=== PATIENT | female | born 1950 | race Caucasian/White ===

== ENCOUNTER 2016-05-07 11:45 | Inpatient (IN) ==
[2016-05-07 13:04] LABS: Basophils # 0.1 K/mcL (0.0-0.2); Basophils % 1.3 %; Eosinophils # 0.5 K/mcL (0.0-0.6); Eosinophils % 4.9 %; Immature Granulocytes % 0.3 % (0-4); Immature Platelets 1.2 % (1.1-6.1); Mean Corpuscular HGB Conc 32.5 g/dL (31.6-35.5); Mean Corpuscular Volume 89.3 fL (83.0-100.0); Mean Platelet Volume 8.2 fL (9.4-12.4); Monocytes # 0.7 K/mcL (0.0-1.3); Monocytes % 6.8 %; Neutrophils # 6.3 K/mcL (1.6-8.9); Platelet Count 225 K/mcL (140-400); Red Blood Count 4.48 M/mcL (3.82-4.97); Red Cell Distribution Width 13.3 % (11.5-14.5); Segmented Neutrophils % 65.7 %
[2016-05-07 13:16] LABS: Calcium 8.6 mg/dL (8.6-10.8); Magnesium 1.7 mg/dL (1.6-2.6); Phosphorous 4.9 mg/dL (2.3-4.7)
--- NOTE | 2016-05-07 13:18 | Emergency Department Note ---
Disposition Clinical Impression: Acute hyponatremia, Dehydration with hyponatremia, Weakness generalized, Falls frequently Disposition: Admitted As Inpatient Condition: Fair Referrals: Nataly Reyes MD [Primary Care Provider] - Forms: ED Satisfaction Letter Time of Disposition: 14:37 Weakness HPI - General Chief complaint: ED Weakness Stated complaint: fall no loc Time Seen by Provider: 05/07/16 12:00 Source: patient, family Mode of arrival: EMS Limitations: no limitations Nursing Notes Reviewed: Yes Vital Signs Reviewed: Yes - History of Present Illness HPI Narrative: Patient reports having several falls over the past couple of days. This morning she fell and struck her face on the coffee table as she was going down. She denies any loss of consciousness. When asked to describe what happens during one of these episodes she says that her knees just start to get we can give out on her and then all of a sudden she is on the floor. She is morbidly obese and her is unable to get her up by himself so he has to call the squad to get her up. She had 3 falls in the past couple days. She has had other falls within the past month. She had weakness and falling episodes frequently a few years ago but seems to have resolve that issue. Patient cannot tell me what workup was done or what diagnosis was made in the past when she had these episodes and she is unable to tell me what made them go away. Pt Subjective Complaint: generalized weakness/fatigue, other (Falls) Onset (ago): day(s) (Several days.) Duration: intermittent (Patient states that the episodes will just hit her. Her knees get weak and she goes down. She mentioned feeling dizzy but when I asked her to describe the feeling she says she cannot give a description to her because everything just hits her so fast she is on the ground.) Location: generalized Migration: none Pain Scale: 4 Improves with: none Worsens with: none Context: history of similar (She had episodes like this about 3-4 years ago but she does not recall what the diagnosis was and I could not find any indication of syncope in the most recent history and physicals done here at this facility.) Associated symptoms: Denies: chest pain, dark stools, nausea/vomiting - Related Data Home Medications Medication Instructions Recorded Confirmed Albuterol Sulfate [Albuterol 90 mcg IH Q4HR PRN 01/18/15 01/18/15 Inhaler] Budesonide/Formoterol 80/4.5 2 puff IH BID PRN 01/18/15 01/18/15 [Symbicort 80/4.5] ClonazePAM [Klonopin] 0.5 mg PO BID 01/18/15 01/18/15 Diltiazem [Cardizem] 60 mg PO BID 01/18/15 01/18/15 Duloxetine HCl [Cymbalta] 60 mg PO DAILY 01/18/15 01/18/15 Gabapentin [Neurontin] 1,200 mg PO TID 01/18/15 01/18/15 GlipiZIDE [Glucotrol] 20 mg PO BID 01/18/15 01/18/15 Hydrocodone/Acetaminophen [[place] 1 tab PO Q6H PRN 01/18/15 01/18/15 10-325 Tablet] Insulin ASPART [NovoLOG] 0 unit SQ TIDWM 01/18/15 01/18/15 Insulin DETEMIR [Levemir] 60 unit SQ QAM 01/18/15 01/18/15 Insulin Glargine [Lantus] 48 unit SQ HS 01/18/15 01/18/15 Ipratropium [Atrovent Inhaler] 1 puff IH Q6HR 01/18/15 01/18/15 Metformin [Glucophage] 1,000 mg PO BIDWM 01/18/15 01/18/15 Montelukast [Singulair] 10 mg PO HS 01/18/15 01/18/15 Simvastatin [Zocor] 40 mg PO HS 01/18/15 01/18/15 SitaGLIPtin [Januvia] 100 mg PO DAILY 01/18/15 01/18/15 Previous Rx's Medication Instructions Recorded OxyCODONE/APAP 10/325 [Percocet 1 each PO Q6HR PRN #39 tablet 01/18/15 10/325] Allergies Allergy/AdvReac Type Severity Reaction Status Date / Time polyethylene glycol AdvReac Dizziness Verified 05/07/16 14:30 [From Golytely] polyethylene glycol 3350 AdvReac Dizziness Verified 05/07/16 14:30 [From Golytely] potassium chloride AdvReac Dizziness Verified 05/07/16 14:30 [From Golytely] sodium [From Golytely] AdvReac Dizziness Verified 05/07/16 14:30 sodium bicarbonate AdvReac Dizziness Verified 05/07/16 14:30 [From Golytely] sodium chloride AdvReac Dizziness Verified 05/07/16 14:30 [From Golytely] sodium sulfate AdvReac Dizziness Verified 05/07/16 14:30 [From Golytely] Tizanidine AdvReac Dizziness Verified 05/07/16 14:30 All systems ED: reviewed and negative except as stated. Constitutional: Denies: fever, chills ENT ED: Reports: epistaxis (Patient had hit her nose and had a little bit of a nosebleed that was easily controlled.). Denies: ear pain, throat pain, congestion Cardiovascular: Denies: chest pain, palpitations Respiratory: Denies: cough, dyspnea, wheezes Gastrointestinal: Denies: abdominal pain, nausea, vomiting Musculoskeletal: Denies: back pain, neck pain Integumentary: Denies: rash Neurological: Reports: weakness (She complained of episodes of general weakness. ). Denies: headache Past Medical History - Past Medical History Attestation: Yes The following information was validated with the patient. Source: patient, old records reviewed, obtained from family, nursing notes reviewed Medical history: Reports: arthritis, diabetes, hyperlipidemia, hypertension, other Surgical history: Reports: , knee replacement, other Psychiatric history: Reports: anxiety, depression - Social History Smoking Status: Unknown if ever smoked Smokeless Tobacco Status: No Alcohol use: Reports: none Drug use: Reports: none Physical Exam - General Limitations: no limitations General appearance: alert, in no apparent distress - Head Head exam: atraumatic, normocephalic - Eye Eye exam: Present: normal appearance, PERRL, EOMI - ENT ENT exam: normal oropharynx, mucous membranes moist, normal external ear exam, other (Mild tenderness to nose and some dried blood in both nares. No deformity.) - Neck Neck exam: Present: normal inspection, full ROM. Absent: tenderness - Chest Chest inspection: Present: normal inspection, symmetric chest wall rise. Absent : tenderness - Respiratory Respiratory exam: Present: normal lung sounds bilaterally. Absent: respiratory distress, wheezes - Cardiovascular Cardiovascular exam: Present: regular rate, normal rhythm, normal heart sounds - Abdominal Exam Abdominal exam: Present: soft, Non-Tender, normal bowel sounds, other (Obese) - Extremities Exam Extremities exam: Present: normal inspection, full ROM. Absent: pedal edema - Neurological Exam Neurological exam: Present: alert, oriented X3, CN II-XII intact. Absent: motor sensory deficit - Psychiatric Psychiatric exam: Present: normal affect, normal mood - Skin Skin exam: Present: warm, dry. Absent: rash Course Course Narrative: Patient presents with episodes of falling at home due to these abrupt episodes of generalized weakness that caused her legs to get out from underneath her. She has no significant injury as result of this morning's fall. There have been more falls over the past handful of days. Patient does not describe any other illnesses. Physical examination is unremarkable. Vital signs look fine. EKG shows a right bundle branch block which is new from an EKG at the end of 2014. The significance of that is unclear at this point. Patient looks fine at this point. Labs are pending. Disposition will be based on diagnostic results and reevaluation. - Reevaluation(s) Reevaluation #1: Lab workup reveals hyponatremia. This seems to be a hypovolemic hyponatremia as the patient has an elevated BUN and creatinine from baseline and is very thirsty. We will treat her with normal saline at this point. I have spoken with the hospitalist service and they have accepted the patient for admission and treatment. Time: 14:35 - Consultations Consultation #1: Morenita Webb CNP, hospitalist-I discussed the case with the admitting hospitalist. She was accepted the patient for admission, she agrees with normal saline as initial treatment. Time: 14:35 Vital Signs Temperature 98.6 F 05/07/16 11:49 Pulse Rate 84 05/07/16 11:49 Respiratory Rate 18 05/07/16 11:49 Blood Pressure 117/74 05/07/16 11:49 O2 Sat by Pulse Oximetry 95 05/07/16 11:49 Temperature 98.6 F 05/07/16 11:49 Pulse Rate 76 05/07/16 14:03 Respiratory Rate 18 05/07/16 14:03 Blood Pressure 107/47 05/07/16 14:03 O2 Sat by Pulse Oximetry 94 L 05/07/16 14:03 Oxygen Delivery Oxygen Delivery Room Air Weakness - Medical Records Medical records reviewed: Yes I reviewed the patient's medical records. - Lab Data Lab results reviewed: Yes I reviewed the patient's lab results. Result diagrams: 05/07/16 12:58 05/07/16 12:58 Lab Results 05/07/16 05/07/16 05/07/16 Range/Units 12:58 12:58 12:58 WBC 9.6 (4.3-11.1) K/mcL RBC 4.48 (3.82-4.97) M/mcL Hgb 13.0 (11.5-15.4) g/dL Hct 40.0 (35.3-44.9) % MCV 89.3 (83.0-100.0) fL MCH 29.0 (28.0-33.3) pg MCHC 32.5 (31.6-35.5) g/dL RDW 13.3 (11.5-14.5) % Plt Count 225 (140-400) K/mcL MPV 8.2 L (9.4-12.4) fL Immature Gran % 0.3 (0-4) % Seg Neutrophils % 65.7 % Lymphocytes % 21.0 % Monocytes % 6.8 % Eosinophils % 4.9 % Basophils % 1.3 % Neutrophils # 6.3 (1.6-8.9) K/mcL Lymphocytes # 2.0 (0.6-4.6) K/mcL Monocytes # 0.7 (0.0-1.3) K/mcL Eosinophils # 0.5 (0.0-0.6) K/mcL Basophils # 0.1 (0.0-0.2) K/mcL Immature Plt Fraction 1.2 (1.1-6.1) % Sodium 123 L (136-145) mEq/L Potassium 5.0 H (3.5-4.5) mEq/L Chloride 92 L (98-109) mEq/L Carbon Dioxide 27 (19-29) mEq/L BUN 24 H (7-20) mg/dL Creatinine 1.32 H (0.57-1.11) mg/dL Est GFR ( Amer) 49 L (> 60) Est GFR (Non-Af Amer) 41 L (> 60) BUN/Creatinine Ratio 18 (6-26) Glucose 131 H (70-99) mg/dL Calculated Osmolality 262 L (280-300) Calcium 8.6 (8.6-10.8) mg/dL Ionized Calcium 1.06 L (1.15-1.35) mmol/L Phosphorus 4.9 H (2.3-4.7) mg/dL Magnesium 1.7 (1.6-2.6) mg/dL Troponin I 0.02 (0-0.03) ng/mL - Radiology Data Radiology results reviewed: Yes I reviewed the patient's radiology results. - EKG Data EKG attestation: Yes I reviewed and interpreted this EKG. EKG shows normal: sinus rhythm, ST-T waves Rate: normal [place]/QRS: right axis deviation, RBBB Interpretation: other (Patient has a right bundle-branch block, otherwise sinus rhythm with no ischemic changes. However these are new changes when compared to EKG from the end of December 2014.)
[2016-05-07 13:46] LABS: Ionized Calcium 1.06 mmol/L (1.15-1.35)
[2016-05-07] MEDS ORDERED: 0.9 % Sodium Chloride 1,000 ML IVC ONE (15:43)
[2016-05-07] MEDS ORDERED: 0.9 % Sodium Chloride 1,000 ML ONE (15:45)
--- NOTE | 2016-05-07 16:31 | Internal Med History&Physical ---
<Erika Ibarra - Last Filed: 05/07/16 17:54> Date of Encounter: 05/07/16 Time of Encounter: 15:40 Assessment and Plan (1) Hyponatremia Current visit: Yes Status: Chronic - Na on admission is 123. Hypotonic hyponatremia, either euvolemic or hypovolemic, more likely chronic given her reported vomiting and weakness for 7- 8 days. Per partner, her mental status is at baseline. - Most likely secondary to polydipsia in the setting of low solute diet (4-5 L of fruit-favored water every day, low salt diet due to htn). Other possible differentials include medications (e.g. lisinopril, trazodone, cymbalta.), renal loss, extrarenal loss, SIADH. - Will obtain urine Na, urine urea, urine osm, and serum osm for further evaluation. - The goal is to correct Na no faster than 6 over 24 hours. - Given patient had received 1L IV NS bolus in ED, will start IV NS at rate of 70 cc/hr. - Fluid restriction to 1.2 L. - Closely monitor electrolytes. (2) REX (acute kidney injury) Current visit: Yes Status: Acute - SCr 1.32 on admission compared to baseline ~0.8. - Likely related to current electrolyte disturbance. - Continue IV fluid and closely monitor. (3) Weakness generalized Current visit: Yes Status: Acute - Secondary to hyponatremia and likely contributing to her fall. (4) Falls frequently Current visit: Yes Status: Acute - Patient reports three falls in past couple of days including two this morning. - Feel most likely secondary to generalized weakness from hyponatremia. - Doubt cardiac cause given patient's presentation about those falls. - Given patient reports hitting her face & nose, will obtain head CT for further evaluation. (5) Hyperkalemia Current visit: Yes Status: Acute - K 5.0 on admission. - Likely related to electrolyte disturbance from hyponatremia. - Continue IV fluid. - Continue to monitor. (6) Schizoaffective disorder Current visit: Yes Status: Chronic - Per patient's partner at bedside, patient's tangential thought process is at her baseline. - Okay to continue amitriptyline but will discuss with pharmacy about substitute for Cymbalta given its potential contribution to hyponatremia. Qualifiers: Schizoaffective disorder type: unspecified Qualified Code(s): F25.9 - Schizoaffective disorder, unspecified (7) Hypertension Current visit: Yes Status: Chronic - Will hold her lisinopril given its potential contribution to hyponatremia. - Bp is adequate. Continue to monitor BP. Qualifiers: Hypertension type: essential hypertension Qualified Code(s): I10 - Essential (primary) hypertension (8) Diabetes mellitus type 2 in obese Current visit: Yes Status: Chronic - On insulin and PO diabetes medications at home. - Will start patient on insulin sliding scale during her hospital stay. Internal Medicine - H&P: HPI Chief complaint: Fall and weakness Admitted From: Home Plans for Post Hospital Care: Home History of present illness: Ms. Paiz is a 66 year old female with PMH of diabetic neuropathy, HTN, hyperlipidemia, psychiatric disorders and history of [place] in 2009. Patient presented after 2 falls this morning landing on her nose and face and patient got too weak to be able to get up herself. Patient is a poor historian and seems to have tangential thought process, which is her baseline per patient's partner at bedside. Patient cannot recall what happened but she denies lightheadedness, loss of balance, loss of consciousness, chest pain, dyspnea or palpation. She thinks those falls are more likely from the generalized weakness. She reports having work-up for similar problem in 1985 without significant finding. Patient denies vision change, hearing change, numbness/ tingling, focal weakness, abdominal pain, diarrhea, dysuria, difficulty urinating, hematuria. Patient reports having some vomiting for past 7-8 days. Patient has tried to reduce salt intake in her diet to control her HTN while drinking 4-5 L of fruit-favored water every day. Patient denies being diagnosed with hyponatremia in the past. Past Med Surg Social Fam HX - Past Medical History Medical history: arthritis, diabetes, hyperlipidemia, hypertension, other Psychiatric history: anxiety, depression - Past Surgical History Surgical History: , knee replacement, other - Social History Smoking Status: Unknown if ever smoked Smokeless Tobacco Status: No Alcohol use: none Drug use: none Internal Medicine - H&P: Meds Diltiazem [Cardizem] 60 mg PO BID 01/18/15 [History] Duloxetine HCl [Cymbalta] 60 mg PO DAILY 01/18/15 [History] Gabapentin [Neurontin] 1,200 mg PO TID 01/18/15 [History] Hydrocodone/Acetaminophen [[place] 10-325 Tablet] 1 tab PO Q6H PRN 01/18/15 [ History] Insulin ASPART [NovoLOG] 0 unit SQ TIDWM 01/18/15 [History] Metformin [Glucophage] 1,000 mg PO BIDWM 01/18/15 [History] Montelukast [Singulair] 10 mg PO HS 01/18/15 [History] Amitriptyline [Elavil] 25 mg PO HS 05/07/16 [History] Empagliflozin [Jardiance] 25 mg PO DAILY 05/07/16 [History] Insulin Degludec [Tresiba Flextouch U-100] 80 unit SQ DAILY 05/07/16 [History] Liraglutide [Victoza 2-Amarjit] 1.8 ml SQ DAILY 05/07/16 [History] Lisinopril [Zestril] 10 mg PO DAILY 05/07/16 [History] TraZODone 100 mg PO HS 05/07/16 [History] Allergies polyethylene glycol [From Golytely] Adverse Reaction (Verified 05/07/16 14:30) Dizziness polyethylene glycol 3350 [From Golytely] Adverse Reaction (Verified 05/07/16 14: 30) Dizziness potassium chloride [From Golytely] Adverse Reaction (Verified 05/07/16 14:30) Dizziness sodium [From Golytely] Adverse Reaction (Verified 05/07/16 14:30) Dizziness sodium bicarbonate [From Golytely] Adverse Reaction (Verified 05/07/16 14:30) Dizziness sodium chloride [From Golytely] Adverse Reaction (Verified 05/07/16 14:30) Dizziness sodium sulfate [From Golytely] Adverse Reaction (Verified 05/07/16 14:30) Dizziness Tizanidine Adverse Reaction (Verified 05/07/16 14:30) Dizziness All Systems PM: A 10-system review of systems was performed and is negative for pertinent findings except as documented above in the HPI. - Constitutional Constitutional: chills, fatigue, no fever(s), no weight gain, no weight loss - EENT Eyes: no change in vision Ears: no decreased hearing Nose, mouth and throat: nose pain (from landing on her face), no dysphagia, no odynophagia - Cardiovascular Cardiovascular ROS IM: no chest pain, no lightheadedness, no palpitations, no syncope - Respiratory Respiratory: cough, no dyspnea, no hemoptysis - Gastrointestinal Gastrointestinal: vomiting (past 7-8 days but not currently.), no abdominal pain , no diarrhea, no nausea - Genitourinary Genitourinary: no difficulty urinating, no dysuria, no hematuria - Musculoskeletal Musculoskeletal ROS IM: no arthralgias, no myalgias - Integumentary Integumentary IM: no pruritus, no rash - Neurological Neurological ROS: frequent falls, no focal weakness, no headache(s), no numbness , no tingling - Hematologic/Lymphatic Hematologic/Lymphatic: no easy bleeding, no easy bruising - Constitutional Vitals: Temp Pulse Resp BP Pulse Ox 98.6 F 76 18 103/59 94 L 05/07/16 11:49 05/07/16 14:03 05/07/16 15:47 05/07/16 15:47 05/07/16 14:03 General appearance: Present: A&O X 3 (But patient appears to be confused while asking other questions.), no acute distress, obese. Absent: answers questions appropriately - Head Head exam: Present: atraumatic, normocephalic - Eye Eye exam: Present: PERRL, conjuntiva pink, sclera anicteric - Neck Neck exam general surgery: Present: supple, trachea midline. Absent: lymphadenopathy - Respiratory Respiratory exam: Present: decreased breath sounds. Absent: accessory muscle use, rales, rhonchi, wheezes - Cardiovascular Cardiovascular exam: Present: RRR, +S1, +S2. Absent: diastolic murmur, gallop, rubs, systolic murmur - GI/Abdominal GI/Abdominal exam: Present: distended (morbidly obese), normal bowel sounds, soft, no peritoneal signs. Absent: tenderness - Extremities Exam Extremities exam: Present: pedal edema (Mild), warm, radial pulses palpable and symetrical. Absent: calf tenderness, cyanotic - Neurological Exam Neurological exam: Present: CN II-XII intact, oriented X3, no focal deficits. Absent: pronater drift, facial droop, speech deficit - Skin Skin exam: Present: dry, intact Internal Med - H&P Results - Labs CBC & Chem 7: 05/07/16 12:58 05/07/16 12:58 <YazminTemi E - Last Filed: 05/08/16 06:37> Internal Medicine - H&P: HPI History of present illness: Ms. Paiz is a 66 year old female All Systems PM: A 10-system review of systems was performed and is negative for pertinent findings except as documented above in the HPI. - Constitutional Vitals: Temp Pulse Resp BP Pulse Ox 98.6 F 87 18 153/80 93 L 05/08/16 03:56 05/08/16 03:56 05/08/16 03:56 05/08/16 03:56 05/08/16 03:56 Internal Med - H&P Results - Labs CBC & Chem 7: 05/07/16 12:58 05/08/16 04:39 Labs: BMP 05/07/16 05/08/16 17:36 04:39 Sodium 123 L 124 L Potassium 4.6 H 4.6 H Chloride 90 L 92 L Carbon Dioxide 24 25 BUN 23 H 20 Creatinine 1.10 0.88 Glucose 106 H 101 H Calcium 8.6 8.6 Urine 05/07/16 Range/Units 20:25 Urine Color Yellow (Yellow) Urine Clarity Clear (Clear) Urine pH 5.5 (5.0-8.0) pH Units Ur Specific [place] 1.016 (1.010-1.025) Urine Protein Negative (Neg-Trace) mg/dL Urine Glucose (UA) >=1000 H (Normal) mg/dL - Impressions ITS Impressions Head CT 05/07/16 17:07 IMPRESSION: Limited by motion. No acute traumatic intracranial abnormality D/ / Yoseph Wells MD / Yoseph Wells MD Interpreting Provider: Yoseph Wells MD - Attending Attestation Late entry for a patient I examined, reviewed laboratory, imaging and all diagnostic data on 05/07/16. My medical decision-making was reviewed with Evy Escobedo-[place]erick - Resident Physician. I agree with the documented findings, disposition and treatment plan as described above.
[2016-05-07] MEDS ORDERED: Naloxone 0.4 MG/ML INJ IVP PRN (17:03)
[2016-05-07] MEDS ORDERED: Acetaminophen 325 MG TABLET PO PRN (17:03)
[2016-05-07] MEDS ORDERED: *HR* HYDROcodone/Acet 5/325 mg TABLET PO PRN (17:03)
[2016-05-07] MEDS ORDERED: Ondansetron 4 MG/2 ML VIAL IVP PRN (17:03)
[2016-05-07] MEDS ORDERED: D5% in Water 1,000 ML IVC PRN (17:13)
[2016-05-07] MEDS ORDERED: *HR* Dextrose 50 % in Water (Syg) 50 ML SYRINGE IVP PRN (17:13)
[2016-05-07] MEDS ORDERED: Dextrose Gel 15 GM PO PRN ×2 (17:13)
[2016-05-07] MEDS ORDERED: 0.9 % Sodium Chloride 1,000 ML IVC SCH (17:45)
[2016-05-07 18:34] LABS: BUN/Creatinine Ratio 21 (6-26); Blood Urea Nitrogen 23 mg/dL (7-20); Calcium 8.6 mg/dL (8.6-10.8); Carbon Dioxide 24 mEq/L (19-29); Chloride 90 mEq/L (98-109); Glucose 106 mg/dL (70-99); Osmolality,Calculated 260 (280-300); Potassium 4.6 mEq/L (3.5-4.5); Sodium 123 mEq/L (136-145); eGFR For African Americans > 60 (> 60); eGFR For Non-African Americans 50 (> 60)
[2016-05-07 20:38] LABS: Bilirubin,Urine Negative (Negative); Blood,Urine Negative (Negative); Clarity,Urine Clear (Clear); Color,Urine Yellow (Yellow); Glucose,Urine (UA) >=1000 mg/dL (Normal); Ketones,Urine Negative (Negative); Leukocyte Esterase,Urine Negative (Negative); Nitrite,Urine Negative (Negative); PH,Urine 5.5 pH Units (5.0-8.0); Protein,Urine Negative (Neg-Trace); Specific Gravity,Urine 1.016 (1.010-1.025); Urobilinogen,Urine Normal (Normal)
[2016-05-07 20:49] LABS: Sodium, Urine < 20.0 mEq/L
[2016-05-07 20:51] LABS: Osmolality,Urine 269 mOsm/kg (300-1090)
[2016-05-07] MEDS: Insulin LISPRO 300 UNITS/3 ML VIAL SQ SCH (23:14)
[2016-05-07] MEDS: Gabapentin 300 MG CAPSULE PO SCH (23:14)
[2016-05-08 05:28] LABS: BUN/Creatinine Ratio 23 (6-26); Blood Urea Nitrogen 20 mg/dL (7-20); Calcium 8.6 mg/dL (8.6-10.8); Carbon Dioxide 25 mEq/L (19-29); Chloride 92 mEq/L (98-109); Glucose 101 mg/dL (70-99); Osmolality,Calculated 261 (280-300); Potassium 4.6 mEq/L (3.5-4.5); Sodium 124 mEq/L (136-145); eGFR For African Americans > 60 (> 60); eGFR For Non-African Americans > 60 (> 60)
[2016-05-08] MEDS: Insulin LISPRO 300 UNITS/3 ML VIAL SQ SCH ×4 (07:50→22:12)
[2016-05-08] MEDS: Gabapentin 300 MG CAPSULE PO SCH ×3 (09:33→22:14)
--- NOTE | 2016-05-08 09:48 | Internal Med Progress Note ---
<Erika Ibarra - Last Filed: 05/08/16 11:27> Date of Encounter: 05/08/16 Time of Encounter: 09:00 - Assessment and plan (1) Hyponatremia Status: Chronic Assessment and plan: - Na on admission is 123. Hypotonic hyponatremia, either euvolemic or hypovolemic, more likely chronic given her reported vomiting and weakness for 7- 8 days. Per partner, her mental status is at baseline. - Most likely secondary to polydipsia in the setting of low solute diet ( Reported 4-5 L of fruit-favored water intake daily with intentional low salt diet for HTN). Other possible differentials include medications (e.g. lisinopril , trazodone, cymbalta, renal loss, extrarenal loss, SIADH, hypothyroidism, glucocorticoid deficiency. - Urine Na < 20, urine osm 269 and serum osm 269. - Will check TSH and random cortisol. - The goal is to correct Na no faster than 6 over 24 hours. - Na remains low at 124 today. - Will discontinue IV NS and start NaCl 1 g PO TID. - Fluid restriction to 1.0 L. - Closely monitor electrolytes and renal function. (2) REX (acute kidney injury) Status: Acute Assessment and plan: - SCr 1.32 on admission compared to baseline ~0.8. - Likely related to electrolyte disturbance. - Improve with SCr 0.88 today. - Continue closely monitor. (3) Weakness generalized Status: Acute Assessment and plan: - Secondary to hyponatremia and likely contributing to her fall. (4) Falls frequently Status: Acute Assessment and plan: - Patient reports three falls in past couple of days including two this morning. - Feel most likely secondary to generalized weakness from hyponatremia. - Doubt cardiac cause given patient's presentation about those falls. - Patient reports hitting her face & nose. CT head found no acute traumatic intracranial abnormality. (5) Hyperkalemia Status: Acute Assessment and plan: - K 5.0 on admission. - Likely related to electrolyte disturbance from hyponatremia. - Improves with K 4.6 today. - Continue to monitor. (6) Schizoaffective disorder Status: Chronic Assessment and plan: - Per patient's partner at bedside, patient's tangential thought process is at her baseline. - Okay to continue amitriptyline. - Case was discussed with pharmacy. Cymbalta withdrawal is higher risk than hyponatremia in this case. Will resume Cymbalta. Qualifiers: Schizoaffective disorder type: unspecified Qualified Code(s): F25.9 - Schizoaffective disorder, unspecified (7) Hypertension Status: Chronic Assessment and plan: - Will hold her lisinopril given its potential contribution to hyponatremia. - Bp normal. Continue to monitor BP. Qualifiers: Hypertension type: essential hypertension Qualified Code(s): I10 - Essential (primary) hypertension (8) Diabetes mellitus type 2 in obese Status: Chronic Assessment and plan: - Continue insulin sliding scale during her hospital stay. - Subjective Interval history: No significant event overnight. Patient was seen and examined this morning. Patient reports feeling better. She denies fever, chills, nausea, vomiting, diarrhea, dysuria, difficulty urinating, hematuria, dyspnea, chest pain, abdominal pain, headache. Patient states she is able to ambulate in the room without dizziness or loss of balance. - Constitutional Vitals: Temp Pulse Resp BP Pulse Ox 97.6 F 88 16 121/69 93 L 05/08/16 06:52 05/08/16 06:52 05/08/16 06:52 05/08/16 06:52 05/08/16 06:52 General appearance: Present: A&O X 3 (Seems to less confused compared to yesterday.), no acute distress, obese - Head Head exam: Present: atraumatic, normocephalic - Eye Eye exam: Present: PERRL, conjuntiva pink, sclera anicteric Pupils: Present: PERRL - Neck Neck exam general surgery: Present: supple, trachea midline. Absent: lymphadenopathy - Respiratory Respiratory exam: Present: CTAB. Absent: accessory muscle use, rales, rhonchi, wheezes - Cardiovascular Cardiovascular exam: Present: RRR, +S1, +S2. Absent: diastolic murmur, gallop, rubs, systolic murmur - GI/Abdominal GI/Abdominal exam: Present: normal bowel sounds, soft, no peritoneal signs. Absent: distended, tenderness - Extremities Exam Extremities exam: Present: pedal edema (Mild), warm, radial pulses palpable and symetrical. Absent: calf tenderness, cyanotic - Neurological Exam Neurological exam: Present: CN II-XII intact, oriented X3, no focal deficits. Absent: pronater drift, facial droop, speech deficit - Skin Skin exam: Present: dry, intact Internal Medicine: Result - Labs CBC & Chem 7: 05/07/16 12:58 05/08/16 04:39 Labs: BMP 05/07/16 05/08/16 17:36 04:39 Sodium 123 L 124 L Potassium 4.6 H 4.6 H Chloride 90 L 92 L Carbon Dioxide 24 25 BUN 23 H 20 Creatinine 1.10 0.88 Glucose 106 H 101 H Calcium 8.6 8.6 Urine 05/07/16 Range/Units 20:25 Urine Color Yellow (Yellow) Urine Clarity Clear (Clear) Urine pH 5.5 (5.0-8.0) pH Units Ur Specific [place] 1.016 (1.010-1.025) Urine Protein Negative (Neg-Trace) mg/dL Urine Glucose (UA) >=1000 H (Normal) mg/dL - Impressions Impressions Head CT 05/07/16 17:07 IMPRESSION: Limited by motion. No acute traumatic intracranial abnormality D/ / Yoseph Wells MD / Yoseph Wells MD Interpreting Provider: Yoseph Wells MD Consult Discharge Plan - Plan Instructions: Diabetes Mellitus Type 2 in Adults (DC), Chronic Hypertension (DC ) Additional Instructions: Free water restriction at 2L/day Referrals: Sangita Squires, CHARGING OPERATOR [Advanced Practice Nurse] - 05/18/16 9:30 am <Temi Arce - Last Filed: 05/09/16 19:31> Date of Encounter: 05/09/16 - Constitutional Vitals: Temp Pulse Resp BP Pulse Ox 98.0 F 94 16 164/82 96 05/09/16 08:29 05/09/16 08:29 05/09/16 08:29 05/09/16 08:29 05/09/16 08:29 Internal Medicine: Result - Labs CBC & Chem 7: 05/09/16 04:30 05/09/16 04:30 Labs: Short CBC 05/09/16 Range/Units 04:30 WBC 5.7 (4.3-11.1) K/mcL Hgb 12.4 (11.5-15.4) g/dL Hct 36.5 (35.3-44.9) % Plt Count 163 (140-400) K/mcL Neutrophils # 2.8 (1.6-8.9) K/mcL BMP 05/09/16 04:30 Sodium 136 D Potassium 4.1 Chloride 103 Carbon Dioxide 28 BUN 14 Creatinine 0.69 Glucose 88 Calcium 8.8 - Attending Attestation Late entry for a patient I examined, reviewed laboratory, imaging and all diagnostic data on 05/08/16. My medical decision-making was reviewed with Evy EscobedoFrederick - Resident Physician. I agree with the documented findings, disposition and treatment plan as described above.
[2016-05-08 10:53] LABS: Thyroid Stimulating Hormone 0.539 mcIU/mL (0.350-4.840)
[2016-05-08 15:23] LABS: BUN/Creatinine Ratio 21 (6-26); Blood Urea Nitrogen 18 mg/dL (7-20); Calcium 8.7 mg/dL (8.6-10.8); Carbon Dioxide 26 mEq/L (19-29); Chloride 99 mEq/L (98-109); Glucose 125 mg/dL (70-99); Osmolality,Calculated 271 (280-300); Potassium 4.8 mEq/L (3.5-4.5); Sodium 129 mEq/L (136-145); eGFR For African Americans > 60 (> 60); eGFR For Non-African Americans > 60 (> 60)
[2016-05-08] MEDS: *HR* Heparin 5,000 UNIT/ML VIAL SQ SCH (17:55)
[2016-05-09 04:54] LABS: Basophils # 0.1 K/mcL (0.0-0.2); Basophils % 1.6 %; Eosinophils # 0.3 K/mcL (0.0-0.6); Eosinophils % 5.9 %; Hematocrit 36.5 % (35.3-44.9); Hemoglobin 12.4 g/dL (11.5-15.4); Immature Granulocytes % 0.2 % (0-4); Lymphocytes % 34.3 %; Mean Corpuscular Volume 88.2 fL (83.0-100.0); Mean Platelet Volume 8.6 fL (9.4-12.4); Monocytes # 0.5 K/mcL (0.0-1.3); Monocytes % 8.5 %; Neutrophils # 2.8 K/mcL (1.6-8.9); Platelet Count 163 K/mcL (140-400); Red Blood Count 4.14 M/mcL (3.82-4.97); Segmented Neutrophils % 49.5 %
[2016-05-09 05:11] LABS: BUN/Creatinine Ratio 20 (6-26); Blood Urea Nitrogen 14 mg/dL (7-20); Calcium 8.8 mg/dL (8.6-10.8); Carbon Dioxide 28 mEq/L (19-29); Chloride 103 mEq/L (98-109); Glucose 88 mg/dL (70-99); Osmolality,Calculated 282 (280-300); Potassium 4.1 mEq/L (3.5-4.5); Uric Acid 5.3 mg/dL (2.6-6.0); eGFR For African Americans > 60 (> 60); eGFR For Non-African Americans > 60 (> 60)
[2016-05-09 05:22] LABS: Sodium 136 mEq/L (136-145)
[2016-05-09] MEDS: *HR* Heparin 5,000 UNIT/ML VIAL SQ SCH (05:29)
[2016-05-09 08:35] VITALS: BP 164/82
[2016-05-09] MEDS: Insulin LISPRO 300 UNITS/3 ML VIAL SQ SCH (08:37)
[2016-05-09] MEDS: Gabapentin 300 MG CAPSULE PO SCH (08:38)
--- NOTE | 2016-05-09 09:08 | Electrocardiograph Report ---
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
--- NOTE | 2016-05-09 11:46 | Discharge Summary ---
Date of Encounter: 05/09/16 Time of Encounter: 11:43 - Discharge Diagnosis (1) Acute hyponatremia Priority: Primary Status: Acute (2) REX (acute kidney injury) Priority: Secondary Status: Acute (3) Dehydration with hyponatremia Priority: Secondary Status: Acute (4) Falls frequently Priority: Secondary Status: Acute (5) Hyponatremia Priority: Secondary Status: Chronic (6) Hyperkalemia Priority: Secondary Status: Acute (7) Diabetes mellitus type 2 in obese Priority: Secondary Status: Chronic (8) Hypertension Priority: Secondary Status: Chronic Qualifiers: Hypertension type: essential hypertension Qualified Code(s): I10 - Essential (primary) hypertension (9) Schizoaffective disorder Priority: Secondary Status: Chronic Qualifiers: Schizoaffective disorder type: unspecified Qualified Code(s): F25.9 - Schizoaffective disorder, unspecified - Discharge Medications Home Medications: Diltiazem [Cardizem] 60 mg PO BID 01/18/15 [History] Duloxetine HCl [Cymbalta] 60 mg PO DAILY 01/18/15 [History] Gabapentin [Neurontin] 1,200 mg PO TID 01/18/15 [History] Hydrocodone/Acetaminophen [[place] 10-325 Tablet] 1 tab PO Q6H PRN 01/18/15 [ History] Insulin ASPART [NovoLOG] 0 unit SQ TIDWM 01/18/15 [History] Metformin [Glucophage] 1,000 mg PO BIDWM 01/18/15 [History] Montelukast [Singulair] 10 mg PO HS 01/18/15 [History] Amitriptyline [Elavil] 25 mg PO HS 05/07/16 [History] Empagliflozin [Jardiance] 25 mg PO DAILY 05/07/16 [History] Insulin Degludec [Tresiba Flextouch U-100] 80 unit SQ DAILY 05/07/16 [History] Liraglutide [Victoza 2-Amarjit] 1.8 ml SQ DAILY 05/07/16 [History] Lisinopril [Zestril] 10 mg PO DAILY 05/07/16 [History] TraZODone 100 mg PO HS 05/07/16 [History] Allergies/Adverse Reactions: Allergies polyethylene glycol [From [employer]] Adverse Reaction (Verified 05/07/16 14:30) Dizziness polyethylene glycol 3350 [From Golytely] Adverse Reaction (Verified 05/07/16 14: 30) Dizziness potassium chloride [From [employer]] Adverse Reaction (Verified 05/07/16 14:30) Dizziness sodium [From [employer]] Adverse Reaction (Verified 05/07/16 14:30) Dizziness sodium bicarbonate [From [employer]] Adverse Reaction (Verified 05/07/16 14:30) Dizziness sodium chloride [From [employer]] Adverse Reaction (Verified 05/07/16 14:30) Dizziness sodium sulfate [From [employer]] Adverse Reaction (Verified 05/07/16 14:30) Dizziness Tizanidine Adverse Reaction (Verified 05/07/16 14:30) Dizziness Date of admission: 05/08/16 11:18 Primary care physician: Nataly Reyes, Consults: 05/09/16 08:49 Consult to Occupational Therapy [CONS] Routine Comment: Evaluate, develop and implement POC Consult to Physical Therapy [CONS] Routine Comment: Evaluate, develop and implement POC Discharging clinician: Destiny Ponce Anticipated date of discharge: 05/09/16 - Patient Status Disposition: Home, Self-Care Condition: Good Functional capacity at discharge: independent ambulation Overall status at discharge: patient is back to baseline - Discharge Instructions Instructions: Diabetes Mellitus Type 2 in Adults (DC), Chronic Hypertension (DC ) Follow Up With: Sangita Squires BUSINESS EDITOR [Advanced Practice Nurse] - 05/18/16 9:30 am Additional Instructions: Free water restriction at 2L/day - Diet and Activity Activity: increase activity as tolerated, resume usual activities as tolerated Diet: diabetic diet, low salt diet Hospital course: Ms. Paiz is a 66 year old female with a history of diabetes mellitus type 2, neuropathy, hypertension, schizoaffective disorder who was admitted here for hyponatremia, acute kidney injury, generalized weakness and frequent falls. The likely cause for her hyponatremia was believed to be multifactorial including related to her use of Cymbalta, lisinopril, trazodone and jardiance along with psychogenic polydipsia. Her symptoms improved with oral and intravenous sodium chloride replacement along with free water restriction. She is feeling much better now and is able to ambulate without any difficulty or dizziness. Clinically she is stable for discharge. Her sodium levels have normalized. She will continue with the free water restriction at home. For now , we will continue her home medications as she has been taking them for a long time. She can discuss this further with her primary care doctor and also have her sodium levels followed to better adjust her medications over long-term period. - Time Spent with Patient Total time spent providing and/or coordinating discharge services: Less than 30 minutes (28 min) - Constitutional Vitals: Temp Pulse Resp BP Pulse Ox 98.0 F 94 16 164/82 96 05/09/16 08:29 05/09/16 08:29 05/09/16 08:29 05/09/16 08:05/09/16 08:29 General appearance: Present: cooperative, A&O X 3, no acute distress, obese, answers questions appropriately - Respiratory Respiratory exam: Present: CTAB. Absent: accessory muscle use, rales, rhonchi, wheezes - Cardiovascular Cardiovascular exam: Present: RRR, +S1, +S2. Absent: diastolic murmur, gallop, rubs, systolic murmur - GI/Abdominal GI/Abdominal exam: Present: normal bowel sounds, soft, no peritoneal signs. Absent: distended, tenderness - Neurological Exam Neurological exam: Present: alert, oriented X3, no focal deficits, strengths equal and symetr throughout. Absent: facial droop, speech deficit - Attending Attestation This document has been at least partially created by [employer] recognition technology by Dr. Ponce. Errors in grammar, wording or other phrases may exist. If errors are found after the documentation is signed, they will be addressed individually in the addendum section of this document when appropriate.
== END 2016-05-09 12:13 | disposition home or self-care (01) | DRG 644 ==
LOC: EMEROO 11:45 → 3ANU 11:45 → SUATTDRO 05-08 11:18
PROVIDERS: ADMIT Nurse Practitioner Family; ATTEND Internal Medicine

== ENCOUNTER 2016-06-11 06:01 | Inpatient (IN) ==
[2016-06-11] MEDS ORDERED: Ondansetron ODT 4 MG TAB.RAPDIS SL ONE (06:16)
[2016-06-11] MEDS ORDERED: Ibuprofen 600 MG TABLET PO ONE (06:17)
--- NOTE | 2016-06-11 06:20 | Emergency Department Note ---
Disposition Clinical Impression: Fall Disposition: Still a Patient Condition: Good Referrals: Nataly Reyes MD [Primary Care Provider] - Forms: Work/School Release, ED Satisfaction Letter SOB HPI - General Chief Complaint: ED General Medical Stated Complaint: multiple complaints Time Seen by Provider: 06/11/16 06:06 Source: patient Mode of arrival: ambulatory Limitations: no limitations Nursing Notes Reviewed: Yes Vital Signs Reviewed: Yes - History of Present Illness 66-year-old female presents with chief complaint of left shoulder pain which is causing her some shortness of breath since a fall at home one day ago. She reports that she needs a knee replacement and her knee has been giving out at times and she fell backwards onto her buttocks and left shoulder. He syncope or near syncope. She denies any other chest pain. She denies any hemoptysis, productive cough, exertional symptoms. She admits to one episode of emesis tonight, but denies any abdominal pain, changes in urination or bowel movements. She denies any headache, vision problems, rashes or edema. She is not on any anticoagulants. Pt Subjective Complaint: shortness of breath - Related Data Home Medications Medication Instructions Recorded Confirmed Diltiazem [Cardizem] 60 mg PO BID 01/18/15 05/07/16 Duloxetine HCl [Cymbalta] 60 mg PO DAILY 01/18/15 05/07/16 Gabapentin [Neurontin] 1,200 mg PO TID 01/18/15 05/07/16 Hydrocodone/Acetaminophen [[place] 1 tab PO Q6H PRN 01/18/15 05/07/16 10-325 Tablet] Insulin ASPART [NovoLOG] 0 unit SQ TIDWM 01/18/15 05/07/16 Metformin [Glucophage] 1,000 mg PO BIDWM 01/18/15 05/07/16 Montelukast [Singulair] 10 mg PO HS 01/18/15 05/07/16 Amitriptyline [Elavil] 25 mg PO HS 05/07/16 05/07/16 Empagliflozin [Jardiance] 25 mg PO DAILY 05/07/16 05/07/16 Insulin Degludec [Tresiba 80 unit SQ DAILY 05/07/16 05/07/16 Flextouch U-100] Liraglutide [Victoza 2-Amarjit] 1.8 ml SQ DAILY 05/07/16 05/07/16 Lisinopril [Zestril] 10 mg PO DAILY 05/07/16 05/07/16 TraZODone 100 mg PO HS 05/07/16 05/07/16 Allergies Allergy/AdvReac Type Severity Reaction Status Date / Time polyethylene glycol AdvReac Dizziness Verified 05/07/16 14:30 [From [employer]] polyethylene glycol 3350 AdvReac Dizziness Verified 05/07/16 14:30 [From [employer]] potassium chloride AdvReac Dizziness Verified 05/07/16 14:30 [From [employer]] sodium [From [employer]] AdvReac Dizziness Verified 05/07/16 14:30 sodium bicarbonate AdvReac Dizziness Verified 05/07/16 14:30 [From [employer]] sodium chloride AdvReac Dizziness Verified 05/07/16 14:30 [From [employer]] sodium sulfate AdvReac Dizziness Verified 05/07/16 14:30 [From [employer]] Tizanidine AdvReac Dizziness Verified 05/07/16 14:30 All systems ED: reviewed and negative except as stated. Past Medical History - Past Medical History Attestation: Yes The following information was validated with the patient. Source: patient Medical history: Reports: arthritis, diabetes, hyperlipidemia, hypertension, other Surgical history: Reports: , knee replacement, other Psychiatric history: Reports: anxiety, depression - Social History Smoking Status: Never smoker Smokeless Tobacco Status: No Alcohol use: Reports: none Drug use: Reports: none Physical Exam - Head Head exam: atraumatic, normocephalic, normal inspection - Eye Eye exam: Present: normal appearance, PERRL, EOMI - ENT ENT exam: normal exam, normal oropharynx, mucous membranes moist - Neck Neck exam: Present: normal inspection, full ROM, trachea midline - Chest Chest inspection: Present: normal inspection, symmetric chest wall rise. Nontender. - Respiratory Respiratory exam: Clear to auscultation bilaterally without wheezes rales or rhonchi Cardiovascular Cardiovascular exam: Present: regular rate, normal rhythm, normal heart sounds - Abdominal Exam Abdominal exam: Present: soft, Non-Tender. Absent: tenderness, distention, guarding, rebound, rigidity - Extremities Exam Left shoulder tenderness to palpation diffusely as well as pain with range of motion of the shoulder. Normal distal pulses throughout. No pedal edema. - Back Exam Back exam: Present: normal inspection, full ROM. Absent: tenderness, CVA tenderness (R), CVA tenderness (L) - Neurological Exam Neurological exam: Present: alert, oriented X3, CN II-XII intact - Psychiatric Psychiatric exam: Present: normal affect, normal mood - Skin Skin exam: Present: warm, dry, intact, normal color - General Limitations: no limitations General appearance: alert, in no apparent distress Course - Reevaluation(s) Reevaluation #1: Review of patient's visit from May 07 shows a history that is exactly the same as today's. She was admitted to the hospital at that time with a negative workup and discharged home uneventfully. Time: 06:26 Reevaluation #2: Pt signed out to Dr. Jackson for further management. He will follow labs. Pt stable at this time. Time: 06:48 Vital Signs Temperature 98.3 F 06/11/16 06:06 Pulse Rate 89 06/11/16 06:06 Respiratory Rate 18 06/11/16 06:06 Blood Pressure 176/84 06/11/16 06:06 O2 Sat by Pulse Oximetry 96 06/11/16 06:06 Temperature 98.3 F 06/11/16 06:06 Pulse Rate 89 06/11/16 06:06 Respiratory Rate 18 06/11/16 06:06 Blood Pressure 176/84 06/11/16 06:06 O2 Sat by Pulse Oximetry 96 06/11/16 06:06 Oxygen Delivery Oxygen Delivery Room Air Shortness of Breath/Dyspnea - Lab Data Result diagrams: 06/11/16 06:32 Lab Results 06/11/16 Range/Units 06:32 WBC 8.3 (4.3-11.1) K/mcL RBC 4.00 (3.82-4.97) M/mcL Hgb 11.9 (11.5-15.4) g/dL Hct 33.9 L (35.3-44.9) % MCV 84.8 (83.0-100.0) fL MCH 29.8 (28.0-33.3) pg MCHC 35.1 (31.6-35.5) g/dL RDW 12.3 (11.5-14.5) % Plt Count 140 (140-400) K/mcL MPV 7.6 L (9.4-12.4) fL Immature Gran % 0.4 (0-4) % Seg Neutrophils % 66.8 % Lymphocytes % 20.8 % Monocytes % 7.5 % Eosinophils % 3.8 % Basophils % 0.7 % Neutrophils # 5.5 (1.6-8.9) K/mcL Lymphocytes # 1.7 (0.6-4.6) K/mcL Monocytes # 0.6 (0.0-1.3) K/mcL Eosinophils # 0.3 (0.0-0.6) K/mcL Basophils # 0.1 (0.0-0.2) K/mcL - EKG Data EKG attestation: Yes I reviewed and interpreted this EKG. EKG results narrative: EKG shows normal sinus rhythm at 85 with right bundle branch block with QRS of 162. No ST elevation or depression. Nonspecific T-wave changes associated with her bundle branch block. No change when compared with 05/07/2016. Attestation Statement - Attestation Attestation: I, Jeffrey Gonsales MD, personally evaluated this patient and discussed their management with the resident physician. I reviewed the resident's note and agree with the documented findings, medical decision making, and plan of care. 66-year-old female presents to the emergency department by EMS with a complaint of nausea and vomiting which started a few hours prior to arrival. She also complains of some pain in her left shoulder and scapular area after she fell yesterday. Patient states that she has been having frequent falls for the past several months and has been admitted here twice for falling. The dizziness or syncope or chest pain. She states that she just loses her balance goes down. She thinks that it is due to her weak right knee which she is scheduled to have replaced in 2 weeks. On examination patient is a well-developed morbidly obese female in no acute distress. She is alert and oriented 3. There is no cyanosis or diaphoresis. Some tenderness over the left scapular region no acute redness or bruising or swelling or deformity noted. There is some old bruising to the left lateral chest wall. There is also old bruising to the right chest wall and right abdominal wall. She states this bruising is from a fall last week. X-ray of the left shoulder was ordered and lab work including amylase and lipase is pending. Shift change the patient is being signed out to the oncoming dayshift team, Dr. Jackson and Dr. Henry.
[2016-06-11 06:38] LABS: Basophils # 0.1 K/mcL (0.0-0.2); Basophils % 0.7 %; Eosinophils # 0.3 K/mcL (0.0-0.6); Eosinophils % 3.8 %; Hematocrit 33.9 % (35.3-44.9); Hemoglobin 11.9 g/dL (11.5-15.4); Immature Granulocytes % 0.4 % (0-4); Lymphocytes # 1.7 K/mcL (0.6-4.6); Lymphocytes % 20.8 %; Mean Corpuscular HGB Conc 35.1 g/dL (31.6-35.5); Mean Corpuscular Hemoglobin 29.8 pg (28.0-33.3); Mean Corpuscular Volume 84.8 fL (83.0-100.0); Mean Platelet Volume 7.6 fL (9.4-12.4); Monocytes # 0.6 K/mcL (0.0-1.3); Monocytes % 7.5 %; Neutrophils # 5.5 K/mcL (1.6-8.9); Platelet Count 140 K/mcL (140-400); Red Cell Distribution Width 12.3 % (11.5-14.5); Segmented Neutrophils % 66.8 %
[2016-06-11 06:53] LABS: Alanine Aminotransferase 9 Units/L (0-55); Albumin 3.3 g/dL (3.5-5.0); Albumin/Globulin Ratio 0.9 (1.1-2.2); Alkaline Phosphatase 121 Units/L (38-126); Aspartate Amino Transferase 16 Units/L (5-34); BUN/Creatinine Ratio 16 (6-26); Bilirubin,Direct 0.5 mg/dL (0.0-0.5); Bilirubin,Indirect 0.3 mg/dL (0.0-1.2); Bilirubin,Total 0.8 mg/dL (0.2-1.2); Blood Urea Nitrogen 12 mg/dL (7-20); Carbon Dioxide 27 mEq/L (19-29); Chloride 84 mEq/L (98-109); Globulin 3.6 g/dL (2.4-3.5); Glucose 105 mg/dL (70-99); Lipase 13 Units/L (8-78); Osmolality,Calculated 248 (280-300); Potassium 4.8 mEq/L (3.5-4.5); Total Protein 6.9 g/dL (6.0-8.3); eGFR For African Americans > 60 (> 60); eGFR For Non-African Americans > 60 (> 60)
[2016-06-11 06:55] LABS: Sodium 119 mEq/L (136-145)
--- NOTE | 2016-06-11 07:16 | Emergency Department Note ---
Disposition Clinical Impression: Hyponatremia Fall Qualifiers: Encounter type: initial encounter Qualified Code(s): W19.XXXA - Unspecified fall, initial encounter Left shoulder pain Qualifiers: Chronicity: acute Qualified Code(s): M25.512 - Pain in left shoulder Disposition: Admitted As Inpatient Condition: Good Referrals: Nataly Reyes MD [Primary Care Provider] - Forms: ED Satisfaction Letter, Work/School Release General Adult HPI - General Chief complaint: ED General Medical Stated complaint: multiple complaints Time Seen by Provider: 06/11/16 06:06 Source: patient Mode of arrival: ambulatory Limitations: no limitations - History of Present Illness HPI Narrative: Please see primary provider's documentation for complete history and physical. Pain Scale: 9 - Related Data Home Medications Medication Instructions Recorded Confirmed Diltiazem [Cardizem] 60 mg PO BID 01/18/15 06/11/16 Duloxetine HCl [Cymbalta] 60 mg PO DAILY 01/18/15 06/11/16 Gabapentin [Neurontin] 1,200 mg PO TID 01/18/15 06/11/16 Hydrocodone/Acetaminophen [[place] 1 tab PO Q6H PRN 01/18/15 06/11/16 10-325 Tablet] Insulin ASPART [NovoLOG] 0 unit SQ TIDWM PRN 01/18/15 06/11/16 Metformin [Glucophage] 1,000 mg PO BIDWM 01/18/15 06/11/16 Montelukast [Singulair] 10 mg PO HS 01/18/15 06/11/16 Insulin Degludec [Tresiba 72 unit SQ DAILY 05/07/16 06/11/16 Flextouch U-100] Liraglutide [Victoza 2-Amarjit] 1.8 ml SQ DAILY 05/07/16 06/11/16 Lisinopril [Zestril] 10 mg PO DAILY 05/07/16 06/11/16 TraZODone 100 mg PO HS 05/07/16 06/11/16 Amitriptyline HCl 100 mg PO HS 06/11/16 06/11/16 Allergies Allergy/AdvReac Type Severity Reaction Status Date / Time polyethylene glycol AdvReac Dizziness Verified 05/07/16 14:30 [From Golytely] polyethylene glycol 3350 AdvReac Dizziness Verified 05/07/16 14:30 [From Golytely] potassium chloride AdvReac Dizziness Verified 05/07/16 14:30 [From Golytely] sodium [From Golytely] AdvReac Dizziness Verified 05/07/16 14:30 sodium bicarbonate AdvReac Dizziness Verified 05/07/16 14:30 [From Golytely] sodium chloride AdvReac Dizziness Verified 05/07/16 14:30 [From Golytely] sodium sulfate AdvReac Dizziness Verified 05/07/16 14:30 [From Golytely] Tizanidine AdvReac Dizziness Verified 05/07/16 14:30 Past Medical History - Past Medical History Medical history: Reports: arthritis, diabetes, hyperlipidemia, hypertension, other Surgical history: Reports: , knee replacement, other Psychiatric history: Reports: anxiety, depression - Social History Smoking Status: Never smoker Smokeless Tobacco Status: No Alcohol use: Reports: none Drug use: Reports: none Physical Exam - General Limitations: no limitations General appearance: alert, in no apparent distress Course Course Narrative: Patient seen and examined initially upon arrival. Patient no acute distress. Patient is awaiting lab work and final disposition. No needs at this time. - Reevaluation(s) Reevaluation #1: Patient seen and examined. No acute distress. Using her cell phone. Time: 09:23 Vital Signs Temperature 98.3 F 06/11/16 06:06 Pulse Rate 89 06/11/16 06:06 Respiratory Rate 18 06/11/16 06:06 Blood Pressure 176/84 06/11/16 06:06 O2 Sat by Pulse Oximetry 96 06/11/16 06:06 Temperature 98.3 F 06/11/16 06:06 Pulse Rate 91 06/11/16 07:51 Respiratory Rate 18 06/11/16 07:51 Blood Pressure 138/69 06/11/16 07:51 O2 Sat by Pulse Oximetry 96 06/11/16 07:51 Oxygen Delivery Oxygen Delivery Room Air Medical Decision Making - MDM Narrative Medical decision making narrative: 66 yo female persists for evaluation after mechanical fall. Patient has a history of recurrent falls. Patient was signed out by prior providers. Patient was pending lab work. Patient had a chest x-ray and a left shoulder x- ray. Patient is complaining of left shoulder pain. Patient's lab work revealed that she is hyponatremic which is new from prior evaluations. Patient does appear to be euvolemic. Urinary lites are pending. Given the recent history of falls as well as hyponatremia the patient will be admitted for further evaluation and management of her electrolytes. - Lab Data Lab results reviewed: Yes I reviewed the patient's lab results. Result diagrams: 06/11/16 06:32 06/11/16 06:32 Lab Results 06/11/16 06/11/16 06/11/16 Range/Units 06:32 06:32 06:32 WBC 8.3 (4.3-11.1) K/mcL RBC 4.00 (3.82-4.97) M/mcL Hgb 11.9 (11.5-15.4) g/dL Hct 33.9 L (35.3-44.9) % MCV 84.8 (83.0-100.0) fL MCH 29.8 (28.0-33.3) pg MCHC 35.1 (31.6-35.5) g/dL RDW 12.3 (11.5-14.5) % Plt Count 140 (140-400) K/mcL MPV 7.6 L (9.4-12.4) fL Immature Gran % 0.4 (0-4) % Seg Neutrophils % 66.8 % Lymphocytes % 20.8 % Monocytes % 7.5 % Eosinophils % 3.8 % Basophils % 0.7 % Neutrophils # 5.5 (1.6-8.9) K/mcL Lymphocytes # 1.7 (0.6-4.6) K/mcL Monocytes # 0.6 (0.0-1.3) K/mcL Eosinophils # 0.3 (0.0-0.6) K/mcL Basophils # 0.1 (0.0-0.2) K/mcL Sodium 119 L* (136-145) mEq/L Potassium 4.8 H (3.5-4.5) mEq/L Chloride 84 L (98-109) mEq/L Carbon Dioxide 27 (19-29) mEq/L BUN 12 (7-20) mg/dL Creatinine 0.75 (0.57-1.11) mg/dL Est GFR ( Amer) > 60 (> 60) Est GFR (Non-Af Amer) > 60 (> 60) BUN/Creatinine Ratio 16 (6-26) Glucose 105 H (70-99) mg/dL Calculated Osmolality 248 L (280-300) Calcium 9.0 (8.6-10.8) mg/dL Total Bilirubin 0.8 (0.2-1.2) mg/dL Direct Bilirubin 0.5 (0.0-0.5) mg/dL Indirect Bilirubin 0.3 (0.0-1.2) mg/dL AST 16 (5-34) Units/L ALT 9 (0-55) Units/L Alkaline Phosphatase 121 (38-126) Units/L Troponin I 0.00 (0-0.03) ng/mL Serum Total Protein 6.9 (6.0-8.3) g/dL Albumin 3.3 L (3.5-5.0) g/dL Globulin 3.6 H (2.4-3.5) g/dL Albumin/Globulin Ratio 0.9 L (1.1-2.2) Lipase 13 (8-78) Units/L Urine Color (Yellow) Urine Clarity (Clear) Urine pH (5.0-8.0) pH Units Ur Specific [place] (1.010-1.025) Urine Protein (Neg-Trace) mg/dL Urine Glucose (UA) (Normal) mg/dL Urine Ketones (Negative) mg/dL Urine Blood (Negative) Urine Nitrite (Negative) Urine Bilirubin (Negative) Urine Urobilinogen (Normal) mg/dL Ur Leukocyte Esterase (Negative) Ur Culture Indicated? (NO) 06/11/16 Range/Units 07:15 WBC (4.3-11.1) K/mcL RBC (3.82-4.97) M/mcL Hgb (11.5-15.4) g/dL Hct (35.3-44.9) % MCV (83.0-100.0) fL MCH (28.0-33.3) pg MCHC (31.6-35.5) g/dL RDW (11.5-14.5) % Plt Count (140-400) K/mcL MPV (9.4-12.4) fL Immature Gran % (0-4) % Seg Neutrophils % % Lymphocytes % % Monocytes % % Eosinophils % % Basophils % % Neutrophils # (1.6-8.9) K/mcL Lymphocytes # (0.6-4.6) K/mcL Monocytes # (0.0-1.3) K/mcL Eosinophils # (0.0-0.6) K/mcL Basophils # (0.0-0.2) K/mcL Sodium (136-145) mEq/L Potassium (3.5-4.5) mEq/L Chloride (98-109) mEq/L Carbon Dioxide (19-29) mEq/L BUN (7-20) mg/dL Creatinine (0.57-1.11) mg/dL Est GFR ( Amer) (> 60) Est GFR (Non-Af Amer) (> 60) BUN/Creatinine Ratio (6-26) Glucose (70-99) mg/dL Calculated Osmolality (280-300) Calcium (8.6-10.8) mg/dL Total Bilirubin (0.2-1.2) mg/dL Direct Bilirubin (0.0-0.5) mg/dL Indirect Bilirubin (0.0-1.2) mg/dL AST (5-34) Units/L ALT (0-55) Units/L Alkaline Phosphatase (38-126) Units/L Troponin I (0-0.03) ng/mL Serum Total Protein (6.0-8.3) g/dL Albumin (3.5-5.0) g/dL Globulin (2.4-3.5) g/dL Albumin/Globulin Ratio (1.1-2.2) Lipase (8-78) Units/L Urine Color Yellow (Yellow) Urine Clarity Clear (Clear) Urine pH 6.5 (5.0-8.0) pH Units Ur Specific [place] 1.010 (1.010-1.025) Urine Protein Negative (Neg-Trace) mg/dL Urine Glucose (UA) Normal (Normal) mg/dL Urine Ketones Negative (Negative) mg/dL Urine Blood Negative (Negative) Urine Nitrite Negative (Negative) Urine Bilirubin Negative (Negative) Urine Urobilinogen Normal (Normal) mg/dL Ur Leukocyte Esterase Negative (Negative) Ur Culture Indicated? NO (NO) - Radiology Data Radiology results reviewed: Yes I reviewed the patient's radiology results. Chest X-Ray 06/11/16 06:06 IMPRESSION: No acute disease. D/ / All James MD / All James MD Interpreting Provider: All James MD Shoulder X-Ray 06/11/16 06:06 IMPRESSION: Artifact versus nondisplaced fracture of the surgical neck. D/ / All James MD / All James MD Interpreting Provider: All James MD S.B.AStephan - S.B.A.Mary Beth Situation: Demographics, MOA Background: Presenting Complaint Assessment: Vital Signs, Patient/Family Expectation Recommendation: Barrier(s) to disposition, Recommendation based on pending studies, treatments, or consults S.B.A.RJanette Report Given to: Harsha Alejandre Time: 09:35
[2016-06-11 07:36] LABS: Bilirubin,Urine Negative (Negative); Blood,Urine Negative (Negative); Clarity,Urine Clear (Clear); Color,Urine Yellow (Yellow); Glucose,Urine (UA) Normal (Normal); Ketones,Urine Negative (Negative); Leukocyte Esterase,Urine Negative (Negative); Nitrite,Urine Negative (Negative); PH,Urine 6.5 pH Units (5.0-8.0); Protein,Urine Negative (Neg-Trace); Urobilinogen,Urine Normal (Normal)
[2016-06-11] MEDS ORDERED: 0.9 % Sodium Chloride 1,000 ML IVC ONE (08:04)
[2016-06-11] MEDS ORDERED: 0.9 % Sodium Chloride 1,000 ML ONE (08:06)
--- NOTE | 2016-06-11 08:11 | Emergency Department Note ---
START Narrative - START START: I examined this patient and my medical decision-making was reviewed with the GENERAL INTERN/PA/Advanced Practice Nurse/Resident Physician. I agree with the documented findings, disposition and treatment plan as described except to the extent set forth below. ED attending note: Patient seen with emergency medicine resident Dr. Jackson. Please see a copy of his note for details of the H&P, evaluation, management and disposition of this patient. We independently had [id number] contact with the patient Briefly: 66-year-old female signed out from the overnight ED team of Dr. Bentley. Patient came in with multiple symptomatic complaints of weakness and nausea and other signed out the case and we accepted care at 7 AM. Patient had a critical low sodium of 119. It has never been this low before. We will check urine electrolytes. Admission is anticipated. Breakfast is ordered. Patient stable
--- NOTE | 2016-06-11 10:15 | Internal Med History&Physical ---
Date of Encounter: 06/11/16 Time of Encounter: 10:13 Assessment and Plan (1) Acute hyponatremia Current visit: No Status: Acute Patient presents with recurrent falls into hyponatremia. Possibilities for this hyponatremia include SIADH basically related to her psych medications. In reviewing her prior charts urine osmolarity was 269 and a Na level checked around that time was 123 raising suspicion for SIADH. 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 She drinks at least 3 L of water a day. I will check urine sodium and urine osmolarity now. this will be able to differentiate between 2 pathologies. She had received already a liter bolus in the emergency room. I will hold off further fluid resuscitation. Check sodium every 4 hours. Plan to increase sodium no faster than .5 mEq per hour or 10 mEq per day. Fluids will be guided according to sodium level. For now I will hold her psych medications. This is her 2nd similar presentation in the past 2 months. I will ask for nephrology input. She is not on any diuretics. No diarrhea. I would also check TSH free T4 Cortisol level. (2) Diabetes mellitus type 2 in obese Current visit: No Status: Chronic Random blood sugars 105 there is some nausea with this hyponatremia. I will keep on sliding scale insulin every 4 hours for now. (3) Schizoaffective disorder Current visit: No Status: Chronic Old psychotropic medications for now especially Cymbalta which also has the possibility of causing orthostatic hypotension that can at least partly contribute to the falls in addition to the hyponatremia Qualifiers: Qualified Code(s): F25.9 - Schizoaffective disorder, unspecified Internal Medicine - H&P: HPI History of present illness: Ms. Paiz is a 66 year old female with multiple medical problems resents to the emergency room today with main complaint of recurrent falls. 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 Again over the past week she started noticing weakness unsteadiness and recurrent falls. She thinks she falls because she is clumsy. She had two falls the past week. Probable head trauma in these falls. She denies loss of consciousness. No focal upper or lower extremity weakness. No witness seizure. She was found to have a sodium level of 119. Patient denies taking any diuretics. Patient denies any diarrhea. Patient does not drink any alcohol. Workup previous hospitalization was such suggestive of possibility of SIADH related to psych medications. Patient denies any focal weakness. No recent febrile illness cough expectoration fever chills or diarrhea. Past Med Surg Social Fam HX - Past Medical History Medical history: arthritis, diabetes, hyperlipidemia, hypertension, other Psychiatric history: anxiety, depression - Past Surgical History Surgical History: , knee replacement, other - Social History Smoking Status: Never smoker Smokeless Tobacco Status: No Alcohol use: none Drug use: none Internal Medicine - H&P: Meds Diltiazem [Cardizem] 60 mg PO BID 01/18/15 [History] Duloxetine HCl [Cymbalta] 60 mg PO DAILY 01/18/15 [History] Gabapentin [Neurontin] 1,200 mg PO TID 01/18/15 [History] Hydrocodone/Acetaminophen [[place] 10-325 Tablet] 1 tab PO Q6H PRN 01/18/15 [ History] Insulin ASPART [NovoLOG] 0 unit SQ TIDWM PRN 01/18/15 [History] Metformin [Glucophage] 1,000 mg PO BIDWM 01/18/15 [History] Montelukast [Singulair] 10 mg PO HS 01/18/15 [History] Insulin Degludec [Tresiba Flextouch U-100] 72 unit SQ DAILY 05/07/16 [History] Liraglutide [Victoza 2-Amarjit] 1.8 ml SQ DAILY 05/07/16 [History] Lisinopril [Zestril] 10 mg PO DAILY 05/07/16 [History] TraZODone 100 mg PO HS 05/07/16 [History] Amitriptyline HCl 100 mg PO HS 06/11/16 [History] Allergies polyethylene glycol [From Golytely] Adverse Reaction (Verified 05/07/16 14:30) Dizziness polyethylene glycol 3350 [From Golytely] Adverse Reaction (Verified 05/07/16 14: 30) Dizziness potassium chloride [From Golytely] Adverse Reaction (Verified 05/07/16 14:30) Dizziness sodium [From Golytely] Adverse Reaction (Verified 05/07/16 14:30) Dizziness sodium bicarbonate [From Golytely] Adverse Reaction (Verified 05/07/16 14:30) Dizziness sodium chloride [From Golytely] Adverse Reaction (Verified 05/07/16 14:30) Dizziness sodium sulfate [From Golytely] Adverse Reaction (Verified 05/07/16 14:30) Dizziness Tizanidine Adverse Reaction (Verified 05/07/16 14:30) Dizziness All Systems PM: A 10-system review of systems was performed and is negative for pertinent findings except as documented above in the HPI. Review of systems: 10 point review of systems is negative except for HPI. - Constitutional Vitals: Temp Pulse Resp BP Pulse Ox 98.3 F 91 16 153/72 96 06/11/16 06:06 06/11/16 07:51 06/11/16 10:09 06/11/16 10:09 06/11/16 07:51 Exam: Gen.: patient is alert oriented times 3 not in distress. Cardiac: normal S1 S2 no additional sounds are murmurs. Chest: clear auscultation. Abdomen: soft nontender nondistended. Lower extremity no swelling mucous membranes moist Internal Med - H&P Results - Labs CBC & Chem 7: 06/11/16 06:32 06/11/16 06:32
[2016-06-11] MEDS ORDERED: Insulin LISPRO 300 UNITS/3 ML VIAL SQ SCH ×2 (11:30→21:00)
[2016-06-11] MEDS: Insulin LISPRO 300 UNITS/3 ML VIAL SQ SCH ×4 (12:38→22:08)
[2016-06-11] MEDS ORDERED: 0.9 % Sodium Chloride 1,000 ML IVC SCH ×2 (12:45→14:52)
[2016-06-11] MEDS: *HR* HYDROcodone/Acet 10/325 mg TABLET PO PRN ×2 (13:06→20:04)
[2016-06-11 14:06] LABS: Sodium, Urine < 20.0 mEq/L
[2016-06-11 14:27] LABS: Potassium 4.9 mEq/L (3.5-4.5)
[2016-06-11] MEDS ORDERED: Calcium Gluconate 1,000 MG in D5% in Water 100 ML IVPB ONE (14:58)
[2016-06-11 14:59] LABS: Osmolality,Urine 177 mOsm/kg (300-1090)
--- NOTE | 2016-06-11 14:59 | Electrocardiograph Report ---
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
[2016-06-11] MEDS ORDERED: Albuterol 2.5 MG/3 ML NEBULIZER IH ONE (15:00)
[2016-06-11] MEDS: Gabapentin 300 MG CAPSULE PO SCH ×2 (15:31→20:02)
[2016-06-11] MEDS ORDERED: Lactulose Oral Soln 20 GM/30 ML UDC PO SCH (16:11)
[2016-06-11] MEDS: Lactulose Oral Soln 20 GM/30 ML UDC PO SCH (16:43)
[2016-06-11] MEDS: Diltiazem SR (12hr) 60 MG CAPSULE PO SCH (20:02)
[2016-06-12] MEDS: Insulin LISPRO 300 UNITS/3 ML VIAL SQ SCH ×5 (02:46→22:30)
[2016-06-12] MEDS: *HR* HYDROcodone/Acet 10/325 mg TABLET PO PRN ×3 (02:49→17:59)
[2016-06-12 04:25] LABS: Basophils # 0.1 K/mcL (0.0-0.2); Basophils % 1.1 %; Eosinophils # 0.3 K/mcL (0.0-0.6); Eosinophils % 3.1 %; Hematocrit 32.9 % (35.3-44.9); Hemoglobin 11.2 g/dL (11.5-15.4); Immature Granulocytes % 0.4 % (0-4); Lymphocytes % 23.6 %; Mean Corpuscular Hemoglobin 29.4 pg (28.0-33.3); Mean Corpuscular Volume 86.4 fL (83.0-100.0); Monocytes # 0.6 K/mcL (0.0-1.3); Monocytes % 7.2 %; Neutrophils # 5.4 K/mcL (1.6-8.9); Platelet Count 142 K/mcL (140-400); Red Blood Count 3.81 M/mcL (3.82-4.97); Red Cell Distribution Width 12.4 % (11.5-14.5); Segmented Neutrophils % 64.6 %
[2016-06-12 04:48] LABS: BUN/Creatinine Ratio 13 (6-26); Blood Urea Nitrogen 9 mg/dL (7-20); Calcium 8.2 mg/dL (8.6-10.8); Carbon Dioxide 27 mEq/L (19-29); Chloride 90 mEq/L (98-109); Glucose 131 mg/dL (70-99); Magnesium 1.8 mg/dL (1.6-2.6); Osmolality,Calculated 258 (280-300); Potassium 4.5 mEq/L (3.5-4.5); Sodium 124 mEq/L (136-145); eGFR For African Americans > 60 (> 60); eGFR For Non-African Americans > 60 (> 60)
[2016-06-12 05:04] LABS: Thyroid Stimulating Hormone 1.348 mcIU/mL (0.350-4.840)
[2016-06-12] MEDS: Lactulose Oral Soln 20 GM/30 ML UDC PO SCH (09:41)
[2016-06-12] MEDS: Diltiazem SR (12hr) 60 MG CAPSULE PO SCH ×2 (09:41→22:33)
[2016-06-12] MEDS: Gabapentin 300 MG CAPSULE PO SCH ×2 (09:41→22:33)
[2016-06-12] MEDS: 0.9 % Sodium Chloride 1,000 ML IVC SCH ×2 (09:42→09:43)
[2016-06-12] MEDS ORDERED: Lactulose Oral Soln 20 GM/30 ML UDC PO SCH (15:00)
--- NOTE | 2016-06-12 15:33 | Internal Med Progress Note ---
<Norma León - Last Filed: 06/12/16 15:29> Date of Encounter: 06/12/16 Time of Encounter: 15:29 - Assessment and plan (1) Hyponatremia Current Visit: Yes Status: Acute Assessment and plan: Second hospitalization for recurrent falls with associated hyponatremia. 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 medication side effect --polydypsia most likely as patient states she still drinks >2 L of flavored water per day TSH, random cortisol within normal limits, urine osmolality low, urine sodium < 20 nephrology consulted, appreciated recommendations check Na q4h for 24h, then q6h plan to increase sodium no faster than 0.5mg per 1h or 10mg per day fluid restriction to 2L, can have salt packets with meals and salty broths serum osmolality, urine uric acid, urine protein to creatine spot ratio pending (2) Therapeutic opioid-induced constipation (OIC) Current Visit: Yes Status: Acute Assessment and plan: Patient takes vicodin for pain management without regular stool softener. After 4-5 days without a bowel movement, she considers medication for constipation. -lactulose -start colace BID (3) Diabetes mellitus type 2 in obese Current Visit: No Status: Chronic Assessment and plan: sliding scale - Subjective Interval history: Patient seen and examined. States she drinks so much water due to dry mouth from her medications. Her bowels have not moved yet, she has had very small liquid movements, but is having flatus. - Constitutional Vitals: Temp Pulse Resp BP Pulse Ox 98.0 F 83 16 148/82 96 06/12/16 06:32 06/12/16 06:32 06/12/16 06:32 06/12/16 06:32 06/12/16 06:32 General appearance: Present: A&O X 3, answers questions appropriately - Head Head exam: Present: atraumatic, normocephalic - Eye Eye exam: Present: PERRL, conjuntiva pink, sclera anicteric Pupils: Present: PERRL - ENT ENT exam: Present: mucous membranes moist - Neck Neck exam general surgery: Present: supple - Respiratory Respiratory exam: Present: CTAB - Cardiovascular Cardiovascular exam: Present: diastolic murmur, RRR, +S1, +S2 - GI/Abdominal GI/Abdominal exam: Present: normal bowel sounds, soft, tenderness (diffuse, mild ) - Extremities Exam Extremities exam: Present: warm. Absent: pedal edema, tenderness - Neurological Exam Neurological exam: Present: CN II-XII intact, oriented X3, no focal deficits. Absent: pronater drift, facial droop, speech deficit - Skin Skin exam: Present: dry, intact Internal Medicine: Result - Labs CBC & Chem 7: 06/12/16 03:03 06/12/16 13:23 Labs: Short CBC 06/12/16 Range/Units 03:03 WBC 8.3 (4.3-11.1) K/mcL Hgb 11.2 L (11.5-15.4) g/dL Hct 32.9 L (35.3-44.9) % Plt Count 142 (140-400) K/mcL Neutrophils # 5.4 (1.6-8.9) K/mcL BMP 06/11/16 06/11/16 06/11/16 17:51 17:51 22:16 Sodium 123 L 123 L Potassium 4.2 Chloride Carbon Dioxide BUN Creatinine Glucose Calcium 06/12/16 06/12/16 06/12/16 03:03 10:43 13:23 Sodium 124 L 127 L 130 L Potassium 4.5 Chloride 90 L Carbon Dioxide 27 BUN 9 Creatinine 0.69 Glucose 131 H Calcium 8.2 L Consult Discharge Plan - Plan Referrals: Sangita Squires, PRODUCTION PLANNER [Advanced Practice Nurse] - 06/21/16 1:30 pm <Moustapha Waddell P - Last Filed: 06/12/16 18:35> Date of Encounter: 06/12/16 - Constitutional Vitals: Temp Pulse Resp BP Pulse Ox 99.0 F 84 15 167/91 96 06/12/16 16:40 06/12/16 16:40 06/12/16 16:40 06/12/16 16:40 06/12/16 16:40 Internal Medicine: Result - Labs CBC & Chem 7: 06/12/16 03:03 06/12/16 16:10 Labs: Short CBC 06/12/16 Range/Units 03:03 WBC 8.3 (4.3-11.1) K/mcL Hgb 11.2 L (11.5-15.4) g/dL Hct 32.9 L (35.3-44.9) % Plt Count 142 (140-400) K/mcL Neutrophils # 5.4 (1.6-8.9) K/mcL BMP 06/11/16 06/12/16 06/12/16 22:16 03:03 10:43 Sodium 123 L 124 L 127 L Potassium 4.5 Chloride 90 L Carbon Dioxide 27 BUN 9 Creatinine 0.69 Glucose 131 H Calcium 8.2 L 06/12/16 06/12/16 13:23 16:10 Sodium 130 L 130 L Potassium Chloride Carbon Dioxide BUN Creatinine Glucose Calcium - Attending Attestation I examined this patient and my medical decision-making was reviewed with the [employer] INTERMODAL TRUCK DRIVER/PA/Advanced Practice Nurse/Resident Physician. I agree with the documented findings, disposition and treatment plan as described except to the extent set forth below. Nephrology input martha tamayo
--- NOTE | 2016-06-12 15:58 | Nephrology Consult Note ---
Date of Encounter: 06/12/16 Time of Encounter: 15:45 Assessment and Plan (1) Hyponatremia Current Visit: No Status: Chronic Patient hyponatremia likely multifactorial, though more from water intoxication. Patient describes having continued dry mouth since her last visit prompting her to drink over 3 L of fluid a day (described as water, ice tea, or flavored water). She denies excessive thirst and states she is urinating plenty given the quantity of her intake. Given that she has a low urine osmolality as well as a low amount of sodium in her urine, her kidneys appear to be functioning appropriately given her excessive free water intake. Her serum sodium was 119 at presentation to [place] yesterday morning at 630am, she then received several liters of normal saline and over the course of the last 36 hours patient's sodium has come up to 130. Probably there are be arising sodium of no more than 6 mEq per day. Currently do not mean no more than a sodium of 131-132 for the remainder of today. Will obtain serum osmolality Though the rise in her sodium has been fairly rapid in the past 36 hours, it is not overly fast. I recommend that she be allowed to continue her normal water consumption for the rest of the evening prior to tomorrow, as to prevent a potential overcorrection of her sodium will start fluid restriction tomorrow q4-6 Hr sodium check allow up to 131-132 correction until tomorrow Correct no more than 6 mEq/day Recommend mouth swabs per patient comfort if continued dry mouth Will speak with pharmacy tomorrow regarding medications that could possibly be contributing to patient dry mouth (2) Fall Current Visit: Yes Status: Acute Patient reports fall at home, describes the mechanical nor from dizziness/ lightheadedness/vertigo. This is not the first time this occurred, last time it happened was roughly 4 weeks ago when she was found to have hyponatremia. She is found to be hyponatremic at this visit as well. Plan as above Qualifiers: Encounter type: initial encounter Qualified Code(s): W19.XXXA - Unspecified fall, initial encounter (3) Schizoaffective disorder Current Visit: No Status: Chronic Patient has history of anxiety, depression, and schizoaffective disorder on 2 medications currently. These medications include amitriptyline, and Cymbalta as well as having trazodone for insomnia (presumably). These medications could possibly be implicated in her continued dry mouth leading to her consumption of water. Consider psychiatry consult if there is continued concern for patient medications in light of her psychiatric difficulties Qualifiers: Schizoaffective disorder type: unspecified Qualified Code(s): F25.9 - Schizoaffective disorder, unspecified History of Present Illness - Reason for Consult Consult date: 06/12/16 hyponatremia Requesting physician: Moustapha Waddell - Chief Complaint Falling - History of Present Illness Mrs. Paiz is a pleasant 66 year old woman with prior medical history of arthritis, diabetes, hyperlipidemia, hypertension, anxiety, depression, and schizoaffective who presents to [facility] after having recurrent falls at home. She states that the last time she had this was prior to her last hospitalization ~4 weeks ago, during which time she was found to be hyponatremic. At that time is was felt that her hyponatremia was related to her medication usage of Cymbalta, lisinopril, trazadone, and jardiance along with psychogenic polydipsia. She was discharged on 05/09/16 with instructions of water restriction and to follow up with her PCP. Yesterday, patient was having recurrent falls again and return to [facility]. She was found to have a serum sodium of 119 and was admitted for further care and workup. She was given several liters of fluid and her sodium has since returned to 130. Patient reports that prior to her presentation to [facility] she had been feeling well without any complaint of nausea, vomiting, or diarrhea. She states that she has been drinking at least 3 L of fluid a day (mostly water , ice tea, or flavored water) and that she been urinating frequently as well. He denies any urinary symptoms, dysuria, hematuria, frothy urine. When asked further about her apparent polydipsia, patient states that the reason for her fluid consumption is because of her constant dry mouth. She denies being constantly thirsty. Past Med Surg Social Fam HX - Past Medical History Medical history: arthritis, diabetes, hyperlipidemia, hypertension, other Psychiatric history: anxiety, depression - Past Surgical History Surgical History: , knee replacement, other - Social History Smoking Status: Former smoker Smokeless Tobacco Status: No Alcohol use: none Drug use: none - Family History Mother Adopted: Yes (history unknown) Medications and Allergies Diltiazem [Cardizem] 60 mg PO BID 01/18/15 [History] Duloxetine HCl [Cymbalta] 60 mg PO DAILY 01/18/15 [History] Gabapentin [Neurontin] 1,200 mg PO TID 01/18/15 [History] Hydrocodone/Acetaminophen [[place] 10-325 Tablet] 1 tab PO Q6H PRN 01/18/15 [ History] Insulin ASPART [NovoLOG] 0 unit SQ TIDWM PRN 01/18/15 [History] Metformin [Glucophage] 1,000 mg PO BIDWM 01/18/15 [History] Montelukast [Singulair] 10 mg PO HS 01/18/15 [History] Insulin Degludec [Tresiba Flextouch U-100] 72 unit SQ DAILY 05/07/16 [History] Liraglutide [Victoza 2-Amarjit] 1.8 ml SQ DAILY 05/07/16 [History] Lisinopril [Zestril] 10 mg PO DAILY 05/07/16 [History] TraZODone 100 mg PO HS 05/07/16 [History] Amitriptyline HCl 100 mg PO HS 06/11/16 [History] Allergies polyethylene glycol [From Golytely] Adverse Reaction (Verified 05/07/16 14:30) Dizziness polyethylene glycol 3350 [From Golytely] Adverse Reaction (Verified 05/07/16 14: 30) Dizziness potassium chloride [From Golytely] Adverse Reaction (Verified 05/07/16 14:30) Dizziness sodium [From Golytely] Adverse Reaction (Verified 05/07/16 14:30) Dizziness sodium bicarbonate [From Golytely] Adverse Reaction (Verified 05/07/16 14:30) Dizziness sodium chloride [From Golytely] Adverse Reaction (Verified 05/07/16 14:30) Dizziness sodium sulfate [From Golytely] Adverse Reaction (Verified 05/07/16 14:30) Dizziness Tizanidine Adverse Reaction (Verified 05/07/16 14:30) Dizziness Review of Systems Constitutional: no anorexia, no chills, no fatigue, no fever(s), no headache(s) , no weakness Nose, mouth and throat: dry mouth, no dizziness, no headache(s) Cardiovascular: edema (Mild, since receiving fluids during admission), no chest pain, no diaphoresis, no dyspnea, no lightheadedness, no orthopnea Respiratory: no cough, no dyspnea Gastrointestinal: no abdominal pain, no change in bowel habits, no constipation , no diarrhea, no nausea, no vomiting Genitourinary Female: as per HPI, no dysuria, no hematuria Musculoskeletal: no muscle weakness, no numbness, no tingling Neurological: no dizziness, no headache(s), no numbness, no vertigo, no weakness Endocrine: as per HPI, polydipsia, polyuria, no fatigue Exam - Vital Signs Vital signs: Initial Vital Signs Temp Pulse Resp BP Pulse Ox 98.3 F 89 18 176/84 96 06/11/16 06:06 06/11/16 06:06 06/11/16 06:06 06/11/16 06:06 06/11/16 06:06 Intake and Output 06/11/16 06/12/16 06/12/16 23:59 07:59 15:59 Intake Total 240 / 240 0 / 0 360 / 360 Output Total 200 / 200 3000 / 3000 500 / 500 Balance 40 / 40 -3000 / -3000 -140 / -140 Intake: Oral 240 / 240 0 / 0 360 / 360 Output: Urine 200 / 200 3000 / 3000 500 / 500 Other: Meal Lunch Percent of Meal Consumed 20% Stool Size Small Small Stool Consistency formed liquid Stool Color Brown Weight 144.2 kg Blood Glucose* 87 109 142 Patient Weight 06/12/16 23:59 Weight 144.2 kg - General Appearance General appearance: well-developed, well-nourished, appears started age, obese EENT: ATNC, mucous membranes moist Respiratory: clear Cardiology: no murmurs, no rub, no gallops, edema (Mild edema in bilateral lower extremities), regular rate, regular rhythm, normal S1, normal S2 Gastrointestinal: normoactive bowel sounds, no tenderness, no guarding, no organomegaly Integumentary: no rash, warm and dry Additional Comments: Multiple tattoos over body Neurologic: no focal deficit, no asterixis, alert and oriented x3 Musculoskeletal: no deformities, no erythema, no cyanosis, no clubbing Psychiatric: mood/affect appropriate, cooperative Results - Lab Results 06/12/16 03:03 06/12/16 13:23 Most recent lab results Calcium 8.2 mg/dL (8.6-10.8) L 06/12/16 03:03 Magnesium 1.8 mg/dL (1.6-2.6) 06/12/16 03:03 Urine Sodium < 20.0 mEq/L 06/11/16 13:45 Consult Discharge Plan - Plan Referrals: Sangita Squires CNP [Advanced Practice Nurse] - 06/21/16 1:30 pm
[2016-06-12] MEDS: *HR* Heparin 5,000 UNIT/ML VIAL SQ SCH (16:56)
[2016-06-12] MEDS: traZODone 50 MG TABLET PO SCH (22:33)
[2016-06-13 00:13] LABS: Basophils % 0.5 %; Eosinophils # 0.1 K/mcL (0.0-0.6); Eosinophils % 1.2 %; Hematocrit 34.8 % (35.3-44.9); Hemoglobin 11.9 g/dL (11.5-15.4); Immature Granulocytes % 0.5 % (0-4); Immature Platelets 0.8 % (1.1-6.1); Lymphocytes # 1.2 K/mcL (0.6-4.6); Lymphocytes % 14.3 %; Mean Corpuscular HGB Conc 34.2 g/dL (31.6-35.5); Mean Corpuscular Hemoglobin 29.5 pg (28.0-33.3); Mean Corpuscular Volume 86.4 fL (83.0-100.0); Mean Platelet Volume 7.6 fL (9.4-12.4); Monocytes # 0.6 K/mcL (0.0-1.3); Monocytes % 6.4 %; Neutrophils # 6.6 K/mcL (1.6-8.9); Platelet Count 187 K/mcL (140-400); Red Blood Count 4.03 M/mcL (3.82-4.97); Red Cell Distribution Width 12.2 % (11.5-14.5); Segmented Neutrophils % 77.1 %
[2016-06-13 00:28] LABS: BUN/Creatinine Ratio 10 (6-26); Blood Urea Nitrogen 6 mg/dL (7-20); Calcium 8.4 mg/dL (8.6-10.8); Carbon Dioxide 31 mEq/L (19-29); Chloride 94 mEq/L (98-109); Glucose 132 mg/dL (70-99); Osmolality,Calculated 269 (280-300); Sodium 130 mEq/L (136-145); eGFR For African Americans > 60 (> 60); eGFR For Non-African Americans > 60 (> 60)
[2016-06-13] MEDS: Insulin LISPRO 300 UNITS/3 ML VIAL SQ SCH ×3 (05:44→16:41)
[2016-06-13] MEDS: *HR* Heparin 5,000 UNIT/ML VIAL SQ SCH ×2 (05:46→16:44)
[2016-06-13] MEDS: *HR* HYDROcodone/Acet 10/325 mg TABLET PO PRN ×3 (05:47→19:44)
[2016-06-13] MEDS: Gabapentin 300 MG CAPSULE PO SCH ×3 (08:51→19:45)
[2016-06-13] MEDS: Diltiazem SR (12hr) 60 MG CAPSULE PO SCH ×2 (08:52→19:45)
[2016-06-13] MEDS: Lactulose Oral Soln 20 GM/30 ML UDC PO SCH (08:55)
--- NOTE | 2016-06-13 09:18 | Internal Med Progress Note ---
<Norma León - Last Filed: 06/13/16 09:28> Date of Encounter: 06/13/16 Time of Encounter: 09:13 - Assessment and plan (1) Hyponatremia Current Visit: Yes Status: Acute Assessment and plan: Second hospitalization for recurrent falls with associated hyponatremia. 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 medication side effect --polydypsia most likely as patient states she still drinks >2 L of flavored water per day TSH, random cortisol within normal limits, urine osmolality low, urine sodium < 20, serum osmolality low nephrology consulted, appreciated recommendations Na 132 this AM fluid restriction 1500 ml patient given sugar free lemon candy for dry mouth urine uric acid, urine protein to creatine spot ratio pending (2) Therapeutic opioid-induced constipation (OIC) Current Visit: Yes Status: Acute Assessment and plan: Patient takes vicodin for pain management without regular stool softener. After 4-5 days without a bowel movement, she considers medication for constipation. Still without solid bowel movement. Patient agreeable to adding miralax - states her adverse reaction to golytely was vomiting. -lactulose -colace BID -miralax (3) Diabetes mellitus type 2 in obese Current Visit: No Status: Chronic Assessment and plan: sliding scale - Subjective Interval history: Patient seen and examined. Her bowels have not moved yet, she has had very small liquid movements, but is having flatus. Feeling better today, states she is at 50%. - Constitutional Vitals: Temp Pulse Resp BP Pulse Ox 98.7 F 85 15 142/72 97 06/13/16 07:50 06/13/16 07:50 06/13/16 07:50 06/13/16 07:50 06/13/16 07:50 General appearance: Present: A&O X 3, answers questions appropriately - Head Head exam: Present: atraumatic, normocephalic - Eye Eye exam: Present: PERRL, conjuntiva pink, sclera anicteric Pupils: Present: PERRL - ENT ENT exam: Present: mucous membranes moist - Neck Neck exam general surgery: Present: supple - Respiratory Respiratory exam: Present: CTAB - Cardiovascular Cardiovascular exam: Present: diastolic murmur, RRR, +S1, +S2 - GI/Abdominal GI/Abdominal exam: Present: soft, tenderness (mild diffuse) - Extremities Exam Extremities exam: Present: warm. Absent: pedal edema, tenderness - Neurological Exam Neurological exam: Present: CN II-XII intact, oriented X3, no focal deficits. Absent: pronater drift, facial droop, speech deficit - Skin Skin exam: Present: dry, intact Internal Medicine: Result - Labs CBC & Chem 7: 06/13/16 00:03 06/13/16 04:31 Labs: Short CBC 06/13/16 Range/Units 00:03 WBC 8.5 (4.3-11.1) K/mcL Hgb 11.9 (11.5-15.4) g/dL Hct 34.8 L (35.3-44.9) % Plt Count 187 (140-400) K/mcL Neutrophils # 6.6 (1.6-8.9) K/mcL BMP 06/12/16 06/12/16 06/12/16 10:43 13:23 16:10 Sodium 127 L 130 L 130 L Potassium Chloride Carbon Dioxide BUN Creatinine Glucose Calcium 06/12/16 06/13/16 06/13/16 20:51 00:03 00:03 Sodium 129 L 130 L 130 L Potassium 4.0 Chloride 94 L Carbon Dioxide 31 H BUN 6 L Creatinine 0.61 Glucose 132 H Calcium 8.4 L 06/13/16 04:31 Sodium 132 L Potassium Chloride Carbon Dioxide BUN Creatinine Glucose Calcium Consult Discharge Plan - Plan Referrals: Sangita Squires, SUPPORT GROUP MANAGER [Advanced Practice Nurse] - 06/21/16 1:30 pm <Moustapha Waddell P - Last Filed: 06/13/16 16:53> Date of Encounter: 06/13/16 - Constitutional Vitals: Temp Pulse Resp BP Pulse Ox 99.2 F 80 16 150/77 97 06/13/16 15:57 06/13/16 15:57 06/13/16 15:57 06/13/16 15:57 06/13/16 15:57 Internal Medicine: Result - Labs CBC & Chem 7: 06/13/16 00:03 06/13/16 04:31 Labs: Short CBC 06/13/16 Range/Units 00:03 WBC 8.5 (4.3-11.1) K/mcL Hgb 11.9 (11.5-15.4) g/dL Hct 34.8 L (35.3-44.9) % Plt Count 187 (140-400) K/mcL Neutrophils # 6.6 (1.6-8.9) K/mcL BMP 06/12/16 06/13/16 06/13/16 20:51 00:03 00:03 Sodium 129 L 130 L 130 L Potassium 4.0 Chloride 94 L Carbon Dioxide 31 H BUN 6 L Creatinine 0.61 Glucose 132 H Calcium 8.4 L 06/13/16 04:31 Sodium 132 L Potassium Chloride Carbon Dioxide BUN Creatinine Glucose Calcium - Attending Attestation I examined this patient and my medical decision-making was reviewed with the SHARE HOLDER/PA/Advanced Practice Nurse/Resident Physician. I agree with the documented findings, disposition and treatment plan as described except to the extent set forth below.
--- NOTE | 2016-06-13 09:40 | Nephrology Progress Note ---
Date of Encounter: 06/13/16 Time of Encounter: 08:45 - Assessment and Plan (1) Hyponatremia Current Visit: No Status: Chronic Patient hyponatremia likely from water intoxication. Patient describes having continued dry mouth since her last visit prompting her to drink over 3 L of fluid a day (described as water, ice tea, or flavored water). She denies excessive thirst and states she is urinating plenty given the quantity of her intake. Given that she has a low urine osmolality as well as a low amount of sodium in her urine, her kidneys appear to be functioning appropriately given her excessive free water intake. Her serum sodium was 119 at presentation to [place] at 630am, she then received several liters of normal saline and over the course of her initial 36 hours patient's sodium came up to 130. Current sodium at 132. Serum osmolality was low at 273 Serum sodium is coming up well Continue fluid restriction q12 Hr sodium check - make sure sodium doesn't go down Correct no more than 6 mEq/day Recommend mouth swabs per patient comfort if continued dry mouth Patient taking several medications that could be contributing to her dry mouth and will work to find alternatives to alleviate her problem (2) Fall Current Visit: Yes Status: Acute Patient reports fall at home, describes the mechanical nor from dizziness/ lightheadedness/vertigo. This is not the first time this occurred, last time it happened was roughly 4 weeks ago when she was found to have hyponatremia. She is found to be hyponatremic at this visit as well. Plan as above Qualifiers: Encounter type: initial encounter Qualified Code(s): W19.XXXA - Unspecified fall, initial encounter (3) Depression Current Visit: Yes Status: Acute Patient has history of anxiety and depression. She is on Cybalta for her depression. Consider psychiatry consult if there is continued concern for patient medications in light of her psychiatric difficulties Qualifiers: Depression Type: unspecified Qualified Code(s): F32.9 - Major depressive disorder, single episode, unspecified (4) Insomnia Current Visit: Yes Status: Acute Patient reports taking amitripyline and trazadone to assist her sleeping at night. She states that the combination and doses that she is on now work to help her sleep. Those these medications could be contributory to her dry mouth. Management of her home insomnia medications per her primary team Qualifiers: Insomnia type: unspecified Qualified Code(s): G47.00 - Insomnia, unspecified Subjective Principal diagnosis: Hyponatremia Interval history: Patient reports feeling overall well and reports that she has been sticking to her fluid restriction. She denies any concerns/complaints today. She has no weakness, numbness/tingling, confusion, lightheadedness, or dizziness. She does state that she feels that her swelling has improved since yesterday with her fluid restriction. Objective - Vital Signs Vital signs: Vital Signs Temp Pulse Resp BP Pulse Ox 06/13/16 07:50 98.7 F 85 15 142/72 97 06/13/16 04:47 98.8 F 79 17 156/74 97 06/12/16 21:15 98.4 F 85 16 174/82 96 06/12/16 16:40 99.0 F 84 15 167/91 96 Intake and Output 06/12/16 06/13/16 06/13/16 23:59 07:59 15:59 Intake Total 120 / 120 0 / 0 240 / 240 Output Total 0 / 0 0 / 0 Balance 120 / 120 0 / 0 240 / 240 Intake: Oral 120 / 120 0 / 0 240 / 240 Output: Urine 0 / 0 0 / 0 Other: Meal Breakfast Percent of Meal Consumed 100% Blood Glucose* 153 117 - General Appearance General appearance: Present: well-developed, well-nourished, appears started age EENT: Present: ATNC, mucous membranes moist Respiratory: Present: clear. Absent: wheezing, rales, rhonchi Cardiology: Present: no murmurs, no rub, no gallops, no edema, regular rate, regular rhythm, normal S1, normal S2 Gastrointestinal: Present: normoactive bowel sounds, no tenderness Integumentary: Present: no rash, warm and dry Additional Comments: Multiple tattoos on body Neurologic: Present: no focal deficit, no asterixis, alert and oriented x3 Musculoskeletal: Present: no deformities, no erythema, no cyanosis, no clubbing Psychiatric: Present: mood/affect appropriate, cooperative - Lab 06/13/16 00:03 06/13/16 04:31 Most recent lab results Calcium 8.4 mg/dL (8.6-10.8) L 06/13/16 00:03 Magnesium 1.8 mg/dL (1.6-2.6) 06/12/16 03:03 Urine Sodium < 20.0 mEq/L 06/11/16 13:45 Consult Discharge Plan - Plan Referrals: Sangita Squires CNP [Advanced Practice Nurse] - 06/21/16 1:30 pm
[2016-06-13] MEDS ORDERED: Dextrose Gel 15 GM PO PRN ×2 (11:30)
[2016-06-13] MEDS ORDERED: D5% in Water 1,000 ML IVC PRN (11:30)
[2016-06-13] MEDS ORDERED: *HR* Dextrose 50 % in Water (Syg) 50 ML SYRINGE IVP PRN (11:30)
[2016-06-13] MEDS ORDERED: Insulin LISPRO 300 UNITS/3 ML VIAL SQ SCH ×2 (17:00→21:00)
[2016-06-13] MEDS: traZODone 50 MG TABLET PO SCH (22:07)
[2016-06-14] MEDS: *HR* Heparin 5,000 UNIT/ML VIAL SQ SCH (05:12)
[2016-06-14] MEDS: *HR* HYDROcodone/Acet 10/325 mg TABLET PO PRN (06:27)
[2016-06-14 06:36] LABS: Basophils # 0.1 K/mcL (0.0-0.2); Basophils % 1.1 %; Eosinophils # 0.2 K/mcL (0.0-0.6); Eosinophils % 3.5 %; Hematocrit 33.7 % (35.3-44.9); Hemoglobin 11.4 g/dL (11.5-15.4); Immature Granulocytes % 0.6 % (0-4); Lymphocytes # 1.8 K/mcL (0.6-4.6); Lymphocytes % 27.4 %; Mean Corpuscular HGB Conc 33.8 g/dL (31.6-35.5); Mean Corpuscular Hemoglobin 29.5 pg (28.0-33.3); Mean Corpuscular Volume 87.3 fL (83.0-100.0); Monocytes # 0.6 K/mcL (0.0-1.3); Monocytes % 8.7 %; Neutrophils # 3.9 K/mcL (1.6-8.9); Platelet Count 163 K/mcL (140-400); Red Blood Count 3.86 M/mcL (3.82-4.97); Red Cell Distribution Width 12.5 % (11.5-14.5); Segmented Neutrophils % 58.7 %
[2016-06-14 06:55] LABS: BUN/Creatinine Ratio 10 (6-26); Blood Urea Nitrogen 7 mg/dL (7-20); Calcium 8.2 mg/dL (8.6-10.8); Carbon Dioxide 29 mEq/L (19-29); Chloride 95 mEq/L (98-109); Glucose 117 mg/dL (70-99); Osmolality,Calculated 273 (280-300); Potassium 3.5 mEq/L (3.5-4.5); Sodium 132 mEq/L (136-145); eGFR For African Americans > 60 (> 60); eGFR For Non-African Americans > 60 (> 60)
[2016-06-14 07:25] VITALS: BP 154/71
[2016-06-14] MEDS: Insulin LISPRO 300 UNITS/3 ML VIAL SQ SCH (07:54)
--- NOTE | 2016-06-14 09:38 | Discharge Summary ---
<SusieharrietsantyNorma newell - Last Filed: 06/14/16 10:30> Date of Encounter: 06/14/16 Time of Encounter: 09:36 - Discharge Diagnosis (1) Hyponatremia Priority: Primary Status: Acute (2) Therapeutic opioid-induced constipation (OIC) Priority: Secondary Status: Chronic (3) Diabetes mellitus type 2 in obese Priority: Secondary Status: Chronic (4) Depression Priority: Secondary Status: Chronic Qualifiers: Depression Type: unspecified Qualified Code(s): F32.9 - Major depressive disorder, single episode, unspecified (5) Insomnia Priority: Secondary Status: Chronic Qualifiers: Insomnia type: unspecified Qualified Code(s): G47.00 - Insomnia, unspecified - Discharge Medications Prescriptions: Docusate [Colace] 100 mg PO BID #60 capsule Home Medications: Diltiazem [Cardizem] 60 mg PO BID 01/18/15 [History] Duloxetine HCl [Cymbalta] 60 mg PO DAILY 01/18/15 [History] Gabapentin [Neurontin] 1,200 mg PO TID 01/18/15 [History] Hydrocodone/Acetaminophen [[place] 10-325 Tablet] 1 tab PO Q6H PRN 01/18/15 [ History] Insulin ASPART [NovoLOG] 0 unit SQ TIDWM PRN 01/18/15 [History] Metformin [Glucophage] 1,000 mg PO BIDWM 01/18/15 [History] Montelukast [Singulair] 10 mg PO HS 01/18/15 [History] Insulin Degludec [Tresiba Flextouch U-100] 72 unit SQ DAILY 05/07/16 [History] Liraglutide [Victoza 2-Amarjit] 1.8 ml SQ DAILY 05/07/16 [History] Lisinopril [Zestril] 10 mg PO DAILY 05/07/16 [History] TraZODone 100 mg PO HS 05/07/16 [History] Amitriptyline HCl 100 mg PO HS 06/11/16 [History] Docusate [Colace] 100 mg PO BID #60 capsule 06/14/16 [Rx] Allergies/Adverse Reactions: Allergies polyethylene glycol [From Golytely] Adverse Reaction (Verified 05/07/16 14:30) Dizziness polyethylene glycol 3350 [From Golytely] Adverse Reaction (Verified 05/07/16 14: 30) Dizziness potassium chloride [From Golytely] Adverse Reaction (Verified 05/07/16 14:30) Dizziness sodium [From Golytely] Adverse Reaction (Verified 05/07/16 14:30) Dizziness sodium bicarbonate [From Golytely] Adverse Reaction (Verified 05/07/16 14:30) Dizziness sodium chloride [From Golytely] Adverse Reaction (Verified 05/07/16 14:30) Dizziness sodium sulfate [From Golytely] Adverse Reaction (Verified 05/07/16 14:30) Dizziness Tizanidine Adverse Reaction (Verified 05/07/16 14:30) Dizziness Procedures/tests Complete & Pending: Procedures Performed prior 72 hours Category Date Time Status CT head/brain wo con [CT] Routine Cat Scan 06/11/16 10:11 Completed Date of admission: 06/11/16 10:04 Primary care physician: Nataly Reyes, Consults: 06/12/16 14:07 Consult to Nephrology [CONS] Routine Consulting Provider: Kidney Jesica/MAR/BRENDAN/RAMANA Reason for Consult: Na 119 Call Completed: Yes Discharging clinician: Norma León Anticipated date of discharge: 06/14/16 - Patient Status Disposition: Home, Self-Care Condition: Good Functional capacity at discharge: independent ambulation Overall status at discharge: patient is progressing back to baseline - Discharge Instructions Instructions: Fall Prevention (DC), Fluid Restriction, Sign Fabricator (GEN) Follow Up With: Sangita Squires, MINING DETAIL DRAFTSPERSON [Advanced Practice Nurse] - 06/21/16 1:30 pm - Diet and Activity Diet: other (include salt when you increase your fluid intake) Interval History: Patient seen and examined. She states that the hard candy has helped significantly with her dry mouth. Agreeable to discharge at this time. Hospital course: Ms. Paiz is a 66 year old female with past medical history of diabetes, hypertension, anxiety, depression who presented to the emergency department with a chief complaint of recurrent falls. Her sodium was found to be 119. This is her second admission for hyponatremia. She drinks greater than 2-3 L of flavored water per day due to dry mouth, possibly caused by medication side effects. She takes Cymbalta for anxiety and depression and amitriptyline and trazodone for insomnia. Nephrology was brought on board to help with her hyponatremia. Her sodium was corrected at an appropriate rate, she was fluid restricted to 1500 mL and given hard lemon candy to help with her dry mouth. The patient states that the hard candy helped with her dry mouth and that she feels that she will be able to maintain fluid restriction on discharge. Patient was educated on the importance of fluid restriction to 2 L per day and to increase salt intake with increased fluid intake. She is being discharged with patient information handout on fluid restriction. - Time Spent with Patient Total time spent providing and/or coordinating discharge services: - Constitutional Vitals: Temp Pulse Resp BP Pulse Ox 98.4 F 83 18 154/71 95 06/14/16 07:00 06/14/16 07:00 06/14/16 07:00 06/14/16 07:00 06/14/16 07:00 General appearance: Present: A&O X 3, no acute distress, answers questions appropriately - Head Head exam: Present: atraumatic, normocephalic - Eye Eye exam: Present: PERRL, conjuntiva pink, sclera anicteric Pupils: Present: PERRL - ENT ENT exam: Present: mucous membranes moist - Neck Neck exam general surgery: Present: supple - Respiratory Respiratory exam: Present: CTAB - Cardiovascular Cardiovascular exam: Present: diastolic murmur, RRR, +S1, +S2 - GI/Abdominal GI/Abdominal exam: Present: normal bowel sounds, soft. Absent: tenderness - Extremities Exam Extremities exam: Present: warm. Absent: calf tenderness, cyanotic, pedal edema - Neurological Exam Neurological exam: Present: CN II-XII intact, oriented X3, no focal deficits. Absent: pronater drift, facial droop, speech deficit - Skin Skin exam: Present: dry, intact <Nadira,Moustapha P - Last Filed: 06/14/16 18:12> Date of Encounter: 06/14/16 Date of admission: 06/11/16 10:04 Primary care physician: Nataly Reyes, Consults: 06/12/16 14:07 Consult to Nephrology [CONS] Routine Consulting Provider: Kidney Jesica/MAR/BRENDAN/RAMANA Reason for Consult: Na 119 Call Completed: Yes Hospital course: Ms. Paiz is a 66 year old female - Time Spent with Patient Total time spent providing and/or coordinating discharge services: - Constitutional Vitals: Temp Pulse Resp BP Pulse Ox 98.4 F 83 18 154/71 95 06/14/16 07:00 06/14/16 07:00 06/14/16 07:00 06/14/16 07:00 06/14/16 10:02 - Attending Attestation I examined this patient and my medical decision-making was reviewed with the WATERPROOF BAG SEWER/PA/Advanced Practice Nurse/Resident Physician. I agree with the documented findings, disposition and treatment plan as described except to the extent set forth below.
[2016-06-14] MEDS: Diltiazem SR (12hr) 60 MG CAPSULE PO SCH (09:52)
[2016-06-14] MEDS: Gabapentin 300 MG CAPSULE PO SCH (09:52)
[2016-06-14] MEDS: Lactulose Oral Soln 20 GM/30 ML UDC PO SCH (09:53)
--- NOTE | 2016-06-14 09:53 | Nephrology Progress Note ---
Date of Encounter: 06/14/16 Time of Encounter: 08:20 - Assessment and Plan (1) Hyponatremia Current Visit: No Status: Chronic Patient hyponatremia likely from water intoxication. Patient describes having continued dry mouth since her last visit prompting her to drink over 3 L of fluid a day (described as water, ice tea, or flavored water). She denies excessive thirst and states she is urinating plenty given the quantity of her intake. Given that she has a low urine osmolality as well as a low amount of sodium in her urine, her kidneys appear to be functioning appropriately given her excessive free water intake. Her serum sodium was 119 at presentation to [facility] at 630am, she then received several liters of normal saline and over the course of her initial 36 hours patient's sodium came up to 130. Current sodium at 132. Serum osmolality was low at 273 Serum sodium is improved Continue fluid restriction of 1.5 L Recommend mouth care per patient comfort if continued dry mouth Patient taking several medications that could be contributing to her dry mouth and will work to find alternatives to alleviate her problem will defer to primary With identifiable reason for patient hyponatremia and improvement in her sodium levels, nephrology will sign off. Please reconsult if needed. (2) Fall Current Visit: Yes Status: Acute Patient reports fall at home, describes the mechanical nor from dizziness/ lightheadedness/vertigo. This is not the first time this occurred, last time it happened was roughly 4 weeks ago when she was found to have hyponatremia. She is found to be hyponatremic at this visit as well. Plan as above Qualifiers: Encounter type: initial encounter Qualified Code(s): W19.XXXA - Unspecified fall, initial encounter (3) Depression Current Visit: Yes Status: Chronic Patient has history of anxiety and depression. She is on Cybalta for her depression. Consider psychiatry consult if there is continued concern for patient medications in light of her psychiatric difficulties Qualifiers: Depression Type: unspecified Qualified Code(s): F32.9 - Major depressive disorder, single episode, unspecified (4) Insomnia Current Visit: Yes Status: Chronic Patient reports taking amitripyline and trazadone to assist her sleeping at night. She states that the combination and doses that she is on now work to help her sleep. Those these medications could be contributory to her dry mouth. Management of her home insomnia medications per her primary team Qualifiers: Insomnia type: unspecified Qualified Code(s): G47.00 - Insomnia, unspecified Subjective Principal diagnosis: Hyponatremia Interval history: Patient states that she is feeling well today, without any new concerns/ complaints. She states that she has continued to have decent urine output, though less than usual because she has been drinking less. She has no complaints of chest pain, weakness, palpitations, or lightheadness. Objective - Vital Signs Vital signs: Vital Signs Temp Pulse Resp BP Pulse Ox 06/14/16 07:00 98.4 F 83 18 154/71 95 06/14/16 03:59 98.1 F 68 19 122/64 06/13/16 19:42 98.2 F 81 18 124/106 06/13/16 15:57 99.2 F 80 16 150/77 97 Intake and Output 06/13/16 06/14/16 06/14/16 23:59 07:59 15:59 Intake Total 0 / 0 0 / 0 Output Total 0 / 0 0 / 0 Balance 0 / 0 0 / 0 Intake: Oral 0 / 0 0 / 0 Output: Urine 0 / 0 0 / 0 Other: Weight 142 kg Blood Glucose* 121 127 Patient Weight 06/14/16 23:59 Weight 142 kg - General Appearance General appearance: Present: well-developed, well-nourished, appears started age , obese EENT: Present: ATNC, mucous membranes moist Respiratory: Present: clear. Absent: wheezing, rales, rhonchi Cardiology: Present: no murmurs, no rub, no gallops, no edema, regular rate, regular rhythm, normal S1, normal S2 Gastrointestinal: Present: normoactive bowel sounds, no tenderness, no guarding , no organomegaly, no masses, obese Integumentary: Present: no rash, warm and dry Neurologic: Present: no focal deficit, no asterixis, alert and oriented x3 Musculoskeletal: Present: no deformities, no erythema, no cyanosis, no clubbing Psychiatric: Present: mood/affect appropriate, cooperative - Lab 06/14/16 05:25 06/14/16 05:25 Most recent lab results Calcium 8.2 mg/dL (8.6-10.8) L 06/14/16 05:25 Magnesium 1.8 mg/dL (1.6-2.6) 06/12/16 03:03 Urine Sodium < 20.0 mEq/L 06/11/16 13:45 Consult Discharge Plan - Plan Instructions: Fluid Restriction, Powder Core Tester (GEN) Referrals: Sangita Squires, CLINICAL APPLICATION CONSULTANT [Advanced Practice Nurse] - 06/21/16 1:30 pm Prescriptions: Docusate [Colace] 100 mg PO BID #60 capsule
== END 2016-06-14 11:47 | disposition home or self-care (01) | DRG 641 ==
LOC: 2NENU 06:01 → EMEROO 06:01 → 2NENU 10:28
PROVIDERS: ADMIT Hospitalist; ATTEND Internal Medicine

== ENCOUNTER 2016-07-11 07:12 | Inpatient (IN) ==
--- NOTE | 2016-07-10 16:17 | Discharge Summary ---
<Yuliana Ferrell Alexei - Last Filed: 07/10/16 16:14> Date of Encounter: 07/10/16 - Discharge Diagnosis (1) Arthritis of knee, right Priority: Primary Status: Acute (2) Obesity Priority: Secondary Status: Chronic Qualifiers: Obesity type: unspecified obesity type Obesity severity: unspecified obesity severity Qualified Code(s): E66.9 - Obesity, unspecified (3) Chronic pain Priority: Secondary Status: Chronic Comments: On Fernley 10-325mg q 6 hours #120, LD 06/29/16. Will Hold Chronic pain medication , take prescribed RX from [facility] x 1 week. Qualifiers: Chronic pain type: other chronic pain Qualified Code(s): G89.29 - Other chronic pain (4) Diabetes mellitus type 2 in obese Priority: Secondary Status: Chronic (5) Hypertension Priority: Secondary Status: Chronic Qualifiers: Hypertension type: essential hypertension Qualified Code(s): I10 - Essential (primary) hypertension (6) Depression Priority: Secondary Status: Chronic Qualifiers: Depression Type: unspecified - Discharge Medications Prescriptions: Sulfamethoxazole/Trimeth DS [Bactrim DS] 1 each PO BID #20 tablet Home Medications: Diltiazem [Cardizem] 60 mg PO BID 01/18/15 [History] Duloxetine HCl [Cymbalta] 60 mg PO DAILY 01/18/15 [History] Gabapentin [Neurontin] 1,200 mg PO TID 01/18/15 [History] Insulin ASPART [NovoLOG] 0 unit SQ TIDWM PRN 01/18/15 [History] Montelukast [Singulair] 10 mg PO HS 01/18/15 [History] Insulin Degludec [Tresiba Flextouch U-100] 72 unit SQ DAILY 05/07/16 [History] Liraglutide [Victoza 2-Amarjit] 1.8 ml SQ DAILY 05/07/16 [History] Lisinopril [Zestril] 10 mg PO DAILY 05/07/16 [History] traZODone [TraZODone] 100 mg PO HS 05/07/16 [History] Amitriptyline HCl 100 mg PO HS 06/11/16 [History] Docusate [Colace] 100 mg PO BID #60 capsule 06/14/16 [Rx] Aspirin Enteric Coated [Aspirin EC] 325 mg PO DAILY #21 tablet. 07/10/16 [Rx] OxyCODONE Immed Rel [Roxicodone 5 MG] 5 - 10 mg PO Q6HR PRN #40 tablet 07/10/16 [Rx] Albuterol Sulfate [Albuterol Inhaler] 2 puff IH Q4HR PRN 07/11/16 [History] Budesonide/Formoterol 80/4.5 [Symbicort 80/4.5] 2 puff IH BIDR 07/11/16 [ History] HYDROcodone/Acet 10/325 mg [Fernley 10-325 mg] 1 tab PO QID PRN 07/11/16 [History] Pantoprazole Sodium [Protonix] 40 mg PO DAILY 07/11/16 [History] Simvastatin [Zocor] 40 mg PO HS 07/11/16 [History] Sulfamethoxazole/Trimeth DS [Bactrim DS] 1 each PO BID #20 tablet 07/15/16 [Rx] Allergies/Adverse Reactions: Allergies polyethylene glycol [From Golytely] Adverse Reaction (Verified 07/11/16 08:00) Nausea polyethylene glycol 3350 [From Golytely] Adverse Reaction (Verified 07/11/16 08: 00) Nausea potassium chloride [From Golytely] Adverse Reaction (Verified 07/11/16 08:00) Nausea sodium [From Golytely] Adverse Reaction (Verified 07/11/16 08:00) Nausea sodium bicarbonate [From Golytely] Adverse Reaction (Verified 07/11/16 08:00) Nausea sodium chloride [From Golytely] Adverse Reaction (Verified 07/11/16 08:00) Nausea sodium sulfate [From Golytely] Adverse Reaction (Verified 07/11/16 08:00) Nausea Tizanidine Adverse Reaction (Verified 07/11/16 08:00) Dizziness Primary care physician: Nataly Reyes, - Patient Status Disposition: Transfer SNF - Discharge Instructions Follow Up With: Nataly Reyes MD [Primary Care Provider] - - Hospital Course Hospital course: Ms. Paiz is a 66 year old female - Time Spent with Patient Total time spent providing and/or coordinating discharge services: <Humberto Ho - Last Filed: 07/13/16 06:22> Date of Encounter: 07/13/16 - Discharge Diagnosis (1) Diabetes mellitus type 2 in obese Priority: Secondary Status: Chronic (2) Hypertension Priority: Secondary Status: Chronic Qualifiers: Hypertension type: essential hypertension Qualified Code(s): I10 - Essential (primary) hypertension (3) Schizoaffective disorder Priority: Secondary Status: Chronic Qualifiers: Schizoaffective disorder type: unspecified Qualified Code(s): F25.9 - Schizoaffective disorder, unspecified (4) Depression Priority: Secondary Status: Chronic Qualifiers: Depression Type: unspecified Qualified Code(s): F32.9 - Major depressive disorder, single episode, unspecified (5) Arthritis of knee, right Priority: Primary Status: Acute (6) Obesity Priority: Secondary Status: Chronic Qualifiers: Obesity type: unspecified obesity type Obesity severity: unspecified obesity severity Qualified Code(s): E66.9 - Obesity, unspecified (7) Chronic pain Priority: Secondary Status: Chronic Qualifiers: Chronic pain type: other chronic pain Qualified Code(s): G89.29 - Other chronic pain (8) Acute blood loss anemia Priority: Primary Status: Acute Primary care physician: Nataly Reyes, - Hospital Course Hospital course: Ms. Paiz is a 66 year old female - Time Spent with Patient Total time spent providing and/or coordinating discharge services: <Jah Bejarano - Last Filed: 07/15/16 15:25> Date of Encounter: 07/15/16 Time of Encounter: 15:25 - Discharge Diagnosis (1) Arthritis of knee, right Status: Acute Labs on day of discharge: Labs from last 24 hours 07/14/16 07/14/16 07/14/16 20:59 17:29 11:39 POC Glucose 72 75 149 H 07/14/16 07:33 POC Glucose 186 H - Impressions ITS Impressions Knee X-Ray 07/11/16 00:01 IMPRESSION: 1. Sequelae of right knee arthroplasty. 2. 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 Attention to this on future studies is suggested. The findings were sent to the Radiology Results Communication [facility] at 11:36 am on 07/11/2016to be communicated to a licensed caregiver. D/ / 07/11/2016 12:12:04 Shay Underwood MD / mikael Interpreting Provider: Shay Underwood MD Date of admission: 07/11/16 12:10 Primary care physician: Nataly Reyes, Consults: 07/11/16 11:31 Consult to Occupational Therapy [CONS] Routine Comment: Evaluate, develop and implement POC Reason for Consult: post knee surgery Consult to Orthopedic Navigator [CONS] [CONS] Routine Consult to Physical Therapy [CONS] Routine Comment: Evaluate, develop and impliment POC Reason for Consult: post knee surgery Consult to Asphalt Tile Floor Layer [CONS] Routine Reason for SW Consult: post op joint replacement RT Post Op Consult [CONS] Routine - Hospital Course Hospital course: Ms. Paiz is a 66 year old female - Time Spent with Patient Total time spent providing and/or coordinating discharge services:
[2016-07-11] MEDS ORDERED: CeFAZolin Pre 2,000 MG/100 ML 2,000 MG/100 ML BAG IVPB ONE (07:38)
[2016-07-11] MEDS ORDERED: Ringers Solution, Lactated 1,000 ML IVC SCH ×2 (07:45→11:31)
--- NOTE | 2016-07-11 07:46 | Anesthesia Evaluation PreOp ---
Date of Encounter: 07/11/16 Time of Encounter: 07:44 - Past History Planned Operation: Right knee Arthroplasty Cardiac History: [place] (2010), HTN, Hyperlipidemia Pulmonary History: Other (Pulmonary Hypertension) RESIDENT ADVISOR History: Other (Anxiety/Depression, Diabetic Neuropathy, Lumbar DDD, Schizoaffective disorder, Suicidal ideations) Other Medical History: Diabetes Type II (insulin dependent), GERD Anesthesia History: No Prior Anesthetic Complications, Past Anesthesia (GB, left TKR, D&C,Gastric staple, c/sx2) : No Alcohol Use: none Drug use: none Medications and Allergies Diltiazem [Cardizem] 60 mg PO BID 01/18/15 [History] Duloxetine HCl [Cymbalta] 60 mg PO DAILY 01/18/15 [History] Gabapentin [Neurontin] 1,200 mg PO TID 01/18/15 [History] Insulin ASPART [NovoLOG] 0 unit SQ TIDWM PRN 01/18/15 [History] Metformin [Glucophage] 1,000 mg PO BIDWM 01/18/15 [History] Montelukast [Singulair] 10 mg PO HS 01/18/15 [History] Insulin Degludec [Tresiba Flextouch U-100] 72 unit SQ DAILY 05/07/16 [History] Liraglutide [Victoza 2-Amarjit] 1.8 ml SQ DAILY 05/07/16 [History] Lisinopril [Zestril] 10 mg PO DAILY 05/07/16 [History] traZODone [TraZODone] 100 mg PO HS 05/07/16 [History] Amitriptyline HCl 100 mg PO HS 06/11/16 [History] Docusate [Colace] 100 mg PO BID #60 capsule 06/14/16 [Rx] Aspirin Enteric Coated [Aspirin EC] 325 mg PO DAILY #21 tablet. 07/10/16 [Rx] OxyCODONE Immed Rel [Roxicodone 5 MG] 5 - 10 mg PO Q6HR PRN #40 tablet 07/10/16 [Rx] Allergies polyethylene glycol [From Golytely] Adverse Reaction (Verified 05/07/16 14:30) Dizziness polyethylene glycol 3350 [From Golytely] Adverse Reaction (Verified 05/07/16 14: 30) Dizziness potassium chloride [From Golytely] Adverse Reaction (Verified 05/07/16 14:30) Dizziness sodium [From Golytely] Adverse Reaction (Verified 05/07/16 14:30) Dizziness sodium bicarbonate [From Golytely] Adverse Reaction (Verified 05/07/16 14:30) Dizziness sodium chloride [From Golytely] Adverse Reaction (Verified 05/07/16 14:30) Dizziness sodium sulfate [From Golytely] Adverse Reaction (Verified 05/07/16 14:30) Dizziness Tizanidine Adverse Reaction (Verified 05/07/16 14:30) Dizziness - Meds/Allergy Pre-op Review Medications Reviewed: Yes Allergies Reviewed: Yes Beta Blockers on Current Med List: No Anesthesia Results - Labs Laboratory Tests 06/14/16 06/22/16 06/29/16 05:25 10:59 11:30 WBC 6.6 Hgb 11.4 L Hct 33.7 L Plt Count 163 INR 1.1 Sodium 138 Potassium 3.8 Chloride 100 Carbon Dioxide 30 H BUN 11 Creatinine 0.72 Stress 11/23 EF-81% No ischemia - Imaging EKG: image reviewed (SR, RBBB, LAFB) Anesthesia Exam O2 Sat Height 1.68 m Height 1.68 m Weight 126.099 kg Weight 126.099 kg O2 Sat by Pulse Oximetry 98 Vital Signs Temp Pulse Resp BP Pulse Ox 98.9 F 96 18 142/82 98 07/11/16 08:00 07/11/16 08:00 07/11/16 08:00 07/11/16 08:00 07/11/16 08:00 Height: 5'6'' Weight: 278# NPO (# of Hours): > 8 hrs Pain Scale: 0 Pain Scale Used: Numeric (1 - 10) - HEENT Pupil (Motor): Pupils equal, EOMI Mallampati: IV (Glidescope used 2014) Teeth: Edentulous Oral Opening: Greater than 3 - RESIDENT ADVISOR LOC: Oriented RESIDENT ADVISOR Motor: Normal RUE, Normal LUE, Normal RLE, Normal LLE, Normal Face RESIDENT ADVISOR Sensory: Normal: RUE, LUE, RLE, LLE, Face - Cardiac Rhythm: Regular Murmur: None JVD: No Carotid Bruit: No - Pulmonary Breath Sounds: bilateral Clear Respiratory Effort: Symmetrical Anesthesia Assess/Plan ASA Score: 3 Modified Lorna Scale for Level of Consciousness: Cooperative, oriented, and tranquil Anesthetic Plan: General Autologous Blood: Yes Monitoring Plan: Standard Monitors Recovery Plan: PACU
[2016-07-11] MEDS ORDERED: Bupivacaine/Clonidine Syringe 1 EACH SYRINGE ONE (07:49)
[2016-07-11] MEDS ORDERED: ROPIVACAINE HCL/PF 0.5% 30 ML VIAL ONE (07:50)
--- NOTE | 2016-07-11 08:05 | History & Physical Report ---
<Yuliana Ferrell - Last Filed: 07/11/16 08:04> Date of Encounter: 07/11/16 Time of Encounter: 08:04 24 Hour HP Update - Instructions Instructions: If the History and Physical is less than 30 days old and was completed prior to A.M. admission and or procedure and has NOT been updated on calendar day of procedure please complete this update prior to performing procedure. - Update Patient reports changes in Medical Condition: No Changes in examination, assessment, or condition: No Changes in Medication: No Preop tests/diagnostics Reviewed: Yes Pre-Op MRSA Screen: Negative Surgery Remains Indicated: Yes Consent for Planned Operative Procedure(s) Verified: Yes - Pre-Operative Checklist Preoperative Checklist Indicated: Yes Prophylactic Antibiotic Ordered: Yes Home Medications Include Beta Jan: Yes Beta Jan Taken Today (Day of Surgery): No <Humberto Ho - Last Filed: 07/11/16 08:55> Date of Encounter: 07/11/16 24 Hour HP Update - Instructions Instructions: If the History and Physical is less than 30 days old and was completed prior to A.M. admission and or procedure and has NOT been updated on calendar day of procedure please complete this update prior to performing procedure. - Update Patient reports changes in Medical Condition: No Changes in examination, assessment, or condition: No Preop tests/diagnostics Reviewed: Yes Pre-Op MRSA Screen: Negative Surgery Remains Indicated: Yes Consent for Planned Operative Procedure(s) Verified: Yes - Pre-Operative Checklist Preoperative Checklist Indicated: No Prophylactic Antibiotic Ordered: Yes Beta Jan Taken Today (Day of Surgery): No Is VTE Prophylaxis Indicated?: Yes
[2016-07-11] MEDS ORDERED: *HR* Propofol 200 MG/20 ML VIAL IVP ONE (08:10)
[2016-07-11] MEDS ORDERED: *HR* FentaNYL (PF) 100 MCG/2 ML VIAL ONE ×2 (08:10→09:42)
[2016-07-11] MEDS ORDERED: *HR* Midazolam HCl 2 MG/2 ML VIAL ONE (08:10)
[2016-07-11] MEDS ORDERED: CeFAZolin Pre 3,000 MG/100 ML 3,000 MG/100 ML BAG IVPB ONE (08:18)
[2016-07-11] MEDS ORDERED: Ondansetron 4 MG/2 ML VIAL IVP ONE (08:24)
[2016-07-11] MEDS ORDERED: *HR* Labetalol 100 MG/20 ML MDV IVP PRN (08:24)
[2016-07-11] MEDS ORDERED: EPHEDrine 50 MG/ML VIAL ONE (08:25)
--- NOTE | 2016-07-11 08:44 | Anesthesia Procedures ---
Date of Encounter: 07/11/16 Time of Encounter: 08:41 Procedures: Anesthesia - Nerve Block Procedure Date: 07/11/16 Time: 08:42 Pre-op Diagnosis: arthritis rt knee Surgical Procedure: R tka Checklist: Correct Patient Identifier Correct side: Right Blood Thinner: No Monitor Applied: EKG, BP, Pulse Oximetry Supplemental Oxygen via Nasal Cannula (L/min): 3 Sedation: Versed (mg): 2 Sedation: Fentanyl (mcg): 100 Indication: Post Op Analgesia Pre-op Neuro Deficits: No Block Type: Femoral, Other (IPAK) Catheter placed: No Sterile Technique: Yes Ultrasound used: Yes Anatomy identified: Yes Visual spread of Local: Yes Neuro Stimulation: Yes Nerve Stimulator Range: 0.2 - 0.4 mA Blood on Needle Aspiration: No Smooth Injection of Local: Yes Pain with Injection of Local: No Prep: Chlorhexadine Needle: 22 x 50 mm Stimuplex, 21 x 100 mm Stimuplex Local: 0.25% Bupivicaine w/Clonidine 20 mcg/cc (IPAK 20cc), Ropivacaine (0.5% 30cc fem) Volume (cc): 30+20 Number of Attempts: 1 Complications: None/effective block Vitals: 125/76 84 16 97% Comments: aseptic, tolerated well, no anesthetic complications
--- NOTE | 2016-07-11 09:48 | Orthopedic Operative Note ---
Date of procedure: 07/11/16 Pre-op diagnosis: Right knee arthritis Post-op diagnosis: same Procedure: Procedure: Right Total knee replacement Estimated blood loss: 200 cc Hardware: Metal and polyethylene replacement. Arthrex Femur: 5 Tibia: 5 PS insert: 14 Patella: 40 Exam Under anesthesia: External rotation deformity, loss of full extension 20 degrees flexion to 90 degrees Procedural Notes: Grade 4 arthritic changes medial compartment patellofemoral joint. Operative procedure: The patient was brought to the operating room and placed on the operating room table. After general anesthesia was administered the operative knee was examined. Findings were noted in the exam under anesthesia. The operative extremity was prepped and draped in sterile surgical fashion. The patient received IV antibiotics prior to skin incision. A standard midline incision was made centered over the patella. The incision was made through the skin and subcutaneous tissue. A medial parapatellar tendon approach was performed. Care was taken to preserve tissue along the medial aspect of the patella. And to protect the patella tendon. The deep MCL was released off the medial tibia. The infra patella fat pad was excised. Knee was brought into flexion. Patient noted to have grade 4 arthritic changes medial compartment and patellofemoral joint. The entry hole was made for the intramedullary femoral guide. The guide was seated in 6 degrees of valgus. Anterior cut was made followed by the distal cut. The ACL the PCL the medial and the lateral menisci were excised. The tibia was subluxed forward. The entry hole was made for the intramedullary tibial guide. Guide was seated to resect 2 mm off the more abnormal side. The knee was brought into flexion the distal femur was sized to a 5. The femoral guide was seated, the anterior cut was made followed by the posterior condylar cut, followed by the chamfer cuts. The finishing guide was seated the box cut was made and the lug holes were drilled. The tibia was sized to a 5, the tibial tray was seated and prepared with the large drill followed by the fin cutter. Trial reduction revealed full extension no varus valgus instability with the appropriate 14 PS Arlene. The patella was everted and cut was made at the level of the insertion of the quadriceps and patella tendon. The patella was sized to a 40 the guide was seated and the lug holes are drilled. Trial reduction revealed excellent patella tracking. All trial components were removed all bony surfaces were irrigated. The tibia was cemented first followed by the femur. The 14 PS Arlene was seated and the knee was brought into full extension. The patella was cemented and held in place with the patellar holding clamp. After the cement had hardened, the knee sat for 2 minutes with a Betadine saline solution. The knee was then irrigated out with 2 L of pulse irrigation. The extensor mechanism was closed with #2 FiberWire suture and #2 PDS suture. The subcutaneous tissue was then irrigated and closed deep with #1 PDS suture superficially with 0 PDS suture and skin was closed with skin jessica. The patient was then placed in a sterile dressing and a postoperative brace extubated and transferred to recovery room in stable condition. Anesthesia: MARIE Surgeon: Humberto Ho Restorative Art Embalmer: Yuliana Ferrell Condition: stable Disposition: PACU
[2016-07-11] MEDS ORDERED: *HR* Morphine 10 MG/ML VIAL ONE ×2 (10:16→10:17)
[2016-07-11] MEDS ORDERED: *HR* HYDROmorphone (PF) 1 MG/ML SYRINGE ONE (10:21)
[2016-07-11] MEDS: *HR* HYDROmorphone (PF) 1 MG/ML SYRINGE IVP PRN ×4 (10:39→19:00)
[2016-07-11 10:44] LABS: Hematocrit 33.8 % (35.3-44.9); Hemoglobin 11.1 g/dL (11.5-15.4)
--- NOTE | 2016-07-11 11:03 | Anesthesia Evaluation Post Op ---
Date of Encounter: 07/11/16 Time of Encounter: 11:02 - Vital Signs Vital Signs: Vital Signs/O2 Sat, Most Current Temp Pulse Resp BP Pulse Ox 97.3 F L 89 18 121/67 96 07/11/16 10:48 07/11/16 10:48 07/11/16 10:48 07/11/16 10:48 07/11/16 10:48 - Lungs Lungs: Clear Ascult./Percussion - Airway Airway: Non-obstructed - Cardiovascular Regular Rate - Mental Status Mental Status: Alert & Oriented, Answers Appropriately - Pain Pain Scale: 7 (dilaudid given) Pain Scale used: Numeric (1 - 10) - Nausea Vomiting Nausea Vomiting: Not Present - Hydration Hydration: Tolerates oral liquids Notes: 07/11/16 11:02 VSS, dozing, stable - Discharge PostOp Status: Transfer Patient to floor
[2016-07-11] MEDS ORDERED: Temazepam 15 MG CAPSULE PO PRN (11:31)
[2016-07-11] MEDS ORDERED: Naloxone 0.4 MG/ML INJ IVP PRN (11:31)
[2016-07-11] MEDS ORDERED: *HR* OxyCODONE Immed Rel 5 MG TABLET PO PRN (11:31)
[2016-07-11] MEDS ORDERED: Sennosides 8.6 MG TABLET PO PRN (11:31)
[2016-07-11] MEDS ORDERED: MOM Conc 10 ML UD.LIQ PO PRN (11:31)
[2016-07-11] MEDS: (Liraglutide [Victoza 2-Pak] 1.8 ML) SQ SCH (12:14)
[2016-07-11] MEDS: INSULIN DEGLUDEC 72 UNIT SQ SCH (12:14)
[2016-07-11] MEDS: Gabapentin 400 MG CAPSULE PO SCH ×3 (12:20→21:00)
[2016-07-11] MEDS: *HR* OxyCODONE Immed Rel 5 MG TABLET PO PRN ×3 (12:21→21:01)
[2016-07-11] MEDS: Diltiazem SR (12hr) 60 MG CAPSULE PO SCH ×2 (13:53→21:14)
[2016-07-11] MEDS: Budesonide/Formoterol 80/4.5 MDI IH SCH ×2 (15:06→19:51)
[2016-07-11] MEDS: ceFAZolin 3,000 MG in D5% in Water 100 ML IVPB SCH (17:16)
[2016-07-11] MEDS: *HR* Enoxaparin 30 MG/0.3 ML SYRINGE SQ SCH (17:16)
[2016-07-11] MEDS ORDERED: D5% in Water 1,000 ML IVC PRN (17:36)
[2016-07-11] MEDS ORDERED: Dextrose Gel 15 GM PO PRN ×2 (17:36)
[2016-07-11] MEDS ORDERED: *HR* Dextrose 50 % in Water (Syg) 50 ML SYRINGE IVP PRN (17:36)
[2016-07-11] MEDS: Insulin LISPRO 300 UNITS/3 ML VIAL SQ SCH ×2 (17:45→21:02)
[2016-07-11] MEDS ORDERED: *HR* Enoxaparin 30 MG/0.3 ML SYRINGE SQ SCH (18:00)
[2016-07-11] MEDS ORDERED: Acetaminophen 325 MG TABLET PO PRN (19:30)
[2016-07-11] MEDS: traZODone 50 MG TABLET PO SCH (21:00)
[2016-07-12] MEDS: ceFAZolin 3,000 MG in D5% in Water 100 ML IVPB SCH (00:55)
[2016-07-12] MEDS: *HR* Enoxaparin 30 MG/0.3 ML SYRINGE SQ SCH ×2 (05:16→16:20)
[2016-07-12] MEDS: *HR* OxyCODONE Immed Rel 5 MG TABLET PO PRN ×4 (05:16→19:58)
[2016-07-12 05:50] LABS: Hematocrit 29.3 % (35.3-44.9); Hemoglobin 9.7 g/dL (11.5-15.4)
[2016-07-12 06:10] LABS: BUN/Creatinine Ratio 15 (6-26); Blood Urea Nitrogen 13 mg/dL (7-20); Carbon Dioxide 29 mEq/L (19-29); Chloride 94 mEq/L (98-109); Glucose 216 mg/dL (70-99); Osmolality,Calculated 275 (280-300); Potassium 4.2 mEq/L (3.5-4.5); Sodium 129 mEq/L (136-145); eGFR For African Americans > 60 (> 60); eGFR For Non-African Americans > 60 (> 60)
[2016-07-12] MEDS: *HR* HYDROmorphone (PF) 1 MG/ML SYRINGE IVP PRN (06:55)
--- NOTE | 2016-07-12 07:57 | Orthopedics Progress Note ---
Date of Encounter: 07/12/16 Time of Encounter: 07:57 - Assessment and Plan (1) Diabetes mellitus type 2 in obese Current Visit: No Status: Chronic (2) Hypertension Current Visit: No Status: Chronic Qualifiers: Hypertension type: essential hypertension Qualified Code(s): I10 - Essential (primary) hypertension (3) Schizoaffective disorder Current Visit: No Status: Chronic Qualifiers: Schizoaffective disorder type: unspecified Qualified Code(s): F25.9 - Schizoaffective disorder, unspecified (4) Depression Current Visit: No Status: Chronic Qualifiers: Depression Type: unspecified Qualified Code(s): F32.9 - Major depressive disorder, single episode, unspecified (5) Arthritis of knee, right Current Visit: Yes Status: Acute (6) Obesity Current Visit: Yes Status: Chronic Qualifiers: Obesity type: unspecified obesity type Obesity severity: unspecified obesity severity Qualified Code(s): E66.9 - Obesity, unspecified (7) Chronic pain Current Visit: Yes Status: Chronic Qualifiers: Chronic pain type: other chronic pain Qualified Code(s): G89.29 - Other chronic pain Subjective Interval history: Patient was seen this morning doing well without complaints. Afebrile vital signs stable. Operative extremity: Neurovascularly intact Dressing clean dry and intact Calves nontender Assessment and plan: Continue with postoperative care Hemoglobin 9.7 Objective Vital signs: Vital Signs Temp Pulse Resp BP Pulse Ox 07/12/16 06:35 100.0 F H 103 18 130/66 07/12/16 05:28 99.7 F H 104 18 135/74 94 07/12/16 00:11 99.3 F 99 19 114/74 92 07/11/16 19:51 18 92 07/11/16 19:00 100.3 F H 07/11/16 18:58 99.1 F 100 16 116/66 97 07/11/16 13:35 98.0 F 101 16 129/75 96 07/11/16 13:27 94 16 129/78 96 07/11/16 12:26 98.4 F 94 16 129/78 96 07/11/16 12:00 98.3 F 91 15 145/84 96 07/11/16 11:32 97.7 F 91 16 148/77 97 07/11/16 11:08 87 18 132/72 96 07/11/16 10:58 90 18 123/67 97 07/11/16 10:48 97.3 F L 89 18 121/67 96 07/11/16 10:38 90 18 120/71 97 07/11/16 10:28 85 18 131/72 94 07/11/16 10:18 97.6 F 97 18 149/92 94 07/11/16 08:45 80 18 125/76 99 07/11/16 08:28 78 18 139/84 98 07/11/16 08:00 98.9 F 96 18 142/82 98 Intake and Output 07/11/16 07/11/16 07/12/16 15:59 23:59 07:59 Intake Total 0 / 0 220 / 220 Output Total 600 / 600 Balance -600 / -600 220 / 220 Intake: IV Fluids 100 / 100 Ancef 3,000 MG In 100 / 100 Dextrose 5% 100 ML @ 200 mls/hr IVPB Q8HR VIOLETTE Rx#: [id number] Oral 0 / 0 120 / 120 Output: Estimated Blood Loss 600 / 600 Other: Meal Dinner Percent of Meal Consumed 50% Weight 126.099 kg Blood Glucose* 114 198 233 - Labs CBC & BMP: 07/12/16 04:48 07/12/16 04:48 Labs: Abnormal lab results Hgb 9.7 g/dL (11.5-15.4) L 07/12/16 04:48 Hct 29.3 % (35.3-44.9) L 07/12/16 04:48 Sodium 129 mEq/L (136-145) L 07/12/16 04:48 Chloride 94 mEq/L (98-109) L 07/12/16 04:48 Glucose 216 mg/dL (70-99) H 07/12/16 04:48 POC Glucose 233 (58-89) H 07/12/16 07:21 Calculated Osmolality 275 (280-300) L 07/12/16 04:48 Calcium 8.0 mg/dL (8.6-10.8) L 07/12/16 04:48 - VTE Documentation of Mechanical Device: Venous foot pump, device Consult Discharge Plan - Plan Referrals: Nataly Reyes MD [Primary Care Provider] -
[2016-07-12] MEDS: Budesonide/Formoterol 80/4.5 MDI IH SCH ×2 (08:09→20:28)
[2016-07-12] MEDS: Ondansetron 4 MG/2 ML VIAL IVP PRN (08:34)
[2016-07-12] MEDS: Diltiazem SR (12hr) 60 MG CAPSULE PO SCH ×2 (08:35→19:57)
[2016-07-12] MEDS: Insulin LISPRO 300 UNITS/3 ML VIAL SQ SCH ×4 (08:35→20:04)
[2016-07-12] MEDS: INSULIN DEGLUDEC 72 UNIT SQ SCH (08:35)
[2016-07-12] MEDS: (Liraglutide [Victoza 2-Pak] 1.8 ML) SQ SCH (08:36)
[2016-07-12] MEDS: Gabapentin 400 MG CAPSULE PO SCH ×3 (10:12→19:57)
[2016-07-12] MEDS: Insulin DETEMIR 100 UNIT/ML X5UNITS SQ SCH (16:20)
[2016-07-12] MEDS: traZODone 50 MG TABLET PO SCH (19:57)
[2016-07-13] MEDS: Ondansetron 4 MG/2 ML VIAL IVP PRN (01:37)
[2016-07-13 05:18] LABS: BUN/Creatinine Ratio 20 (6-26); Blood Urea Nitrogen 14 mg/dL (7-20); Calcium 8.5 mg/dL (8.6-10.8); Carbon Dioxide 29 mEq/L (19-29); Chloride 92 mEq/L (98-109); Glucose 123 mg/dL (70-99); Osmolality,Calculated 266 (280-300); Sodium 127 mEq/L (136-145); eGFR For African Americans > 60 (> 60); eGFR For Non-African Americans > 60 (> 60)
[2016-07-13 05:23] LABS: Hematocrit 27.4 % (35.3-44.9); Hemoglobin 9.5 g/dL (11.5-15.4)
--- NOTE | 2016-07-13 06:24 | Orthopedics Progress Note ---
Date of Encounter: 07/13/16 Time of Encounter: 06:24 - Assessment and Plan (1) Diabetes mellitus type 2 in obese Current Visit: No Status: Chronic (2) Hypertension Current Visit: No Status: Chronic Qualifiers: Hypertension type: essential hypertension Qualified Code(s): I10 - Essential (primary) hypertension (3) Schizoaffective disorder Current Visit: No Status: Chronic Qualifiers: Schizoaffective disorder type: unspecified Qualified Code(s): F25.9 - Schizoaffective disorder, unspecified (4) Depression Current Visit: No Status: Chronic Qualifiers: Depression Type: unspecified Qualified Code(s): F32.9 - Major depressive disorder, single episode, unspecified (5) Arthritis of knee, right Current Visit: Yes Status: Acute (6) Obesity Current Visit: Yes Status: Chronic Qualifiers: Obesity type: unspecified obesity type Obesity severity: unspecified obesity severity Qualified Code(s): E66.9 - Obesity, unspecified (7) Chronic pain Current Visit: Yes Status: Chronic Qualifiers: Chronic pain type: other chronic pain Qualified Code(s): G89.29 - Other chronic pain (8) Acute blood loss anemia Current Visit: Yes Status: Acute Subjective Interval history: Patient was seen this morning doing well without complaints. Afebrile vital signs stable. Operative extremity: Neurovascularly intact Dressing clean dry and intact Calves nontender Assessment and plan: Continue with postoperative care Hemoglobin 9.5 Objective Vital signs: Vital Signs Temp Pulse Resp BP Pulse Ox 07/13/16 04:58 99.6 F 102 17 137/70 92 07/13/16 00:42 99.1 F 100 17 143/72 96 07/12/16 20:25 16 93 07/12/16 19:00 99.9 F H 108 18 157/77 93 07/12/16 15:17 99.5 F 106 16 169/84 93 07/12/16 11:19 98.5 F 99 18 150/80 95 07/12/16 08:09 18 94 07/12/16 06:35 100.0 F H 103 18 130/66 Intake and Output 07/12/16 07/12/16 07/13/16 15:59 23:59 07:59 Intake Total 240 / 240 Output Total 925 / 925 Balance 240 / 240 -925 / -925 Intake: Oral 240 / 240 Output: Straight Cath 925 / 925 Other: Meal Lunch Percent of Meal Consumed 75% # Urine Diapers 1 Weight 128.1 kg Blood Glucose* 200 174 Patient Weight 07/13/16 23:59 Weight 128.1 kg - Labs CBC & BMP: 07/13/16 04:28 07/13/16 04:28 Labs: Abnormal lab results Hgb 9.5 g/dL (11.5-15.4) L 07/13/16 04:28 Hct 27.4 % (35.3-44.9) L 07/13/16 04:28 Sodium 127 mEq/L (136-145) L 07/13/16 04:28 Chloride 92 mEq/L (98-109) L 07/13/16 04:28 Glucose 123 mg/dL (70-99) H 07/13/16 04:28 POC Glucose 174 (58-89) H 07/12/16 19:51 Calculated Osmolality 266 (280-300) L 07/13/16 04:28 Calcium 8.5 mg/dL (8.6-10.8) L 07/13/16 04:28 - VTE Documentation of Mechanical Device: Venous foot pump, device Consult Discharge Plan - Plan Referrals: Nataly Reyes MD [Primary Care Provider] -
[2016-07-13] MEDS: *HR* Enoxaparin 30 MG/0.3 ML SYRINGE SQ SCH ×2 (06:41→16:54)
[2016-07-13] MEDS: Insulin LISPRO 300 UNITS/3 ML VIAL SQ SCH ×4 (08:11→20:43)
[2016-07-13] MEDS: Budesonide/Formoterol 80/4.5 MDI IH SCH ×2 (08:32→20:32)
[2016-07-13] MEDS: *HR* OxyCODONE Immed Rel 5 MG TABLET PO PRN ×3 (08:36→16:55)
[2016-07-13] MEDS: Gabapentin 400 MG CAPSULE PO SCH ×3 (08:37→20:47)
[2016-07-13] MEDS: Insulin DETEMIR 100 UNIT/ML X5UNITS SQ SCH (08:38)
[2016-07-13] MEDS: Diltiazem SR (12hr) 60 MG CAPSULE PO SCH ×2 (08:38→20:42)
[2016-07-13] MEDS: (Liraglutide [Victoza 2-Pak] 1.8 ML) SQ SCH (08:38)
[2016-07-13] MEDS: *HR* HYDROmorphone (PF) 1 MG/ML SYRINGE IVP PRN (15:24)
[2016-07-13] MEDS: traZODone 50 MG TABLET PO SCH (20:47)
[2016-07-14] MEDS: *HR* Enoxaparin 30 MG/0.3 ML SYRINGE SQ SCH ×2 (06:07→17:29)
[2016-07-14] MEDS: Insulin LISPRO 300 UNITS/3 ML VIAL SQ SCH ×4 (08:08→21:04)
[2016-07-14] MEDS: Diltiazem SR (12hr) 60 MG CAPSULE PO SCH ×2 (08:09→20:49)
[2016-07-14] MEDS: Insulin DETEMIR 100 UNIT/ML X5UNITS SQ SCH (08:09)
[2016-07-14] MEDS: Gabapentin 400 MG CAPSULE PO SCH ×3 (08:09→20:49)
[2016-07-14] MEDS: Budesonide/Formoterol 80/4.5 MDI IH SCH ×2 (08:17→20:10)
--- NOTE | 2016-07-14 16:14 | Orthopedics Progress Note ---
Date of Encounter: 07/14/16 Time of Encounter: 16:12 - Assessment and Plan (1) Arthritis of knee, right Current Visit: Yes Status: Acute Postoperative day #3, stable except for urinary retention Patient is scheduled for discharge to rehabilitation. We will hold discharge pending and patient able to void on her own If she is unable to void, will obtain a urology consult Subjective Principal diagnosis: Status post right total knee arthroplasty Interval history: Patient has not voided all day. She was straight cathetered and 2,650 cc was collected. Patient states she normally has problems with voiding. Right knee: Wound is clean dry and intact, minimal swelling Bilateral calves are soft and nontender, neurovascular intact distally Objective Vital signs: Vital Signs Temp Pulse Resp BP Pulse Ox 07/14/16 10:52 99.2 F 86 16 114/68 93 07/14/16 08:18 16 98 07/14/16 06:32 98.7 F 92 16 128/76 96 07/13/16 22:47 99.6 F 96 17 123/77 97 07/13/16 20:35 90 07/13/16 20:33 100.4 F H 93 20 100/64 88 07/13/16 20:32 14 92 Intake and Output 07/14/16 07/14/16 07/14/16 07:59 15:59 23:59 Intake Total 50 / 50 Output Total 2650 / 2650 Balance 50 / 50 -2650 / -2650 Intake: Oral 50 / 50 Output: Catheter 2650 / 2650 Other: Blood Glucose* 186 149 Incision: clean and dry - Labs CBC & BMP: 07/13/16 04:28 07/13/16 04:28 Labs: Abnormal lab results Hgb 9.5 g/dL (11.5-15.4) L 07/13/16 04:28 Hct 27.4 % (35.3-44.9) L 07/13/16 04:28 Sodium 127 mEq/L (136-145) L 07/13/16 04:28 Chloride 92 mEq/L (98-109) L 07/13/16 04:28 Glucose 123 mg/dL (70-99) H 07/13/16 04:28 POC Glucose 175 (58-89) H 07/13/16 20:27 Calculated Osmolality 266 (280-300) L 07/13/16 04:28 Calcium 8.5 mg/dL (8.6-10.8) L 07/13/16 04:28 - VTE Documentation of Mechanical Device: Venous foot pump, device Consult Discharge Plan - Plan Referrals: Nataly Reyes MD [Primary Care Provider] -
[2016-07-14] MEDS: *HR* OxyCODONE Immed Rel 5 MG TABLET PO PRN (18:45)
[2016-07-14] MEDS: traZODone 50 MG TABLET PO SCH (20:49)
[2016-07-15] MEDS: *HR* Enoxaparin 30 MG/0.3 ML SYRINGE SQ SCH (06:20)
[2016-07-15] MEDS: *HR* OxyCODONE Immed Rel 5 MG TABLET PO PRN ×3 (06:56→15:56)
[2016-07-15] MEDS: Budesonide/Formoterol 80/4.5 MDI IH SCH (08:14)
[2016-07-15] MEDS: Insulin LISPRO 300 UNITS/3 ML VIAL SQ SCH ×2 (08:39→13:07)
[2016-07-15] MEDS: Diltiazem SR (12hr) 60 MG CAPSULE PO SCH (09:58)
[2016-07-15] MEDS: Gabapentin 400 MG CAPSULE PO SCH ×2 (09:59→15:56)
[2016-07-15] MEDS: Insulin DETEMIR 100 UNIT/ML X5UNITS SQ SCH (09:59)
[2016-07-15 10:10] VITALS: BP 123/68
--- NOTE | 2016-07-15 16:04 | Event Note ---
Date of Encounter: 07/15/16 Time of Encounter: 16:03 The patient still has not voided on her own. I discussed with Dr. Valladares that we will place a [facility]. She will go to rehabilitation with the [facility]. She will follow-up with Dr. Valladares in 1 week. Since she has a joint arthroplasty, she was placed on by mouth prophylactic antibiotics.
== END 2016-07-15 16:58 | DRG 470 ==
LOC: SAMDAY 07:12 → 3NENU 12:10
PROVIDERS: ADMIT Orthopaedic Surgery; ATTEND Orthopaedic Surgery

== ENCOUNTER 2016-08-07 08:55 | Inpatient (IN) ==
--- NOTE | 2016-08-07 09:14 | Emergency Department Note ---
Disposition Clinical Impression: Weakness generalized, Hyponatremia Fever Qualifiers: Fever type: unspecified Qualified Code(s): R50.9 - Fever, unspecified Fall Qualifiers: Encounter type: initial encounter Qualified Code(s): W19.XXXA - Unspecified fall, initial encounter Disposition: Admitted As Inpatient Condition: Fair Time of Disposition: 09:58 General Adult HPI - General Chief complaint: ED Fall Stated complaint: fall S/P knee replacement Time Seen by Provider: 08/07/16 08:59 Source: patient, EMS Mode of arrival: EMS Limitations: no limitations Nursing Notes Reviewed: Yes Vital Signs Reviewed: Yes - History of Present Illness HPI Narrative: Patient presents from home after mechanical fall. She complains of postsurgical right knee pain. She underwent right knee replacement per Dr. Ho 07/11/16. She left from the extended care facility yesterday because she thought herself well enough to take care of herself at home. [facility]. She denies traumatic injury Pain Scale: 8 Treatments Prior to Arrival: none - Related Data Home Medications Medication Instructions Recorded Confirmed Diltiazem [Cardizem] 60 mg PO BID 01/18/15 08/07/16 Duloxetine HCl [Cymbalta] 60 mg PO BID 01/18/15 08/07/16 Gabapentin [Neurontin] 1,200 mg PO TID 01/18/15 08/07/16 Insulin ASPART [NovoLOG] 0 unit SQ TIDWM PRN 01/18/15 08/07/16 Montelukast [Singulair] 10 mg PO HS 01/18/15 08/07/16 Insulin Degludec [Tresiba 72 unit SQ DAILY 05/07/16 08/07/16 Flextouch U-100] Lisinopril [Zestril] 10 mg PO DAILY 05/07/16 08/07/16 traZODone [TraZODone] 100 mg PO HS 05/07/16 08/07/16 Amitriptyline HCl 100 mg PO HS 06/11/16 08/07/16 Albuterol Sulfate [Albuterol 2 puff IH Q4HR PRN 07/11/16 08/07/16 Inhaler] Budesonide/Formoterol 80/4.5 2 puff IH BIDR 07/11/16 08/07/16 [Symbicort 80/4.5] HYDROcodone/Acet 10/325 mg [[place] 1 tab PO QID PRN 07/11/16 08/07/16 10-325 mg] Pantoprazole Sodium [Protonix] 40 mg PO DAILY 07/11/16 08/07/16 Simvastatin [Zocor] 40 mg PO HS 07/11/16 08/07/16 Dulaglutide [Trulicity] 0.75 mg SQ QWEEK 08/07/16 08/07/16 Ipratropium [place] 1 spray NS DAILY 08/07/16 08/07/16 Previous Rx's Medication Instructions Recorded Docusate [Colace] 100 mg PO BID #60 capsule 06/14/16 Aspirin Enteric Coated [Aspirin EC] 325 mg PO DAILY #21 tablet. 07/10/16 OxyCODONE Immed Rel [Roxicodone 5 5 - 10 mg PO Q6HR PRN #40 tablet 07/10/16 MG] Allergies Allergy/AdvReac Type Severity Reaction Status Date / Time polyethylene glycol AdvReac Nausea Verified 07/11/16 08:00 [From Golytely] polyethylene glycol 3350 AdvReac Nausea Verified 07/11/16 08:00 [From Golytely] potassium chloride AdvReac Nausea Verified 07/11/16 08:00 [From Golytely] sodium [From Golytely] AdvReac Nausea Verified 07/11/16 08:00 sodium bicarbonate AdvReac Nausea Verified 07/11/16 08:00 [From Golytely] sodium chloride AdvReac Nausea Verified 07/11/16 08:00 [From Golytely] sodium sulfate AdvReac Nausea Verified 07/11/16 08:00 [From Golytely] Tizanidine AdvReac Dizziness Verified 07/11/16 08:00 All systems ED: reviewed and negative except as stated. Constitutional: Reports: as per HPI Eyes: Reports: as per HPI ENT ED: Reports: as per HPI Cardiovascular: Reports: as per HPI Respiratory: Reports: as per HPI Gastrointestinal: Reports: as per HPI Genitourinary: Reports: as per HPI Musculoskeletal: Reports: other (Right knee pain) Integumentary: Reports: as per HPI Neurological: Reports: weakness Psychiatric: Reports: as per HPI Endocrine: Reports: as per HPI Hematological/Lymphatic: Reports: as per HPI Allergic/Immunologic: Reports: as per HPI Past Medical History - Past Medical History Source: patient, old records reviewed Medical history: Reports: diabetes, hyperlipidemia, hypertension, myocardial infarction, other Surgical history: Reports: , knee replacement, other Psychiatric history: Reports: anxiety, depression - Social History Smoking Status: Former smoker Smokeless Tobacco Status: No Alcohol use: Reports: none Drug use: Reports: none Physical Exam Patient slightly disheveled and unkempt - General Limitations: no limitations General appearance: alert (Oriented to person place and time. Sometimes makes confusing statements), other - Head Head exam: atraumatic - Eye Eye exam: Present: normal appearance, PERRL - ENT ENT exam: normal exam - Neck Neck exam: Present: normal inspection, full ROM - Chest Chest inspection: Present: normal inspection, symmetric chest wall rise - Respiratory Respiratory exam: Present: normal lung sounds bilaterally - Cardiovascular Cardiovascular exam: Present: regular rate, normal rhythm, normal heart sounds - Abdominal Exam Abdominal exam: Present: soft, Non-Tender (Obese) - Rectal Exam Rectal exam: Present: deferred - Expanded Lower Extremity Exam Knee exam: Present: tenderness, swelling, other (Postsurgical incision to right knee erythematous with active serosanguinous drainage.) - Neurological Exam Neurological exam: Present: alert, oriented X3, CN II-XII intact - Psychiatric Psychiatric exam: Present: normal affect, normal mood - Skin Skin exam: Present: warm, dry Course Course Narrative: Patient presents to the emergency department complaining of weakness and mechanical fall. She underwent right knee replacement 1 month ago. She has a fever. Infectious workup initiated. Significant other at bedside states the patient is at baseline in terms of her mental status - Reevaluation(s) Reevaluation #1: Will admit for postop right knee infection. Reevaluation #2: Dr. Ruiz accepts admission. Requests right knee xray - Consultations Consultation #1: Call placed orthopedics on-call. Case d/w Dr. Ho Vital Signs Temperature 101.2 F H 08/07/16 08:57 Pulse Rate 98 08/07/16 08:57 Respiratory Rate 16 08/07/16 08:57 Blood Pressure 152/64 08/07/16 08:57 O2 Sat by Pulse Oximetry 99 08/07/16 08:57 Temperature 101.2 F H 08/07/16 08:57 Pulse Rate 96 08/07/16 11:09 Respiratory Rate 16 08/07/16 11:42 Blood Pressure 104/60 08/07/16 11:42 O2 Sat by Pulse Oximetry 93 08/07/16 11:09 Oxygen Delivery Oxygen Delivery Room Air Medical Decision Making - Medical Records Medical records reviewed: Yes I reviewed the patient's medical records. Patient is hyponatremic. She has been intermittently hyponatremic in the past per my review of medical records - Lab Data Lab results reviewed: Yes I reviewed the patient's lab results. Result diagrams: 08/07/16 09:41 08/07/16 09:41 Lab Results 08/07/16 08/07/16 08/07/16 Range/Units 09:19 09:41 09:41 WBC 12.4 H (4.3-11.1) K/mcL RBC 3.57 L (3.82-4.97) M/mcL Hgb 10.4 L (11.5-15.4) g/dL Hct 30.6 L (35.3-44.9) % MCV 85.7 (83.0-100.0) fL MCH 29.1 (28.0-33.3) pg MCHC 34.0 (31.6-35.5) g/dL RDW 13.3 (11.5-14.5) % Plt Count 269 (140-400) K/mcL MPV 7.9 L (9.4-12.4) fL Immature Gran % 0.4 (0-4) % Seg Neutrophils % 86.3 % Lymphocytes % 5.6 % Monocytes % 5.3 % Eosinophils % 1.9 % Basophils % 0.5 % Neutrophils # 10.7 H (1.6-8.9) K/mcL Lymphocytes # 0.7 (0.6-4.6) K/mcL Monocytes # 0.7 (0.0-1.3) K/mcL Eosinophils # 0.2 (0.0-0.6) K/mcL Basophils # 0.1 (0.0-0.2) K/mcL Immature Plt Fraction 0.9 L (1.1-6.1) % Sodium 121 L (136-145) mEq/L Potassium 5.0 H (3.5-4.5) mEq/L Chloride 86 L (98-109) mEq/L Carbon Dioxide 25 (19-29) mEq/L BUN 19 (7-20) mg/dL Creatinine 1.16 H (0.57-1.11) mg/dL Est GFR ( Amer) 57 L (> 60) Est GFR (Non-Af Amer) 47 L (> 60) BUN/Creatinine Ratio 16 (6-26) Glucose 169 H (70-99) mg/dL Calculated Osmolality 258 L (280-300) Lactic Acid (0.5-2.2) mmol/L Calcium 8.7 (8.6-10.8) mg/dL Total Bilirubin 0.7 (0.2-1.2) mg/dL AST 19 (5-34) Units/L ALT 7 (0-55) Units/L Alkaline Phosphatase 141 H (38-126) Units/L Serum Total Protein 6.9 (6.0-8.3) g/dL Albumin 2.9 L (3.5-5.0) g/dL Globulin 4.0 H (2.4-3.5) g/dL Albumin/Globulin Ratio 0.7 L (1.1-2.2) Urine Color Yellow (Yellow) Urine Clarity Cloudy A (Clear) Urine pH 5.0 (5.0-8.0) pH Units Ur Specific [place] 1.014 (1.010-1.025) Urine Protein Negative (Neg-Trace) mg/dL Urine Glucose (UA) Normal (Normal) mg/dL Urine Ketones Negative (Negative) mg/dL Urine Blood Negative (Negative) Urine Nitrite Negative (Negative) Urine Bilirubin Negative (Negative) Urine Urobilinogen Normal (Normal) mg/dL Ur Leukocyte Esterase Negative (Negative) Urine Microscopic RBC 0-3 (0-3) per hpf Urine Microscopic WBC 5-15 H (0-3) per hpf Ur Squamous Epith Cells Many H (None-Few) per lpf Urine Bacteria None Seen (None-Few) per hpf Hyaline Casts Few (None-Few) per lpf Urine Yeast Moderate H (None Seen) per hpf 08/07/16 Range/Units 09:41 WBC (4.3-11.1) K/mcL RBC (3.82-4.97) M/mcL Hgb (11.5-15.4) g/dL Hct (35.3-44.9) % MCV (83.0-100.0) fL MCH (28.0-33.3) pg MCHC (31.6-35.5) g/dL RDW (11.5-14.5) % Plt Count (140-400) K/mcL MPV (9.4-12.4) fL Immature Gran % (0-4) % Seg Neutrophils % % Lymphocytes % % Monocytes % % Eosinophils % % Basophils % % Neutrophils # (1.6-8.9) K/mcL Lymphocytes # (0.6-4.6) K/mcL Monocytes # (0.0-1.3) K/mcL Eosinophils # (0.0-0.6) K/mcL Basophils # (0.0-0.2) K/mcL Immature Plt Fraction (1.1-6.1) % Sodium (136-145) mEq/L Potassium (3.5-4.5) mEq/L Chloride (98-109) mEq/L Carbon Dioxide (19-29) mEq/L BUN (7-20) mg/dL Creatinine (0.57-1.11) mg/dL Est GFR ( Amer) (> 60) Est GFR (Non-Af Amer) (> 60) BUN/Creatinine Ratio (6-26) Glucose (70-99) mg/dL Calculated Osmolality (280-300) Lactic Acid 1.7 (0.5-2.2) mmol/L Calcium (8.6-10.8) mg/dL Total Bilirubin (0.2-1.2) mg/dL AST (5-34) Units/L ALT (0-55) Units/L Alkaline Phosphatase (38-126) Units/L Serum Total Protein (6.0-8.3) g/dL Albumin (3.5-5.0) g/dL Globulin (2.4-3.5) g/dL Albumin/Globulin Ratio (1.1-2.2) Urine Color (Yellow) Urine Clarity (Clear) Urine pH (5.0-8.0) pH Units Ur Specific [place] (1.010-1.025) Urine Protein (Neg-Trace) mg/dL Urine Glucose (UA) (Normal) mg/dL Urine Ketones (Negative) mg/dL Urine Blood (Negative) Urine Nitrite (Negative) Urine Bilirubin (Negative) Urine Urobilinogen (Normal) mg/dL Ur Leukocyte Esterase (Negative) Urine Microscopic RBC (0-3) per hpf Urine Microscopic WBC (0-3) per hpf Ur Squamous Epith Cells (None-Few) per lpf Urine Bacteria (None-Few) per hpf Hyaline Casts (None-Few) per lpf Urine Yeast (None Seen) per hpf
[2016-08-07 09:33] LABS: Bilirubin,Urine Negative (Negative); Blood,Urine Negative (Negative); Clarity,Urine Cloudy (Clear); Color,Urine Yellow (Yellow); Glucose,Urine (UA) Normal (Normal); Ketones,Urine Negative (Negative); Leukocyte Esterase,Urine Negative (Negative); Nitrite,Urine Negative (Negative); Protein,Urine Negative (Neg-Trace); Specific Gravity,Urine 1.014 (1.010-1.025); Urobilinogen,Urine Normal (Normal)
[2016-08-07 09:36] LABS: Bacteria,Urine None Seen per hpf (None-Few); Hyaline Casts,Urine Few per lpf (None-Few); Squamous Epithelial Cell,Urine Many per lpf (None-Few)
[2016-08-07 09:45] LABS: RBC,Urine 0-3 per hpf (0-3)
[2016-08-07 09:46] LABS: Yeast,Urine Moderate per hpf (None Seen)
[2016-08-07 09:51] LABS: Basophils # 0.1 K/mcL (0.0-0.2); Basophils % 0.5 %; Eosinophils # 0.2 K/mcL (0.0-0.6); Eosinophils % 1.9 %; Hematocrit 30.6 % (35.3-44.9); Hemoglobin 10.4 g/dL (11.5-15.4); Immature Granulocytes % 0.4 % (0-4); Immature Platelets 0.9 % (1.1-6.1); Lymphocytes # 0.7 K/mcL (0.6-4.6); Lymphocytes % 5.6 %; Mean Corpuscular Hemoglobin 29.1 pg (28.0-33.3); Mean Corpuscular Volume 85.7 fL (83.0-100.0); Mean Platelet Volume 7.9 fL (9.4-12.4); Monocytes # 0.7 K/mcL (0.0-1.3); Monocytes % 5.3 %; Neutrophils # 10.7 K/mcL (1.6-8.9); Platelet Count 269 K/mcL (140-400); Red Blood Count 3.57 M/mcL (3.82-4.97); Red Cell Distribution Width 13.3 % (11.5-14.5); Segmented Neutrophils % 86.3 %
[2016-08-07] MEDS ORDERED: Vancomycin 1,000 MG in D5% in Water 250 ML IVPB ONE ×2 (09:53→13:00)
[2016-08-07] MEDS ORDERED: Ampicillin/Sulbactam 1,500 MG in 0.9 % Sodium Chloride Mini Bag 100 ML IVPB ONE (09:53)
[2016-08-07 10:05] LABS: Albumin 2.9 g/dL (3.5-5.0); Albumin/Globulin Ratio 0.7 (1.1-2.2); Bilirubin,Total 0.7 mg/dL (0.2-1.2); Calcium 8.7 mg/dL (8.6-10.8); Total Protein 6.9 g/dL (6.0-8.3)
[2016-08-07] MEDS ORDERED: Acetaminophen 325 MG TABLET PO PRN (11:26)
[2016-08-07] MEDS ORDERED: Naloxone 0.4 MG/ML INJ IVP PRN (11:26)
[2016-08-07] MEDS ORDERED: Dextrose Gel 15 GM PO PRN ×2 (11:41)
[2016-08-07] MEDS ORDERED: D5% in Water 1,000 ML IVC PRN (11:41)
[2016-08-07] MEDS ORDERED: *HR* Dextrose 50 % in Water (Syg) 50 ML SYRINGE IVP PRN (11:41)
--- NOTE | 2016-08-07 11:46 | Internal Med History&Physical ---
<Jewels Bishop M - Last Filed: 08/07/16 11:44> Date of Encounter: 08/07/16 Time of Encounter: 11:46 Assessment and Plan (1) Sepsis Current visit: Yes Status: Acute Patient with fever of 101.2, elevated WBC of 12.4 and mild tachycardia with HR of 98. She had knee replacement 1 month ago and was just discharged from SNF yesterday. Patient denies chills, sweats, coughing, dysuria CXR does not show anything acute, UA appears dirty, but not infected. Patients RLE incision with mild surrounding erythema, scant sanguinous drainage. Suspected septic arthritis. XRay of right knee did not demonstrate effusion. Lactic acid normal at 1.7. Dr. Ho in orthopedics consulted. patient initiated on broad spectrum antibiotics with vanc and unasyn in ED, will continue with vanc and zosyn. Qualifiers: Sepsis type: sepsis due to unspecified organism Qualified Code(s): A41.9 - Sepsis, unspecified organism (2) Hyponatremia Current visit: No Status: Chronic Sodium of 121. Patient with multiple previous admissions for hyponatremia. Will restrict fluid intake to 1.2L daily. 0.9NS at 100mL/hr. Check sodium Q6hrs, we do not want to correct too quickly, and will aim for a correction of 3 per 24 hours. (3) Hyperkalemia Current visit: No Status: Acute Potassium of 5.0. Will give fluids at 0.9NS At 100mL/hr and check chemistry at 6pm this evening as well as in the morning. (4) Diabetes mellitus type 2 in obese Current visit: No Status: Chronic Diabetic diet. Check blood sugars ACHS Basal dose of insulin Levemir 30u daily (home dose is 72u of Tresiba daily) Sliding scale correction dose ACHS hypoglycemic protocol. (5) REX (acute kidney injury) Current visit: No Status: Acute Creatinine of 1.16, up from previous of 0.71. Giving IV fluids 0.9NS at 100mL/ hr. Check chemistry daily. (6) Post op infection Current visit: Yes Status: Suspected Patient is s/p right knee replacement 1 month ago. She presents with fever of 101.2, elevated WBC count of 12.4 and mild tachycardia with HR 98. CXR and UA not concerning for infection. RLE incision with mild surrounding erythema, warm to touch, with scant sanguinous drainage. XRay of knee does not reveal any effusion. Will treat with IV antibiotics. Dr. Ho of orthopedic surgery consulted. Qualifiers: Encounter type: initial encounter Qualified Code(s): T81.4XXA - Infection following a procedure, initial encounter (7) Falls frequently Current visit: No Status: Acute Patient reportedly fell off her bed at home today, which prompted her to come to ED. Will consult PT/OT. (8) DVT prophylaxis Current visit: No Status: Acute Sequential compression devices lovenox 40mg SQ daily Internal Medicine - H&P: HPI Chief complaint: fall Admitted From: Emergency Dept Plans for Post Hospital Care: Transfer [facility] Facility History of present illness: Ms. Paiz is a 66 year old female with history of hypertension, type 2 diabetes , GERD, psychogenic polydipsia recent knee surgery presented to the emergency department today after falling at home. Patient reports that she was discharged from her residential facility yesterday and fell off her bed today. She denies any fevers, chills, sweats, she denies any nausea or vomiting , diarrhea, abdominal pain. Evaluation in the emergency department revealed sepsis with fever of 101.2, blood cell count of 12.4, she was mildly tachycardic with heart rate of 98. She was also hyponatremic with sodium of 121 , this seems to be a chronic issue with her due to psychogenic polydipsia. She also was mildly hyperkalemic with potassium of 5.0, and had mild acute kidney injury with creatinine of 1.16 above her most recent baseline. Septic workup was initiated by the ER, lactic acid was normal at 1.7, blood cultures and wound cultures were sent, UA looks dirty but not infected, CXR showed no acute abnormality. She was given Unasyn and vancomycin. On exam, patient is alert and oriented with tangential conversation, her significant other reports this is her baseline mental status. Heart has regular rate and rhythm, lungs are clear bilaterally to auscultation. Right lower extremity knee incision is clean and dry, does have some serous and serosanguineous drainage and some very mild surrounding erythema. Past Med Surg Social Fam HX - Past Medical History Medical history: diabetes, hyperlipidemia, hypertension, myocardial infarction, other Psychiatric history: anxiety, depression - Past Surgical History Surgical History: , knee replacement, other, bariatric surgery - Social History Smoking Status: Former smoker Smokeless Tobacco Status: No Alcohol use: none Drug use: none - Family History Mother Adopted: Yes (history unknown) Internal Medicine - H&P: Meds Diltiazem [Cardizem] 60 mg PO BID 01/18/15 [History] Duloxetine HCl [Cymbalta] 60 mg PO BID 01/18/15 [History] Gabapentin [Neurontin] 1,200 mg PO TID 01/18/15 [History] Insulin ASPART [NovoLOG] 0 unit SQ TIDWM PRN 01/18/15 [History] Montelukast [Singulair] 10 mg PO HS 01/18/15 [History] Insulin Degludec [Tresiba Flextouch U-100] 72 unit SQ DAILY 05/07/16 [History] Lisinopril [Zestril] 10 mg PO DAILY 05/07/16 [History] traZODone [TraZODone] 100 mg PO HS 05/07/16 [History] Amitriptyline HCl 100 mg PO HS 06/11/16 [History] Docusate [Colace] 100 mg PO BID #60 capsule 06/14/16 [Rx] Aspirin Enteric Coated [Aspirin EC] 325 mg PO DAILY #21 tablet. 07/10/16 [Rx] OxyCODONE Immed Rel [Roxicodone 5 MG] 5 - 10 mg PO Q6HR PRN #40 tablet 07/10/16 [Rx] Albuterol Sulfate [Albuterol Inhaler] 2 puff IH Q4HR PRN 07/11/16 [History] Budesonide/Formoterol 80/4.5 [Symbicort 80/4.5] 2 puff IH BIDR 07/11/16 [ History] HYDROcodone/Acet 10/325 mg [[place] 10-325 mg] 1 tab PO QID PRN 07/11/16 [History] Pantoprazole Sodium [Protonix] 40 mg PO DAILY 07/11/16 [History] Simvastatin [Zocor] 40 mg PO HS 07/11/16 [History] Dulaglutide [Trulicity] 0.75 mg SQ QWEEK 08/07/16 [History] Ipratropium [place] 1 spray NS DAILY 08/07/16 [History] Allergies polyethylene glycol [From Golytely] Adverse Reaction (Verified 07/11/16 08:00) Nausea polyethylene glycol 3350 [From Golytely] Adverse Reaction (Verified 07/11/16 08: 00) Nausea potassium chloride [From Golytely] Adverse Reaction (Verified 07/11/16 08:00) Nausea sodium [From Golytely] Adverse Reaction (Verified 07/11/16 08:00) Nausea sodium bicarbonate [From Golytely] Adverse Reaction (Verified 07/11/16 08:00) Nausea sodium chloride [From Golytely] Adverse Reaction (Verified 07/11/16 08:00) Nausea sodium sulfate [From Golytely] Adverse Reaction (Verified 07/11/16 08:00) Nausea Tizanidine Adverse Reaction (Verified 07/11/16 08:00) Dizziness All Systems PM: A 10-system review of systems was performed and is negative for pertinent findings except as documented above in the HPI. - Constitutional Constitutional: falls, no chills, no fever(s), no night sweats - EENT Eyes: no change in vision, no discharge, no pain, no photophobia Ears: no ear discharge, no ear pain, no tinnitus Nose, mouth and throat: no dysphagia, no nasal discharge, no neck pain, no sore throat - Cardiovascular Cardiovascular ROS IM: no chest pain, no diaphoresis, no dyspnea, no lightheadedness, no palpitations, no syncope - Respiratory Respiratory: no cough, no dyspnea, no wheezing, no excessive phlegm production - Gastrointestinal Gastrointestinal: no abdominal pain, no diarrhea, no hematemesis, no hematochezia, no melena, no nausea, no vomiting - Genitourinary Genitourinary: no change in urinary stream, no dysuria, no flank pain, no hematuria - Musculoskeletal Musculoskeletal ROS IM: no numbness, no tingling - Integumentary Integumentary IM: no rash, no unusual bruising - Neurological Neurological ROS: no confusion, no convulsions, no focal weakness, no numbness, no tingling, no tremor(s) - Hematologic/Lymphatic Hematologic/Lymphatic: no easy bruising - Constitutional Vitals: Temp Pulse Resp BP Pulse Ox 101.2 F H 96 16 104/60 93 08/07/16 08:57 08/07/16 11:09 08/07/16 11:42 08/07/16 11:42 08/07/16 11:09 General appearance: Present: A&O X 3, pleasant, no acute distress - Head Head exam: Present: atraumatic, normocephalic - Eye Eye exam: Present: PERRL, conjuntiva pink, sclera anicteric Pupils: Present: PERRL - Neck Neck exam general surgery: Present: supple, trachea midline. Absent: lymphadenopathy - Respiratory Respiratory exam: Present: CTAB. Absent: accessory muscle use, rales, rhonchi, wheezes - Cardiovascular Cardiovascular exam: Present: RRR, +S1, +S2. Absent: diastolic murmur, gallop, rubs, systolic murmur - GI/Abdominal GI/Abdominal exam: Present: normal bowel sounds, soft, no peritoneal signs. Absent: distended, tenderness - Extremities Exam Extremities exam: Present: warm, radial pulses palpable and symetrical. Absent : calf tenderness, cyanotic, pedal edema - Neurological Exam Neurological exam: Present: CN II-XII intact, oriented X3, no focal deficits. Absent: facial droop, speech deficit - Skin Skin exam: Present: dry, intact Internal Med - H&P Results - Labs CBC & Chem 7: 08/07/16 09:41 08/07/16 09:41 Labs: All Lab Results (24 Hours) 08/07/16 08/07/16 08/07/16 Range/Units 09:19 09:41 09:41 WBC 12.4 H (4.3-11.1) K/mcL RBC 3.57 L (3.82-4.97) M/mcL Hgb 10.4 L (11.5-15.4) g/dL Hct 30.6 L (35.3-44.9) % MCV 85.7 (83.0-100.0) fL MCH 29.1 (28.0-33.3) pg MCHC 34.0 (31.6-35.5) g/dL RDW 13.3 (11.5-14.5) % Plt Count 269 (140-400) K/mcL MPV 7.9 L (9.4-12.4) fL Immature Gran % 0.4 (0-4) % Seg Neutrophils % 86.3 % Lymphocytes % 5.6 % Monocytes % 5.3 % Eosinophils % 1.9 % Basophils % 0.5 % Neutrophils # 10.7 H (1.6-8.9) K/mcL Lymphocytes # 0.7 (0.6-4.6) K/mcL Monocytes # 0.7 (0.0-1.3) K/mcL Eosinophils # 0.2 (0.0-0.6) K/mcL Basophils # 0.1 (0.0-0.2) K/mcL Immature Plt Fraction 0.9 L (1.1-6.1) % Sodium 121 L (136-145) mEq/L Potassium 5.0 H (3.5-4.5) mEq/L Chloride 86 L (98-109) mEq/L Carbon Dioxide 25 (19-29) mEq/L BUN 19 (7-20) mg/dL Creatinine 1.16 H (0.57-1.11) mg/dL Est GFR ( Amer) 57 L (> 60) Est GFR (Non-Af Amer) 47 L (> 60) BUN/Creatinine Ratio 16 (6-26) Glucose 169 H (70-99) mg/dL Calculated Osmolality 258 L (280-300) Lactic Acid (0.5-2.2) mmol/L Calcium 8.7 (8.6-10.8) mg/dL Total Bilirubin 0.7 (0.2-1.2) mg/dL AST 19 (5-34) Units/L ALT 7 (0-55) Units/L Alkaline Phosphatase 141 H (38-126) Units/L Serum Total Protein 6.9 (6.0-8.3) g/dL Albumin 2.9 L (3.5-5.0) g/dL Globulin 4.0 H (2.4-3.5) g/dL Albumin/Globulin Ratio 0.7 L (1.1-2.2) Urine Color Yellow (Yellow) Urine Clarity Cloudy A (Clear) Urine pH 5.0 (5.0-8.0) pH Units Ur Specific [place] 1.014 (1.010-1.025) Urine Protein Negative (Neg-Trace) mg/dL Urine Glucose (UA) Normal (Normal) mg/dL Urine Ketones Negative (Negative) mg/dL Urine Blood Negative (Negative) Urine Nitrite Negative (Negative) Urine Bilirubin Negative (Negative) Urine Urobilinogen Normal (Normal) mg/dL Ur Leukocyte Esterase Negative (Negative) Urine Microscopic RBC 0-3 (0-3) per hpf Urine Microscopic WBC 5-15 H (0-3) per hpf Ur Squamous Epith Cells Many H (None-Few) per lpf Urine Bacteria None Seen (None-Few) per hpf Hyaline Casts Few (None-Few) per lpf Urine Yeast Moderate H (None Seen) per hpf 08/07/16 Range/Units 09:41 WBC (4.3-11.1) K/mcL RBC (3.82-4.97) M/mcL Hgb (11.5-15.4) g/dL Hct (35.3-44.9) % MCV (83.0-100.0) fL MCH (28.0-33.3) pg MCHC (31.6-35.5) g/dL RDW (11.5-14.5) % Plt Count (140-400) K/mcL MPV (9.4-12.4) fL Immature Gran % (0-4) % Seg Neutrophils % % Lymphocytes % % Monocytes % % Eosinophils % % Basophils % % Neutrophils # (1.6-8.9) K/mcL Lymphocytes # (0.6-4.6) K/mcL Monocytes # (0.0-1.3) K/mcL Eosinophils # (0.0-0.6) K/mcL Basophils # (0.0-0.2) K/mcL Immature Plt Fraction (1.1-6.1) % Sodium (136-145) mEq/L Potassium (3.5-4.5) mEq/L Chloride (98-109) mEq/L Carbon Dioxide (19-29) mEq/L BUN (7-20) mg/dL Creatinine (0.57-1.11) mg/dL Est GFR ( Amer) (> 60) Est GFR (Non-Af Amer) (> 60) BUN/Creatinine Ratio (6-26) Glucose (70-99) mg/dL Calculated Osmolality (280-300) Lactic Acid 1.7 (0.5-2.2) mmol/L Calcium (8.6-10.8) mg/dL Total Bilirubin (0.2-1.2) mg/dL AST (5-34) Units/L ALT (0-55) Units/L Alkaline Phosphatase (38-126) Units/L Serum Total Protein (6.0-8.3) g/dL Albumin (3.5-5.0) g/dL Globulin (2.4-3.5) g/dL Albumin/Globulin Ratio (1.1-2.2) Urine Color (Yellow) Urine Clarity (Clear) Urine pH (5.0-8.0) pH Units Ur Specific [place] (1.010-1.025) Urine Protein (Neg-Trace) mg/dL Urine Glucose (UA) (Normal) mg/dL Urine Ketones (Negative) mg/dL Urine Blood (Negative) Urine Nitrite (Negative) Urine Bilirubin (Negative) Urine Urobilinogen (Normal) mg/dL Ur Leukocyte Esterase (Negative) Urine Microscopic RBC (0-3) per hpf Urine Microscopic WBC (0-3) per hpf Ur Squamous Epith Cells (None-Few) per lpf Urine Bacteria (None-Few) per hpf Hyaline Casts (None-Few) per lpf Urine Yeast (None Seen) per hpf - Diagnostic Studies Chest x-ray Additional comments: Chest X-Ray 08/07/16 09:11 IMPRESSION: 1. Low lung volumes. No acute cardiopulmonary disease. 2. There appears to be a nodule in the left hilum. This is favored to be a vessel on-end as recent chest CT failed to demonstrate any hilar mass or lymphadenopathy. Follow-up PA and lateral radiographs are suggested to see if the finding persists. D/ / Anthony Gloria MD / Anthony Gloria MD Interpreting Provider: Anthony Gloria MD Other Images Additional comments: Knee X-Ray 08/07/16 10:38 IMPRESSION: 1. Status post right total knee arthroplasty without complications. 2. Redemonstration of nondisplaced fibular head fracture, not significant changed from 07/19/2016. D/ / Srinivasan Anand MD / Srinivasan Anand MD Interpreting Provider: Srinivasan Anand MD <Jesus Ruiz T - Last Filed: 08/07/16 13:33> Date of Encounter: 08/07/16 Internal Medicine - H&P: HPI History of present illness: Ms. Paiz is a 66 year old female All Systems PM: A 10-system review of systems was performed and is negative for pertinent findings except as documented above in the HPI. - Constitutional Vitals: Temp Pulse Resp BP Pulse Ox 100.0 F H 90 16 113/64 95 08/07/16 12:16 08/07/16 12:16 08/07/16 12:16 08/07/16 12:16 08/07/16 12:37 Internal Med - H&P Results - Labs CBC & Chem 7: 08/07/16 09:41 08/07/16 12:27 Labs: BMP 08/07/16 12:27 Sodium 119 L* - Attending Attestation I have independently interviewed and examined this patient and discussed the plan of care with ANDREEA Bishop whose documentation reveals our plan of care patient seen at the bedside with staff and spouse, requesting to have a [place] catheter placed. She was discharged from SNF after a Right knee replacement surgery, she reports being in her usual state and "not feeling sick" till she fell yesterday She complains of pain, and difficulty moving the right knee. On presentation she is morbidly obese, not in respiratory distress, laying flat in bed, multiple colorful tattoos on her extremities. She is febrile and slightly tachycardic, chest is CTAB, heart sounds S1, S2 only, abdomen is obese , but not tender, no pedal edema. R knee hyperemia around incision site, differential warmth and tender to touch, ROM limited due to pain Labs and Imaging reviewed: leukocytosis with left shift, REX, hyponatremia, hyperkalemia, CXR unremarkable, UA is contaminated, knee xray with no joint effusion, hardware is intact. Assessment: Sepsis, source is likely R knee cellulitis/septic arthritis. REX Hyponatremia-chronic from psychogenic polydipsia Uncontrolled DM Morbid Obesity Plan: Agree with Zosyn and Vanco Consult ortho Follow wound swab taken by ER High risk patient Monitor Chem q6h for Na and K, BUN and Cr Gentle IVF Fluid restriction De-escalate a/b based on culture Patient is full code Resume home meds Rest of details as in ANDREEA Bishop's documentation which I have reviewed and agreed with
[2016-08-07] MEDS ORDERED: Vancomycin 1,750 MG in D5% in Water 250 ML IVPB SCH (12:00)
[2016-08-07] MEDS: 0.9 % Sodium Chloride 1,000 ML IVC SCH (13:13)
--- NOTE | 2016-08-07 14:38 | Orthopedic Consult Note ---
Date of Encounter: 08/08/16 Time of Encounter: 12:00 Assessment and Plan (1) Status post total knee replacement Current Visit: Yes Status: Acute Patient is POW#4 from a Right TKR 07/11/16, left ECF yesterday and sustained a fall at home onto her Right knee, causing minimal wound dehiscence. No prior wound complications, erythema or drainage to wound. On exam, she has minimal bloody drainage at distal wound; likely from fall with minimal superficial erythema along distal incision. She is able to flex and extend the knee with minimal pain, stiffness noted. She is able to ambulate without difficulty; however high fall risk currently due to her confusion. ED obtained a culture, but I see no obvious purulence or signs of deeper infection. No obvious effusion noted. XRAYS: 1. Status post right total knee arthroplasty without complications. 2. Redemonstration of nondisplaced fibular head fracture, not significant changed from 07/19/2016. Prior hospital complications include urinary retention, which she was discharged with a mark catheter and followed urology closely whom recommended to keep the mark in place until she was more ambulatory. At this time frame, she has a early superficial wound infection versus traumatic bleeding from fall, no evidence of intra-articular infection. Wound was cleansed thoroughly and new Opsite placed. She is febrile, with a mild elevation of WBCs and confusion. Lactic Acid normal ; Will plan to continue antibiotics with close monitoring. No surgical intervention needed at this time. She takes 3600 mg of Gabapentin a day, along with [place] 6 times a day per patient; I am concerned she has over-medicated her self at home, resulting in worsening of her confusion. Chronic hyponatremia noted, but acute on chronic on admission. Discussed in depth with . Qualifiers: Laterality: right Qualified Code(s): Z96.651 - Presence of right artificial knee joint (2) Acute hyponatremia Current Visit: No Status: Acute (3) Fall Current Visit: No Status: Acute Qualifiers: Encounter type: initial encounter Qualified Code(s): W19.XXXA - Unspecified fall, initial encounter History of Present Illness Chief complaint: Fall and Confusion HPI: Ms. Paiz is a 66 year old female, seen in the ED. She left ECF yesterday and went home. Patient reports a fall onto Right knee. Recent TKR 07/11/16, no prior complications noted. Patient states she was participating in PT, and doing well. Confusion noted on exam. Patient does exhibit bizarre behavior as her baseline; but when questioned, she frequently trails off. She is on a high dose of Gabapentin and [place]. Past Med Surg Social Fam HX - Past Medical History Medical history: diabetes, hyperlipidemia, hypertension, myocardial infarction, other Psychiatric history: anxiety, depression - Past Surgical History Surgical History: , knee replacement, other, bariatric surgery - Social History Smoking Status: Former smoker Smokeless Tobacco Status: No Alcohol use: none Drug use: none - Family History Mother Adopted: Yes (history unknown) Medications and Allergies Diltiazem [Cardizem] 60 mg PO BID 01/18/15 [History] Duloxetine HCl [Cymbalta] 60 mg PO BID 01/18/15 [History] Gabapentin [Neurontin] 1,200 mg PO TID 01/18/15 [History] Insulin ASPART [NovoLOG] 0 unit SQ TIDWM PRN 01/18/15 [History] Montelukast [Singulair] 10 mg PO HS 01/18/15 [History] Insulin Degludec [Tresiba Flextouch U-100] 72 unit SQ DAILY 05/07/16 [History] Lisinopril [Zestril] 10 mg PO DAILY 05/07/16 [History] traZODone [TraZODone] 100 mg PO HS 05/07/16 [History] Amitriptyline HCl 100 mg PO HS 06/11/16 [History] Docusate [Colace] 100 mg PO BID #60 capsule 06/14/16 [Rx] Aspirin Enteric Coated [Aspirin EC] 325 mg PO DAILY #21 tablet. 07/10/16 [Rx] OxyCODONE Immed Rel [Roxicodone 5 MG] 5 - 10 mg PO Q6HR PRN #40 tablet 07/10/16 [Rx] Albuterol Sulfate [Albuterol Inhaler] 2 puff IH Q4HR PRN 07/11/16 [History] Budesonide/Formoterol 80/4.5 [Symbicort 80/4.5] 2 puff IH BIDR 07/11/16 [ History] HYDROcodone/Acet 10/325 mg [[place] 10-325 mg] 1 tab PO QID PRN 07/11/16 [History] Pantoprazole Sodium [Protonix] 40 mg PO DAILY 07/11/16 [History] Simvastatin [Zocor] 40 mg PO HS 07/11/16 [History] Dulaglutide [Trulicity] 0.75 mg SQ QWEEK 08/07/16 [History] Ipratropium [place] 1 spray NS DAILY 08/07/16 [History] Allergies polyethylene glycol [From Golytely] Adverse Reaction (Verified 07/11/16 08:00) Nausea polyethylene glycol 3350 [From Golytely] Adverse Reaction (Verified 07/11/16 08: 00) Nausea potassium chloride [From Golytely] Adverse Reaction (Verified 07/11/16 08:00) Nausea sodium [From Golytely] Adverse Reaction (Verified 07/11/16 08:00) Nausea sodium bicarbonate [From Golytely] Adverse Reaction (Verified 07/11/16 08:00) Nausea sodium chloride [From Golytely] Adverse Reaction (Verified 07/11/16 08:00) Nausea sodium sulfate [From [place]] Adverse Reaction (Verified 07/11/16 08:00) Nausea Tizanidine Adverse Reaction (Verified 07/11/16 08:00) Dizziness All Systems Reviewed: A 10-system review of systems was performed and is negative for pertinent findings except as documented above in the HPI. Physical Exam - Constitutional Vitals: Temp Pulse Resp BP Pulse Ox 100.0 F H 90 16 113/64 95 08/07/16 12:16 08/07/16 12:16 08/07/16 12:16 08/07/16 12:16 08/07/16 12:37 Results - Labs Result Diagrams: 08/08/16 06:52 08/08/16 12:36 Labs: Abnormal lab results WBC 12.4 K/mcL (4.3-11.1) H 08/07/16 09:41 RBC 3.57 M/mcL (3.82-4.97) L 08/07/16 09:41 Hgb 10.4 g/dL (11.5-15.4) L 08/07/16 09:41 Hct 30.6 % (35.3-44.9) L 08/07/16 09:41 MPV 7.9 fL (9.4-12.4) L 08/07/16 09:41 Neutrophils # 10.7 K/mcL (1.6-8.9) H 08/07/16 09:41 Immature Plt Fraction 0.9 % (1.1-6.1) L 08/07/16 09:41 Sodium 119 mEq/L (136-145) L* 08/07/16 12:27 Potassium 5.0 mEq/L (3.5-4.5) H 08/07/16 09:41 Chloride 86 mEq/L (98-109) L 08/07/16 09:41 Creatinine 1.16 mg/dL (0.57-1.11) H 08/07/16 09:41 Est GFR ( Amer) 57 (> 60) L 08/07/16 09:41 Est GFR (Non-Af Amer) 47 (> 60) L 08/07/16 09:41 Glucose 169 mg/dL (70-99) H 08/07/16 09:41 Calculated Osmolality 258 (280-300) L 08/07/16 09:41 Alkaline Phosphatase 141 Units/L (38-126) H 08/07/16 09:41 Albumin 2.9 g/dL (3.5-5.0) L 08/07/16 09:41 Globulin 4.0 g/dL (2.4-3.5) H 08/07/16 09:41 Albumin/Globulin Ratio 0.7 (1.1-2.2) L 08/07/16 09:41 Urine Clarity Cloudy (Clear) A 08/07/16 09:19 Urine Microscopic WBC 5-15 per hpf (0-3) H 08/07/16 09:19 Ur Squamous Epith Cells Many per lpf (None-Few) H 08/07/16 09:19 Urine Yeast Moderate per hpf (None Seen) H 08/07/16 09:19 All other labs normal. Consult Discharge Plan - Plan Referrals: Nataly Reyes MD [Primary Care Provider] -
[2016-08-07] MEDS: Gabapentin 400 MG CAPSULE PO SCH ×2 (14:58→22:58)
[2016-08-07] MEDS: *HR* HYDROcodone/Acet 10/325 mg TABLET PO PRN (15:04)
[2016-08-07] MEDS: Insulin LISPRO 300 UNITS/3 ML VIAL SQ SCH ×2 (18:18→23:05)
[2016-08-07] MEDS: Piperacillin/Tazobactam 3.375 GM in D5% in Water (Mini-Bag+) 100 ML IVPB SCH (18:20)
[2016-08-07 19:21] LABS: BUN/Creatinine Ratio 20 (6-26); Blood Urea Nitrogen 17 mg/dL (7-20); Carbon Dioxide 24 mEq/L (19-29); Chloride 86 mEq/L (98-109); Glucose 178 mg/dL (70-99); Potassium 4.3 mEq/L (3.5-4.5); eGFR For African Americans > 60 (> 60); eGFR For Non-African Americans > 60 (> 60)
[2016-08-07] MEDS ORDERED: Milk and Molasses Enema 200 ML RC ONE (19:31)
[2016-08-07] MEDS ORDERED: Lactulose Oral Soln 20 GM/30 ML UDC PO ONE (19:31)
[2016-08-07] MEDS: Budesonide/Formoterol 80/4.5 MDI IH SCH (21:30)
[2016-08-07] MEDS: traZODone 50 MG TABLET PO SCH (22:58)
[2016-08-07] MEDS: Vancomycin 1,500 MG in D5% in Water 250 ML IVPB SCH (23:55)
[2016-08-08] MEDS: Piperacillin/Tazobactam 3.375 GM in D5% in Water (Mini-Bag+) 100 ML IVPB SCH ×3 (03:19→18:18)
[2016-08-08] MEDS: *HR* Enoxaparin 40 MG/0.4 ML SYRINGE SQ SCH (06:46)
[2016-08-08 07:00] LABS: Basophils % 0.3 %; Eosinophils % 0.2 %; Hematocrit 27.3 % (35.3-44.9); Hemoglobin 9.5 g/dL (11.5-15.4); Immature Granulocytes % 0.8 % (0-4); Lymphocytes # 0.9 K/mcL (0.6-4.6); Lymphocytes % 10.3 %; Mean Corpuscular HGB Conc 34.8 g/dL (31.6-35.5); Mean Corpuscular Hemoglobin 29.1 pg (28.0-33.3); Mean Corpuscular Volume 83.7 fL (83.0-100.0); Mean Platelet Volume 7.9 fL (9.4-12.4); Monocytes # 0.5 K/mcL (0.0-1.3); Monocytes % 5.2 %; Neutrophils # 7.2 K/mcL (1.6-8.9); Platelet Count 176 K/mcL (140-400); Red Blood Count 3.26 M/mcL (3.82-4.97); Red Cell Distribution Width 13.2 % (11.5-14.5); Segmented Neutrophils % 83.2 %
[2016-08-08 07:12] LABS: Alanine Aminotransferase 7 Units/L (0-55); Albumin 2.6 g/dL (3.5-5.0); Albumin/Globulin Ratio 0.7 (1.1-2.2); Alkaline Phosphatase 127 Units/L (38-126); Aspartate Amino Transferase 17 Units/L (5-34); BUN/Creatinine Ratio 17 (6-26); Bilirubin,Total 0.6 mg/dL (0.2-1.2); Blood Urea Nitrogen 12 mg/dL (7-20); Calcium 8.4 mg/dL (8.6-10.8); Carbon Dioxide 23 mEq/L (19-29); Chloride 89 mEq/L (98-109); Glucose 205 mg/dL (70-99); Osmolality,Calculated 256 (280-300); Potassium 4.5 mEq/L (3.5-4.5); Total Protein 6.6 g/dL (6.0-8.3); eGFR For African Americans > 60 (> 60); eGFR For Non-African Americans > 60 (> 60)
[2016-08-08 07:18] LABS: Sodium 120 mEq/L (136-145)
[2016-08-08] MEDS: Gabapentin 400 MG CAPSULE PO SCH ×3 (09:11→21:34)
[2016-08-08] MEDS: Aspirin Enteric Coated 325 MG Tablet PO SCH (09:11)
[2016-08-08] MEDS: IPRATROPIUM BROMIDE NS SCH (09:12)
[2016-08-08] MEDS: Insulin DETEMIR 100 UNIT/ML X5UNITS SQ SCH (09:13)
[2016-08-08] MEDS: Insulin LISPRO 300 UNITS/3 ML VIAL SQ SCH ×4 (09:16→21:35)
[2016-08-08] MEDS: *HR* HYDROcodone/Acet 10/325 mg TABLET PO PRN ×3 (09:19→21:34)
[2016-08-08] MEDS: Budesonide/Formoterol 80/4.5 MDI IH SCH ×2 (10:16→19:52)
[2016-08-08] MEDS: 0.9 % Sodium Chloride 1,000 ML IVC SCH (11:56)
[2016-08-08] MEDS: Vancomycin 1,500 MG in D5% in Water 250 ML IVPB SCH (11:59)
--- NOTE | 2016-08-08 16:03 | Internal Med Progress Note ---
Date of Encounter: 08/08/16 Time of Encounter: 16:01 - Assessment and plan (1) Hyponatremia Current Visit: No Status: Chronic Assessment and plan: seems to be acute on chronic. was seen by renal for same complaint on last admisssion when the hyponatremia was thought to be secondary to water intoxication. Sodium has improved from yesterday, currently at 122, mental status remained stable. will llimit fluid intake to 2l /day for now and monitor. tsh, cortisol and workup for hyponatremia completed on last admission adn was negative (2) Diabetes mellitus type 2 in obese Current Visit: No Status: Chronic Assessment and plan: Diabetic diet. Check blood sugars ACHS Basal dose of insulin Levemir 30u daily (home dose is 72u of Tresiba daily) Sliding scale correction dose ACHS hypoglycemic protocol. (3) Sepsis Current Visit: Yes Status: Acute Assessment and plan: Patient with fever of 101.2, elevated WBC of 12.4 and mild tachycardia with HR of 98 on presentation currently sepsis has resolved, continue IV antibiotics and f/u cx results unclear source of fever at this time, as per ortho no signs of joint infection at this time. currently afebrile, leucocytosis has improved Qualifiers: Sepsis type: sepsis due to unspecified organism Qualified Code(s): A41.9 - Sepsis, unspecified organism - Subjective Interval history: Patient seen at the bedside, complains of pain on the right knee. Denies any other complaints, no nausea vomiting or chest pain, no shortness of breath or cough. There has been no fever for today. Appreciate orthopedic recommendation. - Constitutional Vitals: Temp Pulse Resp BP Pulse Ox 98.4 F 69 18 131/73 98 08/08/16 14:57 08/08/16 14:57 08/08/16 14:57 08/08/16 14:57 08/08/16 14:57 General appearance: Present: A&O X 3, pleasant, no acute distress Exam: - Head Head exam: Present: atraumatic, normocephalic - Eye Eye exam: Present: PERRL, conjuntiva pink, sclera anicteric Pupils: Present: PERRL - Neck Neck exam general surgery: Present: supple, trachea midline. Absent: lymphadenopathy - Respiratory Respiratory exam: Present: CTAB. Absent: accessory muscle use, rales, rhonchi, wheezes - Cardiovascular Cardiovascular exam: Present: RRR, +S1, +S2. Absent: diastolic murmur, gallop, rubs, systolic murmur - GI/Abdominal GI/Abdominal exam: Present: normal bowel sounds, soft, no peritoneal signs. Absent: distended, tenderness - Extremities Exam Extremities exam: Present: warm, radial pulses palpable and symetrical. Absent : calf tenderness, cyanotic, pedal edema - Neurological Exam Neurological exam: Present: CN II-XII intact, oriented X3, no focal deficits. Absent: facial droop, speech deficit - Skin Skin exam: Present: dry, intact Internal Medicine: Result - Labs CBC & Chem 7: 08/08/16 06:52 08/08/16 12:36 Labs: Short CBC 08/08/16 Range/Units 06:52 WBC 8.7 (4.3-11.1) K/mcL Hgb 9.5 L (11.5-15.4) g/dL Hct 27.3 L (35.3-44.9) % Plt Count 176 (140-400) K/mcL Neutrophils # 7.2 (1.6-8.9) K/mcL BMP 08/07/16 08/07/16 08/08/16 18:48 18:48 00:45 Sodium TNP 119 L* 119 L* Potassium 4.3 Chloride 86 L Carbon Dioxide 24 BUN 17 Creatinine 0.84 Glucose 178 H Calcium 8.0 L 08/08/16 08/08/16 06:52 12:36 Sodium 120 L* 122 L Potassium 4.5 Chloride 89 L Carbon Dioxide 23 BUN 12 Creatinine 0.71 Glucose 205 H Calcium 8.4 L Liver Function 08/08/16 Range/Units 06:52 Total Bilirubin 0.6 (0.2-1.2) mg/dL AST 17 (5-34) Units/L ALT 7 (0-55) Units/L Alkaline Phosphatase 127 H (38-126) Units/L Albumin 2.6 L (3.5-5.0) g/dL - VTE Documentation of Mechanical Device: Intermittent pneumatic compression device Consult Discharge Plan - Plan Referrals: Nataly Reyes MD [Primary Care Provider] -
[2016-08-08] MEDS: traZODone 50 MG TABLET PO SCH (21:34)
[2016-08-09] MEDS: Vancomycin 1,500 MG in D5% in Water 250 ML IVPB SCH (00:19)
[2016-08-09] MEDS: Piperacillin/Tazobactam 3.375 GM in D5% in Water (Mini-Bag+) 100 ML IVPB SCH ×2 (02:26→09:44)
[2016-08-09] MEDS: 0.9 % Sodium Chloride 1,000 ML IVC SCH (04:49)
[2016-08-09] MEDS: *HR* HYDROcodone/Acet 10/325 mg TABLET PO PRN ×2 (04:50→09:43)
[2016-08-09] MEDS: *HR* Enoxaparin 40 MG/0.4 ML SYRINGE SQ SCH (06:26)
[2016-08-09] MEDS: Budesonide/Formoterol 80/4.5 MDI IH SCH (07:40)
--- NOTE | 2016-08-09 08:16 | Orthopedics Progress Note ---
Date of Encounter: 08/09/16 Time of Encounter: 08:16 Subjective Interval history: Patient seen this morning resting comfortably examination of right knee reveals no swelling or erythema no concern for infection. Dressing intact no drainage. Patient's white count normalizing. Patient still hyponatremic. Do not believe that the knee is the source of any infection. Objective Vital signs: Vital Signs Temp Pulse Resp BP Pulse Ox 08/09/16 06:58 98.7 F 75 16 125/78 94 08/09/16 03:29 97.8 F 66 16 109/69 96 08/09/16 00:24 98.4 F 68 18 107/67 98 08/08/16 18:55 99.1 F 73 18 118/71 98 08/08/16 14:57 98.4 F 69 18 131/73 98 08/08/16 11:10 98.9 F 73 16 122/71 93 Intake and Output 08/08/16 08/09/16 08/09/16 23:59 07:59 15:59 Intake Total 1220 / 1220 100 / 100 Output Total 1600 / 1600 1200 / 1200 Balance -380 / -380 -1100 / -1100 Intake: IV Fluids 1100 / 1100 100 / 100 0.9 % Sodium Chloride 1, 1000 / 1000 000 ML @ 100 mls/hr IVC . Q10H [facility] Rx#:[id number] Zosyn 3.375 GM In 100 / 100 100 / 100 Dextrose 5% (Minibag+) 100 ML 100 ML @ 25 mls/hr IVPB Q8H [facility]IO[facility] Rx#: [id number] Oral 120 / 120 Output: Urine 1600 / 1600 1200 / 1200 Other: Meal Dinner Percent of Meal Consumed 25% Stool Size Small Stool Consistency loose liquid Stool Color Brown Blood Glucose* 120 101 - Labs CBC & BMP: 08/08/16 06:52 08/08/16 12:36 Labs: Abnormal lab results RBC 3.26 M/mcL (3.82-4.97) L 08/08/16 06:52 Hgb 9.5 g/dL (11.5-15.4) L 08/08/16 06:52 Hct 27.3 % (35.3-44.9) L 08/08/16 06:52 MPV 7.9 fL (9.4-12.4) L 08/08/16 06:52 Immature Plt Fraction 0.9 % (1.1-6.1) L 08/07/16 09:41 Sodium 122 mEq/L (136-145) L 08/08/16 12:36 Chloride 89 mEq/L (98-109) L 08/08/16 06:52 Glucose 205 mg/dL (70-99) H 08/08/16 06:52 POC Glucose 101 (58-89) H 08/09/16 07:02 Calculated Osmolality 256 (280-300) L 08/08/16 06:52 Calcium 8.4 mg/dL (8.6-10.8) L 08/08/16 06:52 Alkaline Phosphatase 127 Units/L (38-126) H 08/08/16 06:52 Albumin 2.6 g/dL (3.5-5.0) L 08/08/16 06:52 Globulin 4.0 g/dL (2.4-3.5) H 08/08/16 06:52 Albumin/Globulin Ratio 0.7 (1.1-2.2) L 08/08/16 06:52 Urine Clarity Cloudy (Clear) A 08/07/16 09:19 Urine Microscopic WBC 5-15 per hpf (0-3) H 08/07/16 09:19 Ur Squamous Epith Cells Many per lpf (None-Few) H 08/07/16 09:19 Urine Yeast Moderate per hpf (None Seen) H 08/07/16 09:19 - VTE Documentation of Mechanical Device: Intermittent pneumatic compression device Consult Discharge Plan - Plan Referrals: Nataly Reyes MD [Primary Care Provider] -
[2016-08-09 09:04] LABS: BUN/Creatinine Ratio 9 (6-26); Blood Urea Nitrogen 6 mg/dL (7-20); Calcium 8.5 mg/dL (8.6-10.8); Carbon Dioxide 28 mEq/L (19-29); Chloride 97 mEq/L (98-109); Glucose 102 mg/dL (70-99); Osmolality,Calculated 272 (280-300); Potassium 3.7 mEq/L (3.5-4.5); eGFR For African Americans > 60 (> 60); eGFR For Non-African Americans > 60 (> 60)
[2016-08-09 09:06] LABS: Sodium 132 mEq/L (136-145)
[2016-08-09 09:24] LABS: Basophils # 0.1 K/mcL (0.0-0.2); Basophils % 1.1 %; Eosinophils # 0.3 K/mcL (0.0-0.6); Eosinophils % 5.7 %; Hematocrit 28.3 % (35.3-44.9); Hemoglobin 9.2 g/dL (11.5-15.4); Immature Granulocytes % 0.8 % (0-4); Lymphocytes # 1.3 K/mcL (0.6-4.6); Mean Corpuscular HGB Conc 32.5 g/dL (31.6-35.5); Mean Corpuscular Hemoglobin 28.7 pg (28.0-33.3); Mean Corpuscular Volume 88.2 fL (83.0-100.0); Mean Platelet Volume 8.4 fL (9.4-12.4); Monocytes # 0.6 K/mcL (0.0-1.3); Monocytes % 10.7 %; Platelet Count 205 K/mcL (140-400); Red Blood Count 3.21 M/mcL (3.82-4.97); Red Cell Distribution Width 13.5 % (11.5-14.5); Segmented Neutrophils % 56.7 %
[2016-08-09] MEDS: Gabapentin 400 MG CAPSULE PO SCH (09:44)
[2016-08-09] MEDS: Aspirin Enteric Coated 325 MG Tablet PO SCH (09:44)
[2016-08-09] MEDS: Insulin LISPRO 300 UNITS/3 ML VIAL SQ SCH ×2 (11:07→12:17)
[2016-08-09] MEDS: Insulin DETEMIR 100 UNIT/ML X5UNITS SQ SCH (11:09)
[2016-08-09 11:19] VITALS: BP 104/31
[2016-08-09] MEDS: IPRATROPIUM BROMIDE NS SCH (12:14)
--- NOTE | 2016-08-09 12:51 | Discharge Summary ---
Date of Encounter: 08/09/16 Time of Encounter: 12:47 - Discharge Diagnosis (1) Hyponatremia Priority: Primary Status: Chronic (2) Diabetes mellitus type 2 in obese Priority: Secondary Status: Chronic (3) Sepsis Priority: Primary Status: Acute Qualifiers: Sepsis type: sepsis due to unspecified organism Qualified Code(s): A41.9 - Sepsis, unspecified organism - Discharge Medications Home Medications: Diltiazem [Cardizem] 60 mg PO BID 01/18/15 [History] Duloxetine HCl [Cymbalta] 60 mg PO BID 01/18/15 [History] Gabapentin [Neurontin] 1,200 mg PO TID 01/18/15 [History] Insulin ASPART [NovoLOG] 0 unit SQ TIDWM PRN 01/18/15 [History] Montelukast [Singulair] 10 mg PO HS 01/18/15 [History] Insulin Degludec [Tresiba Flextouch U-100] 72 unit SQ DAILY 05/07/16 [History] Lisinopril [Zestril] 10 mg PO DAILY 05/07/16 [History] traZODone [TraZODone] 100 mg PO HS 05/07/16 [History] Amitriptyline HCl 100 mg PO HS 06/11/16 [History] Docusate [Colace] 100 mg PO BID #60 capsule 06/14/16 [Rx] Aspirin Enteric Coated [Aspirin EC] 325 mg PO DAILY #21 tablet. 07/10/16 [Rx] OxyCODONE Immed Rel [Roxicodone 5 MG] 5 - 10 mg PO Q6HR PRN #40 tablet 07/10/16 [Rx] Albuterol Sulfate [Albuterol Inhaler] 2 puff IH Q4HR PRN 07/11/16 [History] Budesonide/Formoterol 80/4.5 [Symbicort 80/4.5] 2 puff IH BIDR 07/11/16 [ History] HYDROcodone/Acet 10/325 mg [[place] 10-325 mg] 1 tab PO QID PRN 07/11/16 [History] Pantoprazole Sodium [Protonix] 40 mg PO DAILY 07/11/16 [History] Simvastatin [Zocor] 40 mg PO HS 07/11/16 [History] Dulaglutide [Trulicity] 0.75 mg SQ QWEEK 08/07/16 [History] Ipratropium [place] 1 spray NS DAILY 08/07/16 [History] Allergies/Adverse Reactions: Allergies polyethylene glycol [From Golytely] Adverse Reaction (Verified 07/11/16 08:00) Nausea polyethylene glycol 3350 [From Golytely] Adverse Reaction (Verified 07/11/16 08: 00) Nausea potassium chloride [From Golytely] Adverse Reaction (Verified 07/11/16 08:00) Nausea sodium [From Golytely] Adverse Reaction (Verified 07/11/16 08:00) Nausea sodium bicarbonate [From Golytely] Adverse Reaction (Verified 07/11/16 08:00) Nausea sodium chloride [From Golytely] Adverse Reaction (Verified 07/11/16 08:00) Nausea sodium sulfate [From Golytely] Adverse Reaction (Verified 07/11/16 08:00) Nausea Tizanidine Adverse Reaction (Verified 07/11/16 08:00) Dizziness Date of admission: 08/07/16 13:10 Primary care physician: Nataly Reyes, Discharging clinician: Marcos Pires Anticipated date of discharge: 08/09/16 - Patient Status Disposition: Home, Self-Care Condition: Fair Functional capacity at discharge: independent ambulation Overall status at discharge: patient is progressing back to baseline - Discharge Instructions Follow Up With: Yuliana Ferrell PAC [Physician Gymnastics Coach] - (office will call you for an appointment on saturday ) Nataly Reyes MD [Primary Care Provider] - Additional Instructions: Discharge Instructions: Total Knee Replacement Please call [facility] ([phone]), your Primary Care Physician, or report to the Emergency Room if you have any of the following symptoms: Nausea, vomiting, fever greater that 101.5, swelling, chest pain, shortness of breath, increased pain/redness/drainage/odor for your incision site, numbness/ tingling, or any other concerning symptoms. ACTIVITY:Weight-bearing as tolerated. You may progress off support (crutches or walker) as tolerated. MEDICATIONS: Upon discharge resume your home medications. Take all the medications as prescribed. Take a stool softener if taking narcotic pain medications. Stool softeners are only effective if you drink enough fluids. Drink 6-8 glass of water or fluids a day, unless this is not allowed for another health problem. Despite using stool softeners, if you haven't had a bowel movement in 3 days, please switch to a gentle laxative. Gentle laxatives are sold over the counter. You should have a bowel movement within 24 hours, if not call the office. You will be discharged from the hospital with a prescription for pain medication. You are encouraged to decrease the use of narcotic pain medication as tolerated. Should you require a refill, please call the office. [facility] prescribes narcotic pain medication for only 4-6 weeks after surgery. If you require pain medication beyond this time period, you may be referred to your Primary Care Physician or to the Pain Clinic for further evaluation. Plan ahead for refills on pain medication as many narcotics either need to be picked up at the office or mailed. It is best to call 48-72 hours in advance of needing a prescription refill so you don't run out of medication. To help control the post-operative pain, you may take NSAIDs (Aleve,Advil, Motrin, Ibuprofen, Naprosyn) or Tylenol as prescribed on the bottle in addition to the pain medication. ANTICOAGULATION (blood thinners): Continue your Aspirin, Lovenox or Coumadin as prescribed to help prevent a blood clot in the leg or in the lungs. As long as your incision remains dry and you tolerate the NSAIDs (Aleve, Advil, Motrin, ibuprofen, naprosyn), it is OK to use the NSAIDS while you are taking your anticoagulation medication. Should your incision start to drain, stop the NSAID and contact our office. Common symptoms of blood clot in the legs include: localized pain, swelling, calf tenderness, redness or discoloration of the skin. Blood clot in the lung symptoms include: shortness of breath, rapid pulse, sweating, and chest pain that worsens with deep breathing, coughing up blood, lightheadedness, feelings of anxiety. If you experience any of these symptoms notify your physician immediately, go to the emergency room, or if having trouble breathing, call 911. WOUND CARE: Leave the dressing on for 7 to 10days. You may change the dressing if it becomes saturated greater than 50%. Do not get the dressing wet at anytime. Wash your hands with antibacterial soap, rinse and dry prior to any wound care. If you have jessica the visiting nurse or rehab facility can remove the stapes 10-14 days after surgery and place steri-strips across the wound. Leave the steri-strips in place until they fall off on their won. You may let water from the shower run on top of the steri-strips. If you do not have a visiting nurse or rehab facility, you will need to return to the office at 10-14 days for the jessica to be removed. If you have itching or redness around the dressing call the office. FOLLOW-UP: Please follow up with your surgeon in the orthopedic clinic in 4 weeks from the day of surgery. If you have jessica that need to be removed, you will need to come back to the office in 10-14 days from the day of surgery. - Diet and Activity Activity: as per physical therapy Diet: advance to your usual diet, other (fluid restriction to 1.5l/day) Interval History: Ms. Paiz is a 66 year old female with history of hypertension, type 2 diabetes , GERD, psychogenic polydipsia recent knee surgery presented to the emergency department today after falling at home. Patient reports that she was discharged from her long term facility yesterday and fell off her bed today. She denies any fevers, chills, sweats, she denies any nausea or vomiting , diarrhea, abdominal pain. Evaluation in the emergency department revealed sepsis with fever of 101.2, blood cell count of 12.4, she was mildly tachycardic with heart rate of 98. She was also hyponatremic with sodium of 121 , this seems to be a chronic issue with her due to psychogenic polydipsia. Septic workup was initiated by the ER, lactic acid was normal at 1.7, blood cultures and wound cultures were sent, UA looks dirty but not infected, CXR showed no acute abnormality. She was given Unasyn and vancomycin. her right knee looks swollen and red, hence ortho was consulted, less likely septic arthritis as per ortho, may just be a superficial infection. blood cx came back negative, leucocytosis resolved and no more fever. at this time, there is no obvious source of infection and patinet is clinically better I have stopped the antibiotics, she will f.u with ortho as OP on saturday for any fever or other symptoms. HEr sodium has come back to nomral with fluid restriction and was advised to drink less fluid at home she is being dc home in stabel condition today. Hospital course: Ms. Paiz is a 66 year old female - Time Spent with Patient Total time spent providing and/or coordinating discharge services: - Constitutional Vitals: Temp Pulse Resp BP Pulse Ox 97.5 F L 77 16 104/31 98 08/09/16 11:14 08/09/16 11:14 08/09/16 11:14 08/09/16 11:14 08/09/16 11:14 General appearance: Present: A&O X 3, pleasant, no acute distress Exam: - Head Head exam: Present: atraumatic, normocephalic - Eye Eye exam: Present: PERRL, conjuntiva pink, sclera anicteric Pupils: Present: PERRL - Neck Neck exam general surgery: Present: supple, trachea midline. Absent: lymphadenopathy - Respiratory Respiratory exam: Present: CTAB. Absent: accessory muscle use, rales, rhonchi, wheezes - Cardiovascular Cardiovascular exam: Present: RRR, +S1, +S2. Absent: diastolic murmur, gallop, rubs, systolic murmur - GI/Abdominal GI/Abdominal exam: Present: normal bowel sounds, soft, no peritoneal signs. Absent: distended, tenderness - Extremities Exam Extremities exam: Present: warm, radial pulses palpable and symetrical. Absent : calf tenderness, cyanotic, pedal edema - Neurological Exam Neurological exam: Present: CN II-XII intact, oriented X3, no focal deficits. Absent: facial droop, speech deficit - Skin Skin exam: Present: dry, intact - VTE Documentation of Mechanical Device: Intermittent pneumatic compression device
[2016-08-09] MEDS ORDERED: Aminoglycoside Consult 1 EACH MC ONE (15:59)
== END 2016-08-09 16:00 | disposition home or self-care (01) | DRG 872 ==
LOC: EMEROO 08:55 → 3NENU 08:55
PROVIDERS: ADMIT Internal Medicine; ATTEND Internal Medicine

== ENCOUNTER 2018-06-27 16:09 | Inpatient (IN) ==
[2018-06-27] MEDS ORDERED: Ondansetron ODT 4 MG TAB.RAPDIS SL ONE (16:31)
[2018-06-27] MEDS ORDERED: OXYCODONE Oral CONC 10 MG/0.5 ML ORAL.SYG SL ONE ×2 (16:31→20:39)
--- NOTE | 2018-06-27 17:28 | Emergency Department Note ---
Disposition Clinical Impression: Closed fracture of distal end of femur Qualifiers: Encounter type: initial encounter Fracture morphology: unspecified fracture morphology Laterality: right Qualified Code(s): S72.401A - Unspecified fracture of lower end of right femur, initial encounter for closed fracture Disposition: Admitted As Inpatient Condition: Fair Fall HPI - General Chief Complaint: ED Fall Stated Complaint: knee pain, fall Time Seen by Provider: 06/27/18 16:28 Source: patient Mode of arrival: private vehicle Limitations: no limitations Nursing Notes Reviewed: Yes Vital Signs Reviewed: Yes - History of Present Illness HPI Narrative: Patient brought to the ER by EMS for evaluation of knee pain status post fall. She states that she was walking to the kitchen and must have slipped on some water. Her right lower leg, ankle and foot ended up under her. She denies hitting her head or injuring her neck or back. This was a mechanical fall. She denies prodrome, dizziness, chest pain, shortness of breath, or history of frequent falls. She has history of total knee replacement [address] Ho. The pain is in the anterior and lateral aspect of the right knee. It does not radiate is worse with any movement of the knee. It is better with keeping the knee slightly flexed and the hip externally rotated. She denies paresthesias in the extremity. Pt Subjective Complaint: fall Onset (ago): Just [employer] Fall From: standing Fall Witnessed: no Place Fall Occurred: home Loss of Consciousness: none Prolonged Down Time?: no Symptoms Prior to Fall: none Context: tripped/slipped ( hold) Location of injury - extremities: Right: knee Severity: severe Quality: sharp, stabbing Associated symptoms (after fall): Reports: unable to walk. Denies: headache, neck pain, numbness, weakness, chest pain, shortness of breath, abdominal pain, hematuria, lightheaded, vertigo, confusion - Related Data Home Medications Medication Instructions Recorded Confirmed Diltiazem [Cardizem] 60 mg PO BID 01/18/15 08/07/16 Duloxetine HCl [Cymbalta] 60 mg PO BID 01/18/15 08/07/16 Gabapentin [Neurontin] 1,200 mg PO TID 01/18/15 08/07/16 Insulin ASPART [NovoLOG] 0 unit SQ TIDWM PRN 01/18/15 08/07/16 Montelukast [Singulair] 10 mg PO HS 01/18/15 08/07/16 Insulin Degludec [Tresiba 72 unit SQ DAILY 05/07/16 08/07/16 Flextouch U-100] Lisinopril [Zestril] 10 mg PO DAILY 05/07/16 08/07/16 traZODone [TraZODone] 100 mg PO HS 05/07/16 08/07/16 Amitriptyline HCl 100 mg PO HS 06/11/16 08/07/16 Albuterol Sulfate [Albuterol 2 puff IH Q4HR PRN 07/11/16 08/07/16 Inhaler] Budesonide/Formoterol 80/4.5 2 puff IH BIDR 07/11/16 08/07/16 [Symbicort 80/4.5] HYDROcodone/Acet 10/325 mg [[place] 1 tab PO QID PRN 07/11/16 08/07/16 10-325 mg] Pantoprazole Sodium [Protonix] 40 mg PO DAILY 07/11/16 08/07/16 Simvastatin [Zocor] 40 mg PO HS 07/11/16 08/07/16 Dulaglutide [Trulicity] 0.75 mg SQ QWEEK 08/07/16 08/07/16 Ipratropium [place] 1 spray NS DAILY 08/07/16 08/07/16 Previous Rx's Medication Instructions Recorded Docusate [Colace] 100 mg PO BID #60 capsule 06/14/16 Aspirin Enteric Coated [Aspirin EC] 325 mg PO DAILY #21 tablet. 07/10/16 OxyCODONE Immed Rel [Roxicodone 5 5 - 10 mg PO Q6HR PRN #40 tablet 07/10/16 MG] Cyclobenzaprine [Flexeril] 10 mg PO HS #15 tablet 12/27/17 Ibuprofen [Motrin] 800 mg PO Q8HR #30 tablet 12/27/17 cephALEXin [Keflex] 500 mg PO QID #20 capsule 05/28/18 Allergies Allergy/AdvReac Type Severity Reaction Status Date / Time polyethylene glycol AdvReac Nausea Verified 07/11/16 08:00 [From Golytely] polyethylene glycol 3350 AdvReac Nausea Verified 07/11/16 08:00 [From Golytely] potassium chloride AdvReac Nausea Verified 07/11/16 08:00 [From Golytely] sodium [From Golytely] AdvReac Nausea Verified 07/11/16 08:00 sodium bicarbonate AdvReac Nausea Verified 07/11/16 08:00 [From Golytely] sodium chloride AdvReac Nausea Verified 07/11/16 08:00 [From Golytely] sodium sulfate AdvReac Nausea Verified 07/11/16 08:00 [From Golytely] Tizanidine AdvReac Dizziness Verified 07/11/16 08:00 All systems ED: reviewed and negative except as stated. Review of Systems: As Per HPI Constitutional: Denies: fever, chills, weakness Cardiovascular: Denies: chest pain, palpitations, dyspnea on exertion, orthopnea, syncope Respiratory: Denies: dyspnea Gastrointestinal: Denies: abdominal pain, nausea, vomiting, diarrhea Musculoskeletal: Reports: as per HPI, back pain (chronic - not worse today than usual), joint swelling, arthralgia. Denies: neck pain Integumentary: Denies: abrasion Neurological: Denies: weakness, numbness, paresthesias Hematological/Lymphatic: Denies: easy bleeding, easy bruising Fall PMH - Past Medical History Medical history: Reports: diabetes, hyperlipidemia, hypertension, myocardial infarction, other Surgical history: Reports: , knee replacement, other, bariatric surgery Psychiatric history: Reports: anxiety, depression - Social History Smoking Status: Former smoker Alcohol use: Reports: none Drug use: Reports: none Physical Exam - General Limitations: no limitations General appearance: alert, in no apparent distress - Head Head exam: atraumatic, normocephalic, normal inspection - Eye Eye exam: Present: normal appearance. Absent: scleral icterus, conjunctival injection, periorbital swelling - ENT ENT exam: mucous membranes moist - Neck Neck exam: Present: normal inspection, full ROM, trachea midline. Absent: tenderness - Respiratory Respiratory exam: Present: normal lung sounds bilaterally. Absent: respiratory distress - Cardiovascular Cardiovascular exam: Present: regular rate, normal rhythm - Abdominal Exam Abdominal exam: Present: soft, Non-Tender. Absent: distention, guarding, rebound, rigidity - Extremities Exam Extremities exam: Present: tenderness, normal capillary refill, pedal edema (Mild symmetric bilateral nonpitting), joint swelling. Absent: calf tenderness - Expanded Lower Extremity Exam Hip/Pelvis exam: Present: full ROM (Slightly decreased on the right second to knee pain when moving the hip), pelvis stable. Absent: tenderness, dislocation, internal rotation, shortening Upper leg exam: Present: tenderness (Distal femur). Absent: swelling, ecchymosis, deformity, crepitus, dislocation, erythema 1 - tender, mildy edematous Knee exam: Present: tenderness, swelling, knee extension intact (intact but extremely painful). Absent: full ROM, abrasion, ecchymosis, deformity, crepitus, dislocation, erythema, effusion Lower leg exam: Present: normal inspection, Achilles tendon intact. Absent: tenderness, swelling Ankle exam: Present: normal inspection, full ROM. Absent: tenderness, swelling Foot/toe exam: Present: normal inspection, full ROM. Absent: tenderness, swelling Neurovascular/Tendon exam: Present: normal capillary refill, normal fine/light touch. Absent: pulse deficit, motor deficit, sensory deficit, tendon deficit, extremity cold to touch, pallor, foot drop, significant pain with passive ROM of distal joint Gait: not tested/not observed - Back Exam Back exam: Absent: tenderness - Neurological Exam Neurological exam: Present: alert, oriented X3, CN II-XII intact. Absent: motor sensory deficit - Psychiatric Psychiatric exam: Present: normal affect, normal mood - Skin Skin exam: Present: warm, dry, intact, normal color Course Course Narrative: Patient slipped and fell and injured her right knee. She was unable to bear weight. She denies hip pain. However, when trying to move the hip it causes significant pain in the knee. Position of comfort is with the hip externally rotated and the knee slightly flexed. She is neurovascularly intact. She has 2+ DP, PT pulses. Pain meds and x-rays ordered. X-ray shows a comminuted displaced distal femur fracture - as read by the radiologist. X-rays read by me as well. Pain is improved. Dr. Yao has been paged. Case discussed with Dr. Yao. He has discussed the case with Dr. Ho. They recommend that the patient be admitted to the hospitalist. Surgery will be done on Saturday. Hospitalist was paged. Labs have been requested. These have been ordered and are pending. Labs are now resulted. CBC is normal. Basic metabolic panel is essentially normal. Sodium is at 132, which is her baseline and glucose is mildly elevated. Coags are normal. Hospitalist has been paged. Vital Signs Temperature 98 F 06/27/18 16:21 Pulse Rate 78 06/27/18 16:21 Respiratory Rate 18 06/27/18 16:21 Blood Pressure 169/88 06/27/18 16:21 O2 Sat by Pulse Oximetry 99 06/27/18 16:21 Temperature 98 F 06/27/18 16:21 Pulse Rate 78 06/27/18 17:20 Respiratory Rate 20 06/27/18 17:20 Blood Pressure 169/143 06/27/18 17:20 O2 Sat by Pulse Oximetry 95 06/27/18 17:20 Oxygen Delivery Oxygen Delivery Room Air
[2018-06-27 17:57] LABS: Basophils # 0.1 K/mcL (0.0-0.2); Basophils % 0.7 %; Eosinophils # 0.1 K/mcL (0.0-0.6); Hematocrit 41.3 % (35.3-44.9); Hemoglobin 14.1 g/dL (11.5-15.4); Immature Granulocytes % 0.8 % (0-4); Lymphocytes # 1.4 K/mcL (0.6-4.6); Lymphocytes % 19.5 %; Mean Corpuscular HGB Conc 34.1 g/dL (31.6-35.5); Mean Corpuscular Volume 87.9 fL (83.0-100.0); Mean Platelet Volume 8.6 fL (9.4-12.4); Monocytes # 0.4 K/mcL (0.0-1.3); Monocytes % 5.6 %; Neutrophils # 5.1 K/mcL (1.6-8.9); Platelet Count 158 K/mcL (140-400); Segmented Neutrophils % 71.4 %
[2018-06-27 18:04] LABS: Prothrombin Time 10.8 Seconds (9.4-12.1)
[2018-06-27 18:07] LABS: Activated Partial Thrombo Time 31.7 Seconds (26.0-36.0)
[2018-06-27 18:13] LABS: BUN/Creatinine Ratio 16 (6-26); Blood Urea Nitrogen 11 mg/dL (8-23); Calcium 9.2 mg/dL (8.6-10.3); Carbon Dioxide 33 mEq/L (23-29); Chloride 93 mEq/L (98-107); Glucose 156 mg/dL (70-105); Osmolality,Calculated 277 (280-300); Potassium 4.2 mEq/L (3.5-5.1); Sodium 132 mEq/L (136-145); eGFR For Non-African Americans > 60 (> 60)
--- NOTE | 2018-06-27 20:38 | Emergency Department Note ---
Disposition Clinical Impression: Closed fracture of distal end of femur Qualifiers: Encounter type: initial encounter Fracture morphology: unspecified fracture morphology Laterality: right Qualified Code(s): S72.401A - Unspecified fracture of lower end of right femur, initial encounter for closed fracture Disposition: Admitted As Inpatient Condition: Fair General Adult HPI - General Chief complaint: ED Fall Stated complaint: knee pain, fall Time Seen by Provider: 06/27/18 16:28 Source: patient Mode of arrival: private vehicle Limitations: no limitations - History of Present Illness Pain Scale: 8 - Related Data Home Medications Medication Instructions Recorded Confirmed Duloxetine HCl [Cymbalta] 60 mg PO BID 01/18/15 06/27/18 Gabapentin [Neurontin] 1,200 mg PO TID 01/18/15 06/27/18 Insulin Degludec [Tresiba 25 - 36 unit SQ DAILY 05/07/16 06/27/18 Flextouch U-100] Amitriptyline HCl 100 mg PO HS 06/11/16 06/27/18 Albuterol Sulfate [Albuterol 2 puff IH Q4HR PRN 07/11/16 06/27/18 Inhaler] Budesonide/Formoterol 80/4.5 1 puff IH 1-3XD 07/11/16 06/27/18 [Symbicort 80/4.5] HYDROcodone/Acet 10/325 mg [[place] 0.5 - 1 tab PO TID PRN 07/11/16 06/27/18 10-325 mg] Pantoprazole Sodium [Protonix] 40 mg PO DAILY 07/11/16 06/27/18 Simvastatin [Zocor] 40 mg PO HS 07/11/16 06/27/18 Ipratropium [place] 2 spray NS DAILY PRN 08/07/16 06/27/18 Calcium Polycarbophil [Fiber 1,250 mg PO DAILY PRN 06/27/18 06/27/18 Laxative] Diltiazem HCl [Cardizem] 60 mg PO BID 06/27/18 06/27/18 Docusate [Colace] 100 mg PO DAILY PRN 06/27/18 06/27/18 Ibuprofen [Ibu-200] 200 mg PO DAILY PRN 06/27/18 06/27/18 Insulin ASPART [Novolog Flexpen] 0 unit SQ TIDWM PRN 06/27/18 06/27/18 Liraglutide [Victoza 3-Amarjit] 1.8 mg SQ DAILY 06/27/18 06/27/18 Lisinopril [Zestril] 20 mg PO DAILY 06/27/18 06/27/18 Loratadine [Claritin] 10 mg PO DAILY 06/27/18 06/27/18 Metformin HCl [Glucophage] 1,000 mg PO BIDWM 06/27/18 06/27/18 Montelukast [Singulair] 10 mg PO HS PRN 06/27/18 06/27/18 Polyethylene Glycol 3350 17 gm PO DAILY PRN 06/27/18 06/27/18 Trazodone HCl 100 mg PO DAILY 06/27/18 06/27/18 Trazodone HCl 150 mg PO HS 06/27/18 06/27/18 Allergies Allergy/AdvReac Type Severity Reaction Status Date / Time polyethylene glycol AdvReac Nausea Verified 07/11/16 08:00 [From Golytely] polyethylene glycol 3350 AdvReac Nausea Verified 07/11/16 08:00 [From Golytely] potassium chloride AdvReac Nausea Verified 07/11/16 08:00 [From Golytely] sodium [From Golytely] AdvReac Nausea Verified 07/11/16 08:00 sodium bicarbonate AdvReac Nausea Verified 07/11/16 08:00 [From Golytely] sodium chloride AdvReac Nausea Verified 07/11/16 08:00 [From Golytely] sodium sulfate AdvReac Nausea Verified 07/11/16 08:00 [From Golytely] Tizanidine AdvReac Dizziness Verified 07/11/16 08:00 Constitutional: Denies: fever, chills, weakness Cardiovascular: Denies: chest pain, palpitations, dyspnea on exertion, orthopnea, syncope Respiratory: Denies: dyspnea Gastrointestinal: Denies: abdominal pain, nausea, vomiting, diarrhea Musculoskeletal: Reports: as per HPI, back pain (chronic - not worse today than usual), joint swelling, arthralgia. Denies: neck pain Integumentary: Denies: abrasion Neurological: Denies: weakness, numbness, paresthesias Hematological/Lymphatic: Denies: easy bleeding, easy bruising Past Medical History - Past Medical History Medical history: Reports: diabetes, hyperlipidemia, hypertension, myocardial infarction, other Surgical history: Reports: , knee replacement, other, bariatric surgery Psychiatric history: Reports: anxiety, depression - Social History Smoking Status: Former smoker Smokeless Tobacco Status: No Alcohol use: Reports: none Drug use: Reports: none Physical Exam - General Limitations: no limitations General appearance: alert, in no apparent distress Course Vital Signs Temperature 98 F 06/27/18 16:21 Pulse Rate 78 06/27/18 16:21 Respiratory Rate 18 06/27/18 16:21 Blood Pressure 169/88 06/27/18 16:21 O2 Sat by Pulse Oximetry 99 06/27/18 16:21 Temperature 98 F 06/27/18 16:21 Pulse Rate 82 06/27/18 18:42 Respiratory Rate 20 06/27/18 18:42 Blood Pressure 141/102 06/27/18 18:42 O2 Sat by Pulse Oximetry 95 06/27/18 18:42 Oxygen Delivery Oxygen Delivery Room Air Medical Decision Making - Lab Data Result diagrams: 06/27/18 17:29 06/27/18 17:29 Lab Results 06/27/18 06/27/18 06/27/18 Range/Units 17:29 17:29 17:29 WBC 7.1 (4.3-11.1) K/mcL RBC 4.70 (3.82-4.97) M/mcL Hgb 14.1 (11.5-15.4) g/dL Hct 41.3 (35.3-44.9) % MCV 87.9 (83.0-100.0) fL MCH 30.0 (28.0-33.3) pg MCHC 34.1 (31.6-35.5) g/dL RDW 12.0 (11.5-14.5) % Plt Count 158 (140-400) K/mcL MPV 8.6 L (9.4-12.4) fL Immature Gran % 0.8 (0-4) % Seg Neutrophils % 71.4 % Lymphocytes % 19.5 % Monocytes % 5.6 % Eosinophils % 2.0 % Basophils % 0.7 % Neutrophils # 5.1 (1.6-8.9) K/mcL Lymphocytes # 1.4 (0.6-4.6) K/mcL Monocytes # 0.4 (0.0-1.3) K/mcL Eosinophils # 0.1 (0.0-0.6) K/mcL Basophils # 0.1 (0.0-0.2) K/mcL PT 10.8 (9.4-12.1) Seconds INR 1.0 APTT 31.7 (26.0-36.0) Seconds Sodium 132 L (136-145) mEq/L Potassium 4.2 (3.5-5.1) mEq/L Chloride 93 L (98-107) mEq/L Carbon Dioxide 33 H (23-29) mEq/L BUN 11 (8-23) mg/dL Creatinine 0.69 (0.60-1.20) mg/dL Est GFR ( Amer) > 60 (> 60) Est GFR (Non-Af Amer) > 60 (> 60) BUN/Creatinine Ratio 16 (6-26) Glucose 156 H (70-105) mg/dL Calculated Osmolality 277 L (280-300) Calcium 9.2 (8.6-10.3) mg/dL Attestation Statement - Attestation Attestation: For this encounter, I have reviewed the FILING WRITER or PA documentation, treatment plan, and medical decision making; and I have had face to face time with this patient. [id number] time provided Patient sustained a fracture to her right distal femur proximal to the knee joint prosthesis. She is resting resting comfortably at the time of my exam.
[2018-06-27] MEDS ORDERED: Ondansetron ODT 4 MG TAB.RAPDIS SL PRN (22:23)
[2018-06-27] MEDS ORDERED: Naloxone 0.4 MG/ML INJ IVP PRN (22:23)
--- NOTE | 2018-06-27 22:32 | Internal Med History&Physical ---
Date of Encounter: 06/27/18 Time of Encounter: 22:30 Internal Medicine - H&P: HPI Chief complaint: Right distal femur fracture Admitted From: Emergency Dept Plans for Post Hospital Care: Home History of present illness: Ms. Paiz is a 68 year old female Patient presented to the emergency room after a fall. She was walking to her kitchen, slipped on water falling onto her right leg. He did not hit her head and denies other injuries. She has history of total knee replacement on the right side 2 years ago. Pain is worse with movement of the knee, and does not radiate down her leg or up her leg. She came to the emergency room for further evaluation. In the emergency room patient's vital signs were within normal limits. CBC was also within normal limits. BMP revealed a slightly low sodium of 132 and a glu cose of 156. INR was 1.0. A right knee x-ray was performed: IMPRESSION: 1. Comminuted half shaft width posterior displaced transverse fracture distal right femur just superior to right knee arthroplasty. 2. Status post right knee arthroplasty. 3. No proximal tibial/fibular fracture evident. 4. Diffuse soft tissue edema about the knee joint. Dr. Yao of orthopedic surgery was consulted, and will see the patient in the morning. Patient was admitted to the hospital floor for further management. Upon my evaluation, patient is resting comfortably in the hospital bed in no acute distress. She denies chest pain, abdominal pain, nausea, vomiting, diarrhea but has had constipation lately. She says when she slipped her right leg bent behind her and she landed on her right leg. She has had falls at home before but has had no previous injuries. She confirms that she did slip on water that was on her floor. She has past medical history of diabetes, and was adopted but knows that diabetes runs in her family. She is a full code. Past Med Surg Social Fam HX - Past Medical History Medical history: diabetes, hyperlipidemia, hypertension, myocardial infarction, other Additional medical history: schizoaffective ,anxiety,depression,hx [place] Psychiatric history: anxiety, depression - Past Surgical History Surgical History: , knee replacement, other, bariatric surgery Additional surgical history: gastric stapling, Bilateral knee replacement. - Social History Smoking Status: Former smoker Smokeless Tobacco Status: No Alcohol use: none Drug use: none - Family History Mother Adopted: Yes (history unknown) Father Adopted: Yes (history unknown) Internal Medicine - H&P: Meds Duloxetine HCl [Cymbalta] 60 mg PO BID 01/18/15 [History] Gabapentin [Neurontin] 1,200 mg PO TID 01/18/15 [History] Insulin Degludec [Tresiba Flextouch U-100] 25 - 36 unit SQ DAILY 05/07/16 [History] Amitriptyline HCl 100 mg PO HS 06/11/16 [History] Albuterol Sulfate [Albuterol Inhaler] 2 puff IH Q4HR PRN 07/11/16 [History] Budesonide/Formoterol 80/4.5 [Symbicort 80/4.5] 1 puff IH 1-3XD 07/11/16 [History] HYDROcodone/Acet 10/325 mg [[place] 10-325 mg] 0.5 - 1 tab PO TID PRN 07/11/16 [History] Pantoprazole Sodium [Protonix] 40 mg PO DAILY 07/11/16 [History] Simvastatin [Zocor] 40 mg PO HS 07/11/16 [History] Ipratropium [place] 2 spray NS DAILY PRN 08/07/16 [History] Calcium Polycarbophil [Fiber Laxative] 1,250 mg PO DAILY PRN 06/27/18 [History] Diltiazem HCl [Cardizem] 60 mg PO BID 06/27/18 [History] Docusate [Colace] 100 mg PO DAILY PRN 06/27/18 [History] Ibuprofen [Ibu-200] 200 mg PO DAILY PRN 06/27/18 [History] Insulin ASPART [Novolog Flexpen] 0 unit SQ TIDWM PRN 06/27/18 [History] Liraglutide [Victoza 3-Amarjit] 1.8 mg SQ DAILY 06/27/18 [History] Lisinopril [Zestril] 20 mg PO DAILY 06/27/18 [History] Loratadine [Claritin] 10 mg PO DAILY 06/27/18 [History] Metformin HCl [Glucophage] 1,000 mg PO BIDWM 06/27/18 [History] Montelukast [Singulair] 10 mg PO HS PRN 06/27/18 [History] Polyethylene Glycol 3350 17 gm PO DAILY PRN 06/27/18 [History] Trazodone HCl 100 mg PO DAILY 06/27/18 [History] Trazodone HCl 150 mg PO HS 06/27/18 [History] Allergy/AdvReac Type Severity Reaction Status Date / Time polyethylene glycol AdvReac Nausea Verified 07/11/16 08:00 [From Golytely] polyethylene glycol 3350 AdvReac Nausea Verified 07/11/16 08:00 [From Golytely] potassium chloride AdvReac Nausea Verified 07/11/16 08:00 [From Golytely] sodium [From Golytely] AdvReac Nausea Verified 07/11/16 08:00 sodium bicarbonate AdvReac Nausea Verified 07/11/16 08:00 [From Golytely] sodium chloride AdvReac Nausea Verified 07/11/16 08:00 [From Golytely] sodium sulfate AdvReac Nausea Verified 07/11/16 08:00 [From Golytely] Tizanidine AdvReac Dizziness Verified 07/11/16 08:00 All Systems PM: A 10-system review of systems was performed and is negative for pertinent findings except as documented above in the HPI. - Constitutional Vitals: Temp Pulse Resp BP Pulse Ox 98.5 F 101 15 142/79 94 06/27/18 21:41 06/27/18 21:41 06/27/18 21:41 06/27/18 21:41 06/27/18 21:41 General appearance: Present: cooperative, A&O X 3, pleasant, no acute distress, answers questions appropriately Exam: - - Head Head exam: Present: normal inspection - Eye Eye exam: Present: EOMI, normal appearance - Respiratory Respiratory exam: Present: CTAB. Absent: rales, respiratory distress, rhonchi, wheezes - Cardiovascular Cardiovascular exam: Present: RRR. Absent: diastolic murmur, systolic murmur - GI/Abdominal GI/Abdominal exam: Present: normal bowel sounds, soft. Absent: tenderness - Extremities Exam Extremities exam: Present: tenderness, warm, radial pulses palpable and symmetrical. Absent: calf tenderness, pedal edema Additional comments: Brace over right knee, pain with movement, and palpation - Neurological Exam Neurological exam: Present: no focal deficits, strengths equal and symetr throughout. Absent: motor sensory deficit, facial droop, speech deficit - Skin Skin exam: Present: dry, normal color, warm Internal Med - H&P Results - Labs CBC & Chem 7: 06/27/18 17:29 06/27/18 17:29 Labs: Short CBC 06/27/18 Range/Units 17:29 WBC 7.1 (4.3-11.1) K/mcL Hgb 14.1 (11.5-15.4) g/dL Hct 41.3 (35.3-44.9) % Plt Count 158 (140-400) K/mcL Neutrophils # 5.1 (1.6-8.9) K/mcL BMP 06/27/18 17:29 Sodium 132 L Potassium 4.2 Chloride 93 L Carbon Dioxide 33 H BUN 11 Creatinine 0.69 Glucose 156 H Calcium 9.2 - Impressions ITS Impressions Knee X-Ray 06/27/18 16:31 IMPRESSION: 1. Comminuted half shaft width posterior displaced transverse fracture distal right femur just superior to right knee arthroplasty. 2. Status post right knee arthroplasty. 3. No proximal tibial/fibular fracture evident. 4. Diffuse soft tissue edema about the knee joint. D/ / Manny Soriano / Manny Soriano Interpreting Provider: Manny Soriano - Assessment and Plan (1) Closed fracture of distal end of femur Current Visit: Yes Status: Acute Assessment and plan: Patient slipped on water and ended up with a right knee fracture. Dr. Yao of orthopedic surgery has been notified. Discussed with Dr. Ho as well who did the patient's prior knee replacement. From what ER documentation indicates patient's surgery will be done on Saturday. Follow-up orthopedic surgery consult Nothing by mouth prior to surgery Pain management as needed Qualifiers: Encounter type: initial encounter Fracture morphology: unspecified fracture morphology Laterality: right Qualified Code(s): S72.401A - Unspecified fracture of lower end of right femur, initial encounter for closed fracture (2) Diabetes mellitus type 2 in obese Current Visit: No Status: Chronic Assessment and plan: Patient is an insulin dependent diabetic Monitor sugars ACHS Diabetic diet Low dose insulin sliding scale as needed Hold home meds. (3) DVT prophylaxis Current Visit: No Status: Acute Assessment and plan: Subcutaneous heparin, patient surgery not for another day or 2. Consider stopping prior to surgery and switch to SCDs. (4) Fall Current Visit: No Status: Acute Assessment and plan: Patient slipped on water falling and fracturing her femur. She does state that she has had other falls at home as well but no injuries. May consider PT OT evaluation once recovered from this current fracture. Qualifiers: Encounter type: initial encounter Qualified Code(s): W19.XXXA - Unspecified fall, initial encounter - Time Spent With Patient Total time spent is greater than 50% in coordination of care (as documented) at patient's floor/unit and/or counseling patient: Greater than 35 minutes
[2018-06-27] MEDS ORDERED: D5% in Water 1,000 ML IVC PRN (22:49)
[2018-06-27] MEDS ORDERED: *HR* Dextrose 50 % in Water (Syg) 50 ML SYRINGE IVP PRN (22:49)
[2018-06-27] MEDS ORDERED: Dextrose Gel 15 GM/37.5 ML TUBE PO PRN ×2 (22:49)
[2018-06-27] MEDS: traZODone 50 MG TABLET PO SCH (23:21)
[2018-06-27] MEDS: Gabapentin 400 MG CAPSULE PO SCH (23:22)
[2018-06-27] MEDS ORDERED: Acetaminophen 325 MG TABLET PO PRN (23:23)
[2018-06-27] MEDS: *HR* HYDROcodone/Acet 5/325 mg TABLET PO PRN (23:32)
[2018-06-28 00:57] LABS: Hematocrit 36.2 % (35.3-44.9); Hemoglobin 12.6 g/dL (11.5-15.4); Mean Corpuscular HGB Conc 34.8 g/dL (31.6-35.5); Mean Corpuscular Hemoglobin 30.1 pg (28.0-33.3); Mean Corpuscular Volume 86.6 fL (83.0-100.0); Mean Platelet Volume 8.6 fL (9.4-12.4); Platelet Count 157 K/mcL (140-400); Red Blood Count 4.18 M/mcL (3.82-4.97)
[2018-06-28 01:16] LABS: BUN/Creatinine Ratio 17 (6-26); Blood Urea Nitrogen 12 mg/dL (8-23); Calcium 8.1 mg/dL (8.6-10.3); Carbon Dioxide 30 mEq/L (23-29); Chloride 98 mEq/L (98-107); Glucose 146 mg/dL (70-105); Osmolality,Calculated 278 (280-300); Potassium 4.3 mEq/L (3.5-5.1); Sodium 133 mEq/L (136-145); eGFR For Non-African Americans > 60 (> 60)
[2018-06-28] MEDS: *HR* Heparin 5,000 UNIT/ML VIAL SQ SCH ×2 (05:21→16:44)
[2018-06-28] MEDS: Insulin LISPRO 300 UNITS/3 ML VIAL SQ SCH ×4 (08:36→20:25)
[2018-06-28] MEDS: dilTIAZem HCl 60 MG TABLET PO SCH ×2 (08:37→20:24)
[2018-06-28] MEDS: Gabapentin 400 MG CAPSULE PO SCH ×3 (08:37→20:25)
[2018-06-28] MEDS: traZODone 50 MG TABLET PO SCH ×2 (08:37→20:26)
[2018-06-28] MEDS: *HR* HYDROcodone/Acet 5/325 mg TABLET PO PRN ×2 (08:37→16:43)
--- NOTE | 2018-06-28 11:03 | Orthopedic Consult Note ---
Date of Encounter: 06/28/18 Time of Encounter: 11:01 Assessment and Plan (1) Closed fracture of distal end of femur Current Visit: Yes Status: Acute The diagnosis and treatment recommendations were discussed with the patient. I did discuss this case with my partner Dr. Ho who did her previous total knee replacement. He will plan to perform a ORIF of the right periprosthetic distal femur fracture. Nothing by mouth Saturday night for surgery Saturday. Continue bedrest with knee immobilizer. Qualifiers: Encounter type: initial encounter Fracture morphology: unspecified fracture morphology Laterality: right Qualified Code(s): S72.401A - Unspecified fracture of lower end of right femur, initial encounter for closed fracture History of Present Illness HPI: Ms. Paiz is a 68 year old female admitted following a fall onto the right knee. She was walking to her kitchen, slipped on water falling onto her right leg. She did not hit her head and denies other injuries. She has history of total knee replacement on the right side 2 years ago. Pain is worse with movement of the knee, and does not radiate down her leg or up her leg. Denies LOC, CP, or SOB. Past Med Surg Social Fam HX - Past Medical History Medical history: diabetes, hyperlipidemia, hypertension, myocardial infarction, other Additional medical history: schizoaffective ,anxiety,depression,hx DC Psychiatric history: anxiety, depression - Past Surgical History Surgical History: , knee replacement, other, bariatric surgery Additional surgical history: gastric stapling, Bilateral knee replacement. - Social History Smoking Status: Former smoker Smokeless Tobacco Status: No Alcohol use: none Drug use: none - Family History Mother Adopted: Yes (history unknown) Father Adopted: Yes (history unknown) Medications and Allergies Duloxetine HCl [Cymbalta] 60 mg PO BID 01/18/15 [History] Gabapentin [Neurontin] 1,200 mg PO TID 01/18/15 [History] Insulin Degludec [Tresiba Flextouch U-100] 25 - 36 unit SQ DAILY 05/07/16 [History] Amitriptyline HCl 100 mg PO HS 06/11/16 [History] Albuterol Sulfate [Albuterol Inhaler] 2 puff IH Q4HR PRN 07/11/16 [History] Budesonide/Formoterol 80/4.5 [Symbicort 80/4.5] 1 puff IH 1-3XD 07/11/16 [History] HYDROcodone/Acet 10/325 mg [[place] 10-325 mg] 0.5 - 1 tab PO TID PRN 07/11/16 [History] Pantoprazole Sodium [Protonix] 40 mg PO DAILY 07/11/16 [History] Simvastatin [Zocor] 40 mg PO HS 07/11/16 [History] Ipratropium [place] 2 spray NS DAILY PRN 08/07/16 [History] Calcium Polycarbophil [Fiber Laxative] 1,250 mg PO DAILY PRN 06/27/18 [History] Diltiazem HCl [Cardizem] 60 mg PO BID 06/27/18 [History] Docusate [Colace] 100 mg PO DAILY PRN 06/27/18 [History] Ibuprofen [Ibu-200] 200 mg PO DAILY PRN 06/27/18 [History] Insulin ASPART [Novolog Flexpen] 0 unit SQ TIDWM PRN 06/27/18 [History] Liraglutide [Victoza 3-Amarjit] 1.8 mg SQ DAILY 06/27/18 [History] Lisinopril [Zestril] 20 mg PO DAILY 06/27/18 [History] Loratadine [Claritin] 10 mg PO DAILY 06/27/18 [History] Metformin HCl [Glucophage] 1,000 mg PO BIDWM 06/27/18 [History] Montelukast [Singulair] 10 mg PO HS PRN 06/27/18 [History] Polyethylene Glycol 3350 17 gm PO DAILY PRN 06/27/18 [History] Trazodone HCl 100 mg PO DAILY 06/27/18 [History] Trazodone HCl 150 mg PO HS 06/27/18 [History] Allergy/AdvReac Type Severity Reaction Status Date / Time polyethylene glycol AdvReac Nausea Verified 07/11/16 08:00 [From Golytely] polyethylene glycol 3350 AdvReac Nausea Verified 07/11/16 08:00 [From Golytely] potassium chloride AdvReac Nausea Verified 07/11/16 08:00 [From Golytely] sodium [From Golytely] AdvReac Nausea Verified 07/11/16 08:00 sodium bicarbonate AdvReac Nausea Verified 07/11/16 08:00 [From Golytely] sodium chloride AdvReac Nausea Verified 07/11/16 08:00 [From Golytely] sodium sulfate AdvReac Nausea Verified 07/11/16 08:00 [From Golytely] Tizanidine AdvReac Dizziness Verified 07/11/16 08:00 All Systems Reviewed: The remainder of the systems were reviewed and are negative except as noted in the HPI Physical Exam - Constitutional Vitals: Temp Pulse Resp BP Pulse Ox 98.0 F 79 16 86/55 92 06/28/18 10:27 06/28/18 10:27 06/28/18 10:27 06/28/18 10:27 06/28/18 10:27 Exam: Consult Exam: Constitutional -Vitals reviewed -The patient is well developed and well nourished. -Mood is pleasant. -The patient is well groomed. Psychiatric -The patient is fully alert and oriented x 3. Respiratory: -Respiratory effort normal Abdomen: -Soft abdomen -Non tender -Non distended: Left upper extremity: -No deformities. The overlying skin is intact. No obvious signs of acute trauma. -No tenderness to palpation throughout. -No significant pain with passive motion of the shoulder, elbow, wrist, and fingers within the limits of the bed. -Able to make an "OK" sign, cross the index and long fingers, and extend the thumb. -Sensation grossly intact to light touch throughout the median, radial, and ulnar distributions. -Radial pulse is present; Fingers have good capillary refill. Right upper extremity: -No deformities. The overlying skin is intact. No obvious signs of acute trauma. -No tenderness to palpation throughout. -No significant pain with passive motion of the shoulder, elbow, wrist, and fingers within the limits of the bed. -Able to make an "OK" sign, cross the index and long fingers, and extend the thumb. -Sensation grossly intact to light touch throughout the median, radial, and ulnar distributions. -Radial pulse is present; Fingers have good capillary refill. Left lower extremity: -No deformities. The overlying skin is intact. No obvious signs of acute trauma. -No tenderness to palpation throughout. -No pain with passive motion of the hip, knee, ankle, and toes within the limits of the bed. -No pain with axial loading of the thigh. -Able to dorsiflex and plantarflex the ankle and toes. -Sensation is grossly intact to light touch throughout the sural, saphenous, superficial peroneal, and deep peroneal distributions. -Toes have good capillary refill. Right lower extremity: -Flexion deformity of the right knee. Skin is intact. -Tenderness to palpation over the distal femur. -Able to dorsiflex and plantarflex the ankle and toes. -Sensation is grossly intact to light touch throughout the sural, saphenous, superficial peroneal, and deep peroneal distributions. -Toes have good capillary refill. Results - Labs Result Diagrams: 06/28/18 00:30 06/28/18 00:30 Labs: Abnormal lab results MPV 8.6 fL (9.4-12.4) L 06/28/18 00:30 Sodium 133 mEq/L (136-145) L 06/28/18 00:30 Chloride 93 mEq/L (98-107) L 06/27/18 17:29 Carbon Dioxide 30 mEq/L (23-29) H 06/28/18 00:30 Glucose 146 mg/dL (70-105) H 06/28/18 00:30 POC Glucose 127 mg/dL (70-99) H 06/28/18 10:35 278 (280-300) L 06/28/18 00:30 Calcium 8.1 mg/dL (8.6-10.3) L 06/28/18 00:30 H & H 06/27/18 06/28/18 Range/Units 17:29 00:30 Hgb 14.1 12.6 D (11.5-15.4) g/dL Hct 41.3 36.2 (35.3-44.9) % All other labs normal. - Diagnostic results Knee x-ray: report reviewed, image reviewed (Displaced right periprosthetic distal femur fracture.) Consult Discharge Plan - Plan Referrals: Cole Boswell MD [Partnered Physician] -
--- NOTE | 2018-06-28 13:02 | Internal Med Progress Note ---
Hospitalist Progress Note - Encounter Date of Encounter: 06/28/18 Time of Encounter: 12:52 - Subjective Interval History: Pt says pain is controlled w meds. Eating and drinking well. Agreeable to waiting until Saturday for surgery. Denies CP, SOB, N/V/D. - Exam Vitals: Temp Pulse Resp BP Pulse Ox 98.0 F 79 16 86/55 92 06/28/18 10:27 06/28/18 10:27 06/28/18 10:27 06/28/18 10:06/28/18 10:27 Exam: General: NAD, good eye contact, well appearing, obese Thoracic: Normal breath sounds b/l, no wheezing or crackles Cardio: Normal S1 and S2, regular rate and rhythm Abdomen: Soft, nontender Extremities: Warm, well perfused. Does have edema RLE Skin: Intact. No rashes, bruises, or ulcers Neuro: Awake, fully oriented. Speech fluent - Summary of Assessment and Plan Summary of Assessment and Plan: Noemi Paiz is a 68 F w hx morbid obesity, CAD s/p LA, HTN, HLD, DM2, schizoaffective, OA s/p R TKA '17, who p/w R knee pain after a fall, found on XR to have distal R femur fracture. Distal R femur periprosthetic fracture: seen on XR, RLE still neurovascularly intact - Ortho consulted, appreciate plan for OR on Saturday for ORIF - pain control w oxycodone Hyponatremia: pt appears euvolemic although some swelling in legs, continue diet and will monitor CAD s/p LA, HLD: home statin HTN: home cardizem 60 bid, lisinopril 20 DM2: w hyperglycemia, c/b CAD and neuropathy, holding home PO meds, utilize home long acting plus SSI ?COPD: on home inhalers, is former smoker, and satting low 90s on room air Pain and psych: home gabapentin, cymbalta, amitriptyline, trazodone, norco Morbid obesity: BMI 45 PPx: sqh FEN: cardiac ADA, no MIVF Lines: PIV Consults: Ortho Code: Full Dispo: patient requires inpatient eval and management at this time. Anticipate 3-4 days. Will be homegoing Internal Medicine: Result - Labs CBC & Chem 7: 06/28/18 00:30 06/28/18 00:30 Labs: Short CBC 06/27/18 06/28/18 Range/Units 17:29 00:30 WBC 7.1 9.6 (4.3-11.1) K/mcL Hgb 14.1 12.6 D (11.5-15.4) g/dL Hct 41.3 36.2 (35.3-44.9) % Plt Count 158 157 (140-400) K/mcL Neutrophils # 5.1 (1.6-8.9) K/mcL BMP 06/27/18 06/28/18 17:29 00:30 Sodium 132 L 133 L Potassium 4.2 4.3 Chloride 93 L 98 Carbon Dioxide 33 H 30 H BUN 11 12 Creatinine 0.69 0.69 Glucose 156 H 146 H Calcium 9.2 8.1 L - ABG Interpretation ABG results: PT/INR, D-dimer PT 10.8 Seconds (9.4-12.1) 06/27/18 17:29 - Impressions Impressions Knee X-Ray 06/27/18 16:31 IMPRESSION: 1. Comminuted half shaft width posterior displaced transverse fracture distal right femur just superior to right knee arthroplasty. 2. Status post right knee arthroplasty. 3. No proximal tibial/fibular fracture evident. 4. Diffuse soft tissue edema about the knee joint. D/ / Manny Soriano / Manny Soriano Interpreting Provider: Manny Soriano Consult Discharge Plan - Plan Referrals: Cole Boswell MD [Partnered Physician] -
[2018-06-28] MEDS: *HR* OxyCODONE Immed Rel 5 MG TABLET PO PRN (20:26)
[2018-06-29] MEDS: *HR* Heparin 5,000 UNIT/ML VIAL SQ SCH ×2 (05:43→16:48)
[2018-06-29] MEDS: dilTIAZem HCl 60 MG TABLET PO SCH ×2 (08:36→21:04)
[2018-06-29] MEDS: traZODone 50 MG TABLET PO SCH ×2 (08:36→21:04)
[2018-06-29] MEDS: Gabapentin 400 MG CAPSULE PO SCH ×3 (08:36→21:03)
[2018-06-29] MEDS: Insulin LISPRO 300 UNITS/3 ML VIAL SQ SCH ×4 (08:45→21:05)
--- NOTE | 2018-06-29 12:41 | Internal Med Progress Note ---
Hospitalist Progress Note - Encounter Date of Encounter: 06/29/18 Time of Encounter: 12:38 - Subjective Interval History: Pt doing well overnight, feeling occasional pain in her knee when she changes positions but mostly is comfortable at rest. No CP, SOB, N/V/D. - Exam Vitals: Temp Pulse Resp BP Pulse Ox 99.6 F 86 18 128/70 95 06/29/18 12:16 06/29/18 12:16 06/29/18 12:16 06/29/18 12:16 06/29/18 12:16 Exam: General: NAD, good eye contact, well appearing, obese, purple hair Thoracic: Normal breath sounds b/l, no wheezing or crackles Cardio: Normal S1 and S2, regular rate and rhythm Abdomen: Soft, nontender Extremities: Warm, well perfused. Mild edema RLE Skin: Intact. No rashes, bruises, or ulcers Neuro: Awake, fully oriented. Speech fluent - Summary of Assessment and Plan Summary of Assessment and Plan: Noemi Paiz is a 68 F w hx morbid obesity, CAD s/p MA, HTN, HLD, DM2, schizoaffective, OA s/p R TKA '17, who p/w R knee pain after a fall, found on XR to have distal R femur fracture. Distal R femur periprosthetic fracture: seen on XR, RLE still neurovascularly intact - Ortho consulted, appreciate plan for OR on Saturday for ORIF - pain control w oxycodone Hyponatremia: pt appears euvolemic although w some swelling in legs, continue diet and will monitor CAD s/p MA, HLD: home statin HTN: home cardizem 60 bid, lisinopril 20 DM2: w hyperglycemia, c/b CAD and neuropathy, holding home PO meds, utilize home long acting plus SSI ?COPD: on home inhalers, is former smoker, and satting low 90s on room air Pain and psych: home gabapentin, cymbalta, amitriptyline, trazodone, norco Morbid obesity: BMI 45 PPx: sqh FEN: cardiac ADA then NPO@[place], no MIVF Lines: PIV, remove mark Consults: Ortho Code: Full Dispo: patient requires inpatient eval and management at this time. Anticipate 2-3 days. Will await PT/OT after surgery to determine dispo Internal Medicine: Result - Labs CBC & Chem 7: 06/28/18 00:30 06/28/18 00:30 - ABG Interpretation ABG results: PT/INR, D-dimer PT 10.8 Seconds (9.4-12.1) 06/27/18 17:29 Consult Discharge Plan - Plan Referrals: Cole Boswell MD [Partnered Physician] -
[2018-06-29] MEDS: *HR* HYDROcodone/Acet 5/325 mg TABLET PO PRN ×2 (14:43→21:06)
[2018-06-29] MEDS: *HR* OxyCODONE Immed Rel 5 MG TABLET PO PRN (16:48)
[2018-06-29] MEDS ORDERED: OXYCODONE Oral CONC 10 MG/0.5 ML ORAL.SYG SL PRN (23:59)
[2018-06-30] MEDS: *HR* Heparin 5,000 UNIT/ML VIAL SQ SCH (01:08)
[2018-06-30 03:53] LABS: Hematocrit 35.4 % (35.3-44.9); Hemoglobin 12.3 g/dL (11.5-15.4); Mean Corpuscular HGB Conc 34.7 g/dL (31.6-35.5); Mean Corpuscular Hemoglobin 30.4 pg (28.0-33.3); Mean Corpuscular Volume 87.4 fL (83.0-100.0); Mean Platelet Volume 9.1 fL (9.4-12.4); Platelet Count 132 K/mcL (140-400); Red Blood Count 4.05 M/mcL (3.82-4.97); Red Cell Distribution Width 11.9 % (11.5-14.5)
[2018-06-30 04:06] LABS: BUN/Creatinine Ratio 24 (6-26); Blood Urea Nitrogen 17 mg/dL (8-23); Calcium 7.7 mg/dL (8.6-10.3); Carbon Dioxide 27 mEq/L (23-29); Chloride 93 mEq/L (98-107); Glucose 159 mg/dL (70-105); Magnesium 1.6 mg/dL (1.6-2.6); Osmolality,Calculated 273 (280-300); Potassium 4.3 mEq/L (3.5-5.1); Sodium 129 mEq/L (136-145); eGFR For Non-African Americans > 60 (> 60)
[2018-06-30] MEDS ORDERED: OXYCODONE Oral CONC 10 MG/0.5 ML ORAL.SYG SL PRN ×3 (04:38→20:01)
[2018-06-30] MEDS: Insulin LISPRO 300 UNITS/3 ML VIAL SQ SCH ×4 (07:54→23:55)
--- NOTE | 2018-06-30 08:19 | Event Note ---
Date of Encounter: 06/30/18 Time of Encounter: 08:19 Patient admits to fall with subsequent severe right knee pain and inability to ambulate. Brought to [facility] via EMS and admitted for right periprosthetic distal femur fracture. Patient denies numbness/tingling, increased pain, chest pain, or shortness of breath. Patient has history of right total knee replacement 06/[address] Ho Patient seen at bedside. Resting supine in bed in no acute distress. A&Ox3 Gross deformity of the right knee noted. Knee immobilizer in place. Ice packs noted to knee. No calf tenderness, erythema, or warmth. Neurovascularly intact b/l LE. Labwork and medications reviewed. Pain control: Adequate All questions and concerns addressed. Educated on use of incentive spirometer and NPO status at present. Patient educated on post-operative restrictions and care. Addressed: Informed consent reviewed and after all concerns/questions addressed, consent was obtained. PLAN: Patient to remain NWB with no knee motion to RLE Pain control per primary team Remain NPO today Surgery today 06/30 for right distal femur ORIF
[2018-06-30] MEDS: Gabapentin 400 MG CAPSULE PO SCH ×3 (09:56→23:13)
[2018-06-30] MEDS: traZODone 50 MG TABLET PO SCH ×2 (09:56→23:13)
[2018-06-30] MEDS: dilTIAZem HCl 60 MG TABLET PO SCH ×2 (09:56→23:13)
--- NOTE | 2018-06-30 10:00 | Anesthesia Evaluation PreOp ---
Date of Encounter: 06/30/18 Time of Encounter: 16:27 - Past History Planned Operation: RIGHT FEMUR ORIF OF PERIPROSTHETIC FX, TKA REVISION Cardiac History: HTN, Hyperlipidemia, Other (CAD, 2018: EF 60%, NO ISCHEMIA) Pulmonary History: Former smoker [employer] DIRECTOR History: Other (SCHIZOAFFECTIVE, ANXIETY, DEPRESSION, CHRONIC BACK PAIN, NARCOTIC TOLERANCE) Other Medical History: Diabetes Type II (INSULIN DEPENDENT), GERD, Other (MORBID OBESITY, CHRONIC HYPONATREMIA) Anesthesia History: No Prior Anesthetic Complications, Past Anesthesia Alcohol Use: none Drug use: none Medications and Allergies Duloxetine HCl [Cymbalta] 60 mg PO BID 01/18/15 [History] Gabapentin [Neurontin] 1,200 mg PO TID 01/18/15 [History] Insulin Degludec [Tresiba Flextouch U-100] 25 - 36 unit SQ DAILY 05/07/16 [Hi story] Amitriptyline HCl 100 mg PO HS 06/11/16 [History] Albuterol Sulfate [Albuterol Inhaler] 2 puff IH Q4HR PRN 07/11/16 [History] Budesonide/Formoterol 80/4.5 [Symbicort 80/4.5] 1 puff IH 1-3XD 07/11/16 [History] HYDROcodone/Acet 10/325 mg [[place] 10-325 mg] 0.5 - 1 tab PO TID PRN 07/11/16 [History] Pantoprazole Sodium [Protonix] 40 mg PO DAILY 07/11/16 [History] Simvastatin [Zocor] 40 mg PO HS 07/11/16 [History] Ipratropium [place] 2 spray NS DAILY PRN 08/07/16 [History] Calcium Polycarbophil [Fiber Laxative] 1,250 mg PO DAILY PRN 06/27/18 [History] Diltiazem HCl [Cardizem] 60 mg PO BID 06/27/18 [History] Docusate [Colace] 100 mg PO DAILY PRN 06/27/18 [History] Ibuprofen [Ibu-200] 200 mg PO DAILY PRN 06/27/18 [History] Insulin ASPART [Novolog Flexpen] 0 unit SQ TIDWM PRN 06/27/18 [History] Liraglutide [Victoza 3-Amarjit] 1.8 mg SQ DAILY 06/27/18 [History] Lisinopril [Zestril] 20 mg PO DAILY 06/27/18 [History] Loratadine [Claritin] 10 mg PO DAILY 06/27/18 [History] Metformin HCl [Glucophage] 1,000 mg PO BIDWM 06/27/18 [History] Montelukast [Singulair] 10 mg PO HS PRN 06/27/18 [History] Polyethylene Glycol 3350 17 gm PO DAILY PRN 06/27/18 [History] Trazodone HCl 100 mg PO DAILY 06/27/18 [History] Trazodone HCl 150 mg PO HS 06/27/18 [History] Allergy/AdvReac Type Severity Reaction Status Date / Time polyethylene glycol AdvReac Nausea Verified 07/11/16 08:00 [From Golytely] polyethylene glycol 3350 AdvReac Nausea Verified 07/11/16 08:00 [From Golytely] potassium chloride AdvReac Nausea Verified 07/11/16 08:00 [From Golytely] sodium [From Golytely] AdvReac Nausea Verified 07/11/16 08:00 sodium bicarbonate AdvReac Nausea Verified 07/11/16 08:00 [From Golytely] sodium chloride AdvReac Nausea Verified 07/11/16 08:00 [From Golytely] sodium sulfate AdvReac Nausea Verified 07/11/16 08:00 [From Golytely] Tizanidine AdvReac Dizziness Verified 07/11/16 08:00 - Meds/Allergy Pre-op Review Medications Reviewed: Yes Allergies Reviewed: Yes Beta Blockers on Current Med List: No Anesthesia Results - Labs 06/30/18 02:58 06/30/18 02:58 Laboratory Tests 06/30/18 02:58 Est GFR (Non-Af Amer) > 60 Calcium 7.7 L Magnesium 1.6 Anesthesia Exam Vital Signs/O2 Sat/Glucose, Most Recent Temp Pulse Resp BP Pulse Ox 98.8 F 89 16 118/74 91 06/30/18 10:49 06/30/18 10:49 06/30/18 10:49 06/30/18 10:49 06/30/18 10:49 Blood Glucose* 138 Weight: 130 KG - BMI 46 NPO (# of Hours): 8 - HEENT Mallampati: II Teeth: Edentulous - Cardiac Rhythm: Regular - Pulmonary Breath Sounds: bilateral Clear Anesthesia Assess/Plan ASA Score: 4 Anesthetic Plan: General Monitoring Plan: Standard Monitors Recovery Plan: PACU
[2018-06-30] MEDS ORDERED: Calcium Chloride 2,000 MG in 0.9 % Sodium Chloride 250 ML IVPB ONE (10:11)
[2018-06-30] MEDS ORDERED: Calcium Gluconate 3,000 MG in 0.9 % Sodium Chloride 100 ML IVPB ONE (11:02)
--- NOTE | 2018-06-30 12:31 | Internal Med Progress Note ---
Hospitalist Progress Note - Encounter Date of Encounter: 06/30/18 Time of Encounter: 12:27 - Subjective Interval History: Pt pleasantly but anxiously awaiting surgery later today. Denies much R knee pain. States she will be glad to eat again after surgery. Does have mild pedal edema which is usual for her. - Exam Vitals: Temp Pulse Resp BP Pulse Ox 98.8 F 89 16 118/74 91 06/30/18 10:49 06/30/18 10:49 06/30/18 10:49 06/30/18 10:49 06/30/18 10:49 Exam: General: NAD, good eye contact, well appearing, obese, purple hair, pleasant Thoracic: Normal breath sounds b/l, no wheezing or crackles Cardio: Normal S1 and S2, regular rate and rhythm Abdomen: Soft, nontender, obese Extremities: Warm, well perfused. Mild edema b/l LE Skin: Intact. No rashes, bruises, or ulcers. Scattered tattoos Neuro: Awake, fully oriented. Speech fluent - Summary of Assessment and Plan Summary of Assessment and Plan: Noemi Paiz is a 68 F w hx morbid obesity, CAD s/p DC, HTN, HLD, DM2, schizoaffective, OA s/p R TKA '17, who p/w R knee pain after a fall, found on XR to have distal R femur fracture. Distal R femur periprosthetic fracture: seen on XR, RLE still neurovascularly intact - Ortho consulted, appreciate plan for OR on Saturday for ORIF - pain control w oxycodone Hyponatremia: pt appears euvolemic although w some swelling in legs, review of labs shows Na 119-136 w avg ~130 for last 2 years - Uosm and [place] - monitor daily as after last ortho surg had worsening hyponatremia CAD s/p DC, HLD: home statin HTN: home cardizem 60 bid, lisinopril 20 DM2: w hyperglycemia, c/b CAD and neuropathy, holding home PO meds, utilize home long acting plus SSI ?COPD: on home inhalers, is former smoker, and satting low 90s on room air Pain and psych: home gabapentin, cymbalta, amitriptyline, trazodone, norco Morbid obesity: BMI 45 PPx: sqh FEN: NPO then cardiac ADA, no MIVF Lines: PIV, insert temporary mark for OR Consults: Ortho Code: Full Dispo: patient requires inpatient eval and management at this time. Anticipate 2 days. Will await PT/OT after surgery to determine dispo Internal Medicine: Result - Labs CBC & Chem 7: 06/30/18 02:58 06/30/18 02:58 Labs: Short CBC 06/30/18 Range/Units 02:58 WBC 9.4 (4.3-11.1) K/mcL Hgb 12.3 (11.5-15.4) g/dL Hct 35.4 (35.3-44.9) % Plt Count 132 L (140-400) K/mcL BMP 06/30/18 02:58 Sodium 129 L Potassium 4.3 Chloride 93 L Carbon Dioxide 27 BUN 17 Creatinine 0.71 Glucose 159 H Calcium 7.7 L - ABG Interpretation ABG results: PT/INR, D-dimer PT 10.8 Seconds (9.4-12.1) 06/27/18 17:29 Consult Discharge Plan - Plan Referrals: Cole Boswell MD [Primary Care Provider] -
[2018-06-30] MEDS ORDERED: CeFAZolin Syr 3,000MG/30 ML 3,000 MG/30 ML SYRINGE IVPB ONE (16:25)
[2018-06-30] MEDS ORDERED: Lidocaine -MPF 2% 2 ML VIAL ONE (16:53)
[2018-06-30] MEDS ORDERED: *HR* Propofol 200 MG/20 ML VIAL IVP ONE (16:53)
[2018-06-30] MEDS ORDERED: *HR* FentaNYL (PF) 100 MCG/2 ML VIAL ONE (16:53)
[2018-06-30] MEDS ORDERED: *HR* PHENYLEPHRINE 1,000 MCG/10 ML SYRINGE IVP ONE (16:55)
[2018-06-30] MEDS ORDERED: Lidocaine -MPF 4% 5 ML AMPUL ONE (17:18)
[2018-06-30] MEDS ORDERED: Ondansetron 4 MG/2 ML VIAL ONE (17:18)
[2018-06-30] MEDS ORDERED: Dexamethasone 4 MG/ML VIAL ONE (17:18)
[2018-06-30] MEDS ORDERED: Ethanol\\Acetic Acid\\Na Ace\\Ben 1,000 ML IRRIG.SOLN IR ONE (17:51)
--- NOTE | 2018-06-30 18:26 | Orthopedic Operative Note ---
Date of procedure: 06/30/18 Pre-op diagnosis: Displaced right comminuted distal femur fracture periprosthetic Post-op diagnosis: same Procedure: open reduction internal fixation right distal periprosthetic femur fracture Estimated blood loss: 300 cc Hardware: Right periarticular [place] 8 hole distal femoral locking Plate, 12 locking screws Procedural Notes: Displaced comminuted periprosthetic distal femur fracture Operative procedure: The patient was brought to the operating room and placed on the operating room fracture table. The well leg was placed in the well leg pollard, the fracture leg was placed in the fracture leg pollard. After general anesthesia was admini stered the operative leg was prepped and draped in the sterile surgical fashion The patient received IV antibiotics prior to skin incision. A standard lateral approach was made to the femur the incision is made to the skin and subcutaneous tissue. Hemostasis was obtained with Bovie cautery. Using careful blunt dissection the tensor fascia was identified and incised along the length of the incision. The vastus lateralis was elevated up after the fascia was split closing the lateral femur and the fracture site. The fractures reduced and held in place with bone holding forceps a [place] 10 hole right. Articular locking plate was approximated to the lateral surface was fixed initially proximally with a compression screw with a combination fixation was completed both proximally and distally with locking screws. The compression screw was placed with a locking screw. A total of 12 screws were utilized. Position of hardware as well as fracture reduction was found to be acceptable wi th fluoroscopic assistance in the AP and lateral planes.. The wound was irrigated the fascia was closed with a running #1 PDS suture tensa fascia was closed with a running #2 PDS suture subcutaneous tissues and closed deep #1 PDS suture superficially with 0 PDS suture and skin was closed with skin jessica. The patient was placed in a sterile dressing, and knee immobilizer The patient was extubated, and then transferred to the recovery room in stable condition. Anesthesia: GETA Surgeon: Humberto Ho Was there an insurance claims assistant present: No Estimated blood loss (cc): 300 Condition: stable Disposition: PACU
[2018-06-30] MEDS ORDERED: *HR* HYDROMORPHONE 2 MG/ML VIAL ONE (18:32)
[2018-06-30] MEDS ORDERED: *HR* OxyCODONE Immed Rel 5 MG TABLET PO PRN (19:06)
[2018-06-30] MEDS ORDERED: *HR* Promethazine 25 MG/ML VIAL IVP PRN (19:06)
[2018-06-30] MEDS ORDERED: *HR* HYDROmorphone (PF) 1 MG/ML SYRINGE IVP PRN (19:06)
[2018-06-30] MEDS ORDERED: *HR* Labetalol 20 MG/4 ML SYRINGE IVP PRN (19:06)
[2018-06-30] MEDS ORDERED: Albuterol 2.5 MG/3 ML NEBULIZER IH ONE (19:06)
[2018-06-30] MEDS ORDERED: Ondansetron 4 MG/2 ML VIAL IVP ONE (19:06)
--- NOTE | 2018-06-30 19:06 | Event Note ---
Date of Encounter: 06/30/18 Time of Encounter: 19:05 Right distal femur orif 06/[address] Ho NWB to RLE Bone stim x 3 hrs daily TROM locked extension at all times - remove for hygiene only No knee motion Leave BETTIE wrap in place until POD#1
--- NOTE | 2018-06-30 19:40 | Anesthesia Evaluation Post Op ---
Date of Encounter: 06/30/18 Time of Encounter: 19:39 - Vital Signs Vital Signs: Vital Signs/O2 Sat, Most Current Temp Pulse Resp BP Pulse Ox 98.5 F 89 14 136/66 94 06/30/18 19:17 06/30/18 19:37 06/30/18 19:37 06/30/18 19:37 06/30/18 19:37 - Lungs Lungs: Clear Ascult./Percussion - Airway Airway: Non-obstructed - Cardiovascular Regular Rate - Mental Status Mental Status: Alert & Oriented, Answers Appropriately - Pain Pain Scale: 0 Pain Scale used: Numeric (1 - 10) - Nausea Vomiting Nausea Vomiting: Not Present - Hydration Hydration: Ice chips, [place] catheter - Discharge PostOp Status: Transfer Patient to floor
[2018-06-30] MEDS ORDERED: Ondansetron ODT 4 MG TAB.RAPDIS SL PRN (20:01)
[2018-06-30] MEDS ORDERED: Dextrose Gel 15 GM/37.5 ML TUBE PO PRN ×2 (20:01)
[2018-06-30] MEDS ORDERED: *HR* Dextrose 50 % in Water (Syg) 50 ML SYRINGE IVP PRN (20:01)
[2018-06-30] MEDS ORDERED: Naloxone 0.4 MG/ML INJ IVP PRN (20:01)
[2018-06-30] MEDS ORDERED: Acetaminophen 325 MG TABLET PO PRN (20:01)
[2018-06-30] MEDS ORDERED: D5% in Water 1,000 ML IVC PRN (20:01)
[2018-06-30 20:08] LABS: Hematocrit 34.1 % (35.3-44.9); Hemoglobin 11.6 g/dL (11.5-15.4)
[2018-06-30] MEDS ORDERED: Budesonide/Formoterol 80/4.5 MDI IH SCH (22:00)
[2018-06-30] MEDS: OXYCODONE Oral CONC 10 MG/0.5 ML ORAL.SYG SL PRN (22:07)
[2018-06-30] MEDS: Budesonide/Formoterol 80/4.5 MDI IH SCH (22:16)
[2018-06-30] MEDS: ceFAZolin sodium 3,000 MG in 0.9 % Sodium Chloride 100 ML IVPB SCH (23:54)
[2018-07-01] MEDS: OXYCODONE Oral CONC 10 MG/0.5 ML ORAL.SYG SL PRN ×2 (04:15→16:37)
[2018-07-01] MEDS ORDERED: *HR* Heparin 5,000 UNIT/ML VIAL SQ SCH (06:00)
[2018-07-01 06:34] LABS: Hematocrit 29.3 % (35.3-44.9); Hemoglobin 10.3 g/dL (11.5-15.4)
[2018-07-01 06:45] LABS: BUN/Creatinine Ratio 28 (6-26); Blood Urea Nitrogen 27 mg/dL (8-23); Calcium 7.9 mg/dL (8.6-10.3); Carbon Dioxide 27 mEq/L (23-29); Chloride 91 mEq/L (98-107); Glucose 368 mg/dL (70-105); Osmolality,Calculated 278 (280-300); Potassium 4.5 mEq/L (3.5-5.1); Sodium 124 mEq/L (136-145); eGFR For Non-African Americans 57 (> 60)
--- NOTE | 2018-07-01 06:45 | Orthopedics Progress Note ---
Date of Encounter: 07/01/18 Time of Encounter: 06:45 Subjective Interval history: Patient was seen this morning doing well without complaints. Afebrile vital signs stable. Operative extremity: Neurovascularly intact Dressing clean dry and intact Calves nontender Assessment and plan: Continue with postoperative care Hemoglobin 10.3 nonweightbearing right lower extremity no knee motion Objective Vital signs: Vital Signs Temp Pulse Resp BP Pulse Ox 07/01/18 02:46 98.3 F 77 16 111/74 96 06/30/18 23:08 98.5 F 85 16 117/73 94 06/30/18 22:16 14 95 06/30/18 22:09 98.0 F 86 16 132/75 94 06/30/18 21:29 98.8 F 87 16 119/71 96 06/30/18 20:39 99.6 F 87 16 112/72 92 06/30/18 20:33 93 06/30/18 20:05 98.6 F 90 16 111/69 93 06/30/18 19:47 98.1 F 86 14 134/65 94 06/30/18 19:37 89 14 136/66 94 06/30/18 19:27 86 16 117/66 97 06/30/18 19:17 98.5 F 78 16 109/91 97 06/30/18 15:50 98.8 F 88 18 130/75 95 06/30/18 10:49 98.8 F 89 16 118/74 91 06/30/18 08:42 99.0 F 87 16 134/73 92 Intake and Output 06/30/18 06/30/18 07/01/18 15:59 23:59 07:59 Intake Total 0 / 0 1000 / 1000 Output Total 225 / 650 425 / 650 250 / 250 Balance -225 / -650 -425 / -650 750 / 750 Intake: IV Fluids 100 / 100 Ancef 3,000 MG In 0.9 % Sodium 100 / 100 Chloride 100 ML @ 200 mls/hr IVPB Q8HR [facility] Rx#:[id number] Oral 0 / 0 900 / 900 Output: Urine 0 / 0 Estimated Blood Loss 300 / 300 Catheter 225 / 350 125 / 350 250 / 250 Female External Catheter 0 / 0 Urethral ([place]) 125 / 125 Other: Meal NPO NPO Percent of Meal Consumed 0% # Bowel Movements 0 Blood Glucose* 138 275 - Labs CBC & BMP: 07/01/18 06:08 06/30/18 02:58 Labs: Abnormal lab results Hgb 10.3 g/dL (11.5-15.4) L 07/01/18 06:08 Hct 29.3 % (35.3-44.9) L 07/01/18 06:08 Plt Count 132 K/mcL (140-400) L 06/30/18 02:58 MPV 9.1 fL (9.4-12.4) L 06/30/18 02:58 Sodium 129 mEq/L (136-145) L 06/30/18 02:58 Chloride 93 mEq/L (98-107) L 06/30/18 02:58 Carbon Dioxide 30 mEq/L (23-29) H 06/28/18 00:30 Glucose 159 mg/dL (70-105) H 06/30/18 02:58 POC Glucose 275 mg/dL (70-99) H 06/30/18 23:22 273 (280-300) L 06/30/18 02:58 Calcium 7.7 mg/dL (8.6-10.3) L 06/30/18 02:58 292 mOsm/kg (300-1090) L 06/30/18 12:10 Consult Discharge Plan - Plan Referrals: Cole Boswell MD [Primary Care Provider] -
[2018-07-01] MEDS: Budesonide/Formoterol 80/4.5 MDI IH SCH ×2 (07:34→20:34)
[2018-07-01] MEDS: ceFAZolin sodium 3,000 MG in 0.9 % Sodium Chloride 100 ML IVPB SCH (08:16)
[2018-07-01] MEDS: Gabapentin 400 MG CAPSULE PO SCH ×3 (08:17→19:58)
[2018-07-01] MEDS: Insulin LISPRO 300 UNITS/3 ML VIAL SQ SCH ×4 (08:17→22:26)
[2018-07-01] MEDS: traZODone 50 MG TABLET PO SCH ×2 (08:18→19:58)
[2018-07-01] MEDS: dilTIAZem HCl 60 MG TABLET PO SCH ×2 (08:18→22:16)
[2018-07-01] MEDS: Lisinopril 20 MG TABLET PO SCH (08:19)
--- NOTE | 2018-07-01 08:51 | Event Note ---
Date of Encounter: 07/01/18 Time of Encounter: 13:40 Date of procedure: 06/30/18 Pre-op diagnosis: Displaced right comminuted distal femur fracture periprosthetic Post-op diagnosis: same Procedure: open reduction internal fixation right distal periprosthetic femur fracture POD#1 Patient seen at bedside. A&Ox3 Dressings c/d/i No calf tenderness, erythema, or warmth. Neurovascularly intact b/l LE. Labwork, vitals, and medications reviewed. Pain control: Adequate Participating in PT. All questions and concerns addressed. Educated on use of incentive spirometer, ambulation, and hydration. Patient educated on post-operative restrictions and care. Addressed: NONWEIGHTBEARING TO RIGHT LOWER EXTREMITY TROM BRACE IN LOCKED EXTENSION AT ALL TIMES WITH WHEELS TO EITHER SIDE OF KNEE MAY REMOVE BETTIE BANDAGES PRN; LEAVE HONEYCOMB OPSITE DRESSING INTACT NO KNEE MOTION D/C plan: awaiting ECF authorization Vital Signs Temp Pulse Resp BP Pulse Ox 07/01/18 10:32 98.5 F 68 16 99/64 93 07/01/18 07:36 17 90 07/01/18 07:04 97.7 F 66 16 102/63 92 07/01/18 02:46 98.3 F 77 16 111/74 96 06/30/18 23:08 98.5 F 85 16 117/73 94 06/30/18 22:16 14 95 06/30/18 22:09 98.0 F 86 16 132/75 94 06/30/18 21:29 98.8 F 87 16 119/71 96 06/30/18 20:39 99.6 F 87 16 112/72 92 06/30/18 20:33 93 06/30/18 20:05 98.6 F 90 16 111/69 93 06/30/18 19:47 98.1 F 86 14 134/65 94 06/30/18 19:37 89 14 136/66 94 06/30/18 19:27 86 16 117/66 97 06/30/18 19:17 98.5 F 78 16 109/91 97 06/30/18 15:50 98.8 F 88 18 130/75 95 Intake and Output 06/30/18 07/01/18 07/01/18 23:59 07:59 15:59 Intake Total 0 / 0 1000 / 1240 240 / 1240 Output Total 425 / 650 500 / 850 350 / 850 Balance -425 / -650 500 / 390 -110 / 390 Intake: IV Fluids 100 / 100 Ancef 3,000 MG In 0.9 % Sodium 100 / 100 Chloride 100 ML @ 200 mls/hr IVPB Q8HR [facility] Rx#:[id number] Oral 0 / 0 900 / 1140 240 / 1140 Output: Estimated Blood Loss 300 / 300 Catheter 125 / 350 500 / 850 350 / 850 Other: Meal NPO Breakfast Percent of Meal Consumed 0% 100% Blood Glucose* 275 347 337 Short CBC 07/01/18 06/30/18 Range/Units 06:08 19:36 Hgb 10.3 L 11.6 (11.5-15.4) g/dL Hct 29.3 L 34.1 L (35.3-44.9) % BMP 07/01/18 Range/Units 06:08 Sodium 124 L (136-145) mEq/L Potassium 4.5 (3.5-5.1) mEq/L Chloride 91 L (98-107) mEq/L Carbon Dioxide 27 (23-29) mEq/L BUN 27 H (8-23) mg/dL Creatinine 0.97 (0.60-1.20) mg/dL Glucose 368 H (70-105) mg/dL Calcium 7.9 L (8.6-10.3) mg/dL
[2018-07-01] MEDS ORDERED: Lisinopril 20 MG TABLET PO SCH (09:00)
--- NOTE | 2018-07-01 11:59 | Nephrology Consult Note ---
Date of Encounter: 07/02/18 Time of Encounter: 11:45 Assessment and Plan (1) Acute hyponatremia Status: Acute Hyponatremia, with her obese body habitus, it makes for volume assessment more challenging. The urine osmolality was hypotonic, so in the face of hyponatremia a low urine osmolality does not support SIADH. She affirmed feeling very thirsty and often consumes several liters of fluid a day. She reported drinking about 3 of the Jesica 1 L jugs in the last 24 hours. She was also found to be hyper glycemic this morning, so in part there was a partial pseudohyponatremia on top of existing hyponatremia. She does take an SSRI, which can also contribute to hyponatremia. I did not see any thiazide-type diuretics on her home medicine list, which is reassuring. I recommend initiation of a tight fluid restriction, and because of the hypotonic nature of the urine osmolality, I will add sodium chloride tablets as well. She was somewhat disoriented on exam, but I suspect this is pre-existing, and she is postop. The patient's personal home health aide was present, and she attributed it to some the pain medication the postop setting. I recommend following plasma sodium approximately every 4 hours for the first 24 hours; and I recommend a slow and steady correction of 6-8 mEq in the first 24 hours. Thank you for consulting the [facility] on this very complex patient who required a high degree of medical decision-making and evaluation and management. We will follow with you. (2) Hyperglycemia Status: Acute (3) Polydipsia Status: Chronic (4) Closed fracture of distal end of femur Status: Acute Status post surgery Qualifiers: Encounter type: subsequent encounter Fracture morphology: other fracture Laterality: right Fracture healing: with routine healing Qualified Code(s): S72.491D - Other fracture of lower end of right femur, subsequent encounter for closed fracture with routine healing (5) Hypertension Status: Chronic Qualifiers: Hypertension type: essential hypertension Qualified Code(s): I10 - Essential (primary) hypertension History of Present Illness - Reason for Consult Consult date: 07/01/18 hyponatremia Requesting physician: Sourav Portillo - Chief Complaint Hyponatremia - History of Present Illness The patient is a pleasant 68-year-old female with a past medical history of hypertension, obesity, previous orthopedic surgery and mental health disorder who presented status post fall. Nephrology was consulted for hyponatremia. She had mild confusion and disorientation, which greatly limited the history of present illness. When I would ask her questions about if she has previously seen a vault cashier, she could not directly answer. I also asked if she was taking NSAIDs, but she voiced that she does occasionally. Again, a detailed history of present illness is unobtainable due to her mental status. Past Med Surg Social Fam HX - Past Medical History Medical history: diabetes, hyperlipidemia, hypertension, myocardial infarction, other Additional medical history: schizoaffective ,anxiety,depression,hx [place] Psychiatric history: anxiety, depression - Past Surgical History Surgical History: , knee replacement, other, bariatric surgery Additional surgical history: gastric stapling, Bilateral knee replacement. - Social History Smoking Status: Former smoker Smokeless Tobacco Status: No Alcohol use: none Drug use: none - Family History Mother Adopted: Yes (history unknown) Father Adopted: Yes (history unknown) Medications and Allergies Duloxetine HCl [Cymbalta] 60 mg PO BID 01/18/15 [History] Amitriptyline HCl 100 mg PO HS 06/11/16 [History] Albuterol Sulfate [Albuterol Inhaler] 2 puff IH Q4HR PRN 07/11/16 [History] Budesonide/Formoterol 80/4.5 [Symbicort 80/4.5] 1 puff IH 1-3XD 07/11/16 [History] Pantoprazole Sodium [Protonix] 40 mg PO DAILY 07/11/16 [History] Simvastatin [Zocor] 40 mg PO HS 07/11/16 [History] Ipratropium [place] 2 spray NS DAILY PRN 08/07/16 [History] Calcium Polycarbophil [Fiber Laxative] 1,250 mg PO DAILY PRN 06/27/18 [History] Diltiazem HCl [Cardizem] 60 mg PO BID 06/27/18 [History] Docusate [Colace] 100 mg PO DAILY PRN 06/27/18 [History] Insulin ASPART [Novolog Flexpen] 0 unit SQ TIDWM PRN 06/27/18 [History] Liraglutide [Victoza 3-Amarjit] 1.8 mg SQ DAILY 06/27/18 [History] Lisinopril [Zestril] 20 mg PO DAILY 06/27/18 [History] Loratadine [Claritin] 10 mg PO DAILY 06/27/18 [History] Montelukast [Singulair] 10 mg PO HS PRN 06/27/18 [History] Polyethylene Glycol 3350 17 gm PO DAILY PRN 06/27/18 [History] Trazodone HCl 100 mg PO DAILY 06/27/18 [History] Trazodone HCl 150 mg PO HS 06/27/18 [History] Insulin DETEMIR [Levemir] 15 unit SQ BID [id number] 07/05/18 [Rx] Insulin LISPRO [HumaLOG] 6 units SQ TIDWM vial 07/05/18 [Rx] Sodium Chloride [Sodium Chloride Tab] 1 gm PO TID tablet 07/05/18 [Rx] metroNIDAZOLE [Flagyl] 500 mg PO BID tablet 07/05/18 [Rx] Allergy/AdvReac Type Severity Reaction Status Date / Time polyethylene glycol AdvReac Nausea Verified 07/11/16 08:00 [From Golytely] polyethylene glycol 3350 AdvReac Nausea Verified 07/11/16 08:00 [From Golytely] potassium chloride AdvReac Nausea Verified 07/11/16 08:00 [From Golytely] sodium [From Golytely] AdvReac Nausea Verified 07/11/16 08:00 sodium bicarbonate AdvReac Nausea Verified 07/11/16 08:00 [From Golytely] sodium chloride AdvReac Nausea Verified 07/11/16 08:00 [From Golytely] sodium sulfate AdvReac Nausea Verified 07/11/16 08:00 [From Golytely] Tizanidine AdvReac Dizziness Verified 07/11/16 08:00 Review of Systems ROS unobtainable: due to mental status Exam - Vital Signs Vital signs: Initial Vital Signs Temp Pulse Resp BP Pulse Ox 98 F 78 18 169/88 99 06/27/18 16:21 06/27/18 16:21 06/27/18 16:21 06/27/18 16:21 06/27/18 16:21 Vital Signs - Last 8 Hours Temp Pulse Resp BP Pulse Ox 07/01/18 10:32 98.5 F 68 16 99/64 93 07/01/18 07:36 17 90 07/01/18 07:04 97.7 F 66 16 102/63 92 Intake and Output 06/30/18 07/01/18 07/01/18 23:59 07:59 15:59 Intake Total 0 / 0 1000 / 1240 240 / 1240 Output Total 425 / 650 500 / 850 350 / 850 Balance -425 / -650 500 / 390 -110 / 390 Intake: IV Fluids 100 / 100 Ancef 3,000 MG In 0.9 % Sodium 100 / 100 Chloride 100 ML @ 200 mls/hr IVPB Q8HR [facility] Rx#:[id number] Oral 0 / 0 900 / 1140 240 / 1140 Output: Estimated Blood Loss 300 / 300 Catheter 125 / 350 500 / 850 350 / 850 Other: Meal NPO Breakfast Percent of Meal Consumed 0% 100% Blood Glucose* 275 347 337 - General Appearance General appearance: well-developed, well-nourished, appears started age, obese EENT: ATNC, PERRL, mucous membranes moist Neck: supple Respiratory: clear (but diminished in the bases likely d/t her obese body brown bitus) Cardiology: no murmurs, no edema, regular rate, regular rhythm, normal S1, normal S2 Gastrointestinal: normoactive bowel sounds, no tenderness, no guarding, obese Integumentary: no rash, warm and dry Additional Comments: She has numerous tattoos all over her integument Neurologic: no focal deficit, no asterixis, disoriented Musculoskeletal: no erythema, no cyanosis Psychiatric: mood/affect appropriate, cooperative Results - Lab Results 07/05/18 03:01 07/05/18 03:01 Most recent lab results 07/01/18 06:08 Calcium 7.9 L Consult Discharge Plan - Plan Additional Instructions: Discharge Instructions: Total Knee Replacement Please call [facility] ([phone]), your Primary Care Physician, or report to the Emergency Room if you have any of the following symptoms: Nausea, vomiting, fever greater that 101.5, swelling, chest pain, shortness of breath, increased pain/redness/drainage/odor for your incision site, numbness/tingling, or any other concerning symptoms. ACTIVITY: Non-weight bearing. No knee motion. You may progress off support (crutches or walker) as tolerated. Incentive Spirometer 10 times an hour. MEDICATIONS: Upon discharge resume your home medications. Take all the medicat ions as prescribed. Take a stool softener if taking narcotic pain medications. Stool softeners are only effective if you drink enough fluids. Drink 6-8 glass of water or fluids a day, unless this is not allowed for another health problem. Despite using stool softeners, if you haven't had a bowel movement in 3 days, please switch to a gentle laxative. Gentle laxatives are sold over the counter. You should have a bowel movement within 24 hours, if not call the office. You will be discharged from the hospital with a prescription for pain medication. You are encouraged to decrease the use of narcotic pain medication as tolerated. Should you require a refill, please call the office. [facility] prescribes narcotic pain medication for only 4-6 weeks after surgery. If you require pain medication beyond this time period, you may be referred to your Primary Care Physician or to the Pain Clinic for further evaluation. Plan ahead for refills on pain medication as many narcotics either need to be picked up at the office or mailed. It is best to call 48-72 hours in advance of needing a prescription refill so you don't run out of medication. To help control the post-operative pain, you may take NSAIDs (Aleve,Advil, Motrin, Ibuprofen, Naprosyn) or Tylenol as prescribed on the bottle in addition to the pain medication. ANTICOAGULATION (blood thinners): Continue your Aspirin, Lovenox or Coumadin as prescribed to help prevent a blood clot in the leg or in the lungs. As long as your incision remains dry and you tolerate the NSAIDs (Aleve, Advil, Motrin, ibuprofen, naprosyn), it is OK to use the NSAIDS while you are taking your anticoagulation medication. Should your incision start to drain, stop the NSAID and contact our office. Common symptoms of blood clot in the legs include: localized pain, swelling, calf tenderness, redness or discoloration of the skin. Blood clot in the lung symptoms include: shortness of breath, rapid pulse, sweating, and chest pain that worsens with deep breathing, coughing up blood, lightheadedness, feelings of anxiety. If you experience any of these symptoms notify your physician immediately, go to the emergency room, or if having trouble breathing, call 911. WOUND CARE: Leave the dressing on for 7 to 10days. You may change the dressing if it becomes saturated greater than 50%. Do not get the dressing wet at anytime. Wash your hands with antibacterial soap, rinse and dry prior to any wound care. If you have jessica the visiting nurse or rehab facility can remove the stapes 10-14 days after surgery and place steri-strips across the wound. Leave the steri-strips in place until they fall off on their won. You may let water from the shower run on top of the steri-strips. If you do not have a visit ing nurse or rehab facility, you will need to return to the office at 10-14 days for the jessica to be removed. If you have itching or redness around the dressing call the office. FOLLOW-UP: Please follow up with your surgeon in the orthopedic clinic in 4 weeks from the day of surgery. If you have jessica that need to be removed, you will need to come back to the office in 10-14 days from the day of surgery. Referrals: Cole Boswell MD [Primary Care Provider] -
--- NOTE | 2018-07-01 15:20 | Internal Med Progress Note ---
Hospitalist Progress Note - Encounter Date of Encounter: 07/01/18 Time of Encounter: 10:30 - Subjective Interval History: Pt states her surgery went well to her knowledge and that she is not having much pain at the moment. Says PT/OT saw her earlier and that she got to bedside but did not stand up. Does state that she is drinking lots of fluids. Not having CP, SOB, abd pain, N/V/D. - Exam Vitals: Temp Pulse Resp BP Pulse Ox 98.1 F 62 16 92/55 94 07/01/18 14:47 07/01/18 14:47 07/01/18 14:47 07/01/18 14:47 07/01/18 14:47 Exam: General: NAD, good eye contact, well appearing, obese, purple hair, pleasant Thoracic: Normal breath sounds b/l, no wheezing or crackles Cardio: Normal S1 and S2, regular rate and rhythm Abdomen: Soft, nontender, obese Extremities: Warm, well perfused. Mild edema b/l LE Skin: Intact. No rashes, bruises, or ulcers. Scattered tattoos Neuro: Awake, fully oriented. Speech fluent - Summary of Assessment and Plan Summary of Assessment and Plan: Noemi Paiz is a 68 F w hx morbid obesity, CAD s/p ID, HTN, HLD, DM2, schizoaffective, OA s/p R TKA '17, who p/w R knee pain after a fall, found on XR to have distal R femur fracture. Distal R femur periprosthetic fracture: taken for ORIF on 06/[address] Ho - Ortho following - pain control w oxycodone - xarelto 10 for ppx Hyponatremia: longstanding issue, worse this AM artificially due to hyperglycemia, suspect polydipsia and will initiate fluid restriction. However, Uosm and Arturo are lower than anticipated - repeat Uosm and Ulytes - consult Neph - repeat Na this afternoon after better glycemic control CAD s/p ID, HLD: home statin HTN: home cardizem 60 bid, lisinopril 20 DM2: w hyperglycemia, c/b CAD and neuropathy, holding home PO meds, resume home long acting plus SSI ?COPD: on home inhalers, is former smoker, and satting low 90s on room air Pain and psych: home gabapentin, cymbalta, amitriptyline, trazodone, holding home norco for oxy as above Morbid obesity: BMI 45 PPx: xarelto 10 FEN: cardiac ADA 1.5L, no MIVF Lines: PIV, remove mark Consults: Ortho, Neph Code: Full Dispo: patient requires inpatient eval and management at this time. Anticipate 2 days. PT/OT rec SNF and SW notified Internal Medicine: Result - Labs CBC & Chem 7: 07/01/18 06:08 07/01/18 06:08 Labs: Short CBC 06/30/18 07/01/18 Range/Units 19:36 06:08 Hgb 11.6 10.3 L (11.5-15.4) g/dL Hct 34.1 L 29.3 L (35.3-44.9) % BMP 07/01/18 06:08 Sodium 124 L Potassium 4.5 Chloride 91 L Carbon Dioxide 27 BUN 27 H Creatinine 0.97 Glucose 368 H Calcium 7.9 L - ABG Interpretation ABG results: PT/INR, D-dimer PT 10.8 Seconds (9.4-12.1) 06/27/18 17:29 - Impressions Impressions Femur X-Ray 06/30/18 00:00 IMPRESSION: Intraprocedural fluoroscopic spot images as above. See separate procedure report for more information. D/ / 06/30/2018 20:39:59 Toy Ventura MD / sagar Interpreting Provider: Toy Ventura MD Fluoroscopy 06/30/18 00:00 IMPRESSION: Intraprocedural fluoroscopic spot images as above. See separate procedure report for more information. D/ / 06/30/2018 20:39:59 Toy Ventura MD / sagar Interpreting Provider: Toy Ventura MD Femur X-Ray 06/30/18 18:00 IMPRESSION: Expected postoperative changes from ORIF distal right femur. Fracture fragments demonstrate gross anatomic alignment with mild persistent displacement. D/ / 06/30/2018 20:43:58 Toy Ventura MD / sagar Interpreting Provider: Toy Ventura MD Consult Discharge Plan - Plan Referrals: Cole Boswell MD [Primary Care Provider] -
[2018-07-01] MEDS: Insulin DETEMIR 100 UNIT/ML X5UNITS SQ SCH ×2 (16:37→22:16)
[2018-07-01] MEDS: *HR* Rivaroxaban 10 MG TABLET PO SCH (16:38)
--- NOTE | 2018-07-02 06:43 | Orthopedics Progress Note ---
Date of Encounter: 07/02/18 Time of Encounter: 06:43 Subjective Interval history: Patient was seen this morning doing well without complaints. Afebrile vital signs stable. Operative extremity: Neurovascularly intact Dressing clean dry and intact Calves nontender Assessment and plan: Continue with postoperative care Discharge when. Placement approved Objective Vital signs: Vital Signs Temp Pulse Resp BP Pulse Ox 07/02/18 04:20 97.9 F 76 16 105/53 95 07/01/18 22:48 98.2 F 74 15 101/63 91 07/01/18 20:34 14 95 07/01/18 18:42 97.6 F 77 15 105/64 92 07/01/18 14:47 98.1 F 62 16 92/55 94 07/01/18 10:32 98.5 F 68 16 99/64 93 07/01/18 07:36 17 90 07/01/18 07:04 97.7 F 66 16 102/63 92 Intake and Output 07/01/18 07/01/18 07/02/18 15:59 23:59 07:59 Intake Total 480 / 1480 Output Total 450 / 950 Balance 30 / 530 Intake: Oral 480 / 1380 Output: Catheter 450 / 950 Other: Meal Lunch Percent of Meal Consumed 75% Weight 130 kg Blood Glucose* 268 349 Patient Weight 07/02/18 23:59 Weight 130 kg - Labs CBC & BMP: 07/01/18 06:08 07/01/18 15:29 Labs: Abnormal lab results Hgb 10.3 g/dL (11.5-15.4) L 07/01/18 06:08 Hct 29.3 % (35.3-44.9) L 07/01/18 06:08 Plt Count 132 K/mcL (140-400) L 06/30/18 02:58 MPV 9.1 fL (9.4-12.4) L 06/30/18 02:58 Sodium 124 mEq/L (136-145) L 07/01/18 15:29 Chloride 91 mEq/L (98-107) L 07/01/18 06:08 Carbon Dioxide 30 mEq/L (23-29) H 06/28/18 00:30 BUN 27 mg/dL (8-23) H 07/01/18 06:08 Est GFR (Non-Af Amer) 57 (> 60) L 07/01/18 06:08 28 (6-26) H 07/01/18 06:08 Glucose 368 mg/dL (70-105) H 07/01/18 06:08 POC Glucose 275 mg/dL (70-99) H 06/30/18 23:22 278 (280-300) L 07/01/18 06:08 Calcium 7.9 mg/dL (8.6-10.3) L 07/01/18 06:08 292 mOsm/kg (300-1090) L 06/30/18 12:10 Consult Discharge Plan - Plan Referrals: Cole Boswell MD [Primary Care Provider] -
[2018-07-02 06:49] LABS: Hematocrit 27.3 % (35.3-44.9); Hemoglobin 9.4 g/dL (11.5-15.4)
[2018-07-02 07:09] LABS: Potassium 4.3 mEq/L (3.5-5.1)
[2018-07-02] MEDS: Budesonide/Formoterol 80/4.5 MDI IH SCH ×2 (07:42→20:46)
[2018-07-02] MEDS: Insulin LISPRO 300 UNITS/3 ML VIAL SQ SCH ×5 (08:41→20:40)
[2018-07-02] MEDS: Lisinopril 20 MG TABLET PO SCH (08:43)
[2018-07-02] MEDS: Gabapentin 400 MG CAPSULE PO SCH (08:43)
[2018-07-02] MEDS: traZODone 50 MG TABLET PO SCH ×2 (08:43→20:39)
[2018-07-02] MEDS: dilTIAZem HCl 60 MG TABLET PO SCH ×2 (08:44→20:38)
[2018-07-02] MEDS: Insulin DETEMIR 100 UNIT/ML X5UNITS SQ SCH ×2 (08:56→20:39)
[2018-07-02] MEDS: OXYCODONE Oral CONC 10 MG/0.5 ML ORAL.SYG SL PRN ×3 (11:23→23:25)
[2018-07-02] MEDS ORDERED: 0.9 % Sodium Chloride 1,000 ML IVC SCH (11:45)
--- NOTE | 2018-07-02 12:33 | Nephrology Progress Note ---
Date of Encounter: 07/02/18 Time of Encounter: 10:49 - Assessment and Plan (1) Acute hyponatremia Status: Acute The plasma sodium declined to 120, and has not been holding steady. I recommend continued closely assessing the plasma sodium, and to help improve this slowly, I recommend starting gentle IVF of 0.9% saline. Meanwhile, continue to avoid medications that could potentiate hyponatremia such as hydrochlorothiazide, SSRIs, and etc. Discussed with the primary team. I recommend a slow/ steady correction of 6-8 mEq / 24 hours. Discussed with the primary team in detail. We will follow with you. (2) Hyperglycemia Status: Acute As per primary (3) Polydipsia Status: Chronic On a prior admission, I read in Dr. Rivera's note about her excessive fluid intake. She also had affirmed at one point to me, that she consumed about "three" of the Jesica one liter jugs at bedside per day. (4) Closed fracture of distal end of femur Status: Acute Status post surgery Qualifiers: Encounter type: subsequent encounter Fracture morphology: other fracture Laterality: right Fracture healing: with routine healing Qualified Code(s): S72.491D - Other fracture of lower end of right femur, subsequent encounter for closed fracture with routine healing (5) Hypertension Status: Chronic Avoid thiazide type diuretics, which could exacerbate hyponatrema. Qualifiers: Hypertension type: essential hypertension Qualified Code(s): I10 - Essential (primary) hypertension Subjective Principal diagnosis: Hyponatremia Interval history: The patient was seen and examined earlier in the day. She did not affirm having diarrhea, but she did report feeling mild nausea, though she affirmed that she was eating well. She did not affirm having active chest pain. Objective - Vital Signs Vital signs: Vital Signs Temp Pulse Resp BP Pulse Ox 07/02/18 10:42 98.0 F 76 17 128/70 96 07/02/18 07:43 16 97 07/02/18 06:58 97.8 F 70 16 110/64 95 07/02/18 04:20 97.9 F 76 16 105/53 95 07/01/18 22:48 98.2 F 74 15 101/63 91 07/01/18 20:34 14 95 07/01/18 18:42 97.6 F 77 15 105/64 92 07/01/18 14:47 98.1 F 62 16 92/55 94 Intake and Output 07/01/18 07/02/18 07/02/18 23:59 07:59 15:59 Intake Total 460 / 460 Output Total 500 / 1350 850 / 1350 Balance -500 / -890 -390 / -890 Intake: IV Fluids 100 / 100 Ancef 3,000 MG In 0.9 % Sodium 100 / 100 Chloride 100 ML @ 200 mls/hr IVPB Q8HR [facility] Rx#:[id number] Oral 360 / 360 Output: Catheter 500 / 1350 850 / 1350 Other: Meal Breakfast Percent of Meal Consumed 100% Weight 130 kg Blood Glucose* 349 274 336 Patient Weight 07/02/18 23:59 Weight 130 kg - General Appearance General appearance: Present: well-developed, well-nourished, obese EENT: Present: ATNC, PERRL, mucous membranes dry Neck: Present: supple Respiratory: Present: clear Cardiology: Present: regular rate, regular rhythm, normal S1, normal S2 Gastrointestinal: Present: normoactive bowel sounds, no tenderness, obese Integumentary: Present: warm and dry Additional Comments: many skin tattoos Neurologic: Present: no focal deficit, no asterixis Musculoskeletal: Present: no deformities, no erythema, no cyanosis Psychiatric: Present: mood/affect appropriate, cooperative - Lab 07/05/18 03:01 07/05/18 03:01 Most recent lab results 07/02/18 05:56 Calcium 8.0 L Consult Discharge Plan - Plan Additional Instructions: Discharge Instructions: Total Knee Replacement Please call [facility] ([phone]), your Primary Care Physician, or report to the Emergency Room if you have any of the following symptoms: Nausea, vomiting, fever greater that 101.5, swelling, chest pain, shortness of breath, increased pain/redness/drainage/odor for your incision site, numbness/tingling, or any other concerning symptoms. ACTIVITY: Non-weight bearing. No knee motion. You may progress off support (crutches or walker) as tolerated. Incentive Spirometer 10 times an hour. MEDICATIONS: Upon discharge resume your home medications. Take all the medications as prescribed. Take a stool softener if taking narcotic pain medications. Stool softeners are only effective if you drink enough fluids. Drink 6-8 glass of water or fluids a day, unless this is not allowed for another health problem. Despite using stool softeners, if you haven't had a bowel movement in 3 days, please switch to a gentle laxative. Gentle laxatives are sold over the counter. You should have a bowel movement within 24 hours, if not call the office. You will be discharged from the hospital with a prescription for pain medication. You are encouraged to decrease the use of narcotic pain medication as tolerated. Should you require a refill, please call the office. [facility] prescribes narcotic pain medication for only 4-6 weeks after surgery. If you require pain medication beyond this time period, you may be referred to your Primary Care Physician or to the Pain Clinic for further evaluation. Plan ahead for refills on pain medication as many narcotics either need to be picked up at the office or mailed. It is best to call 48-72 hours in advance of needing a prescription refill so you don't run out of medication. To help control the post-operative pain, you may take NSAIDs (Aleve,Advil, Motrin, Ibuprofen, Naprosyn) or Tylenol as prescribed on the bottle in addition to the pain medication. ANTICOAGULATION (blood thinners): Continue your Aspirin, Lovenox or Coumadin as prescribed to help prevent a blood clot in the leg or in the lungs. As long as your incision remains dry and you tolerate the NSAIDs (Aleve, Advil, Motrin, ibuprofen, naprosyn), it is OK to use the NSAIDS while you are taking your anticoagulation medication. Should your incision start to drain, stop the NSAID and contact our office. Common symptoms of blood clot in the legs include: localized pain, swelling, calf tenderness, redness or discoloration of the skin. Blood clot in the lung symptoms include: shortness of breath, rapid pulse, sweating, and chest pain that worsens with deep breathing, coughing up blood, lightheadedness, feelings of anxiety. If you experience any of these symptoms notify your physician immediately, go to the emergency room, or if having trouble breathing, call 911. WOUND CARE: Leave the dressing on for 7 to 10days. You may change the dressing if it becomes saturated greater than 50%. Do not get the dressing wet at anytime. Wash your hands with antibacterial soap, rinse and dry prior to any wound care. If you have jessica the visiting nurse or rehab facility can remove the stapes 10-14 days after surgery and place steri-strips across the wound. Leave the steri-strips in place until they fall off on their won. You may let water from the shower run on top of the steri-strips. If you do not have a visiting nurse or rehab facility, you will need to return to the office at 10-14 days for the jessica to be removed. If you have itching or redness around the dressing call the office. FOLLOW-UP: Please follow up with your surgeon in the orthopedic clinic in 4 weeks from the day of surgery. If you have jessica that need to be removed, you will need to come back to the office in 10-14 days from the day of surgery. Referrals: Cole Boswell MD [Primary Care Provider] -
[2018-07-02] MEDS: Gabapentin 300 MG CAPSULE PO SCH ×2 (15:05→20:38)
[2018-07-02] MEDS: *HR* Rivaroxaban 10 MG TABLET PO SCH (16:52)
--- NOTE | 2018-07-02 18:24 | Internal Med Progress Note ---
<Champ Garcia - Last Filed: 07/02/18 18:15> Hospitalist Progress Note - Encounter Date of Encounter: 07/02/18 Time of Encounter: 09:50 - Subjective Interval History: The patient is resting in bed at time of examination. She remains highly somnolent, and somewhat altered on examination. She does wake up and arouses to voice, and she is able to answer all my questions appropriately upon being aroused however she goes back to sleep very easily and does not stay arouses very easily. She has no acute complaints this morning. - Exam Vitals: Temp Pulse Resp BP Pulse Ox 98.1 F 73 17 105/57 94 07/02/18 17:54 07/02/18 17:54 07/02/18 17:54 07/02/18 17:54 07/02/18 17:54 Exam: General: NAD, good eye contact, well appearing, obese, purple hair, pleasant Thoracic: Normal breath sounds b/l, no wheezing or crackles Cardio: Normal S1 and S2, regular rate and rhythm Abdomen: Soft, nontender, obese Extremities: Warm, well perfused. Mild edema b/l LE Skin: Intact. No rashes, bruises, or ulcers. Scattered tattoos Neuro: Awakens easily however otherwise asleep, fully oriented. Speech fluent - Summary of Assessment and Plan Summary of Assessment and Plan: Noemi Paiz is a 68 F w hx morbid obesity, CAD s/p OR, HTN, HLD, DM2, schizoaffective, OA s/p R TKA '17, who p/w R knee pain after a fall, found on XR to have distal R femur fracture. Hyponatremia: Acutely worsening, etiology is unclear. Likely mixed polydipsia and dehydration - Nephrology is consulted, started salt tabs 3 times a day. Recommended saline which we started at 75 mL an hour. - q4 sodium checks - repeat Uosm and Ulytes in a.m. for monitoring Distal R femur periprosthetic fracture: taken for ORIF on 06/[address] Ho - Ortho following - pain control w oxycodone - xarelto 10 for ppx CAD s/p OR, HLD: home statin HTN: home cardizem 60 bid, lisinopril 20 DM2: w hyperglycemia, c/b CAD and neuropathy, holding home PO meds, resume home long acting plus SSI ?COPD: on home inhalers, is former smoker, and satting low 90s on room air Pain and psych: home gabapentin, cymbalta, amitriptyline, trazodone, holding home norco for oxy as above Morbid obesity: BMI 45 PPx: xarelto 10 FEN: cardiac ADA 1.5L, no MIVF Lines: PIV, remove mark Consults: Ortho, Neph Code: Full Dispo: patient requires inpatient eval and management at this time. Anticipate 2 days. PT/OT rec SNF and SW notified - Time Spent with Patient Total time spent is greater than 50% in coordination of care (as documented) at patient's floor/unit and/or counseling patient: Internal Medicine: Result - Labs CBC & Chem 7: 07/02/18 05:56 07/02/18 17:18 Labs: Short CBC 07/02/18 Range/Units 05:56 Hgb 9.4 L (11.5-15.4) g/dL Hct 27.3 L (35.3-44.9) % BMP 07/02/18 07/02/18 07/02/18 05:56 10:50 13:28 Sodium 120 L* 120 L* 121 L Potassium 4.3 Chloride 87 L Carbon Dioxide 28 BUN 41 H Creatinine 1.27 H Glucose 262 H Calcium 8.0 L 07/02/18 17:18 Sodium 120 L* Potassium Chloride Carbon Dioxide BUN Creatinine Glucose Calcium - ABG Interpretation ABG results: PT/INR, D-dimer PT 10.8 Seconds (9.4-12.1) 06/27/18 17:29 Consult Discharge Plan - Plan Referrals: Cole Boswell MD [Primary Care Provider] - <Zane Garcia - Last Filed: 07/02/18 18:43> Hospitalist Progress Note - Encounter Date of Encounter: 07/02/18 - Exam Vitals: Temp Pulse Resp BP Pulse Ox 98.1 F 73 17 105/57 94 07/02/18 17:54 07/02/18 17:54 07/02/18 17:54 07/02/18 17:54 07/02/18 17:54 - Assessment and Plan (1) Acute hyponatremia Current Visit: No Status: Acute (2) Closed fracture of distal end of femur Current Visit: Yes Status: Acute (3) Acute blood loss anemia Current Visit: No Status: Acute (4) Diabetes mellitus Current Visit: Yes Status: Chronic - Time Spent with Patient Total time spent is greater than 50% in coordination of care (as documented) at patient's floor/unit and/or counseling patient: Internal Medicine: Result - Labs CBC & Chem 7: 07/02/18 05:56 07/02/18 17:18 Labs: Short CBC 07/02/18 Range/Units 05:56 Hgb 9.4 L (11.5-15.4) g/dL Hct 27.3 L (35.3-44.9) % BMP 07/02/18 07/02/18 07/02/18 05:56 10:50 13:28 Sodium 120 L* 120 L* 121 L Potassium 4.3 Chloride 87 L Carbon Dioxide 28 BUN 41 H Creatinine 1.27 H Glucose 262 H Calcium 8.0 L 07/02/18 17:18 Sodium 120 L* Potassium Chloride Carbon Dioxide BUN Creatinine Glucose Calcium - ABG Interpretation ABG results: PT/INR, D-dimer PT 10.8 Seconds (9.4-12.1) 06/27/18 17:29 - Attending Attestation I examined this patient and my medical decision-making was reviewed with the Resident Physician on 07/02/18. I agree with the documented findings, disposition and treatment plan as described except to the extent set forth below. Ms Paiz is currently admitted for femur fracture s/p ORIF and hyponatremia. She remains moderate to high risk due to potential for worsening clinical status. Ms Paiz is resting. She seems somnolent at this time. No fever or chills. Denies CP and SOB. Exam Alert. Somnolent but arouses Mucus membranes dry Heart not tachy No wheeze abd soft No edema I/P 1. Hyponatremia - appreciate renal assistance. Adjustments to fluids made and monitoring labs 2. R femur fracture s/p ORIF 3. CAD FUrther diagnoses and plan as above. <Zane Garcia - Last Filed: 07/02/18 18:43> (2) Closed fracture of distal end of femur Qualifiers: Encounter type: subsequent encounter Fracture morphology: other fracture Laterality: right Fracture healing: with routine healing Qualified Code(s): S72.491D - Other fracture of lower end of right femur, subsequent encounter for closed fracture with routine healing (4) Diabetes mellitus Qualifiers: Diabetes mellitus type: type 2 Diabetes mellitus intermediate insulin use: with intermediate use Diabetes mellitus complication status: with hyperglycemia Qualified Code(s): E11.65 - Type 2 diabetes mellitus with hyperglycemia; Z79.4 - snf (current) use of insulin
[2018-07-03] MEDS: 0.9 % Sodium Chloride 1,000 ML IVC SCH ×3 (00:46→20:19)
[2018-07-03 02:58] LABS: Basophils % 0.3 %; Eosinophils # 0.1 K/mcL (0.0-0.6); Eosinophils % 1.3 %; Hematocrit 26.4 % (35.3-44.9); Hemoglobin 9.3 g/dL (11.5-15.4); Immature Granulocytes % 0.7 % (0-4); Lymphocytes # 2.1 K/mcL (0.6-4.6); Mean Corpuscular HGB Conc 35.2 g/dL (31.6-35.5); Mean Corpuscular Hemoglobin 30.4 pg (28.0-33.3); Mean Corpuscular Volume 86.3 fL (83.0-100.0); Mean Platelet Volume 9.1 fL (9.4-12.4); Monocytes # 0.7 K/mcL (0.0-1.3); Monocytes % 8.1 %; Platelet Count 172 K/mcL (140-400); Red Blood Count 3.06 M/mcL (3.82-4.97); Red Cell Distribution Width 12.1 % (11.5-14.5); Segmented Neutrophils % 66.6 %
[2018-07-03 03:20] LABS: BUN/Creatinine Ratio 41 (6-26); Blood Urea Nitrogen 42 mg/dL (8-23); Calcium 7.6 mg/dL (8.6-10.3); Carbon Dioxide 26 mEq/L (23-29); Chloride 89 mEq/L (98-107); Glucose 206 mg/dL (70-105); Osmolality,Calculated 270 (280-300); Potassium 4.3 mEq/L (3.5-5.1); Sodium 122 mEq/L (136-145); eGFR For Non-African Americans 54 (> 60)
--- NOTE | 2018-07-03 06:47 | Orthopedics Progress Note ---
Date of Encounter: 07/03/18 Time of Encounter: 06:47 - Assessment and Plan (1) Acute blood loss anemia Current Visit: Yes Status: Acute Subjective Interval history: Patient was seen this morning doing well without complaints. Afebrile vital signs stable. Operative extremity: Neurovascularly intact Dressing clean dry and intact Calves nontender Assessment and plan: Continue with postoperative care Discharge when. Placement approved Objective Vital signs: Vital Signs Temp Pulse Resp BP Pulse Ox 07/03/18 03:27 98.2 F 74 15 107/65 93 07/02/18 23:18 98.1 F 77 15 117/73 91 07/02/18 20:49 16 96 07/02/18 18:33 98.6 F 73 15 101/59 93 07/02/18 17:54 98.1 F 73 17 105/57 94 07/02/18 10:42 98.0 F 76 17 128/70 96 07/02/18 07:43 16 97 07/02/18 06:58 97.8 F 70 16 110/64 95 Intake and Output 07/02/18 07/02/18 07/03/18 15:59 23:59 07:59 Intake Total 1180 / 1180 Output Total 850 / 1750 400 / 1750 350 / 350 Balance 330 / -570 -400 / -570 -350 / -350 Intake: IV Fluids 100 / 100 Ancef 3,000 MG In 0.9 % Sodium 100 / 100 Chloride 100 ML @ 200 mls/hr IVPB Q8HR [facility] Rx#:[id number] Oral 1080 / 1080 Output: Catheter 850 / 1750 400 / 1750 350 / 350 Other: Meal Breakfast Dinner Percent of Meal Consumed 100% 100% Weight 130.2 kg Blood Glucose* 336 232 Patient Weight 07/03/18 23:59 Weight 130.2 kg - Labs CBC & BMP: 07/03/18 01:29 07/03/18 06:08 Labs: Abnormal lab results RBC 3.06 M/mcL (3.82-4.97) L 07/03/18 01:29 Hgb 9.3 g/dL (11.5-15.4) L 07/03/18 01:29 Hct 26.4 % (35.3-44.9) L 07/03/18 01:29 Plt Count 132 K/mcL (140-400) L 06/30/18 02:58 MPV 9.1 fL (9.4-12.4) L 07/03/18 01:29 Sodium 118 mEq/L (136-145) L* 07/03/18 06:08 Chloride 89 mEq/L (98-107) L 07/03/18 01:29 Carbon Dioxide 30 mEq/L (23-29) H 06/28/18 00:30 BUN 42 mg/dL (8-23) H 07/03/18 01:29 1.27 mg/dL (0.60-1.20) H 07/02/18 05:56 Est GFR ( Amer) 51 (> 60) L 07/02/18 05:56 Est GFR (Non-Af Amer) 54 (> 60) L 07/03/18 01:29 41 (6-26) H 07/03/18 01:29 Glucose 206 mg/dL (70-105) H 07/03/18 01:29 POC Glucose 232 mg/dL (70-99) H 07/02/18 19:47 270 (280-300) L 07/03/18 01:29 Calcium 7.6 mg/dL (8.6-10.3) L 07/03/18 01:29 292 mOsm/kg (300-1090) L 06/30/18 12:10 Consult Discharge Plan - Plan Referrals: Cole Boswell MD [Primary Care Provider] -
[2018-07-03] MEDS: Budesonide/Formoterol 80/4.5 MDI IH SCH ×2 (07:40→22:36)
[2018-07-03] MEDS: Insulin LISPRO 300 UNITS/3 ML VIAL SQ SCH ×6 (08:05→23:33)
[2018-07-03] MEDS: dilTIAZem HCl 60 MG TABLET PO SCH ×2 (08:06→23:31)
[2018-07-03] MEDS: traZODone 50 MG TABLET PO SCH ×2 (08:06→23:32)
[2018-07-03] MEDS: Gabapentin 300 MG CAPSULE PO SCH ×3 (08:06→23:32)
[2018-07-03] MEDS: Insulin DETEMIR 100 UNIT/ML X5UNITS SQ SCH ×2 (08:06→23:32)
[2018-07-03] MEDS: OXYCODONE Oral CONC 10 MG/0.5 ML ORAL.SYG SL PRN ×2 (08:13→17:08)
--- NOTE | 2018-07-03 08:21 | Internal Med Progress Note ---
<aZne Garcia - Last Filed: 07/03/18 15:51> Hospitalist Progress Note - Encounter Date of Encounter: 07/03/18 - Exam Vitals: Temp Pulse Resp BP Pulse Ox 98.1 F 80 14 98/58 93 07/03/18 15:30 07/03/18 15:30 07/03/18 15:30 07/03/18 15:30 07/03/18 15:30 - Assessment and Plan (1) Acute hyponatremia Current Visit: No Status: Acute (2) Closed fracture of distal end of femur Current Visit: Yes Status: Acute (3) Acute blood loss anemia Current Visit: No Status: Acute (4) Diabetes mellitus Current Visit: Yes Status: Chronic - Time Spent with Patient Total time spent is greater than 50% in coordination of care (as documented) at patient's floor/unit and/or counseling patient: Internal Medicine: Result - Labs CBC & Chem 7: 07/03/18 01:29 07/03/18 13:19 Labs: Short CBC 07/03/18 Range/Units 01:29 WBC 9.0 (4.3-11.1) K/mcL Hgb 9.3 L (11.5-15.4) g/dL Hct 26.4 L (35.3-44.9) % Plt Count 172 (140-400) K/mcL Neutrophils # 6.0 (1.6-8.9) K/mcL BMP 07/02/18 07/02/18 07/03/18 17:18 21:52 01:29 Sodium 120 L* 120 L* 122 L Potassium Chloride Carbon Dioxide BUN Creatinine Glucose Calcium 07/03/18 07/03/18 07/03/18 01:29 06:08 10:15 Sodium 122 L 118 L* 123 L Potassium 4.3 Chloride 89 L Carbon Dioxide 26 BUN 42 H Creatinine 1.02 Glucose 206 H Calcium 7.6 L 07/03/18 13:19 Sodium 118 L* Potassium Chloride Carbon Dioxide BUN Creatinine Glucose Calcium - ABG Interpretation ABG results: PT/INR, D-dimer PT 10.8 Seconds (9.4-12.1) 06/27/18 17:29 Consult Discharge Plan - Plan Referrals: Cole Boswell MD [Primary Care Provider] - - Attending Attestation I examined this patient and my medical decision-making was reviewed with the Resident Physician on 07/03/18. I agree with the documented findings, disposition and treatment plan as described except to the extent set forth below. Ms Paiz is currently admitted for hyponatremia and joint replacement. She remains moderate to high risk due to potential for worsening clinical status. Ms Paiz is feeling OK. Her sodium has been fluctuating a lot. She feels thirsty and has been exceeding fluid restriction. No fever or chills. No CP or SOB. Exam alert Comfortable Mucus membranes dry Heart reg and not tachy No wheeze at this time Abd soft and nontender Dressing intact I/P 1. Hyponatremia - appreciate nephrology input. On IV normal saline and fluid restriction 2. Morbid obesity Further diagnoses and plan as above. <Yuval Coelho - Last Filed: 07/03/18 19:30> Hospitalist Progress Note - Encounter Date of Encounter: 07/03/18 Time of Encounter: 08:40 - Subjective Interval History: Patient seen and examined. She is resting comfortably in bed at the time of examination. She is no longer somnolent today. She is alert and oriented to person, place, and situation. She denies any acute complaints today. Her sodium was initially improving, however there was reports that she was drinking extra fluid overnight. - Exam Vitals: Temp Pulse Resp BP Pulse Ox 97.9 F 75 16 103/65 96 07/03/18 07:01 07/03/18 07:01 07/03/18 07:40 07/03/18 07:01 07/03/18 07:40 Exam: General: NAD, good eye contact, well appearing, obese Thoracic: Normal breath sounds b/l, no wheezing or crackles Cardio: Normal S1 and S2, regular rate and rhythm Abdomen: Soft, nontender, obese Extremities: Warm, well perfused. Mild edema b/l LE Skin: Intact. No rashes, bruises, or ulcers. Scattered tattoos Neuro: No focal deficits, alert and oriented - Assessment and Plan (1) Acute hyponatremia Current Visit: Yes Status: Acute Assessment and Plan: Acutely worsening, etiology is unclear. Likely mixed polydipsia and dehydration Had been improving with lfuid restrictions, but then decreased again after drinking extra fluids She is also on SNRI and TCA which may be contributing, if not able to improve, may consider decreasing these meds if able Nephrology is consulted, started salt tabs 3 times a day. Continue IV fluids at this time - considering tolvaptan if not continuing to improve - checking renal ultrasound and light chains - q4 sodium checks (2) Closed fracture of distal end of femur Current Visit: Yes Status: Acute Assessment and Plan: ORIF on 06/[address] Ho - Ortho following - pain control w oxycodone (3) Diabetes mellitus Current Visit: Yes Status: Chronic Assessment and Plan: Uncontrolled. Just added basal and prandial + SSI (increased to medium-dose SSI) Continue to monitor today and increase tomorrow if needed (4) Acute blood loss anemia Current Visit: Yes Status: Acute Assessment and Plan: 03/15 ORIF, Hemoglobin stable at 9.3, continue to monitor (5) Hypertension Current Visit: No Status: Chronic Assessment and Plan: Controlled DVT Prophylaxis: On xarelto - Time Spent with Patient Total time spent is greater than 50% in coordination of care (as documented) at patient's floor/unit and/or counseling patient: Internal Medicine: Result - Labs CBC & Chem 7: 07/03/18 01:29 07/03/18 17:05 Labs: Short CBC 07/03/18 Range/Units 01:29 WBC 9.0 (4.3-11.1) K/mcL Hgb 9.3 L (11.5-15.4) g/dL Hct 26.4 L (35.3-44.9) % Plt Count 172 (140-400) K/mcL Neutrophils # 6.0 (1.6-8.9) K/mcL BMP 07/02/18 07/02/18 07/02/18 10:50 13:28 17:18 Sodium 120 L* 121 L 120 L* Potassium Chloride Carbon Dioxide BUN Creatinine Glucose Calcium 07/02/18 07/03/18 07/03/18 21:52 01:29 01:29 Sodium 120 L* 122 L 122 L Potassium 4.3 Chloride 89 L Carbon Dioxide 26 BUN 42 H Creatinine 1.02 Glucose 206 H Calcium 7.6 L 07/03/18 06:08 Sodium 118 L* Potassium Chloride Carbon Dioxide BUN Creatinine Glucose Calcium - ABG Interpretation ABG results: PT/INR, D-dimer PT 10.8 Seconds (9.4-12.1) 06/27/18 17:29 <Zane Garcia - Last Filed: 07/03/18 15:51> (2) Closed fracture of distal end of femur Qualifiers: Encounter type: subsequent encounter Fracture morphology: other fracture Laterality: right Fracture healing: with routine healing Qualified Code(s): S72.491D - Other fracture of lower end of right femur, subsequent encounter for closed fracture with routine healing (4) Diabetes mellitus Qualifiers: Diabetes mellitus type: type 2 Diabetes mellitus halfway insulin use: with halfway use Diabetes mellitus complication status: with hyperglycemia Qualified Code(s): E11.65 - Type 2 diabetes mellitus with hyperglycemia; 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 <Yuval Coelho R - Last Filed: 07/03/18 19:30> (2) Closed fracture of distal end of femur Qualifiers: Encounter type: subsequent encounter Fracture morphology: other fracture Laterality: right Fracture healing: with routine healing Qualified Code(s): S72.491D - Other fracture of lower end of right femur, subsequent encounter for closed fracture with routine healing (3) Diabetes mellitus Qualifiers: Diabetes mellitus type: type 2 Diabetes mellitus halfway insulin use: with termite treater use Diabetes mellitus complication status: with hyperglycemia Qualif ied Code(s): E11.65 - Type 2 diabetes mellitus with hyperglycemia; Z79.4 - [facility] (current) use of insulin (5) Hypertension Qualifiers: Hypertension type: essential hypertension Qualified Code(s): I10 - Essential (primary) hypertension
--- NOTE | 2018-07-03 08:35 | Event Note ---
Date of Encounter: 07/03/18 Time of Encounter: 12:30 Date of procedure: 06/30/18 Pre-op diagnosis: Displaced right comminuted distal femur fracture periprosthetic Post-op diagnosis: same Procedure: open reduction internal fixation right distal periprosthetic femur fracture POD#3 Patient seen at bedside. A&Ox3 Dressings c/d/i No calf tenderness, erythema, or warmth. Neurovascularly intact b/l LE. Labwork, vitals, and medications reviewed. Pain control: Adequate Participating in PT. All questions and concerns addressed. Educated on use of incentive spirometer, ambulation, and hydration. Patient educated on post-operative restrictions and care. Addressed: NONWEIGHTBEARING TO RIGHT LOWER EXTREMITY TROM BRACE IN LOCKED EXTENSION AT ALL TIMES WITH WHEELS TO EITHER SIDE OF KNEE MAY REMOVE BETTIE BANDAGES PRN; LEAVE HONEYCOMB OPSITE DRESSING INTACT NO KNEE MOTION D/C plan: on medical hold secondary to hyponatremia
--- NOTE | 2018-07-03 13:12 | Nephrology Progress Note ---
Date of Encounter: 07/03/18 Time of Encounter: 11:00 - Assessment and Plan (1) Acute hyponatremia Status: Acute PNa fluctuating and not fitting typical etiologies, so I recommend expanding the differential diagnoses: check retroperitoneal U/S, check SPEP/[place] lambda Free light chains. She is now responding to NS with the last PNa improved to 123. Rec a safe/slow correction of 6-8 mEq / 24hr. If she had not improved since this AM, then I would have given her Tolvaptan. Discussed with Dr. Garcia. She remains a challenge to correct and she represents a complex patient who required a high degree of medical decision-making and complex evaluation and management. My colleague Dr. Negron will be on-call/on-service starting tomorrow. (2) Hyperglycemia Status: Acute (3) Polydipsia Status: Chronic On a prior admission, I read in Dr. Rivera's note about her excessive fluid intake. She also had affirmed at one point to me, that she consumed about "three" of the [place] one liter jugs at bedside per day. (4) Closed fracture of distal end of femur Status: Acute Qualifiers: Encounter type: subsequent encounter Fracture morphology: other fracture Laterality: right Fracture healing: with routine healing Qualified Code(s): S72.491D - Other fracture of lower end of right femur, subsequent encounter for closed fracture with routine healing (5) Hypertension Status: Chronic Avoid thiazide type diuretics, which could exacerbate hyponatrema. Qualifiers: Hypertension type: essential hypertension Qualified Code(s): I10 - Essential (primary) hypertension Subjective Principal diagnosis: Hyponatremia Interval history: The patient was seen and examined earlier in the day. She did not affirm active nausea, confusion, diarrhea, or seizures. Objective - Vital Signs Vital signs: Vital Signs Temp Pulse Resp BP Pulse Ox 07/03/18 11:19 98.0 F 77 16 102/62 93 07/03/18 07:40 16 96 07/03/18 07:01 97.9 F 75 18 103/65 95 07/03/18 03:27 98.2 F 74 15 107/65 93 07/02/18 23:18 98.1 F 77 15 117/73 91 07/02/18 20:49 16 96 07/02/18 18:33 98.6 F 73 15 101/59 93 07/02/18 17:54 98.1 F 73 17 105/57 94 Intake and Output 07/02/18 07/03/18 07/03/18 23:59 07:59 15:59 Intake Total 1600 / 1600 Output Total 400 / 1750 350 / 350 Balance -400 / -570 -350 / 1250 1600 / 1250 Intake: IV Fluids 1000 / 1000 0.9 % Sodium Chloride 1,000 ML 1000 / 1000 @ 100 mls/hr IVC .Q10H [facility] Rx#: [id number] Oral 600 / 600 Output: Catheter 400 / 1750 350 / 350 Other: Meal Dinner Breakfast Percent of Meal Consumed 100% 50% Weight 130.2 kg Blood Glucose* 232 193 274 Patient Weight 07/03/18 23:59 Weight 130.2 kg - General Appearance Exam: General appearance: well-developed, well-nourished, appears started age, obese EENT: ATNC, PERRL, mucous membranes moist Neck: supple Respiratory: clear (but diminished in the bases likely d/t her obese body habitus) Cardiology: no murmurs, no edema, regular rate, regular rhythm, normal S1, normal S2 Gastrointestinal: normoactive bowel sounds, no tenderness, no guarding, obese with pannus Integumentary: no rash, warm and dry Additional Comments: She has numerous tattoos all over her integument Neurologic: no focal deficit, no asterixis, disoriented Musculoskeletal: no erythema, no cyanosis Psychiatric: mood/affect appropriate, cooperative - Lab 07/05/18 03:01 07/05/18 03:01 Most recent lab results 07/03/18 01:29 Calcium 7.6 L Consult Discharge Plan - Plan Additional Instructions: Discharge Instructions: Total Knee Replacement Please call [facility] ([phone]), your Primary Care Physician, or report to the Emergency Room if you have any of the following symptoms: Nausea, vomiting, fever greater that 101.5, swelling, chest pain, shortness of breath, increased pain/redness/drainage/odor for your incision site, numbness/tingling, or any other concerning symptoms. ACTIVITY: Non-weight bearing. No knee motion. You may progress off support (crutches or walker) as tolerated. Incentive Spirometer 10 times an hour. MEDICATIONS: Upon discharge resume your home medications. Take all the medications as prescribed. Take a stool softener if taking narcotic pain medications. Stool softeners are only effective if you drink enough fluids. Drink 6-8 glass of water or fluids a day, unless this is not allowed for another health problem. Despite using stool softeners, if you haven't had a bowel movement in 3 days, please switch to a gentle laxative. Gentle laxatives are so ld over the counter. You should have a bowel movement within 24 hours, if not call the office. You will be discharged from the hospital with a prescription for pain medication. You are encouraged to decrease the use of narcotic pain medication as tolerated. Should you require a refill, please call the office. [facility] prescribes narcotic pain medication for only 4-6 weeks after surgery. If you require pain medication beyond this time period, you may be referred to your Primary Care Physician or to the Pain Clinic for further evaluation. Plan ahead for refills on pain medication as many narcotics either need to be picked up at the office or mailed. It is best to call 48-72 hours in advance of needing a prescription refill so you don't run out of medication. To help control the post-operative pain, you may take NSAIDs (Aleve,Advil, Motrin, Ibuprofen, Naprosyn) or Tylenol as prescribed on the bottle in addition to the pain medication. ANTICOAGULATION (blood thinners): Continue your Aspirin, Lovenox or Coumadin as prescribed to help prevent a blood clot in the leg or in the lungs. As long as your incision remains dry and you tolerate the NSAIDs (Aleve, Advil, Motrin, ibuprofen, naprosyn), it is OK to use the NSAIDS while you are taking your anticoagulation medication. Should your incision start to drain, stop the NSAID and contact our office. Common symptoms of blood clot in the legs include: localized pain, swelling, calf tenderness, redness or discoloration of the skin. Blood clot in the lung symptoms include: shortness of breath, rapid pulse, sweating, and chest pain that worsens with deep breathing, coughing up blood, lightheadedness, feelings of anxiety. If you experience any of these symptoms notify your physician immediately, go to the emergency room, or if having trouble breathing, call 911. WOUND CARE: Leave the dressing on for 7 to 10days. You may change the dressing if it becomes saturated greater than 50%. Do not get the dressing wet at anytime. Wash your hands with antibacterial soap, rinse and dry prior to any wound care. If you have jessica the visiting nurse or rehab facility can remove the stapes 10-14 days after surgery and place steri-strips across the wound. Leave the steri-strips in place until they fall off on their won. You may let water from the shower run on top of the steri-strips. If you do not have a visiting nurse or rehab facility, you will need to return to the office at 10-14 days for the jessica to be removed. If you have itching or redness around the dressing call the office. FOLLOW-UP: Please follow up with your surgeon in the orthopedic clinic in 4 weeks from the day of surgery. If you have jessica that need to be removed, you will need to come back to the office in 10-14 days from the day of surgery. Referrals: Cole Boswell MD [Primary Care Provider] -
[2018-07-03] MEDS ORDERED: Tolvaptan 15 MG TABLET PO ONE (16:00)
[2018-07-03] MEDS: *HR* Rivaroxaban 10 MG TABLET PO SCH (17:07)
[2018-07-04 02:38] LABS: Basophils # 0.1 K/mcL (0.0-0.2); Basophils % 0.8 %; Eosinophils # 0.2 K/mcL (0.0-0.6); Hematocrit 28.5 % (35.3-44.9); Hemoglobin 9.7 g/dL (11.5-15.4); Immature Granulocytes % 1.1 % (0-4); Lymphocytes # 2.2 K/mcL (0.6-4.6); Lymphocytes % 22.8 %; Mean Corpuscular Hemoglobin 29.8 pg (28.0-33.3); Mean Corpuscular Volume 87.7 fL (83.0-100.0); Mean Platelet Volume 8.5 fL (9.4-12.4); Monocytes # 0.8 K/mcL (0.0-1.3); Monocytes % 8.2 %; Neutrophils # 6.2 K/mcL (1.6-8.9); Platelet Count 208 K/mcL (140-400); Red Blood Count 3.25 M/mcL (3.82-4.97); Red Cell Distribution Width 12.4 % (11.5-14.5); Segmented Neutrophils % 65.1 %
[2018-07-04 02:42] LABS: Potassium 4.2 mEq/L (3.5-5.1)
[2018-07-04] MEDS: 0.9 % Sodium Chloride 1,000 ML IVC SCH ×2 (06:04→16:03)
[2018-07-04] MEDS: Budesonide/Formoterol 80/4.5 MDI IH SCH ×2 (08:01→20:23)
[2018-07-04] MEDS: traZODone 50 MG TABLET PO SCH ×2 (08:14→21:09)
[2018-07-04] MEDS: Insulin DETEMIR 100 UNIT/ML X5UNITS SQ SCH ×2 (08:15→21:12)
[2018-07-04] MEDS: Insulin LISPRO 300 UNITS/3 ML VIAL SQ SCH ×7 (08:15→21:05)
[2018-07-04] MEDS: dilTIAZem HCl 60 MG TABLET PO SCH ×2 (08:15→21:09)
[2018-07-04] MEDS: Gabapentin 300 MG CAPSULE PO SCH ×3 (08:15→21:09)
--- NOTE | 2018-07-04 09:13 | Orthopedics Progress Note ---
Date of Encounter: 07/04/18 Time of Encounter: 09:11 - Assessment and Plan (1) Acute blood loss anemia Current Visit: Yes Status: Acute Subjective Interval history: Patient was seen this morning doing well without complaints. Afebrile vital signs stable. Operative extremity: Neurovascularly intact Dressing clean dry and intact Calves nontender Assessment and plan: Continue with postoperative care Discharge when. Placement approved, patient is dealing with hyponatremia Objective Vital signs: Vital Signs Temp Pulse Resp BP Pulse Ox 07/04/18 08:04 18 96 07/04/18 07:17 98.7 F 90 18 129/69 96 07/04/18 03:46 98.4 F 86 15 116/68 91 07/03/18 23:27 98.7 F 88 15 117/69 91 07/03/18 22:38 14 95 07/03/18 18:40 98.4 F 82 15 104/64 90 07/03/18 15:30 98.1 F 80 14 98/58 93 07/03/18 11:19 98.0 F 77 16 102/62 93 Intake and Output 07/03/18 07/04/18 07/04/18 23:59 07:59 15:59 Intake Total 1300 / 3380 1000 / 1000 Output Total 750 / 1100 150 / 150 Balance 550 / 2280 850 / 850 Intake: IV Fluids 1000 / 2000 1000 / 1000 0.9 % Sodium Chloride 1,000 ML 1000 / 2000 1000 / 1000 @ 100 mls/hr IVC .Q10H [facility]IO[facility] Rx#: [id number] Oral 300 / 1380 Output: Catheter 750 / 1100 150 / 150 Other: Weight 130.4 kg Blood Glucose* 150 202 Patient Weight 07/04/18 23:59 Weight 130.4 kg - Labs CBC & BMP: 07/04/18 01:20 07/04/18 05:25 Labs: Abnormal lab results RBC 3.25 M/mcL (3.82-4.97) L 07/04/18 01:20 Hgb 9.7 g/dL (11.5-15.4) L 07/04/18 01:20 Hct 28.5 % (35.3-44.9) L 07/04/18 01:20 Plt Count 132 K/mcL (140-400) L 06/30/18 02:58 MPV 8.5 fL (9.4-12.4) L 07/04/18 01:20 Sodium 116 mEq/L (136-145) L* 07/04/18 05:25 Chloride 90 mEq/L (98-107) L 07/04/18 01:20 Carbon Dioxide 30 mEq/L (23-29) H 06/28/18 00:30 BUN 47 mg/dL (8-23) H 07/04/18 01:20 1.27 mg/dL (0.60-1.20) H 07/02/18 05:56 Est GFR ( Amer) 54 (> 60) L 07/04/18 01:20 Est GFR (Non-Af Amer) 45 (> 60) L 07/04/18 01:20 39 (6-26) H 07/04/18 01:20 Glucose 156 mg/dL (70-105) H 07/04/18 01:20 POC Glucose 232 mg/dL (70-99) H 07/02/18 19:47 267 (280-300) L 07/04/18 01:20 Calcium 8.0 mg/dL (8.6-10.3) L 07/04/18 01:20 292 mOsm/kg (300-1090) L 06/30/18 12:10 Consult Discharge Plan - Plan Referrals: Cole Boswell MD [Primary Care Provider] -
[2018-07-04] MEDS ORDERED: Sennosides/Docusate Sodium TABLET PO PRN (10:26)
[2018-07-04] MEDS ORDERED: Sennosides/Docusate Sodium TABLET PO ONE (10:26)
[2018-07-04] MEDS ORDERED: Simethicone 80 MG TAB.CHEW PO PRN (11:24)
[2018-07-04] MEDS: OXYCODONE Oral CONC 10 MG/0.5 ML ORAL.SYG SL PRN (13:11)
[2018-07-04] MEDS: metroNIDAZOLE 500 MG TABLET PO SCH ×2 (16:03→21:09)
--- NOTE | 2018-07-04 16:18 | Event Note ---
Date of Encounter: 07/04/18 Time of Encounter: 16:10 Date of procedure: 06/30/18 Pre-op diagnosis: Displaced right comminuted distal femur fracture periprosthetic Post-op diagnosis: same Procedure: open reduction internal fixation right distal periprosthetic femur fracture POD#3 Patient seen at bedside. A&Ox3 Dressings c/d/i No calf tenderness, erythema, or warmth. Neurovascularly intact b/l LE. Labwork, vitals, and medications reviewed. Pain control: Adequate Participating in PT. All questions and concerns addressed. Educated on use of incentive spirometer, ambulation, and hydration. Patient educated on post-operative restrictions and care. Addressed: NONWEIGHTBEARING TO RIGHT LOWER EXTREMITY TROM BRACE IN LOCKED EXTENSION AT ALL TIMES WITH WHEELS TO EITHER SIDE OF KNEE MAY REMOVE BETTIE BANDAGES PRN; LEAVE HONEYCOMB OPSITE DRESSING INTACT NO KNEE MOTION D/C plan: on medical hold secondary to hyponatremia - accepted and approved when medically cleared
--- NOTE | 2018-07-04 16:46 | Internal Med Progress Note ---
<Yuval Coelho R - Last Filed: 07/04/18 16:44> Hospitalist Progress Note - Encounter Date of Encounter: 07/04/18 Time of Encounter: 10:05 - Subjective Interval History: Patient seen and examined at bedside. She reports she is very tired. Denies other complaints at this time. She has not been getting out of bed or bathing. She is unsure of her last BM. - Exam Vitals: Temp Pulse Resp BP Pulse Ox 98.3 F 83 16 125/70 94 07/04/18 15:26 07/04/18 15:26 07/04/18 15:26 07/04/18 15:26 07/04/18 15:26 Exam: General: NAD, good eye contact, well appearing, obese Thoracic: Normal breath sounds b/l, no wheezing or crackles Cardio: Normal S1 and S2, regular rate and rhythm Abdomen: Soft, nontender, obese, mild distention Extremities: Warm, well perfused. Mild edema b/l LE Skin: Intact. No rashes, bruises, or ulcers. Scattered tattoos Neuro: No focal deficits, alert and oriented - Assessment and Plan (1) Acute hyponatremia Current Visit: Yes Status: Acute Assessment and Plan: Etiology unclear, likely mixed polydipsia and dehydration Improving today, initially 116 this morning, now up to 127 She is also on SNRI and TCA which may be contributing, if not able to improve, may consider decreasing these meds if able Nephrology is consulted, started salt tabs 3 times a day, given tolvaptan yesterday. Continue IV fluids at this time Renal US with no hydropnephrosis of right kidney, left not visualized d/t bowel gas Continue q4 sodium checks (2) Closed fracture of distal end of femur Current Visit: Yes Status: Acute Assessment and Plan: ORIF on 06/[address] Ho - Ortho following - pain control w oxycodone (3) Diabetes mellitus Current Visit: Yes Status: Chronic Assessment and Plan: Uncontrolled, but improving Increase basal to 15 U BID Continue prandial + medium SSI Continue to monitor today and increase tomorrow if needed (4) Acute blood loss anemia Current Visit: Yes Status: Acute Assessment and Plan: 2/2 ORIF, Hemoglobin stable, continue to monitor (5) Hypertension Current Visit: No Status: Chronic Assessment and Plan: Controlled (6) Vaginal discharge Current Visit: Yes Status: Acute Assessment and Plan: Started flagyl DVT Prophylaxis: On xarelto - Time Spent with Patient Total time spent is greater than 50% in coordination of care (as documented) at patient's floor/unit and/or counseling patient: Internal Medicine: Result - Labs CBC & Chem 7: 07/04/18 01:20 07/04/18 13:21 Labs: Short CBC 07/04/18 Range/Units 01:20 WBC 9.4 (4.3-11.1) K/mcL Hgb 9.7 L (11.5-15.4) g/dL Hct 28.5 L (35.3-44.9) % Plt Count 208 (140-400) K/mcL Neutrophils # 6.2 (1.6-8.9) K/mcL BMP 07/03/18 07/03/18 07/04/18 17:05 21:47 01:20 Sodium 121 L 122 L 121 L Potassium 4.2 Chloride 90 L Carbon Dioxide 23 BUN 47 H Creatinine 1.20 Glucose 156 H Calcium 8.0 L 07/04/18 07/04/18 07/04/18 05:25 09:14 13:21 Sodium 116 L* 123 L 127 L Potassium Chloride Carbon Dioxide BUN Creatinine Glucose Calcium - ABG Interpretation ABG results: PT/INR, D-dimer PT 10.8 Seconds (9.4-12.1) 06/27/18 17:29 - Impressions Impressions Retroperitoneum Ultrasound 07/03/18 20:30 IMPRESSION: Right kidney is unremarkable in appearance. Left kidney is not visualized secondary to bowel gas. D/ / Hari Rose MD / Hari Rose MD Interpreting Provider: Hari Rose MD Consult Discharge Plan - Plan Referrals: Cole Boswell MD [Primary Care Provider] - <Zane Garcia - Last Filed: 07/04/18 18:05> Hospitalist Progress Note - Encounter Date of Encounter: 07/04/18 - Exam Vitals: Temp Pulse Resp BP Pulse Ox 98.3 F 83 16 125/70 94 07/04/18 15:26 07/04/18 15:26 07/04/18 15:26 07/04/18 15:26 07/04/18 15:26 - Assessment and Plan (1) Acute hyponatremia Current Visit: Yes Status: Acute (2) Closed fracture of distal end of femur Current Visit: Yes Status: Acute (3) Acute blood loss anemia Current Visit: No Status: Acute (4) Diabetes mellitus Current Visit: Yes Status: Chronic - Time Spent with Patient Total time spent is greater than 50% in coordination of care (as documented) at patient's floor/unit and/or counseling patient: Internal Medicine: Result - Labs CBC & Chem 7: 07/04/18 01:20 07/04/18 13:21 Labs: Short CBC 07/04/18 Range/Units 01:20 WBC 9.4 (4.3-11.1) K/mcL Hgb 9.7 L (11.5-15.4) g/dL Hct 28.5 L (35.3-44.9) % Plt Count 208 (140-400) K/mcL Neutrophils # 6.2 (1.6-8.9) K/mcL BMP 07/03/18 07/04/18 07/04/18 21:47 01:20 05:25 Sodium 122 L 121 L 116 L* Potassium 4.2 Chloride 90 L Carbon Dioxide 23 BUN 47 H Creatinine 1.20 Glucose 156 H Calcium 8.0 L 07/04/18 07/04/18 09:14 13:21 Sodium 123 L 127 L Potassium Chloride Carbon Dioxide BUN Creatinine Glucose Calcium - ABG Interpretation ABG results: PT/INR, D-dimer PT 10.8 Seconds (9.4-12.1) 06/27/18 17:29 - Impressions Impressions Retroperitoneum Ultrasound 07/03/18 20:30 IMPRESSION: Right kidney is unremarkable in appearance. Left kidney is not visualized secondary to bowel gas. D/ / Hari Rose MD / Hari Rose MD Interpreting Provider: Hari Rose MD - Attending Attestation I examined this patient and my medical decision-making was reviewed with the Resident Physician on 07/04/18. I agree with the documented findings, disposition and treatment plan as described except to the extent set forth below. Ms Paiz is currently admitted for acute hyponatremia s/p joint replacement. She remains moderate to high risk due to potential for worsening clinical status. Ms Paiz is resting in bed. She refuses to get cleaned up. No fever or chills. No CP or SOB. Exam alert Comfortable Mucus membranes dry Heart not tachy No wheeze abd soft I/P 1. Hyponatremia - slowly improving Further diagnoses and plan as above. If sodium stable possible d/c Saturday. <Yuval Coelho - Last Filed: 07/04/18 16:44> (2) Closed fracture of distal end of femur Qualifiers: Encounter type: subsequent encounter Fracture morphology: other fracture Laterality: right Fracture healing: with routine healing Qualified Code(s): S72.491D - Other fracture of lower end of right femur, subsequent encounter for closed fracture with routine healing (3) Diabetes mellitus Qualifiers: Diabetes mellitus type: type 2 Diabetes mellitus jail insulin use: with jail use Diabetes mellitus complication status: with hyperglycemia Qualified Code(s): E11.65 - Type 2 diabetes mellitus with hyperglycemia; Z79.4 - senior living (current) use of insulin (5) Hypertension Qualifiers: Hypertension type: essential hypertension Qualified Code(s): I10 - Essential (primary) hypertension <Zane Garcia - Last Filed: 07/04/18 18:05> (2) Closed fracture of distal end of femur Qualifiers: Encounter type: subsequent encounter Fracture morphology: other fracture [place] terality: right Fracture healing: with routine healing Qualified Code(s): S72.491D - Other fracture of lower end of right femur, subsequent encounter for closed fracture with routine healing (4) Diabetes mellitus Qualifiers: 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
[2018-07-04] MEDS: *HR* Rivaroxaban 10 MG TABLET PO SCH (17:53)
--- NOTE | 2018-07-04 23:19 | Nephrology Progress Note ---
Date of Encounter: 07/04/18 Time of Encounter: 12:00 - Assessment and Plan (1) Acute hyponatremia Current Visit: Yes Status: Acute Sodium now up to 127 this pm Continue NS and salt tabs Continue serial sodium checks Can discharge by am if sodium up to 130 with salt tabs Can followup within 2 weeks with sodium checks the first week at [facility] (2) Hypertension Current Visit: No Status: Chronic Qualifiers: Hypertension type: essential hypertension Qualified Code(s): I10 - Essential (primary) hypertension (3) Closed fracture of distal end of femur Current Visit: Yes Status: Acute Qualifiers: Encounter type: subsequent encounter Fracture morphology: other fracture Laterality: right Fracture healing: with routine healing Qualified Code(s): S72.491D - Other fracture of lower end of right femur, subsequent encounter for closed fracture with routine healing (4) Polydipsia Current Visit: Yes Status: Chronic (5) Hyperglycemia Current Visit: Yes Status: Acute Subjective Interval history: Interim events noted, pt seen and examined with postoperative hyponatremia currently responding to NS and salt tabs. Objective - Vital Signs Vital signs: Vital Signs Temp Pulse Resp BP Pulse Ox 07/04/18 21:08 98.3 F 76 18 128/66 89 07/04/18 20:24 18 98 07/04/18 15:26 98.3 F 83 16 125/70 94 07/04/18 11:27 98.0 F 84 15 132/74 94 07/04/18 08:04 18 96 07/04/18 07:17 98.7 F 90 18 129/69 96 07/04/18 03:46 98.4 F 86 15 116/68 91 07/03/18 23:27 98.7 F 88 15 117/69 91 Intake and Output 07/04/18 07/04/18 07/04/18 07:59 15:59 23:59 Intake Total 1000 / 2780 200 / 2780 1580 / 2780 Output Total 150 / 2750 1550 / 2750 1050 / 2750 Balance 850 / 30 -1350 / 30 530 / 30 Intake: IV Fluids 1000 / 2000 1000 / 2000 0.9 % Sodium Chloride 1,000 ML 1000 / 2000 1000 / 2000 @ 100 mls/hr IVC .Q10H [facility] Rx#: [id number] Oral 200 / 780 580 / 780 Output: Catheter 150 / 2750 1550 / 2750 1050 / 2750 Other: Meal Breakfast Percent of Meal Consumed 30% Weight 130.4 kg Blood Glucose* 149 164 Patient Weight 07/04/18 23:59 Weight 130.4 kg - Lab 07/04/18 01:20 07/04/18 21:22 Consult Discharge Plan - Plan Referrals: Cole Boswell MD [Primary Care Provider] -
[2018-07-05] MEDS: 0.9 % Sodium Chloride 1,000 ML IVC SCH (02:10)
[2018-07-05 03:17] LABS: Hemoglobin 9.6 g/dL (11.5-15.4); Mean Corpuscular HGB Conc 34.3 g/dL (31.6-35.5); Mean Corpuscular Hemoglobin 30.3 pg (28.0-33.3); Mean Corpuscular Volume 88.3 fL (83.0-100.0); Mean Platelet Volume 8.3 fL (9.4-12.4); Platelet Count 186 K/mcL (140-400); Red Blood Count 3.17 M/mcL (3.82-4.97); Red Cell Distribution Width 12.8 % (11.5-14.5)
[2018-07-05 03:35] LABS: BUN/Creatinine Ratio 41 (6-26); Blood Urea Nitrogen 34 mg/dL (8-23); Calcium 8.2 mg/dL (8.6-10.3); Carbon Dioxide 24 mEq/L (23-29); Chloride 98 mEq/L (98-107); Glucose 178 mg/dL (70-105); Osmolality,Calculated 280 (280-300); Potassium 4.5 mEq/L (3.5-5.1); Sodium 129 mEq/L (136-145); eGFR For Non-African Americans > 60 (> 60)
[2018-07-05] MEDS: Budesonide/Formoterol 80/4.5 MDI IH SCH ×2 (07:19→20:16)
[2018-07-05] MEDS: metroNIDAZOLE 500 MG TABLET PO SCH ×2 (08:52→21:12)
[2018-07-05] MEDS: dilTIAZem HCl 60 MG TABLET PO SCH ×2 (08:53→21:11)
[2018-07-05] MEDS: Gabapentin 300 MG CAPSULE PO SCH ×4 (08:53→21:11)
[2018-07-05] MEDS: traZODone 50 MG TABLET PO SCH ×2 (08:53→21:12)
[2018-07-05] MEDS: Insulin LISPRO 300 UNITS/3 ML VIAL SQ SCH ×6 (08:53→18:09)
--- NOTE | 2018-07-05 08:56 | Orthopedics Progress Note ---
Date of Encounter: 07/05/18 Time of Encounter: 08:55 Subjective Interval history: S: Patient is seen today and has no complaints. O: Afebrile and vital signs are stable Operative extremity dressing is clean, dry, and intact. Neurovascularly intact distally A: Internal fixation of the right distal femur P: Resume postoperative care Objective Vital signs: Vital Signs Temp Pulse Resp BP Pulse Ox 07/05/18 08:41 98.9 F 82 17 144/75 92 07/05/18 07:19 18 94 07/05/18 03:42 98.7 F 82 16 131/74 95 07/04/18 23:34 98.1 F 84 14 136/70 90 07/04/18 21:08 98.3 F 76 18 128/66 89 07/04/18 20:24 18 98 07/04/18 15:26 98.3 F 83 16 125/70 94 07/04/18 11:27 98.0 F 84 15 132/74 94 Intake and Output 07/04/18 07/05/18 07/05/18 23:59 07:59 15:59 Intake Total 1580 / 2780 1000 / 1000 Output Total 1500 / 3200 900 / 900 Balance 80 / -420 100 / 100 Intake: IV Fluids 1000 / 2000 1000 / 1000 0.9 % Sodium Chloride 1,000 ML 1000 / 2000 1000 / 1000 @ 100 mls/hr IVC .Q10H [facility] Rx#: [id number] Oral 580 / 780 Output: Catheter 1500 / 3200 900 / 900 Other: Weight 145.8 kg Blood Glucose* 164 187 Patient Weight 07/05/18 23:59 Weight 145.8 kg - Labs CBC & BMP: 07/05/18 03:01 07/05/18 03:01 Labs: Abnormal lab results RBC 3.17 M/mcL (3.82-4.97) L 07/05/18 03:01 Hgb 9.6 g/dL (11.5-15.4) L 07/05/18 03:01 Hct 28.0 % (35.3-44.9) L 07/05/18 03:01 Plt Count 132 K/mcL (140-400) L 06/30/18 02:58 MPV 8.3 fL (9.4-12.4) L 07/05/18 03:01 Sodium 129 mEq/L (136-145) L 07/05/18 03:01 Chloride 90 mEq/L (98-107) L 07/04/18 01:20 Carbon Dioxide 30 mEq/L (23-29) H 06/28/18 00:30 BUN 34 mg/dL (8-23) H 07/05/18 03:01 1.27 mg/dL (0.60-1.20) H 07/02/18 05:56 Est GFR ( Amer) 54 (> 60) L 07/04/18 01:20 Est GFR (Non-Af Amer) 45 (> 60) L 07/04/18 01:20 41 (6-26) H 07/05/18 03:01 Glucose 178 mg/dL (70-105) H 07/05/18 03:01 POC Glucose 232 mg/dL (70-99) H 07/02/18 19:47 267 (280-300) L 07/04/18 01:20 Calcium 8.2 mg/dL (8.6-10.3) L 07/05/18 03:01 292 mOsm/kg (300-1090) L 06/30/18 12:10 Consult Discharge Plan - Plan Referrals: Cole Boswell MD [Primary Care Provider] -
[2018-07-05] MEDS: OXYCODONE Oral CONC 10 MG/0.5 ML ORAL.SYG SL PRN ×2 (08:59→21:20)
[2018-07-05] MEDS: Insulin DETEMIR 100 UNIT/ML X5UNITS SQ SCH ×2 (08:59→21:12)
--- NOTE | 2018-07-05 11:27 | Physician Discharge Referral ---
ExtendedCare Referral Info Provider in Charge after Transfer: PCP Institutional Level of Care: Skilled - Diagnosis (1) Acute hyponatremia Priority: Secondary Status: Acute (2) Closed fracture of distal end of femur Priority: Primary Status: Acute (3) Acute blood loss anemia Priority: Secondary Status: Acute (4) Diabetes mellitus Priority: Secondary Status: Chronic Expected Duration of Placement: Less than 30 days Prognosis: Fair Aware of Diagnosis: Patient Aware of Prognosis: Patient - Transfer Medications Prescriptions: Oxycodone HCl/Acetaminophen [Percocet 5-325 mg Tablet] 1 each PO Q6H PRN 1 Days #5 tablet PRN Reason: Severe Pain Home Medications: Duloxetine HCl [Cymbalta] 60 mg PO BID 01/18/15 [History] Amitriptyline HCl 100 mg PO HS 06/11/16 [History] Albuterol Sulfate [Albuterol Inhaler] 2 puff IH Q4HR PRN 07/11/16 [History] Budesonide/Formoterol 80/4.5 [Symbicort 80/4.5] 1 puff IH 1-3XD 07/11/16 [History] Pantoprazole Sodium [Protonix] 40 mg PO DAILY 07/11/16 [History] Simvastatin [Zocor] 40 mg PO HS 07/11/16 [History] Ipratropium [place] 2 spray NS DAILY PRN 08/07/16 [History] Calcium Polycarbophil [Fiber Laxative] 1,250 mg PO DAILY PRN 06/27/18 [History] Diltiazem HCl [Cardizem] 60 mg PO BID 06/27/18 [History] Docusate [Colace] 100 mg PO DAILY PRN 06/27/18 [History] Insulin ASPART [Novolog Flexpen] 0 unit SQ TIDWM PRN 06/27/18 [History] Liraglutide [Victoza 3-Amarjit] 1.8 mg SQ DAILY 06/27/18 [History] Lisinopril [Zestril] 20 mg PO DAILY 06/27/18 [History] Loratadine [Claritin] 10 mg PO DAILY 06/27/18 [History] Montelukast [Singulair] 10 mg PO HS PRN 06/27/18 [History] Polyethylene Glycol 3350 17 gm PO DAILY PRN 06/27/18 [History] Trazodone HCl 100 mg PO DAILY 06/27/18 [History] Trazodone HCl 150 mg PO HS 06/27/18 [History] Gabapentin [Neurontin] 600 mg PO TID capsule 07/05/18 [Rx] Insulin DETEMIR [Levemir] 15 unit SQ BID [id number] 07/05/18 [Rx] Insulin LISPRO [HumaLOG] 6 units SQ TIDWM vial 07/05/18 [Rx] Oxycodone HCl/Acetaminophen [Percocet 5-325 mg Tablet] 1 each PO Q6H PRN 1 Days #5 tablet 07/05/18 [Rx] Sodium Chloride [Sodium Chloride Tab] 1 gm PO TID tablet 07/05/18 [Rx] metroNIDAZOLE [Flagyl] 500 mg PO BID tablet 07/05/18 [Rx] Allergies/Adverse Reactions: Allergy/AdvReac Type Severity Reaction Status Date / Time polyethylene glycol AdvReac Nausea Verified 07/11/16 08:00 [From Golytely] polyethylene glycol 3350 AdvReac Nausea Verified 07/11/16 08:00 [From Golytely] potassium chloride AdvReac Nausea Verified 07/11/16 08:00 [From Golytely] sodium [From Golytely] AdvReac Nausea Verified 07/11/16 08:00 sodium bicarbonate AdvReac Nausea Verified 07/11/16 08:00 [From Golytely] sodium chloride AdvReac Nausea Verified 07/11/16 08:00 [From Golytely] sodium sulfate AdvReac Nausea Verified 07/11/16 08:00 [From Golytely] Tizanidine AdvReac Dizziness Verified 07/11/16 08:00 - Respiratory Orders Oxygen / L per min (Maintain saturation greater than 90%) Smoking Cessation: Smoking cessation has been advised. For more information, call the [place] Tobacco Quit Line at 8-527-OAPY-NOW. - Ancillary Orders May use pressure relief devices daily prn, May consult with Dentist, Appliquer, Administration Physician PRN - Advance Directives Code Status: Full Code - Mobility Orders Ambulate - Rehabiliation Orders Rehab Potential: Fair Rehab Orders: Evaluation for Physical Therapy, Evaluation for Occupational Therapy - Treatments Skin tear care topically daily PRN per policy, May check for fecal impaction rectally daily PRN, Fleet enema rectally every other day PRN cleansing purposes - Diet Orders No Concentrated Sweets, Cardiac CERTIFICATION: I certify that the transfer of the above named patient to an Extended Care Facility is necessary for the continuing treatment of the diagnosis listed. The above information is true and accurate reflection of patient's current condition. Confidential - Redisclosure prohibited without a patient's written consent.
--- NOTE | 2018-07-05 11:29 | Discharge Summary ---
- NOTES TO OUTPATIENT PROVIDER Notes to Outpatient Provider: Presented with R distal femur fracture. Had ORIF. Post op had significant hyponatremia. Has improved to baseline. Orders not resulted at time of discharge: Pending orders 07/03/18 21:47 [place] Lambda Qnt FLC w Ratio Routine 07/06/18 04:00 BMP [Basic Metabolic Panel] AM 0400 Complete Blood Count w/o Diff [HEME] AM 0400 07/07/18 04:00 BMP [Basic Metabolic Panel] AM 0400 Complete Blood Count w/o Diff [HEME] AM 0400 Date of Encounter: 07/05/18 Time of Encounter: 11:15 - Discharge Diagnosis (1) Acute hyponatremia Priority: Secondary Status: Acute (2) Closed fracture of distal end of femur Priority: Primary Status: Acute Qualifiers: Encounter type: subsequent encounter Fracture morphology: other fracture Laterality: right Fracture healing: with routine healing Qualified Code(s): S72.491D - Other fracture of lower end of right femur, subsequent encounter for closed fracture with routine healing (3) Acute blood loss anemia Priority: Secondary Status: Acute (4) Diabetes mellitus Priority: Secondary Status: Chronic Qualifiers: Diabetes mellitus type: type 2 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 use: with half-way use Diabetes mellitus complication status: with hyperglycemia Qualified Code(s): E11.65 - Type 2 diabetes mellitus with hyperglycemia; Z79.4 - care home (current) use of insulin (5) Vaginal discharge Priority: Secondary Status: Acute (6) Fall Priority: Secondary Status: Acute Qualifiers: Encounter type: subsequent encounter Qualified Code(s): W19.XXXD - Unspecified fall, subsequent encounter (7) Hypertension Priority: Secondary Status: Chronic Qualifiers: Hypertension type: essential hypertension Qualified Code(s): I10 - Essential (primary) hypertension (8) Morbid obesity with BMI of 50.0-59.9, adult Priority: Secondary Status: Chronic Hospital course: Ms. Paiz is a 68 year old female with hx HTN and DM presented to ED after a fall. She was found to have distal R femur fracture and admitted. Ms Paiz was admitted to med surg. She was evaluated by orthopedics and underwent ORIF on 06/28. Postoperative she had management of her chronic conditions of DM and HTN. Her H/H decreased thought due to acute blood loss. She developed hyponatremia and was placed on fluid restriction. She continued to have issues and was seen by renal service and started on PO salt tabs as well. She was given IV Normal saline and continued to have issues with her sodium. Ultimately she received dose of Tolvaptan and had slow steady improvement. Today her sodium is not at the same as when she was admitted. She had issues with refusing to get out of bed or have a bath. She was noted to have some vaginal discharge and a week course of Flagyl was begun. Today she is afebrile and ready for discharge to SNF. Discharge discussed with: patient, nurse - Time Spent with Patient Total time spent providing and/or coordinating discharge services: 42min - Discharge Medications Prescriptions: New metroNIDAZOLE [Flagyl] 500 mg PO BID tablet Insulin LISPRO [HumaLOG] 6 units SQ TIDWM vial Insulin DETEMIR [Levemir] 15 unit SQ BID [id number] Gabapentin [Neurontin] 600 mg PO TID capsule Oxycodone HCl/Acetaminophen [Percocet 5-325 mg Tablet] 1 each PO Q6H PRN 1 Days #5 tablet PRN Reason: Severe Pain Sodium Chloride [Sodium Chloride Tab] 1 gm PO TID tablet Continued Duloxetine HCl [Cymbalta] 60 mg PO BID Amitriptyline HCl 100 mg PO HS Simvastatin [Zocor] 40 mg PO HS Budesonide/Formoterol 80/4.5 [Symbicort 80/4.5] 1 puff IH 1-3XD Albuterol Sulfate [Albuterol Inhaler] 2 puff IH Q4HR PRN PRN Reason: Shortness Of Breath Pantoprazole Sodium [Protonix] 40 mg PO DAILY Ipratropium [place] 2 spray NS DAILY PRN PRN Reason: Shortness Of Breath Diltiazem HCl [Cardizem] 60 mg PO BID Docusate [Colace] 100 mg PO DAILY PRN PRN Reason: Constipation Insulin ASPART [Novolog Flexpen] 0 unit SQ TIDWM PRN PRN Reason: PER SLIDING SCALE Liraglutide [Victoza 3-Amarjit] 1.8 mg SQ DAILY Lisinopril [Zestril] 20 mg PO DAILY Loratadine [Claritin] 10 mg PO DAILY Montelukast [Singulair] 10 mg PO HS PRN PRN Reason: Allergy Symptoms Polyethylene Glycol 3350 17 gm PO DAILY PRN PRN Reason: Constipation Trazodone HCl 100 mg PO DAILY Trazodone HCl 150 mg PO HS Calcium Polycarbophil [Fiber Laxative] 1,250 mg PO DAILY PRN PRN Reason: Constipation Discontinued Gabapentin [Neurontin] 1,200 mg PO TID Insulin Degludec [Tresiba Flextouch U-100] 25 - 36 unit SQ DAILY HYDROcodone/Acet 10/325 mg [[place] 10-325 mg] 0.5 - 1 tab PO TID PRN PRN Reason: Pain Ibuprofen [Ibu-200] 200 mg PO DAILY PRN PRN Reason: Pain Metformin HCl [Glucophage] 1,000 mg PO BIDWM Home Medications: Duloxetine HCl [Cymbalta] 60 mg PO BID 01/18/15 [History] Amitriptyline HCl 100 mg PO HS 06/11/16 [History] Albuterol Sulfate [Albuterol Inhaler] 2 puff IH Q4HR PRN 07/11/16 [History] Budesonide/Formoterol 80/4.5 [Symbicort 80/4.5] 1 puff IH 1-3XD 07/11/16 [History] Pantoprazole Sodium [Protonix] 40 mg PO DAILY 07/11/16 [History] Simvastatin [Zocor] 40 mg PO HS 07/11/16 [History] Ipratropium [place] 2 spray NS DAILY PRN 08/07/16 [History] Calcium Polycarbophil [Fiber Laxative] 1,250 mg PO DAILY PRN 06/27/18 [History] Diltiazem HCl [Cardizem] 60 mg PO BID 06/27/18 [History] Docusate [Colace] 100 mg PO DAILY PRN 06/27/18 [History] Insulin ASPART [Novolog Flexpen] 0 unit SQ TIDWM PRN 06/27/18 [History] Liraglutide [Victoza 3-Amarjit] 1.8 mg SQ DAILY 06/27/18 [History] Lisinopril [Zestril] 20 mg PO DAILY 06/27/18 [History] Loratadine [Claritin] 10 mg PO DAILY 06/27/18 [History] Montelukast [Singulair] 10 mg PO HS PRN 06/27/18 [History] Polyethylene Glycol 3350 17 gm PO DAILY PRN 06/27/18 [History] Trazodone HCl 100 mg PO DAILY 06/27/18 [History] Trazodone HCl 150 mg PO HS 06/27/18 [History] Gabapentin [Neurontin] 600 mg PO TID capsule 07/05/18 [Rx] Insulin DETEMIR [Levemir] 15 unit SQ BID [id number] 07/05/18 [Rx] Insulin LISPRO [HumaLOG] 6 units SQ TIDWM vial 07/05/18 [Rx] Oxycodone HCl/Acetaminophen [Percocet 5-325 mg Tablet] 1 each PO Q6H PRN 1 Days #5 tablet 07/05/18 [Rx] Sodium Chloride [Sodium Chloride Tab] 1 gm PO TID tablet 07/05/18 [Rx] metroNIDAZOLE [Flagyl] 500 mg PO BID tablet 07/05/18 [Rx] Allergies/Adverse Reactions: Allergy/AdvReac Type Severity Reaction Status Date / Time polyethylene glycol AdvReac Nausea Verified 07/11/16 08:00 [From Golytely] polyethylene glycol 3350 AdvReac Nausea Verified 07/11/16 08:00 [From Golytely] potassium chloride AdvReac Nausea Verified 07/11/16 08:00 [From Golytely] sodium [From Golytely] AdvReac Nausea Verified 07/11/16 08:00 sodium bicarbonate AdvReac Nausea Verified 07/11/16 08:00 [From Golytely] sodium chloride AdvReac Nausea Verified 07/11/16 08:00 [From Golytely] sodium sulfate AdvReac Nausea Verified 07/11/16 08:00 [From Golytely] Tizanidine AdvReac Dizziness Verified 07/11/16 08:00 Date of admission: 06/28/18 13:03 Primary care physician: Cole Boswell MD Consults: 06/27/18 22:30 Consult to Orthopedic Surgery [CONS] Routine Consulting Provider: Humberto Ho Reason for Consult: Right distal femur fracture. History of total knee replacement [address] Ho Call Completed: Yes 06/30/18 20:01 Consult to Occupational Therapy [CONS] Routine Comment: Evaluate, develop and implement POC Reason for Consult: postop Does patient have active BEDREST order?: No Is patient medically & hemodynamically stable?: Yes Patient assessed for mobility or mobilized this visit?: Yes Consult to Orthopedic Navigator [CONS] [CONS] Routine Consult to Physical Therapy [CONS] Routine Comment: Evaluate, develop and implement POC Reason for Consult: postop Does patient have active BEDREST order?: No Is patient medically & hemodynamically stable?: Yes Patient assessed for mobility or mobilized this visit?: Yes Consult to Costing Analyst [CONS] Routine Reason for SW Consult: placement RT Post Op Consult [CONS] Routine 07/01/18 07:46 Consult to Nephrology [CONS] Routine Consulting Provider: [facility]/MAR/BRENDAN/RAMANA Reason for Consult: hyponatremia Call Completed: No Discharging clinician: Zane Garcia Anticipated date of discharge: 07/05/18 - Constitutional Vitals: Temp Pulse Resp BP Pulse Ox 98.9 F 82 17 144/75 92 07/05/18 08:41 07/05/18 08:41 07/05/18 08:41 07/05/18 08:41 07/05/18 08:41 General appearance: Present: cooperative, A&O X 3, answers questions appropriately Exam: see below - Head Head exam: Present: atraumatic, normocephalic - Eye Eye exam: Present: EOMI, conjuntiva pink - ENT ENT exam: Present: mucous membranes dry - Neck Neck exam general surgery: Present: normal inspection - Respiratory Respiratory exam: Present: decreased breath sounds, CTAB - Cardiovascular Cardiovascular exam: Present: RRR. Absent: tachycardia - GI/Abdominal GI/Abdominal exam: Present: soft. Absent: tenderness - Extremities Exam Extremities exam: Present: warm - Neurological Exam Neurological exam: Present: alert, oriented X3 - Skin Skin exam: Present: dry, warm - Patient Status Disposition: Transfer SNF Condition: Fair Functional capacity at discharge: uses cane/walker Overall status at discharge: patient is progressing back to baseline - Discharge Instructions Follow Up With: Cole Boswell MD [Primary Care Provider] - Additional Instructions: Discharge Instructions: Total Knee Replacement Please call [facility] ([phone]), your Primary Care Physician, or report to the Emergency Room if you have any of the following symptoms: Nausea, vomiting, fever greater that 101.5, swelling, chest pain, shortness of breath, increased pain/redness/drainage/odor for your incision site, numbness/tingling, or any other concerning symptoms. ACTIVITY: Non-weight bearing. No knee motion. You may progress off support (crutches or walker) as tolerated. Incentive Spirometer 10 times an hour. MEDICATIONS: Upon discharge resume your home medications. Take all the medications as prescribed. Take a stool softener if taking narcotic pain medications. Stool softeners are only effective if you drink enough fluids. Drink 6-8 glass of water or fluids a day, unless this is not allowed for another health problem. Despite using stool softeners, if you haven't had a bowel movem ent in 3 days, please switch to a gentle laxative. Gentle laxatives are sold over the counter. You should have a bowel movement within 24 hours, if not call the office. You will be discharged from the hospital with a prescription for pain medication. You are encouraged to decrease the use of narcotic pain medication as tolerated. Should you require a refill, please call the office. [facility] prescribes narcotic pain medication for only 4-6 weeks after surgery. If you require pain medication beyond this time period, you may be referred to your Primary Care Physician or to the Pain Clinic for further evaluation. Plan ahead for refills on pain medication as many narcotics either need to be picked up at the office or mailed. It is best to call 48-72 hours in advance of needing a prescription refill so you don't run out of medication. To help control the post-operative pain, you may take NSAIDs (Aleve,Advil, Motrin, Ibuprofen, Naprosyn) or Tylenol as prescribed on the bottle in addition to the pain medication. ANTICOAGULATION (blood thinners): Continue your Aspirin, Lovenox or Coumadin as prescribed to help prevent a blood clot in the leg or in the lungs. As long as your incision remains dry and you tolerate the NSAIDs (Aleve, Advil, Motrin, ibuprofen, naprosyn), it is OK to use the NSAIDS while you are taking your anticoagulation medication. Should your incision start to drain, stop the NSAID and contact our office. Common symptoms of blood clot in the legs include: localized pain, swelling, calf tenderness, redness or discoloration of the skin. Blood clot in the lung symptoms include: shortness of breath, rapid pulse, sweating, and chest pain that worsens with deep breathing, coughing up blood, lightheadedness, feelings of anxiety. If you experience any of these symptoms notify your physician immediately, go to the emergency room, or if having trouble breathing, call 911. WOUND CARE: Leave the dressing on for 7 to 10days. You may change the dressing if it becomes saturated greater than 50%. Do not get the dressing wet at anytime. Wash your hands with antibacterial soap, rinse and dry prior to any wound care. If you have jessica the visiting nurse or rehab facility can remove the stapes 10-14 days after surgery and place steri-strips across the wound. Leave the steri-strips in place until they fall off on their won. You may let water from the shower run on top of the steri-strips. If you do not have a visiting nurse or rehab facility, you will need to return to the office at 10-14 days for the jessica to be removed. If you have itching or redness around the dressing call the office. FOLLOW-UP: Please follow up with your surgeon in the orthopedic clinic in 4 weeks from the day of surgery. If you have jessica that need to be removed, you will need to come back to the office in 10-14 days from the day of surgery. - Diet and Activity Activity: as per physical therapy Diet: diabetic diet, low fat, low cholesterol, low salt diet (1500ml fluid restriction/24 hours)
[2018-07-05 16:02] VITALS: BP 143/62
[2018-07-05] MEDS: *HR* Rivaroxaban 10 MG TABLET PO SCH (18:09)
[2018-07-06 02:44] LABS: Kappa Qnt Free Light Chains 3.83 mg/dL (0.33-1.94); Lambda Qnt Free Light Chains 2.47 mg/dL (0.57-2.63)
== END 2018-07-05 21:57 | DRG 481 ==
LOC: EMEROOARM 16:09 → 3ANU 16:09 → SUATTDRO 18:54 → 3ANU 21:30 → SUATTDRO 06-28 13:03 → 3NENU 07-01 17:53
PROVIDERS: ADMIT Internal Medicine Nephrology; ATTEND Internal Medicine

== ENCOUNTER 2018-09-06 17:18 | Inpatient (IN) ==
[2018-09-06] MEDS ORDERED: Isovue-370 500 ML BOTTLE IVP ONE (17:32)
[2018-09-06 17:37] LABS: Basophils # 0.1 K/mcL (0.0-0.2); Basophils % 1.1 %; Eosinophils # 0.2 K/mcL (0.0-0.6); Eosinophils % 1.9 %; Hematocrit 37.8 % (35.3-44.9); Hemoglobin 12.8 g/dL (11.5-15.4); Lymphocytes # 3.1 K/mcL (0.6-4.6); Lymphocytes % 33.6 %; Mean Corpuscular HGB Conc 33.9 g/dL (31.6-35.5); Mean Corpuscular Hemoglobin 29.7 pg (28.0-33.3); Mean Corpuscular Volume 87.7 fL (83.0-100.0); Mean Platelet Volume 8.6 fL (9.4-12.4); Monocytes # 0.6 K/mcL (0.0-1.3); Monocytes % 6.7 %; Neutrophils # 5.1 K/mcL (1.6-8.9); Platelet Count 254 K/mcL (140-400); Red Blood Count 4.31 M/mcL (3.82-4.97); Red Cell Distribution Width 13.6 % (11.5-14.5); Segmented Neutrophils % 55.7 %; White Blood Count 9.1 K/mcL (4.3-11.1)
[2018-09-06 18:03] LABS: Alanine Aminotransferase 9 Units/L (7-52); Albumin 3.5 g/dL (3.5-5.7); Albumin/Globulin Ratio 1.1 (1.1-2.2); Alkaline Phosphatase 97 Units/L (34-104); Aspartate Amino Transferase 14 Units/L (13-39); BUN/Creatinine Ratio 20 (6-26); Bilirubin,Direct 0.2 mg/dL (0.0-0.2); Bilirubin,Indirect 0.2 mg/dL (0.0-1.2); Bilirubin,Total 0.4 mg/dL (0.3-1.0); Blood Urea Nitrogen 18 mg/dL (8-23); Calcium 8.8 mg/dL (8.6-10.3); Carbon Dioxide 26 mEq/L (23-29); Chloride 87 mEq/L (98-107); Globulin 3.1 g/dL (2.4-3.5); Glucose 69 mg/dL (70-105); Lipase 16 Units/L (11-82); Osmolality,Calculated 242 (280-300); Potassium 6.2 mEq/L (3.5-5.1); Sodium 116 mEq/L (136-145); Total Protein 6.6 g/dL (6.4-8.9); eGFR For African Americans > 60 (> 60); eGFR For Non-African Americans > 60 (> 60)
[2018-09-06] MEDS ORDERED: *HR* Dextrose 50 % in Water (Syg) 50 ML SYRINGE IVP ONE (18:05)
[2018-09-06] MEDS ORDERED: Insulin Human Regular 10 UNIT in 0.9 % Sodium Chloride 10 ML IV ONE (18:05)
[2018-09-06] MEDS ORDERED: Albuterol 2.5 MG/3 ML NEBULIZER IH ONE (18:06)
[2018-09-06] MEDS ORDERED: 0.9 % Sodium Chloride 1,000 ML IVC ONE ×4 (18:09→22:39)
[2018-09-06] MEDS ORDERED: Calcium Gluconate 1gm/50mL 1 GM/50 ML BAG IVPB ONE (18:32)
[2018-09-06 19:06] LABS: Prothrombin Time 11.4 Seconds (9.4-12.1)
[2018-09-06 20:04] LABS: Sodium, Urine 12.7 mEq/L
[2018-09-06] MEDS ORDERED: Naloxone 0.4 MG/ML INJ IVP PRN (20:04)
[2018-09-06] MEDS ORDERED: Ondansetron 4 MG/2 ML VIAL IVP PRN (20:04)
[2018-09-06] MEDS ORDERED: Albuterol 2.5 MG/3 ML NEBULIZER IH PRN (20:04)
[2018-09-06] MEDS ORDERED: *HR* Propofol 200 MG/20 ML VIAL IVP ONE (20:07)
[2018-09-06 20:13] LABS: Potassium 4.6 mEq/L (3.5-5.1)
[2018-09-06 20:25] LABS: Bilirubin,Urine Negative (Negative); Blood,Urine Negative (Negative); Clarity,Urine Cloudy (Clear); Color,Urine Yellow (Yellow); Glucose,Urine (UA) Normal (Normal); Ketones,Urine Negative (Negative); Leukocyte Esterase,Urine Large (Negative); Nitrite,Urine Negative (Negative); PH,Urine 6.5 pH Units (5.0-8.0); Protein,Urine Trace mg/dL (Neg-Trace); Specific Gravity,Urine 1.023 (1.010-1.025); Urobilinogen,Urine Normal (Normal)
[2018-09-06] MEDS ORDERED: *HR* LORazepam 2 MG/ML VIAL IVP PRN (20:26)
[2018-09-06 20:27] LABS: Bacteria,Urine Many per hpf (None-Few); Hyaline Casts,Urine Few per lpf (None-Few); RBC,Urine 0-3 per hpf (0-3); Squamous Epithelial Cell,Urine Many per lpf (None-Few); WBC,Urine 50-100 per hpf (0-3)
[2018-09-06 20:29] LABS: Magnesium 1.5 mg/dL (1.6-2.6)
[2018-09-06] MEDS ORDERED: Dexamethasone 4 MG/ML VIAL ONE (21:11)
[2018-09-06] MEDS ORDERED: Ondansetron 4 MG/2 ML VIAL ONE (21:11)
[2018-09-06] MEDS ORDERED: Dextrose Gel 15 GM/37.5 ML TUBE PO PRN ×2 (21:35)
[2018-09-06] MEDS ORDERED: *HR* Dextrose 50 % in Water (Syg) 50 ML SYRINGE IVP PRN (21:35)
[2018-09-06] MEDS ORDERED: D5% in Water 1,000 ML IVC PRN (21:35)
[2018-09-06] MEDS: Budesonide/Formoterol 80/4.5 1 PUFF INH IH SCH (21:46)
[2018-09-06] MEDS: *HR* Heparin 5,000 UNIT/ML VIAL SQ SCH (21:48)
[2018-09-06 23:26] LABS: BUN/Creatinine Ratio 21 (6-26); Blood Urea Nitrogen 17 mg/dL (8-23); Carbon Dioxide 25 mEq/L (23-29); Chloride 92 mEq/L (98-107); Glucose 88 mg/dL (70-105); Magnesium 1.8 mg/dL (1.6-2.6); Osmolality,Calculated 257 (280-300); Potassium 4.5 mEq/L (3.5-5.1); Sodium 123 mEq/L (136-145); eGFR For African Americans > 60 (> 60); eGFR For Non-African Americans > 60 (> 60)
[2018-09-06] MEDS: MetroNIDAZOLE 500 MG/100 ML 500 MG/100 ML BAG IVPB SCH (23:49)
[2018-09-07 05:08] LABS: Basophils % 0.4 %; Eosinophils % 0.1 %; Hematocrit 34.4 % (35.3-44.9); Hemoglobin 11.6 g/dL (11.5-15.4); Lymphocytes # 0.5 K/mcL (0.6-4.6); Lymphocytes % 6.6 %; Mean Corpuscular HGB Conc 33.7 g/dL (31.6-35.5); Mean Corpuscular Hemoglobin 30.4 pg (28.0-33.3); Mean Corpuscular Volume 90.1 fL (83.0-100.0); Mean Platelet Volume 8.5 fL (9.4-12.4); Monocytes # 0.1 K/mcL (0.0-1.3); Monocytes % 1.7 %; Neutrophils # 6.3 K/mcL (1.6-8.9); Platelet Count 195 K/mcL (140-400); Red Blood Count 3.82 M/mcL (3.82-4.97); Red Cell Distribution Width 13.3 % (11.5-14.5); Segmented Neutrophils % 90.2 %
[2018-09-07] MEDS: *HR* Heparin 5,000 UNIT/ML VIAL SQ SCH ×3 (05:09→22:01)
[2018-09-07] MEDS: Pantoprazole 40 MG VIAL IVP SCH ×2 (05:09→18:48)
[2018-09-07 05:16] LABS: Prothrombin Time 11.8 Seconds (9.4-12.1)
[2018-09-07 05:32] LABS: Alanine Aminotransferase 7 Units/L (7-52); Albumin/Globulin Ratio 1.1 (1.1-2.2); Alkaline Phosphatase 81 Units/L (34-104); Aspartate Amino Transferase 10 Units/L (13-39); BUN/Creatinine Ratio 18 (6-26); Bilirubin,Total 0.4 mg/dL (0.3-1.0); Blood Urea Nitrogen 14 mg/dL (8-23); Calcium 8.4 mg/dL (8.6-10.3); Carbon Dioxide 26 mEq/L (23-29); Chloride 92 mEq/L (98-107); Globulin 2.7 g/dL (2.4-3.5); Glucose 145 mg/dL (70-105); Osmolality,Calculated 265 (280-300); Phosphorous 4.1 mg/dL (2.7-4.5); Potassium 5.5 mEq/L (3.5-5.1); Sodium 126 mEq/L (136-145); Total Protein 5.7 g/dL (6.4-8.9); eGFR For African Americans > 60 (> 60); eGFR For Non-African Americans > 60 (> 60)
[2018-09-07 05:33] LABS: BUN/Creatinine Ratio 18 (6-26); Blood Urea Nitrogen 14 mg/dL (8-23); Calcium 8.4 mg/dL (8.6-10.3); Carbon Dioxide 27 mEq/L (23-29); Chloride 92 mEq/L (98-107); Glucose 146 mg/dL (70-105); Magnesium 1.9 mg/dL (1.6-2.6); Osmolality,Calculated 265 (280-300); Potassium 5.5 mEq/L (3.5-5.1); Sodium 126 mEq/L (136-145); eGFR For African Americans > 60 (> 60); eGFR For Non-African Americans > 60 (> 60)
[2018-09-07] MEDS: MetroNIDAZOLE 500 MG/100 ML 500 MG/100 ML BAG IVPB SCH ×2 (07:29→15:30)
[2018-09-07] MEDS ORDERED: Albuterol 2.5 MG/3 ML NEBULIZER IH ONE (07:55)
[2018-09-07] MEDS: Budesonide/Formoterol 80/4.5 1 PUFF INH IH SCH ×2 (08:17→20:14)
[2018-09-07] MEDS: Insulin LISPRO 300 UNITS/3 ML VIAL SQ SCH ×4 (09:17→21:56)
[2018-09-07 10:11] LABS: BUN/Creatinine Ratio 17 (6-26); Blood Urea Nitrogen 12 mg/dL (8-23); Calcium 8.5 mg/dL (8.6-10.3); Carbon Dioxide 28 mEq/L (23-29); Chloride 94 mEq/L (98-107); Glucose 156 mg/dL (70-105); Osmolality,Calculated 269 (280-300); Potassium 4.7 mEq/L (3.5-5.1); Sodium 128 mEq/L (136-145); eGFR For African Americans > 60 (> 60); eGFR For Non-African Americans > 60 (> 60)
[2018-09-07] MEDS ORDERED: D5% in Water 1,000 ML IVC SCH (12:15)
[2018-09-07 12:32] LABS: BUN/Creatinine Ratio 19 (6-26); Blood Urea Nitrogen 11 mg/dL (8-23); Carbon Dioxide 24 mEq/L (23-29); Chloride 94 mEq/L (98-107); Potassium 4.7 mEq/L (3.5-5.1); Sodium 125 mEq/L (136-145); eGFR For African Americans > 60 (> 60)
[2018-09-07 12:33] LABS: Calcium 7.9 mg/dL (8.6-10.3); Glucose 168 mg/dL (70-105); Osmolality,Calculated 263 (280-300); eGFR For Non-African Americans > 60 (> 60)
[2018-09-07 16:08] LABS: BUN/Creatinine Ratio 20 (6-26); Blood Urea Nitrogen 10 mg/dL (8-23); Calcium 8.1 mg/dL (8.6-10.3); Carbon Dioxide 26 mEq/L (23-29); Chloride 91 mEq/L (98-107); Glucose 92 mg/dL (70-105); Osmolality,Calculated 257 (280-300); Potassium 4.5 mEq/L (3.5-5.1); Sodium 124 mEq/L (136-145); eGFR For African Americans > 60 (> 60); eGFR For Non-African Americans > 60 (> 60)
[2018-09-07 20:12] LABS: BUN/Creatinine Ratio 14 (6-26); Blood Urea Nitrogen 9 mg/dL (8-23); Carbon Dioxide 26 mEq/L (23-29); Chloride 90 mEq/L (98-107); Glucose 158 mg/dL (70-105); Osmolality,Calculated 258 (280-300); Potassium 4.2 mEq/L (3.5-5.1); Sodium 123 mEq/L (136-145); eGFR For African Americans > 60 (> 60); eGFR For Non-African Americans > 60 (> 60)
[2018-09-07] MEDS: Thiamine (B-1) 100 MG, Folic Acid 1 MG, MVI, adult with vitamin K 10 ML in 0.9 % Sodi... IVPB SCH (22:01)
[2018-09-07] MEDS: traZODone 50 MG TABLET PO SCH (22:02)
[2018-09-08] MEDS: MetroNIDAZOLE 500 MG/100 ML 500 MG/100 ML BAG IVPB SCH (01:05)
[2018-09-08 03:53] LABS: BUN/Creatinine Ratio 11 (6-26); Blood Urea Nitrogen 7 mg/dL (8-23); Calcium 8.5 mg/dL (8.6-10.3); Carbon Dioxide 30 mEq/L (23-29); Chloride 92 mEq/L (98-107); Glucose 94 mg/dL (70-105); Osmolality,Calculated 264 (280-300); Potassium 3.8 mEq/L (3.5-5.1); Sodium 128 mEq/L (136-145); eGFR For African Americans > 60 (> 60); eGFR For Non-African Americans > 60 (> 60)
[2018-09-08] MEDS: *HR* Heparin 5,000 UNIT/ML VIAL SQ SCH ×3 (05:49→21:51)
[2018-09-08] MEDS: Pantoprazole 40 MG VIAL IVP SCH (05:49)
[2018-09-08] MEDS: Budesonide/Formoterol 80/4.5 1 PUFF INH IH SCH ×2 (07:32→19:49)
[2018-09-08] MEDS: Insulin LISPRO 300 UNITS/3 ML VIAL SQ SCH ×4 (10:11→21:35)
[2018-09-08] MEDS ORDERED: MOM Conc 10 ML UD.LIQ PO ONE (10:58)
[2018-09-08] MEDS ORDERED: Bisacodyl 10 MG RECTAL SUPPOSITORY RC ONE (10:58)
[2018-09-08] MEDS: metroNIDAZOLE 500 MG TABLET PO SCH ×2 (14:32→21:47)
[2018-09-08] MEDS: Thiamine (B-1) 100 MG, Folic Acid 1 MG, MVI, adult with vitamin K 10 ML in 0.9 % Sodi... IVPB SCH (19:20)
[2018-09-08] MEDS: traZODone 50 MG TABLET PO SCH (21:48)
[2018-09-09 02:54] LABS: Hematocrit 33.4 % (35.3-44.9); Hemoglobin 11.2 g/dL (11.5-15.4); Mean Corpuscular HGB Conc 33.5 g/dL (31.6-35.5); Mean Corpuscular Hemoglobin 29.6 pg (28.0-33.3); Mean Corpuscular Volume 88.1 fL (83.0-100.0); Mean Platelet Volume 8.5 fL (9.4-12.4); Platelet Count 209 K/mcL (140-400); Red Blood Count 3.79 M/mcL (3.82-4.97); Red Cell Distribution Width 13.5 % (11.5-14.5); White Blood Count 6.1 K/mcL (4.3-11.1)
[2018-09-09 03:16] LABS: BUN/Creatinine Ratio 16 (6-26); Blood Urea Nitrogen 7 mg/dL (8-23); Calcium 8.1 mg/dL (8.6-10.3); Carbon Dioxide 27 mEq/L (23-29); Chloride 99 mEq/L (98-107); Glucose 113 mg/dL (70-105); Osmolality,Calculated 277 (280-300); Potassium 3.1 mEq/L (3.5-5.1); Sodium 134 mEq/L (136-145); eGFR For African Americans > 60 (> 60); eGFR For Non-African Americans > 60 (> 60)
[2018-09-09] MEDS: *HR* Heparin 5,000 UNIT/ML VIAL SQ SCH ×3 (05:14→20:39)
[2018-09-09 05:27] LABS: Bilirubin,Urine Negative (Negative); Blood,Urine Negative (Negative); Clarity,Urine Cloudy (Clear); Color,Urine Yellow (Yellow); Glucose,Urine (UA) Normal (Normal); Ketones,Urine Negative (Negative); Leukocyte Esterase,Urine Negative (Negative); Nitrite,Urine Negative (Negative); Protein,Urine Negative (Neg-Trace); Specific Gravity,Urine 1.007 (1.010-1.025); Urobilinogen,Urine Normal (Normal)
[2018-09-09 05:29] LABS: Bacteria,Urine None Seen per hpf (None-Few); Hyaline Casts,Urine None Seen per lpf (None-Few); Squamous Epithelial Cell,Urine Many per lpf (None-Few); WBC,Urine 0-3 per hpf (0-3)
[2018-09-09] MEDS: MetroNIDAZOLE 500 MG/100 ML 500 MG/100 ML BAG IVPB SCH (07:55)
[2018-09-09] MEDS: Insulin LISPRO 300 UNITS/3 ML VIAL SQ SCH ×4 (07:59→20:45)
[2018-09-09] MEDS: metroNIDAZOLE 500 MG TABLET PO SCH ×3 (08:11→20:44)
[2018-09-09] MEDS: Budesonide/Formoterol 80/4.5 1 PUFF INH IH SCH ×2 (10:39→20:22)
[2018-09-09] MEDS ORDERED: Bisacodyl 10 MG RECTAL SUPPOSITORY RC ONE (11:15)
[2018-09-09] MEDS: Thiamine (B-1) 100 MG, Folic Acid 1 MG, MVI, adult with vitamin K 10 ML in 0.9 % Sodi... IVPB SCH (17:22)
[2018-09-09] MEDS: traZODone 50 MG TABLET PO SCH (20:44)
[2018-09-10 04:55] LABS: Hematocrit 34.3 % (35.3-44.9); Hemoglobin 11.6 g/dL (11.5-15.4); Mean Corpuscular HGB Conc 33.8 g/dL (31.6-35.5); Mean Corpuscular Hemoglobin 30.1 pg (28.0-33.3); Mean Corpuscular Volume 89.1 fL (83.0-100.0); Mean Platelet Volume 8.1 fL (9.4-12.4); Platelet Count 215 K/mcL (140-400); Red Blood Count 3.85 M/mcL (3.82-4.97); Red Cell Distribution Width 13.4 % (11.5-14.5); White Blood Count 6.7 K/mcL (4.3-11.1)
[2018-09-10 05:13] LABS: BUN/Creatinine Ratio 15 (6-26); Blood Urea Nitrogen 6 mg/dL (8-23); Calcium 8.2 mg/dL (8.6-10.3); Carbon Dioxide 26 mEq/L (23-29); Chloride 100 mEq/L (98-107); Glucose 115 mg/dL (70-105); Osmolality,Calculated 275 (280-300); Potassium 3.4 mEq/L (3.5-5.1); Sodium 133 mEq/L (136-145); eGFR For African Americans > 60 (> 60); eGFR For Non-African Americans > 60 (> 60)
[2018-09-10] MEDS: *HR* Heparin 5,000 UNIT/ML VIAL SQ SCH ×3 (06:21→22:33)
[2018-09-10] MEDS: Budesonide/Formoterol 80/4.5 1 PUFF INH IH SCH ×2 (07:31→19:58)
[2018-09-10] MEDS: metroNIDAZOLE 500 MG TABLET PO SCH ×3 (09:12→22:32)
[2018-09-10] MEDS: Insulin LISPRO 300 UNITS/3 ML VIAL SQ SCH ×4 (09:12→22:33)
[2018-09-10] MEDS: Potassium Chloride Elixir 20 MEQ/15 ML UDC PO SCH ×2 (11:09→17:07)
[2018-09-10] MEDS: Simethicone 80 MG TAB.CHEW PO SCH ×2 (16:48→22:33)
[2018-09-10] MEDS: traZODone 50 MG TABLET PO SCH (22:33)
[2018-09-11 05:10] LABS: Hematocrit 34.4 % (35.3-44.9); Hemoglobin 11.6 g/dL (11.5-15.4); Mean Corpuscular HGB Conc 33.7 g/dL (31.6-35.5); Mean Corpuscular Hemoglobin 30.1 pg (28.0-33.3); Mean Corpuscular Volume 89.4 fL (83.0-100.0); Mean Platelet Volume 7.9 fL (9.4-12.4); Platelet Count 197 K/mcL (140-400); Red Blood Count 3.85 M/mcL (3.82-4.97); Red Cell Distribution Width 13.5 % (11.5-14.5)
[2018-09-11 05:27] LABS: BUN/Creatinine Ratio 9 (6-26); Blood Urea Nitrogen 5 mg/dL (8-23); Calcium 8.4 mg/dL (8.6-10.3); Carbon Dioxide 28 mEq/L (23-29); Chloride 104 mEq/L (98-107); Glucose 104 mg/dL (70-105); Osmolality,Calculated 282 (280-300); Potassium 3.4 mEq/L (3.5-5.1); Sodium 137 mEq/L (136-145); eGFR For African Americans > 60 (> 60); eGFR For Non-African Americans > 60 (> 60)
[2018-09-11] MEDS: *HR* Heparin 5,000 UNIT/ML VIAL SQ SCH (06:13)
[2018-09-11] MEDS: Budesonide/Formoterol 80/4.5 1 PUFF INH IH SCH (07:19)
[2018-09-11 07:36] VITALS: BP 165/85
[2018-09-11] MEDS ORDERED: Docusate Oral Soln 100 MG/10 ML UDC PO SCH (09:00)
[2018-09-11] MEDS: Potassium Chloride Elixir 20 MEQ/15 ML UDC PO SCH ×2 (09:05→12:08)
[2018-09-11] MEDS: metroNIDAZOLE 500 MG TABLET PO SCH (09:06)
[2018-09-11] MEDS: Insulin LISPRO 300 UNITS/3 ML VIAL SQ SCH ×2 (09:06→12:08)
[2018-09-11] MEDS: Simethicone 80 MG TAB.CHEW PO SCH ×2 (09:06→12:08)
== END 2018-09-11 13:06 | DRG 389 ==
LOC: EMEROOARM 17:18 → ICNU 20:20 → SUATTDRO 20:21 → 3ANU 09-07 15:03
PROVIDERS: ADMIT Family Medicine; ATTEND Internal Medicine

== ENCOUNTER 2018-09-16 04:06 | Observation (INO) ==
[2018-09-16 05:25] LABS: Alanine Aminotransferase 7 Units/L (7-52); Albumin 3.5 g/dL (3.5-5.7); Albumin/Globulin Ratio 1.3 (1.1-2.2); Alkaline Phosphatase 66 Units/L (34-104); Aspartate Amino Transferase 12 Units/L (13-39); BUN/Creatinine Ratio 11 (6-26); Bilirubin,Total 0.5 mg/dL (0.3-1.0); Blood Urea Nitrogen 6 mg/dL (8-23); Calcium 8.5 mg/dL (8.6-10.3); Carbon Dioxide 28 mEq/L (23-29); Chloride 99 mEq/L (98-107); Globulin 2.7 g/dL (2.4-3.5); Glucose 51 mg/dL (70-105); Osmolality,Calculated 279 (280-300); Potassium 2.6 mEq/L (3.5-5.1); Sodium 137 mEq/L (136-145); Total Protein 6.2 g/dL (6.4-8.9); Troponin I < 0.03 ng/mL (< 0.04); eGFR For African Americans > 60 (> 60); eGFR For Non-African Americans > 60 (> 60)
[2018-09-16] MEDS ORDERED: Potassium Chloride Elixir 20 MEQ/15 ML UDC PO ONE (05:31)
[2018-09-16 05:33] LABS: Basophils # 0.1 K/mcL (0.0-0.2); Basophils % 0.5 %; Eosinophils # 0.1 K/mcL (0.0-0.6); Eosinophils % 1.1 %; Hematocrit 37.1 % (35.3-44.9); Hemoglobin 12.3 g/dL (11.5-15.4); Immature Granulocytes % 0.7 % (0-4); Lymphocytes # 1.9 K/mcL (0.6-4.6); Lymphocytes % 19.8 %; Mean Corpuscular HGB Conc 33.2 g/dL (31.6-35.5); Mean Corpuscular Hemoglobin 29.9 pg (28.0-33.3); Mean Corpuscular Volume 90.3 fL (83.0-100.0); Mean Platelet Volume 8.3 fL (9.4-12.4); Monocytes # 0.6 K/mcL (0.0-1.3); Monocytes % 6.4 %; Neutrophils # 6.8 K/mcL (1.6-8.9); Platelet Count 200 K/mcL (140-400); Red Blood Count 4.11 M/mcL (3.82-4.97); Red Cell Distribution Width 13.6 % (11.5-14.5); Segmented Neutrophils % 71.5 %; White Blood Count 9.5 K/mcL (4.3-11.1)
[2018-09-16 06:02] LABS: Magnesium 1.6 mg/dL (1.6-2.6)
[2018-09-16] MEDS ORDERED: Potassium Chloride 20 MEQ, Lidocaine 1% 2 ML in D5% in Water 250 ML IVPB ONE (06:12)
[2018-09-16] MEDS ORDERED: Naloxone 0.4 MG/ML INJ IVP PRN (07:50)
[2018-09-16] MEDS ORDERED: *HR* HYDROcodone/Acet 10/325 mg TABLET PO PRN (07:51)
[2018-09-16 08:43] LABS: Phosphorous 3.9 mg/dL (2.7-4.5)
[2018-09-16] MEDS ORDERED: D5% in Water 1,000 ML IVC PRN (08:48)
[2018-09-16] MEDS ORDERED: *HR* Dextrose 50 % in Water (Syg) 50 ML SYRINGE IVP PRN (08:48)
[2018-09-16] MEDS ORDERED: Dextrose Gel 15 GM/37.5 ML TUBE PO PRN ×2 (08:48)
[2018-09-16] MEDS ORDERED: INSULIN DEGLUDEC 25 UNIT SQ SCH (09:00)
[2018-09-16] MEDS: Docusate Oral Soln 100 MG/10 ML UDC PO SCH ×2 (09:41→19:46)
[2018-09-16] MEDS: Potassium Chloride Elixir 20 MEQ/15 ML UDC PO SCH ×2 (09:42→13:20)
[2018-09-16] MEDS: Lisinopril 20 MG TABLET PO SCH (09:43)
[2018-09-16] MEDS: Insulin DETEMIR 100 UNIT/ML X5UNITS SQ SCH (09:44)
[2018-09-16] MEDS: Insulin LISPRO 300 UNITS/3 ML VIAL SQ SCH ×2 (10:59→16:46)
[2018-09-16] MEDS: Budesonide/Formoterol 80/4.5 1 PUFF INH IH SCH ×2 (11:17→21:29)
[2018-09-16] MEDS ORDERED: Potassium Phosphate 44 MEQ in 0.9 % Sodium Chloride 250 ML IVPB ONE (14:29)
[2018-09-16] MEDS: *HR* Heparin 5,000 UNIT/ML VIAL SQ SCH (17:42)
[2018-09-16] MEDS: traZODone 50 MG TABLET PO SCH (19:46)
[2018-09-17 03:36] LABS: Basophils # 0.1 K/mcL (0.0-0.2); Basophils % 0.9 %; Eosinophils # 0.2 K/mcL (0.0-0.6); Hematocrit 34.6 % (35.3-44.9); Hemoglobin 11.4 g/dL (11.5-15.4); Immature Granulocytes % 0.5 % (0-4); Lymphocytes % 36.3 %; Mean Corpuscular HGB Conc 32.9 g/dL (31.6-35.5); Mean Corpuscular Hemoglobin 29.6 pg (28.0-33.3); Mean Corpuscular Volume 89.9 fL (83.0-100.0); Mean Platelet Volume 8.2 fL (9.4-12.4); Monocytes # 0.6 K/mcL (0.0-1.3); Monocytes % 6.9 %; Neutrophils # 4.3 K/mcL (1.6-8.9); Platelet Count 187 K/mcL (140-400); Red Blood Count 3.85 M/mcL (3.82-4.97); Red Cell Distribution Width 13.8 % (11.5-14.5); Segmented Neutrophils % 53.4 %; White Blood Count 8.1 K/mcL (4.3-11.1)
[2018-09-17 03:43] LABS: BUN/Creatinine Ratio 11 (6-26); Blood Urea Nitrogen 5 mg/dL (8-23); Calcium 8.1 mg/dL (8.6-10.3); Carbon Dioxide 26 mEq/L (23-29); Chloride 105 mEq/L (98-107); Glucose 81 mg/dL (70-105); Magnesium 1.5 mg/dL (1.6-2.6); Osmolality,Calculated 282 (280-300); Phosphorous 3.8 mg/dL (2.7-4.5); Potassium 2.8 mEq/L (3.5-5.1); Sodium 138 mEq/L (136-145); eGFR For African Americans > 60 (> 60); eGFR For Non-African Americans > 60 (> 60)
[2018-09-17] MEDS: *HR* Heparin 5,000 UNIT/ML VIAL SQ SCH ×2 (05:28→17:49)
[2018-09-17] MEDS ORDERED: Potassium Phosphate 44 MEQ in 0.9 % Sodium Chloride 250 ML IVPB ONE (06:39)
[2018-09-17] MEDS: Budesonide/Formoterol 80/4.5 1 PUFF INH IH SCH ×2 (07:41→20:28)
[2018-09-17] MEDS: Insulin LISPRO 300 UNITS/3 ML VIAL SQ SCH ×3 (08:13→17:48)
[2018-09-17] MEDS: Docusate Oral Soln 100 MG/10 ML UDC PO SCH ×2 (08:13→20:13)
[2018-09-17] MEDS: Lisinopril 20 MG TABLET PO SCH (08:13)
[2018-09-17] MEDS: Insulin DETEMIR 100 UNIT/ML X5UNITS SQ SCH ×2 (08:14→11:44)
[2018-09-17 14:28] LABS: BUN/Creatinine Ratio 10 (6-26); Blood Urea Nitrogen 5 mg/dL (8-23); Calcium 7.5 mg/dL (8.6-10.3); Carbon Dioxide 27 mEq/L (23-29); Chloride 103 mEq/L (98-107); Glucose 133 mg/dL (70-105); Magnesium 1.6 mg/dL (1.6-2.6); Osmolality,Calculated 277 (280-300); Potassium 3.6 mEq/L (3.5-5.1); Sodium 134 mEq/L (136-145); eGFR For African Americans > 60 (> 60); eGFR For Non-African Americans > 60 (> 60)
[2018-09-17] MEDS: traZODone 50 MG TABLET PO SCH (20:12)
[2018-09-18] MEDS: *HR* Heparin 5,000 UNIT/ML VIAL SQ SCH ×2 (05:29→17:14)
[2018-09-18] MEDS: Budesonide/Formoterol 80/4.5 1 PUFF INH IH SCH ×2 (07:50→20:02)
[2018-09-18] MEDS: Lisinopril 20 MG TABLET PO SCH (08:04)
[2018-09-18] MEDS: Docusate Oral Soln 100 MG/10 ML UDC PO SCH ×2 (08:04→21:16)
[2018-09-18] MEDS: Insulin LISPRO 300 UNITS/3 ML VIAL SQ SCH ×3 (08:14→17:14)
[2018-09-18] MEDS: Insulin DETEMIR 100 UNIT/ML X5UNITS SQ SCH ×2 (08:14→11:51)
[2018-09-18 09:36] LABS: BUN/Creatinine Ratio 11 (6-26); Blood Urea Nitrogen 5 mg/dL (8-23); Carbon Dioxide 29 mEq/L (23-29); Chloride 100 mEq/L (98-107); Glucose 117 mg/dL (70-105); Magnesium 1.4 mg/dL (1.6-2.6); Osmolality,Calculated 280 (280-300); Potassium 3.2 mEq/L (3.5-5.1); Sodium 136 mEq/L (136-145); eGFR For African Americans > 60 (> 60); eGFR For Non-African Americans > 60 (> 60)
[2018-09-18] MEDS ORDERED: Potassium Chloride Elixir 20 MEQ/15 ML UDC PO ONE ×2 (10:39→16:18)
[2018-09-18] MEDS ORDERED: Potassium Chloride Elixir 20 MEQ/15 ML UDC PO SCH (10:45)
[2018-09-18 15:12] LABS: BUN/Creatinine Ratio 15 (6-26); Blood Urea Nitrogen 6 mg/dL (8-23); Calcium 8.3 mg/dL (8.6-10.3); Carbon Dioxide 33 mEq/L (23-29); Chloride 99 mEq/L (98-107); Glucose 121 mg/dL (70-105); Magnesium 1.8 mg/dL (1.6-2.6); Osmolality,Calculated 281 (280-300); Potassium 3.1 mEq/L (3.5-5.1); Sodium 136 mEq/L (136-145); eGFR For African Americans > 60 (> 60); eGFR For Non-African Americans > 60 (> 60)
[2018-09-18] MEDS ORDERED: Potassium Chloride 40 MEQ, Lidocaine 1% 2 ML in D5% in Water 500 ML IVPB ONE (16:21)
[2018-09-18] MEDS: Magnesium Oxide 400 MG TABLET PO SCH (21:14)
[2018-09-18] MEDS: traZODone 50 MG TABLET PO SCH (21:14)
[2018-09-19] MEDS: *HR* Heparin 5,000 UNIT/ML VIAL SQ SCH (05:33)
[2018-09-19 06:25] LABS: BUN/Creatinine Ratio 11 (6-26); Blood Urea Nitrogen 5 mg/dL (8-23); Calcium 8.6 mg/dL (8.6-10.3); Carbon Dioxide 28 mEq/L (23-29); Chloride 103 mEq/L (98-107); Glucose 73 mg/dL (70-105); Magnesium 1.8 mg/dL (1.6-2.6); Osmolality,Calculated 284 (280-300); Potassium 3.1 mEq/L (3.5-5.1); Sodium 139 mEq/L (136-145); eGFR For African Americans > 60 (> 60); eGFR For Non-African Americans > 60 (> 60)
[2018-09-19 07:46] VITALS: BP 129/72
[2018-09-19] MEDS ORDERED: Potassium Chloride Elixir 20 MEQ/15 ML UDC PO ONE (07:54)
[2018-09-19] MEDS ORDERED: Potassium Chloride 40 MEQ, Lidocaine 1% 2 ML in D5% in Water 500 ML IVPB ONE (07:55)
[2018-09-19] MEDS: Budesonide/Formoterol 80/4.5 1 PUFF INH IH SCH (08:00)
[2018-09-19] MEDS: Insulin LISPRO 300 UNITS/3 ML VIAL SQ SCH ×2 (08:27→11:44)
[2018-09-19] MEDS: Magnesium Oxide 400 MG TABLET PO SCH (09:17)
[2018-09-19] MEDS: Insulin DETEMIR 100 UNIT/ML X5UNITS SQ SCH ×2 (09:17→11:21)
[2018-09-19] MEDS: Lisinopril 20 MG TABLET PO SCH (09:17)
[2018-09-19] MEDS: Docusate Oral Soln 100 MG/10 ML UDC PO SCH (09:17)
[2018-09-19 14:36] LABS: BUN/Creatinine Ratio 14 (6-26); Blood Urea Nitrogen 7 mg/dL (8-23); Carbon Dioxide 27 mEq/L (23-29); Chloride 102 mEq/L (98-107); Glucose 153 mg/dL (70-105); Osmolality,Calculated 279 (280-300); Potassium 4.3 mEq/L (3.5-5.1); Sodium 134 mEq/L (136-145); eGFR For African Americans > 60 (> 60); eGFR For Non-African Americans > 60 (> 60)
== END 2018-09-19 15:46 ==
LOC: EMEROOARM 04:06 → 3BNU 04:06
PROVIDERS: ADMIT Internal Medicine; ATTEND Internal Medicine

== ENCOUNTER 2019-03-24 08:14 | Inpatient (IN) ==
[2019-03-24 09:03] LABS: Basophils # 0.1 K/mcL (0.0-0.2); Basophils % 0.4 %; Eosinophils % 0.3 %; Hematocrit 40.2 % (35.3-44.9); Lymphocytes # 0.7 K/mcL (0.6-4.6); Lymphocytes % 5.9 %; Mean Corpuscular HGB Conc 34.8 g/dL (31.6-35.5); Mean Corpuscular Hemoglobin 30.1 pg (28.0-33.3); Mean Corpuscular Volume 86.5 fL (83.0-100.0); Monocytes # 0.5 K/mcL (0.0-1.3); Monocytes % 4.6 %; Platelet Count 175 K/mcL (140-400); Red Blood Count 4.65 M/mcL (3.82-4.97); Red Cell Distribution Width 11.9 % (11.5-14.5); Segmented Neutrophils % 87.8 %; White Blood Count 11.4 K/mcL (4.3-11.1)
[2019-03-24 09:23] LABS: BUN/Creatinine Ratio 25 (6-26); Blood Urea Nitrogen 18 mg/dL (8-23); Calcium 9.1 mg/dL (8.6-10.3); Carbon Dioxide 28 mEq/L (23-29); Chloride 92 mEq/L (98-107); Glucose 223 mg/dL (70-105); Osmolality,Calculated 279 (280-300); Sodium 130 mEq/L (136-145); eGFR For African Americans > 60 (> 60); eGFR For Non-African Americans > 60 (> 60)
[2019-03-24 09:27] LABS: Prothrombin Time 11.5 Seconds (9.4-12.1)
[2019-03-24 09:30] LABS: Activated Partial Thrombo Time 31.5 Seconds (26.0-36.0)
[2019-03-24 09:58] LABS: Alanine Aminotransferase 10 Units/L (7-52); Albumin 4.2 g/dL (3.5-5.7); Albumin/Globulin Ratio 1.2 (1.1-2.2); Alkaline Phosphatase 127 Units/L (34-104); Aspartate Amino Transferase 14 Units/L (13-39); Bilirubin,Direct 0.2 mg/dL (0.0-0.2); Bilirubin,Indirect 0.3 mg/dL (0.0-1.0); Bilirubin,Total 0.5 mg/dL (0.3-1.0); Ethanol < 10 mg/dL (Less than 10); Globulin 3.4 g/dL (2.4-3.5); Lipase 18 Units/L (11-82); Total Protein 7.6 g/dL (6.4-8.9)
[2019-03-24 09:59] LABS: Troponin I < 0.03 ng/mL (< 0.04)
[2019-03-24] MEDS ORDERED: 0.9 % Sodium Chloride 500 ML IV ONE (10:05)
[2019-03-24 11:27] LABS: Bilirubin,Urine Negative (Negative); Blood,Urine Moderate (Negative); Clarity,Urine Turbid (Clear); Color,Urine Yellow (Yellow); Glucose,Urine (UA) Normal (Normal); Ketones,Urine Negative (Negative); Leukocyte Esterase,Urine Large (Negative); Nitrite,Urine Negative (Negative); Protein,Urine 30 mg/dL (Neg-Trace); Urobilinogen,Urine Normal (Normal)
[2019-03-24 11:28] LABS: Bacteria,Urine Many per hpf (None-Few); RBC,Urine 15-30 per hpf (0-3); Squamous Epithelial Cell,Urine Many per lpf (None-Few); WBC,Urine TNTC per hpf (0-3)
[2019-03-24] MEDS ORDERED: Naloxone 0.4 MG/ML INJ IVP PRN (11:29)
[2019-03-24] MEDS ORDERED: Ondansetron 4 MG/2 ML VIAL IVP PRN (11:29)
[2019-03-24] MEDS ORDERED: *HR* Dextrose 50 % in Water (Syg) 50 ML SYRINGE IVP PRN (11:33)
[2019-03-24] MEDS ORDERED: Dextrose Gel 15 GM/37.5 ML TUBE PO PRN ×2 (11:33)
[2019-03-24] MEDS ORDERED: D5% in Water 1,000 ML IVC PRN (11:33)
[2019-03-24 11:46] LABS: Amphetamine Screen,Urine Negative ng/mL (Cutoff=1000); Barbiturate Screen,Urine Negative ng/mL (Cutoff=200); Benzodiazepines Screen,Urine Negative ng/mL (Cutoff=200); Cannabinoid Screen,Urine Negative ng/mL (Cutoff = 50); Cocaine Screen,Urine Negative ng/mL (Cutoff= 300); Opiate Screen,Urine Negative ng/mL (Cutoff=300); Phencyclidine Screen,Urine Negative ng/mL (Cutoff=25)
[2019-03-24 12:05] LABS: Renal Epithelial Cells,Urine Few per hpf (None-Few); Transitional Epi Cells,Urine Few per hpf (None-Few)
[2019-03-24] MEDS: *HR* HYDROcodone/Acet 5/325 mg TABLET PO PRN ×2 (13:12→21:28)
[2019-03-24] MEDS: Insulin LISPRO 300 UNITS/3 ML VIAL SQ SCH ×2 (16:34→17:03)
[2019-03-24] MEDS: 0.9 % Sodium Chloride 1,000 ML IVC SCH (16:55)
[2019-03-24] MEDS: *HR* Heparin 5,000 UNIT/ML VIAL SQ SCH (17:00)
[2019-03-24] MEDS: *HR* OxyCODONE Immed Rel 5 MG TABLET PO PRN (17:05)
[2019-03-24] MEDS ORDERED: Insulin LISPRO 300 UNITS/3 ML VIAL SQ SCH (21:00)
[2019-03-25] MEDS ORDERED: levoFLOXacin 750 MG/150 ML 750 MG/150 ML BAG IVPB SCH (01:00)
[2019-03-25] MEDS ORDERED: *HR* Promethazine 25 MG/ML VIAL IVP PRN ×2 (01:00→17:06)
[2019-03-25] MEDS: *HR* Heparin 5,000 UNIT/ML VIAL SQ SCH ×2 (01:11→18:33)
[2019-03-25] MEDS ORDERED: Acetaminophen 325 MG TABLET PO ONE (01:19)
[2019-03-25] MEDS: *HR* OxyCODONE Immed Rel 5 MG TABLET PO PRN (03:35)
[2019-03-25] MEDS: Menthol 9.1 MG LOZENGE PO PRN ×2 (03:43→05:33)
[2019-03-25 06:05] LABS: Basophils # 0.1 K/mcL (0.0-0.2); Basophils % 0.7 %; Eosinophils # 0.1 K/mcL (0.0-0.6); Eosinophils % 1.4 %; Hematocrit 35.1 % (35.3-44.9); Immature Granulocytes % 0.4 % (0-4); Lymphocytes # 1.4 K/mcL (0.6-4.6); Lymphocytes % 20.4 %; Mean Corpuscular HGB Conc 34.5 g/dL (31.6-35.5); Mean Corpuscular Hemoglobin 30.7 pg (28.0-33.3); Mean Corpuscular Volume 89.1 fL (83.0-100.0); Mean Platelet Volume 7.9 fL (9.4-12.4); Monocytes # 0.5 K/mcL (0.0-1.3); Monocytes % 7.4 %; Neutrophils # 4.8 K/mcL (1.6-8.9); Platelet Count 161 K/mcL (140-400); Red Blood Count 3.94 M/mcL (3.82-4.97); Red Cell Distribution Width 11.9 % (11.5-14.5); Segmented Neutrophils % 69.7 %; White Blood Count 6.9 K/mcL (4.3-11.1)
[2019-03-25 06:06] LABS: Hemoglobin 12.1 g/dL (11.5-15.4)
[2019-03-25 06:26] LABS: BUN/Creatinine Ratio 19 (6-26); Blood Urea Nitrogen 10 mg/dL (8-23); Calcium 8.4 mg/dL (8.6-10.3); Carbon Dioxide 28 mEq/L (23-29); Chloride 98 mEq/L (98-107); Glucose 149 mg/dL (70-105); Magnesium 1.5 mg/dL (1.6-2.6); Osmolality,Calculated 282 (280-300); Phosphorous 3.4 mg/dL (2.7-4.5); Potassium 4.3 mEq/L (3.5-5.1); Sodium 135 mEq/L (136-145); eGFR For African Americans > 60 (> 60); eGFR For Non-African Americans > 60 (> 60)
[2019-03-25] MEDS: Insulin LISPRO 300 UNITS/3 ML VIAL SQ SCH ×3 (08:20→20:21)
[2019-03-25] MEDS: 0.9 % Sodium Chloride 1,000 ML IVC SCH (08:26)
[2019-03-25] MEDS ORDERED: Lisinopril 20 MG TABLET PO SCH (09:00)
[2019-03-25] MEDS ORDERED: *HR* Propofol 200 MG/20 ML VIAL IVP ONE (14:02)
[2019-03-25] MEDS ORDERED: *HR* FentaNYL (PF) 100 MCG/2 ML VIAL ONE (14:02)
[2019-03-25] MEDS ORDERED: Lidocaine -MPF 2% 2 ML VIAL ONE (14:02)
[2019-03-25] MEDS ORDERED: Dexamethasone 4 MG/ML VIAL ONE (14:03)
[2019-03-25] MEDS ORDERED: Ondansetron 4 MG/2 ML VIAL ONE (14:03)
[2019-03-25] MEDS ORDERED: Vancomycin (wt based) 1,000 MG VIAL IVPB ONE (14:30)
[2019-03-25] MEDS ORDERED: Ethanol\\Acetic Acid\\Na Ace\\Ben 1,000 ML IRRIG.SOLN IR ONE (14:33)
[2019-03-25] MEDS ORDERED: *HR* HYDROMORPHONE 2 MG/ML VIAL ONE (15:30)
[2019-03-25] MEDS ORDERED: Acetaminophen IV 1,000 MG/100 ML INFUS..BTL ONE (15:39)
[2019-03-25] MEDS ORDERED: Menthol 9.1 MG LOZENGE PO PRN (17:06)
[2019-03-25] MEDS ORDERED: D5% in Water 1,000 ML IVC PRN (17:06)
[2019-03-25] MEDS ORDERED: Naloxone 0.4 MG/ML INJ IVP PRN (17:06)
[2019-03-25] MEDS ORDERED: *HR* Dextrose 50 % in Water (Syg) 50 ML SYRINGE IVP PRN (17:06)
[2019-03-25] MEDS ORDERED: Dextrose Gel 15 GM/37.5 ML TUBE PO PRN ×2 (17:06)
[2019-03-25] MEDS: *HR* HYDROcodone/Acet 5/325 mg TABLET PO PRN (19:57)
[2019-03-25] MEDS ORDERED: Insulin DETEMIR 100 UNIT/ML X5UNITS SQ ONE (20:21)
[2019-03-25] MEDS ORDERED: traZODone 50 MG TABLET PO SCH (21:00)
[2019-03-25] MEDS: Nystatin POWDER 30 GM BOTTLE TP SCH (21:39)
[2019-03-26] MEDS: *HR* OxyCODONE Immed Rel 5 MG TABLET PO PRN ×4 (02:13→22:36)
[2019-03-26] MEDS ORDERED: Vancomycin 1,000 MG VIAL IVPB SCH (03:00)
[2019-03-26] MEDS: *HR* HYDROcodone/Acet 5/325 mg TABLET PO PRN ×2 (03:19→12:49)
[2019-03-26 04:59] LABS: Basophils # 0.1 K/mcL (0.0-0.2); Basophils % 0.6 %; Eosinophils % 0.4 %; Hematocrit 30.5 % (35.3-44.9); Hemoglobin 10.6 g/dL (11.5-15.4); Immature Granulocytes % 0.9 % (0-4); Lymphocytes # 1.3 K/mcL (0.6-4.6); Lymphocytes % 14.3 %; Mean Corpuscular HGB Conc 34.8 g/dL (31.6-35.5); Mean Corpuscular Hemoglobin 30.2 pg (28.0-33.3); Mean Corpuscular Volume 86.9 fL (83.0-100.0); Mean Platelet Volume 8.2 fL (9.4-12.4); Monocytes # 0.8 K/mcL (0.0-1.3); Monocytes % 8.6 %; Neutrophils # 6.8 K/mcL (1.6-8.9); Platelet Count 148 K/mcL (140-400); Red Blood Count 3.51 M/mcL (3.82-4.97); Red Cell Distribution Width 12.1 % (11.5-14.5); Segmented Neutrophils % 75.2 %
[2019-03-26] MEDS: *HR* Heparin 5,000 UNIT/ML VIAL SQ SCH ×2 (05:01→17:36)
[2019-03-26 05:29] LABS: BUN/Creatinine Ratio 20 (6-26); Blood Urea Nitrogen 16 mg/dL (8-23); Calcium 7.5 mg/dL (8.6-10.3); Carbon Dioxide 24 mEq/L (23-29); Chloride 94 mEq/L (98-107); Glucose 200 mg/dL (70-105); Osmolality,Calculated 265 (280-300); Potassium 4.1 mEq/L (3.5-5.1); Sodium 124 mEq/L (136-145); eGFR For African Americans > 60 (> 60); eGFR For Non-African Americans > 60 (> 60)
[2019-03-26] MEDS: Insulin LISPRO 300 UNITS/3 ML VIAL SQ SCH ×4 (08:42→20:49)
[2019-03-26] MEDS: Nystatin POWDER 30 GM BOTTLE TP SCH ×3 (08:42→22:41)
[2019-03-26] MEDS: Lisinopril 20 MG TABLET PO SCH (08:42)
[2019-03-26] MEDS ORDERED: levoFLOXacin 750 MG/150 ML 750 MG/150 ML BAG IVPB SCH (09:00)
[2019-03-26 11:29] LABS: BUN/Creatinine Ratio 19 (6-26); Blood Urea Nitrogen 14 mg/dL (8-23); Calcium 7.6 mg/dL (8.6-10.3); Carbon Dioxide 27 mEq/L (23-29); Chloride 90 mEq/L (98-107); Glucose 142 mg/dL (70-105); Osmolality,Calculated 261 (280-300); Potassium 3.7 mEq/L (3.5-5.1); Sodium 124 mEq/L (136-145); eGFR For African Americans > 60 (> 60); eGFR For Non-African Americans > 60 (> 60)
[2019-03-26 11:49] LABS: Chloride,Urine < 15 mEq/L; Potassium,Urine 10.8 mEq/L; Sodium, Urine 16.2 mEq/L
[2019-03-26] MEDS ORDERED: 0.9 % Sodium Chloride 1,000 ML IVC ONE (13:57)
[2019-03-26] MEDS: Morphine Sulfate Oral CONC 10 MG/0.5 ML ORAL.SYG SL PRN (19:59)
[2019-03-26] MEDS: Pantoprazole 40 MG VIAL IVP SCH (22:39)
[2019-03-27] MEDS: *HR* HYDROcodone/Acet 5/325 mg TABLET PO PRN ×3 (02:12→20:31)
[2019-03-27 02:58] LABS: Basophils # 0.1 K/mcL (0.0-0.2); Basophils % 0.7 %; Eosinophils # 0.2 K/mcL (0.0-0.6); Eosinophils % 1.6 %; Hemoglobin 11.8 g/dL (11.5-15.4); Immature Granulocytes % 0.6 % (0-4); Lymphocytes # 2.2 K/mcL (0.6-4.6); Lymphocytes % 20.3 %; Mean Corpuscular HGB Conc 33.7 g/dL (31.6-35.5); Mean Corpuscular Hemoglobin 30.6 pg (28.0-33.3); Mean Corpuscular Volume 90.7 fL (83.0-100.0); Mean Platelet Volume 8.5 fL (9.4-12.4); Monocytes % 9.4 %; Neutrophils # 7.4 K/mcL (1.6-8.9); Platelet Count 181 K/mcL (140-400); Red Blood Count 3.86 M/mcL (3.82-4.97); Segmented Neutrophils % 67.4 %
[2019-03-27 03:04] LABS: BUN/Creatinine Ratio 16 (6-26); Blood Urea Nitrogen 13 mg/dL (8-23); Calcium 7.9 mg/dL (8.6-10.3); Carbon Dioxide 22 mEq/L (23-29); Chloride 94 mEq/L (98-107); Glucose 184 mg/dL (70-105); Osmolality,Calculated 265 (280-300); Potassium 4.4 mEq/L (3.5-5.1); Sodium 125 mEq/L (136-145); eGFR For African Americans > 60 (> 60); eGFR For Non-African Americans > 60 (> 60)
[2019-03-27] MEDS: *HR* OxyCODONE Immed Rel 5 MG TABLET PO PRN ×3 (05:28→23:02)
[2019-03-27] MEDS: *HR* Heparin 5,000 UNIT/ML VIAL SQ SCH ×2 (05:29→17:27)
[2019-03-27] MEDS: Morphine Sulfate Oral CONC 10 MG/0.5 ML ORAL.SYG SL PRN (08:41)
[2019-03-27] MEDS: cefTRIAXone 1,000 MG in Water for inj. (sterile) 10 ML IVP SCH (08:42)
[2019-03-27] MEDS: Insulin LISPRO 300 UNITS/3 ML VIAL SQ SCH ×4 (08:43→20:35)
[2019-03-27] MEDS: Pantoprazole 40 MG VIAL IVP SCH (08:43)
[2019-03-27] MEDS: Nystatin POWDER 30 GM BOTTLE TP SCH ×3 (08:44→20:33)
[2019-03-27] MEDS: Lisinopril 20 MG TABLET PO SCH (08:45)
[2019-03-27] MEDS ORDERED: Aminoglycoside Consult 1 EACH MC ONE (08:48)
[2019-03-27] MEDS ORDERED: 0.9 % Sodium Chloride 1,000 ML IVC SCH (12:15)
[2019-03-27] MEDS ORDERED: 0.9 % Sodium Chloride 1,000 ML IVC ONE (12:31)
[2019-03-27] MEDS ORDERED: Lisinopril 20 MG TABLET PO SCH (15:10)
[2019-03-28] MEDS: *HR* HYDROcodone/Acet 5/325 mg TABLET PO PRN (02:24)
[2019-03-28] MEDS: *HR* Heparin 5,000 UNIT/ML VIAL SQ SCH ×2 (05:30→18:17)
[2019-03-28] MEDS: *HR* OxyCODONE Immed Rel 5 MG TABLET PO PRN ×2 (06:18→18:52)
[2019-03-28] MEDS: Nystatin POWDER 30 GM BOTTLE TP SCH ×3 (08:35→19:55)
[2019-03-28] MEDS: Pantoprazole 40 MG VIAL IVP SCH (08:39)
[2019-03-28] MEDS: cefTRIAXone 1,000 MG in Water for inj. (sterile) 10 ML IVP SCH (08:39)
[2019-03-28] MEDS: Insulin LISPRO 300 UNITS/3 ML VIAL SQ SCH ×4 (08:45→19:56)
[2019-03-28] MEDS: 0.9 % Sodium Chloride 1,000 ML IVC SCH ×2 (16:06→19:54)
[2019-03-28 18:51] LABS: Calcium 7.7 mg/dL (8.6-10.3); Potassium 3.7 mEq/L (3.5-5.1)
[2019-03-28] MEDS ORDERED: Hydrocortisone Sodium Succ 100 MG/2 ML VIAL IVP ONE (19:07)
[2019-03-29] MEDS: *HR* HYDROcodone/Acet 5/325 mg TABLET PO PRN (00:09)
[2019-03-29 02:30] LABS: Basophils % 0.5 %; Eosinophils % 0.4 %; Hematocrit 26.5 % (35.3-44.9); Immature Granulocytes % 1.9 % (0-4); Lymphocytes # 0.7 K/mcL (0.6-4.6); Lymphocytes % 8.6 %; Mean Corpuscular Hemoglobin 30.9 pg (28.0-33.3); Mean Platelet Volume 8.2 fL (9.4-12.4); Monocytes # 0.3 K/mcL (0.0-1.3); Monocytes % 3.7 %; Neutrophils # 6.6 K/mcL (1.6-8.9); Platelet Count 190 K/mcL (140-400); Red Blood Count 3.17 M/mcL (3.82-4.97); Red Cell Distribution Width 12.3 % (11.5-14.5); Segmented Neutrophils % 84.9 %; White Blood Count 7.8 K/mcL (4.3-11.1)
[2019-03-29 02:33] LABS: Hemoglobin 9.8 g/dL (11.5-15.4); Mean Corpuscular Volume 83.6 fL (83.0-100.0)
[2019-03-29 02:46] LABS: BUN/Creatinine Ratio 29 (6-26); Blood Urea Nitrogen 32 mg/dL (8-23); Calcium 7.6 mg/dL (8.6-10.3); Carbon Dioxide 18 mEq/L (23-29); Chloride 89 mEq/L (98-107); Glucose 247 mg/dL (70-105); Osmolality,Calculated 257 (280-300); Potassium 3.8 mEq/L (3.5-5.1); Sodium 116 mEq/L (136-145); eGFR For African Americans > 60 (> 60); eGFR For Non-African Americans 50 (> 60)
[2019-03-29] MEDS: *HR* OxyCODONE Immed Rel 5 MG TABLET PO PRN ×2 (03:25→20:48)
[2019-03-29] MEDS: 0.9 % Sodium Chloride 1,000 ML IVC SCH ×3 (05:36→20:43)
[2019-03-29] MEDS: *HR* Heparin 5,000 UNIT/ML VIAL SQ SCH ×2 (06:04→17:42)
[2019-03-29 06:30] LABS: BUN/Creatinine Ratio 30 (6-26); Blood Urea Nitrogen 31 mg/dL (8-23); Calcium 7.4 mg/dL (8.6-10.3); Carbon Dioxide 19 mEq/L (23-29); Chloride 91 mEq/L (98-107); Glucose 239 mg/dL (70-105); Osmolality,Calculated 262 (280-300); Potassium 4.3 mEq/L (3.5-5.1); Sodium 119 mEq/L (136-145); eGFR For African Americans > 60 (> 60); eGFR For Non-African Americans 54 (> 60)
[2019-03-29] MEDS: Pantoprazole 40 MG VIAL IVP SCH (07:47)
[2019-03-29] MEDS: cefTRIAXone 1,000 MG in Water for inj. (sterile) 10 ML IVP SCH (07:48)
[2019-03-29] MEDS: Insulin LISPRO 300 UNITS/3 ML VIAL SQ SCH ×4 (07:57→20:38)
[2019-03-29 18:17] LABS: BUN/Creatinine Ratio 33 (6-26); Blood Urea Nitrogen 28 mg/dL (8-23); Calcium 7.7 mg/dL (8.6-10.3); Carbon Dioxide 22 mEq/L (23-29); Chloride 90 mEq/L (98-107); Glucose 196 mg/dL (70-105); Osmolality,Calculated 263 (280-300); Sodium 121 mEq/L (136-145); eGFR For African Americans > 60 (> 60); eGFR For Non-African Americans > 60 (> 60)
[2019-03-29] MEDS: Nystatin POWDER 30 GM BOTTLE TP SCH (20:44)
[2019-03-29 22:28] LABS: BUN/Creatinine Ratio 32 (6-26); Blood Urea Nitrogen 24 mg/dL (8-23); Calcium 8.1 mg/dL (8.6-10.3); Carbon Dioxide 22 mEq/L (23-29); Chloride 92 mEq/L (98-107); Glucose 153 mg/dL (70-105); Osmolality,Calculated 261 (280-300); Potassium 3.1 mEq/L (3.5-5.1); Sodium 122 mEq/L (136-145); eGFR For African Americans > 60 (> 60); eGFR For Non-African Americans > 60 (> 60)
[2019-03-30] MEDS: 0.9 % Sodium Chloride 1,000 ML IVC SCH (02:50)
[2019-03-30] MEDS: *HR* OxyCODONE Immed Rel 5 MG TABLET PO PRN ×4 (02:50→22:15)
[2019-03-30] MEDS: *HR* Heparin 5,000 UNIT/ML VIAL SQ SCH ×2 (04:57→18:29)
[2019-03-30 05:17] LABS: Basophils # 0.1 K/mcL (0.0-0.2); Basophils % 1.1 %; Eosinophils # 0.2 K/mcL (0.0-0.6); Eosinophils % 3.2 %; Hematocrit 30.2 % (35.3-44.9); Hemoglobin 10.3 g/dL (11.5-15.4); Immature Granulocytes % 2.1 % (0-4); Lymphocytes # 1.7 K/mcL (0.6-4.6); Lymphocytes % 27.1 %; Mean Corpuscular HGB Conc 34.1 g/dL (31.6-35.5); Mean Corpuscular Hemoglobin 29.9 pg (28.0-33.3); Mean Corpuscular Volume 87.8 fL (83.0-100.0); Mean Platelet Volume 8.3 fL (9.4-12.4); Monocytes # 0.6 K/mcL (0.0-1.3); Monocytes % 9.8 %; Neutrophils # 3.5 K/mcL (1.6-8.9); Platelet Count 205 K/mcL (140-400); Red Blood Count 3.44 M/mcL (3.82-4.97); Red Cell Distribution Width 12.5 % (11.5-14.5); Segmented Neutrophils % 56.7 %; White Blood Count 6.2 K/mcL (4.3-11.1)
[2019-03-30 05:39] LABS: BUN/Creatinine Ratio 30 (6-26); Blood Urea Nitrogen 23 mg/dL (8-23); Carbon Dioxide 22 mEq/L (23-29); Chloride 93 mEq/L (98-107); Glucose 167 mg/dL (70-105); Osmolality,Calculated 267 (280-300); Potassium 3.2 mEq/L (3.5-5.1); Sodium 125 mEq/L (136-145); eGFR For African Americans > 60 (> 60); eGFR For Non-African Americans > 60 (> 60)
[2019-03-30 05:42] LABS: Albumin 3.2 g/dL (3.5-5.7); Albumin/Globulin Ratio 1.1 (1.1-2.2); Bilirubin,Direct 0.2 mg/dL (0.0-0.2); Bilirubin,Indirect 0.3 mg/dL (0.0-1.0); Bilirubin,Total 0.5 mg/dL (0.3-1.0); Total Protein 6.2 g/dL (6.4-8.9)
[2019-03-30 05:53] LABS: Thyroid Stimulating Hormone 0.848 mcIU/mL (0.340-5.600)
[2019-03-30] MEDS: Nystatin POWDER 30 GM BOTTLE TP SCH ×5 (06:37→22:16)
[2019-03-30 06:46] LABS: Hepatitis B Surface Antigen Nonreactive (Nonreactive)
[2019-03-30 07:15] LABS: Hepatitis C Virus Antibody Nonreactive (Nonreactive)
[2019-03-30] MEDS: cefTRIAXone 1,000 MG in Water for inj. (sterile) 10 ML IVP SCH (08:18)
[2019-03-30] MEDS: Pantoprazole 40 MG VIAL IVP SCH (08:19)
[2019-03-30] MEDS: Insulin LISPRO 300 UNITS/3 ML VIAL SQ SCH ×4 (08:31→22:17)
[2019-03-30 10:30] LABS: Magnesium 1.5 mg/dL (1.6-2.6)
[2019-03-30 11:51] LABS: BUN/Creatinine Ratio 26 (6-26); Blood Urea Nitrogen 18 mg/dL (8-23); Calcium 7.8 mg/dL (8.6-10.3); Carbon Dioxide 21 mEq/L (23-29); Chloride 97 mEq/L (98-107); Glucose 172 mg/dL (70-105); Osmolality,Calculated 270 (280-300); Potassium 3.2 mEq/L (3.5-5.1); Sodium 127 mEq/L (136-145); eGFR For African Americans > 60 (> 60); eGFR For Non-African Americans > 60 (> 60)
[2019-03-30] MEDS: Magnesium Oxide 400 MG TABLET PO SCH (22:15)
[2019-03-31] MEDS: *HR* OxyCODONE Immed Rel 5 MG TABLET PO PRN ×2 (04:04→13:08)
[2019-03-31] MEDS: *HR* Heparin 5,000 UNIT/ML VIAL SQ SCH (05:21)
[2019-03-31 07:10] LABS: BUN/Creatinine Ratio 20 (6-26); Blood Urea Nitrogen 12 mg/dL (8-23); Calcium 8.1 mg/dL (8.6-10.3); Carbon Dioxide 24 mEq/L (23-29); Chloride 99 mEq/L (98-107); Glucose 161 mg/dL (70-105); Magnesium 1.6 mg/dL (1.6-2.6); Osmolality,Calculated 285 (280-300); Potassium 3.5 mEq/L (3.5-5.1); Sodium 136 mEq/L (136-145); eGFR For African Americans > 60 (> 60); eGFR For Non-African Americans > 60 (> 60)
[2019-03-31] MEDS: Insulin LISPRO 300 UNITS/3 ML VIAL SQ SCH ×2 (08:43→13:48)
[2019-03-31 09:22] LABS: Basophils # 0.1 K/mcL (0.0-0.2); Basophils % 0.9 %; Eosinophils # 0.2 K/mcL (0.0-0.6); Eosinophils % 2.4 %; Hematocrit 26.4 % (35.3-44.9); Hemoglobin 9.5 g/dL (11.5-15.4); Immature Granulocytes % 1.8 % (0-4); Lymphocytes # 2.2 K/mcL (0.6-4.6); Lymphocytes % 31.9 %; Mean Corpuscular Hemoglobin 30.7 pg (28.0-33.3); Mean Corpuscular Volume 85.4 fL (83.0-100.0); Mean Platelet Volume 8.8 fL (9.4-12.4); Monocytes # 0.9 K/mcL (0.0-1.3); Monocytes % 13.1 %; Neutrophils # 3.4 K/mcL (1.6-8.9); Platelet Count 209 K/mcL (140-400); Red Blood Count 3.09 M/mcL (3.82-4.97); Red Cell Distribution Width 12.8 % (11.5-14.5); Segmented Neutrophils % 49.9 %; White Blood Count 6.8 K/mcL (4.3-11.1)
[2019-03-31 12:21] VITALS: BP 102/63
[2019-03-31] MEDS: cefTRIAXone 1,000 MG in Water for inj. (sterile) 10 ML IVP SCH (13:03)
[2019-03-31] MEDS: Pantoprazole 40 MG VIAL IVP SCH (13:03)
[2019-03-31] MEDS: Magnesium Oxide 400 MG TABLET PO SCH (13:07)
== END 2019-03-31 15:52 | DRG 481 ==
LOC: 3NENU 08:14 → EMEROOARM 08:14 → SUATTDRO 13:08 → 3NENU 14:29
PROVIDERS: ADMIT Internal Medicine; ATTEND Student in an Organized Health Care Education/Training Program

== ENCOUNTER 2019-04-09 15:58 | Inpatient (IN) ==
[2019-04-09] MEDS ORDERED: Milk and Molasses Enema 200 ML RC ONE (17:17)
[2019-04-09 17:39] LABS: BUN/Creatinine Ratio 18 (6-26); Blood Urea Nitrogen 12 mg/dL (8-23); Calcium 8.5 mg/dL (8.6-10.3); Carbon Dioxide 25 mEq/L (23-29); Chloride 98 mEq/L (98-107); Glucose 147 mg/dL (70-105); Magnesium 2.4 mg/dL (1.6-2.6); Osmolality,Calculated 274 (280-300); Potassium 3.2 mEq/L (3.5-5.1); Sodium 131 mEq/L (136-145); eGFR For African Americans > 60 (> 60); eGFR For Non-African Americans > 60 (> 60)
[2019-04-09 17:44] LABS: Thyroid Stimulating Hormone 0.633 mcIU/mL (0.340-5.600)
[2019-04-09] MEDS ORDERED: MetroNIDAZOLE 500 MG/100 ML 500 MG/100 ML BAG IVPB ONE (18:49)
[2019-04-09] MEDS ORDERED: Potassium Chloride 40 MEQ, Lidocaine 1% 2 ML in 0.9 % Sodium Chloride 500 ML IVPB ONE (18:51)
[2019-04-09] MEDS ORDERED: 0.9 % Sodium Chloride 1,000 ML IVC ONE (18:55)
[2019-04-09 19:17] LABS: INR 1.1; Prothrombin Time 12.1 Seconds (9.4-12.1)
[2019-04-09] MEDS ORDERED: Lidocaine -MPF 2% 2 ML VIAL ONE ×2 (20:04→21:00)
[2019-04-09] MEDS ORDERED: *HR* Labetalol 20 MG/4 ML SYRINGE IVP PRN (20:07)
[2019-04-09] MEDS ORDERED: *HR* HYDROmorphone (PF) 1 MG/ML SYRINGE IVP PRN (20:07)
[2019-04-09] MEDS ORDERED: *HR* Promethazine 25 MG/ML VIAL IVP PRN (20:07)
[2019-04-09] MEDS ORDERED: Ondansetron 4 MG/2 ML VIAL IVP PRN (20:07)
[2019-04-09 20:41] LABS: Basophils # 0.1 K/mcL (0.0-0.2); Basophils % 0.8 %; Eosinophils % 0.4 %; Immature Granulocytes % 0.6 % (0-4); Lymphocytes % 7.8 %; Mean Platelet Volume 7.8 fL (9.4-12.4); Monocytes # 0.6 K/mcL (0.0-1.3); Monocytes % 5.6 %; Red Cell Distribution Width 13.5 % (11.5-14.5); Segmented Neutrophils % 84.8 %
[2019-04-09 20:45] LABS: Hematocrit 34.6 % (35.3-44.9); Hemoglobin 11.4 g/dL (11.5-15.4); Lymphocytes # 0.8 K/mcL (0.6-4.6); Mean Corpuscular HGB Conc 32.9 g/dL (31.6-35.5); Mean Corpuscular Hemoglobin 29.6 pg (28.0-33.3); Mean Corpuscular Volume 89.9 fL (83.0-100.0); Neutrophils # 8.9 K/mcL (1.6-8.9); Platelet Count 252 K/mcL (140-400); Red Blood Count 3.85 M/mcL (3.82-4.97); White Blood Count 10.5 K/mcL (4.3-11.1)
[2019-04-09] MEDS ORDERED: *HR* Rocuronium Bromide 50 MG/5 ML VIAL ONE (21:00)
[2019-04-09] MEDS ORDERED: *HR* FentaNYL (PF) 100 MCG/2 ML VIAL ONE (21:00)
[2019-04-09] MEDS ORDERED: *HR* Propofol 200 MG/20 ML VIAL IVP ONE (21:00)
[2019-04-09] MEDS ORDERED: *HR* Succinylcholine 200 MG/10 ML VIAL IVP ONE (21:00)
[2019-04-09] MEDS ORDERED: Naloxone 0.4 MG/ML INJ IVP PRN (21:07)
[2019-04-09] MEDS ORDERED: Ringers Solution, Lactated 1,000 ML IVC SCH (21:15)
[2019-04-09] MEDS ORDERED: *HR* PHENYLEPHRINE 1,000 MCG/10 ML SYRINGE IVP ONE ×2 (21:35→22:14)
[2019-04-09] MEDS ORDERED: Albumin Human 5% 25.0 GM/500 ML IV.SOLN ONE (21:48)
[2019-04-09] MEDS ORDERED: EPHEDrine 50 MG/ML VIAL ONE (21:48)
[2019-04-09] MEDS ORDERED: Dexamethasone 4 MG/ML VIAL ONE ×2 (22:14)
[2019-04-09] MEDS ORDERED: Ondansetron 4 MG/2 ML VIAL ONE (22:14)
[2019-04-09] MEDS ORDERED: *HR* HYDROMORPHONE 2 MG/ML VIAL ONE (22:57)
[2019-04-10] MEDS ORDERED: Ringers Solution, Lactated 1,000 ML IVC SCH (00:51)
[2019-04-10] MEDS ORDERED: Dextrose Gel 15 GM/37.5 ML TUBE PO PRN ×2 (00:51)
[2019-04-10] MEDS ORDERED: Naloxone 0.4 MG/ML INJ IVP PRN (00:51)
[2019-04-10] MEDS ORDERED: *HR* Dextrose 50 % in Water (Syg) 50 ML SYRINGE IVP PRN (00:51)
[2019-04-10] MEDS ORDERED: Morphine PCA 30 MG/ 30 ML 30 ML PCA.VIAL IVC PRN ×2 (00:51→11:38)
[2019-04-10] MEDS ORDERED: D5% in Water 1,000 ML IVC PRN (00:51)
[2019-04-10] MEDS ORDERED: Ipratropium/Albuterol Neb 3 ML IH PRN (02:14)
[2019-04-10 05:44] LABS: Basophils % 0.2 %; Hematocrit 31.6 % (35.3-44.9); Hemoglobin 10.3 g/dL (11.5-15.4); Immature Granulocytes % 0.2 % (0-4); Lymphocytes # 0.6 K/mcL (0.6-4.6); Lymphocytes % 4.1 %; Mean Corpuscular HGB Conc 32.6 g/dL (31.6-35.5); Mean Corpuscular Volume 92.1 fL (83.0-100.0); Mean Platelet Volume 8.2 fL (9.4-12.4); Monocytes # 0.8 K/mcL (0.0-1.3); Monocytes % 5.8 %; Neutrophils # 11.9 K/mcL (1.6-8.9); Platelet Count 214 K/mcL (140-400); Red Blood Count 3.43 M/mcL (3.82-4.97); Red Cell Distribution Width 13.6 % (11.5-14.5); Segmented Neutrophils % 89.7 %; White Blood Count 13.3 K/mcL (4.3-11.1)
[2019-04-10] MEDS ORDERED: Piperacillin/Tazobactam 3.375 GM in 0.9 % Sodium Chloride Mini Bag 100 ML IVPB SCH (06:00)
[2019-04-10] MEDS ORDERED: *HR* Heparin 5,000 UNIT/ML VIAL SQ SCH (06:00)
[2019-04-10 06:06] LABS: Alanine Aminotransferase 5 Units/L (7-52); Albumin 2.9 g/dL (3.5-5.7); Albumin/Globulin Ratio 1.3 (1.1-2.2); Alkaline Phosphatase 96 Units/L (34-104); Aspartate Amino Transferase 10 Units/L (13-39); BUN/Creatinine Ratio 21 (6-26); Bilirubin,Total 0.5 mg/dL (0.3-1.0); Blood Urea Nitrogen 13 mg/dL (8-23); Calcium 8.1 mg/dL (8.6-10.3); Carbon Dioxide 27 mEq/L (23-29); Chloride 101 mEq/L (98-107); Globulin 2.2 g/dL (2.4-3.5); Glucose 204 mg/dL (70-105); Osmolality,Calculated 284 (280-300); Potassium 3.9 mEq/L (3.5-5.1); Sodium 134 mEq/L (136-145); Total Protein 5.1 g/dL (6.4-8.9); eGFR For African Americans > 60 (> 60); eGFR For Non-African Americans > 60 (> 60)
[2019-04-10] MEDS: Insulin LISPRO 300 UNITS/3 ML VIAL SQ SCH ×3 (07:53→17:22)
[2019-04-10] MEDS: *HR* Heparin 5,000 UNIT/ML VIAL SQ SCH ×3 (07:53→20:22)
[2019-04-10] MEDS: Acetaminophen IV 1,000 MG/100 ML INFUS..BTL IVPB SCH ×3 (07:53→17:35)
[2019-04-10] MEDS: Pantoprazole 40 MG VIAL IVP SCH ×2 (07:54→17:35)
[2019-04-10] MEDS: Ringers Solution, Lactated 1,000 ML IVC SCH ×2 (12:35→23:35)
[2019-04-10] MEDS: Piperacillin/Tazobactam 3.375 GM in 0.9 % Sodium Chloride Mini Bag 100 ML IVPB SCH (15:54)
[2019-04-11] MEDS ORDERED: *HR* LORazepam 2 MG/ML VIAL IVP ONE (00:23)
[2019-04-11] MEDS: Acetaminophen IV 1,000 MG/100 ML INFUS..BTL IVPB SCH ×5 (00:36→23:04)
[2019-04-11] MEDS: Piperacillin/Tazobactam 3.375 GM in 0.9 % Sodium Chloride Mini Bag 100 ML IVPB SCH ×3 (00:37→16:40)
[2019-04-11] MEDS: Insulin LISPRO 300 UNITS/3 ML VIAL SQ SCH ×4 (00:55→18:16)
[2019-04-11] MEDS: Pantoprazole 40 MG VIAL IVP SCH ×2 (05:59→18:39)
[2019-04-11] MEDS: *HR* Heparin 5,000 UNIT/ML VIAL SQ SCH ×3 (05:59→21:44)
[2019-04-11] MEDS: Ringers Solution, Lactated 1,000 ML IVC SCH (09:04)
[2019-04-11 09:05] LABS: Basophils # 0.1 K/mcL (0.0-0.2); Basophils % 0.8 %; Eosinophils # 0.2 K/mcL (0.0-0.6); Eosinophils % 2.4 %; Hematocrit 32.6 % (35.3-44.9); Hemoglobin 10.2 g/dL (11.5-15.4); Immature Granulocytes % 0.3 % (0-4); Lymphocytes # 1.4 K/mcL (0.6-4.6); Lymphocytes % 15.1 %; Mean Corpuscular HGB Conc 31.3 g/dL (31.6-35.5); Mean Corpuscular Hemoglobin 29.7 pg (28.0-33.3); Mean Corpuscular Volume 94.8 fL (83.0-100.0); Mean Platelet Volume 8.2 fL (9.4-12.4); Monocytes # 0.6 K/mcL (0.0-1.3); Monocytes % 6.4 %; Neutrophils # 6.9 K/mcL (1.6-8.9); Platelet Count 197 K/mcL (140-400); Red Blood Count 3.44 M/mcL (3.82-4.97); White Blood Count 9.2 K/mcL (4.3-11.1)
[2019-04-11 09:26] LABS: BUN/Creatinine Ratio 23 (6-26); Blood Urea Nitrogen 14 mg/dL (8-23); Calcium 7.9 mg/dL (8.6-10.3); Carbon Dioxide 28 mEq/L (23-29); Chloride 100 mEq/L (98-107); Glucose 124 mg/dL (70-105); Osmolality,Calculated 280 (280-300); Potassium 3.6 mEq/L (3.5-5.1); Sodium 134 mEq/L (136-145); eGFR For African Americans > 60 (> 60); eGFR For Non-African Americans > 60 (> 60)
[2019-04-11] MEDS: D5% in 0.45% NACL w KCl 20 MEQ/1,000 ML MLS IVC SCH (16:39)
[2019-04-11] MEDS: *HR* OxyCODONE Immed Rel 5 MG TABLET PO PRN (16:39)
[2019-04-12] MEDS: Insulin LISPRO 300 UNITS/3 ML VIAL SQ SCH ×4 (00:33→17:11)
[2019-04-12] MEDS ORDERED: Melatonin 3 MG TABLET PO STA (01:20)
[2019-04-12 02:47] LABS: Basophils # 0.1 K/mcL (0.0-0.2); Basophils % 0.5 %; Eosinophils # 0.3 K/mcL (0.0-0.6); Eosinophils % 3.4 %; Hematocrit 30.4 % (35.3-44.9); Hemoglobin 9.9 g/dL (11.5-15.4); Immature Granulocytes % 0.4 % (0-4); Lymphocytes # 1.8 K/mcL (0.6-4.6); Lymphocytes % 18.1 %; Mean Corpuscular HGB Conc 32.6 g/dL (31.6-35.5); Mean Corpuscular Hemoglobin 29.7 pg (28.0-33.3); Mean Corpuscular Volume 91.3 fL (83.0-100.0); Mean Platelet Volume 8.2 fL (9.4-12.4); Monocytes # 0.7 K/mcL (0.0-1.3); Monocytes % 6.5 %; Neutrophils # 7.1 K/mcL (1.6-8.9); Platelet Count 199 K/mcL (140-400); Red Blood Count 3.33 M/mcL (3.82-4.97); Red Cell Distribution Width 13.6 % (11.5-14.5); Segmented Neutrophils % 71.1 %
[2019-04-12] MEDS: Piperacillin/Tazobactam 3.375 GM in 0.9 % Sodium Chloride Mini Bag 100 ML IVPB SCH ×3 (02:49→17:35)
[2019-04-12 03:06] LABS: BUN/Creatinine Ratio 16 (6-26); Blood Urea Nitrogen 8 mg/dL (8-23); Calcium 7.9 mg/dL (8.6-10.3); Carbon Dioxide 31 mEq/L (23-29); Chloride 97 mEq/L (98-107); Glucose 116 mg/dL (70-105); Osmolality,Calculated 271 (280-300); Potassium 3.5 mEq/L (3.5-5.1); Sodium 131 mEq/L (136-145); eGFR For African Americans > 60 (> 60); eGFR For Non-African Americans > 60 (> 60)
[2019-04-12] MEDS: Pantoprazole 40 MG VIAL IVP SCH ×2 (06:36→17:36)
[2019-04-12] MEDS: *HR* Heparin 5,000 UNIT/ML VIAL SQ SCH ×3 (06:36→22:14)
[2019-04-12] MEDS: Acetaminophen IV 1,000 MG/100 ML INFUS..BTL IVPB SCH ×3 (07:57→17:36)
[2019-04-12] MEDS: lisinopriL 20 MG TABLET PO SCH (08:31)
[2019-04-12] MEDS: *HR* OxyCODONE Immed Rel 5 MG TABLET PO PRN ×2 (08:31→23:06)
[2019-04-12] MEDS: D5% in 0.45% NACL w KCl 20 MEQ/1,000 ML MLS IVC SCH ×3 (09:54→23:24)
[2019-04-12] MEDS ORDERED: *HR* Labetalol 20 MG/4 ML SYRINGE IVP ONE (22:40)
[2019-04-13] MEDS: Piperacillin/Tazobactam 3.375 GM in 0.9 % Sodium Chloride Mini Bag 100 ML IVPB SCH ×3 (00:04→16:13)
[2019-04-13] MEDS: Insulin LISPRO 300 UNITS/3 ML VIAL SQ SCH ×5 (00:11→20:24)
[2019-04-13] MEDS: Acetaminophen IV 1,000 MG/100 ML INFUS..BTL IVPB SCH ×3 (00:11→12:39)
[2019-04-13] MEDS ORDERED: *HR* Labetalol 20 MG/4 ML SYRINGE IVP ONE ×2 (02:56→19:51)
[2019-04-13 04:51] LABS: Basophils # 0.1 K/mcL (0.0-0.2); Basophils % 0.6 %; Eosinophils # 0.3 K/mcL (0.0-0.6); Eosinophils % 3.3 %; Hematocrit 33.2 % (35.3-44.9); Immature Granulocytes % 0.4 % (0-4); Lymphocytes # 1.7 K/mcL (0.6-4.6); Lymphocytes % 18.3 %; Mean Corpuscular HGB Conc 33.1 g/dL (31.6-35.5); Mean Corpuscular Hemoglobin 30.1 pg (28.0-33.3); Mean Platelet Volume 8.4 fL (9.4-12.4); Monocytes # 0.6 K/mcL (0.0-1.3); Monocytes % 6.4 %; Neutrophils # 6.4 K/mcL (1.6-8.9); Platelet Count 200 K/mcL (140-400); Red Blood Count 3.65 M/mcL (3.82-4.97); Red Cell Distribution Width 13.5 % (11.5-14.5)
[2019-04-13 05:08] LABS: BUN/Creatinine Ratio 13 (6-26); Blood Urea Nitrogen 5 mg/dL (8-23); Carbon Dioxide 28 mEq/L (23-29); Chloride 100 mEq/L (98-107); Glucose 134 mg/dL (70-105); Osmolality,Calculated 279 (280-300); Potassium 3.7 mEq/L (3.5-5.1); Sodium 135 mEq/L (136-145); eGFR For African Americans > 60 (> 60); eGFR For Non-African Americans > 60 (> 60)
[2019-04-13] MEDS: Ondansetron 4 MG/2 ML VIAL IVP PRN ×4 (05:24→22:37)
[2019-04-13] MEDS: *HR* Heparin 5,000 UNIT/ML VIAL SQ SCH ×3 (06:04→22:36)
[2019-04-13] MEDS: Pantoprazole 40 MG VIAL IVP SCH ×2 (06:05→17:08)
[2019-04-13] MEDS: lisinopriL 20 MG TABLET PO SCH (06:20)
[2019-04-13] MEDS: *HR* OxyCODONE Immed Rel 5 MG TABLET PO PRN ×2 (09:19→18:49)
[2019-04-13] MEDS ORDERED: Pantoprazole 40 MG VIAL IVP STA (13:00)
[2019-04-13] MEDS ORDERED: Acetaminophen 325 MG TABLET PO PRN (13:26)
[2019-04-13] MEDS: D5% in 0.45% NACL w KCl 20 MEQ/1,000 ML MLS IVC SCH (16:14)
[2019-04-13] MEDS: traZODone 50 MG TABLET PO SCH ×2 (20:07→23:14)
[2019-04-13] MEDS ORDERED: NIFEdipine 10 MG CAPSULE PO ONE (22:00)
[2019-04-14] MEDS: Piperacillin/Tazobactam 3.375 GM in 0.9 % Sodium Chloride Mini Bag 100 ML IVPB SCH ×3 (00:08→16:11)
[2019-04-14] MEDS ORDERED: *HR* HYDROmorphone (PF) 1 MG/ML SYRINGE IVP ONE (01:34)
[2019-04-14] MEDS: 0.9 % Sodium Chloride 1,000 ML IVC SCH ×2 (02:09→16:00)
[2019-04-14 04:12] LABS: Basophils # 0.1 K/mcL (0.0-0.2); Basophils % 0.7 %; Eosinophils # 0.1 K/mcL (0.0-0.6); Eosinophils % 0.7 %; Hematocrit 33.4 % (35.3-44.9); Hemoglobin 11.2 g/dL (11.5-15.4); Immature Granulocytes % 0.4 % (0-4); Lymphocytes % 12.2 %; Mean Corpuscular HGB Conc 33.5 g/dL (31.6-35.5); Mean Corpuscular Hemoglobin 30.7 pg (28.0-33.3); Mean Corpuscular Volume 91.5 fL (83.0-100.0); Monocytes # 0.4 K/mcL (0.0-1.3); Neutrophils # 6.9 K/mcL (1.6-8.9); Platelet Count 193 K/mcL (140-400); Red Blood Count 3.65 M/mcL (3.82-4.97); Red Cell Distribution Width 13.4 % (11.5-14.5); White Blood Count 8.5 K/mcL (4.3-11.1)
[2019-04-14 04:30] LABS: BUN/Creatinine Ratio 10 (6-26); Blood Urea Nitrogen 4 mg/dL (8-23); Calcium 7.9 mg/dL (8.6-10.3); Carbon Dioxide 26 mEq/L (23-29); Chloride 99 mEq/L (98-107); Glucose 180 mg/dL (70-105); Osmolality,Calculated 277 (280-300); Potassium 3.6 mEq/L (3.5-5.1); Sodium 133 mEq/L (136-145); eGFR For African Americans > 60 (> 60); eGFR For Non-African Americans > 60 (> 60)
[2019-04-14] MEDS: *HR* Heparin 5,000 UNIT/ML VIAL SQ SCH ×3 (05:30→21:50)
[2019-04-14] MEDS: Pantoprazole 40 MG VIAL IVP SCH ×2 (05:30→18:02)
[2019-04-14] MEDS: Insulin LISPRO 300 UNITS/3 ML VIAL SQ SCH ×3 (07:50→18:01)
[2019-04-14] MEDS: Ondansetron 4 MG/2 ML VIAL IVP PRN (08:35)
[2019-04-14] MEDS ORDERED: *HR* Metoprolol 5 MG/5 ML VIAL IVP PRN (08:45)
[2019-04-14] MEDS: lisinopriL 20 MG TABLET PO SCH (08:48)
[2019-04-14] MEDS: *HR* HYDROmorphone 2 MG/ML SYRINGE IVP PRN ×2 (08:55→16:02)
[2019-04-14] MEDS ORDERED: *HR* LORazepam 2 MG/ML VIAL IVP ONE (10:07)
[2019-04-14] MEDS: traZODone 50 MG TABLET PO SCH (21:49)
[2019-04-15] MEDS: Insulin LISPRO 300 UNITS/3 ML VIAL SQ SCH ×5 (01:14→21:31)
[2019-04-15] MEDS: Piperacillin/Tazobactam 3.375 GM in 0.9 % Sodium Chloride Mini Bag 100 ML IVPB SCH ×4 (01:29→23:43)
[2019-04-15] MEDS: 0.9 % Sodium Chloride 1,000 ML IVC SCH (01:30)
[2019-04-15 05:37] LABS: Basophils # 0.1 K/mcL (0.0-0.2); Basophils % 1.2 %; Eosinophils # 0.3 K/mcL (0.0-0.6); Eosinophils % 4.2 %; Hematocrit 32.5 % (35.3-44.9); Hemoglobin 10.5 g/dL (11.5-15.4); Immature Granulocytes % 0.6 % (0-4); Lymphocytes # 1.6 K/mcL (0.6-4.6); Lymphocytes % 24.5 %; Mean Corpuscular HGB Conc 32.3 g/dL (31.6-35.5); Mean Corpuscular Volume 92.9 fL (83.0-100.0); Mean Platelet Volume 8.2 fL (9.4-12.4); Monocytes # 0.7 K/mcL (0.0-1.3); Monocytes % 10.6 %; Neutrophils # 3.8 K/mcL (1.6-8.9); Platelet Count 185 K/mcL (140-400); Red Cell Distribution Width 13.9 % (11.5-14.5); Segmented Neutrophils % 58.9 %; White Blood Count 6.5 K/mcL (4.3-11.1)
[2019-04-15] MEDS: Pantoprazole 40 MG VIAL IVP SCH (06:00)
[2019-04-15] MEDS: *HR* Heparin 5,000 UNIT/ML VIAL SQ SCH ×3 (06:00→21:34)
[2019-04-15 06:04] LABS: BUN/Creatinine Ratio 11 (6-26); Blood Urea Nitrogen 5 mg/dL (8-23); Calcium 7.8 mg/dL (8.6-10.3); Carbon Dioxide 27 mEq/L (23-29); Chloride 102 mEq/L (98-107); Glucose 162 mg/dL (70-105); Osmolality,Calculated 285 (280-300); Potassium 3.1 mEq/L (3.5-5.1); Sodium 137 mEq/L (136-145); eGFR For African Americans > 60 (> 60); eGFR For Non-African Americans > 60 (> 60)
[2019-04-15] MEDS: *HR* OxyCODONE Immed Rel 5 MG TABLET PO PRN ×3 (06:05→21:33)
[2019-04-15] MEDS ORDERED: Potassium Chloride Elixir 20 MEQ/15 ML UDC PO ONE (08:00)
[2019-04-15] MEDS: lisinopriL 20 MG TABLET PO SCH (08:31)
[2019-04-15] MEDS: traZODone 50 MG TABLET PO SCH (21:32)
[2019-04-16] MEDS: *HR* OxyCODONE Immed Rel 5 MG TABLET PO PRN ×2 (04:20→12:09)
[2019-04-16] MEDS: *HR* Heparin 5,000 UNIT/ML VIAL SQ SCH (05:38)
[2019-04-16 06:43] LABS: BUN/Creatinine Ratio 12 (6-26); Blood Urea Nitrogen 5 mg/dL (8-23); Calcium 7.7 mg/dL (8.6-10.3); Carbon Dioxide 24 mEq/L (23-29); Chloride 101 mEq/L (98-107); Glucose 145 mg/dL (70-105); Osmolality,Calculated 278 (280-300); Potassium 3.5 mEq/L (3.5-5.1); Sodium 134 mEq/L (136-145); eGFR For African Americans > 60 (> 60); eGFR For Non-African Americans > 60 (> 60)
[2019-04-16] MEDS: Insulin LISPRO 300 UNITS/3 ML VIAL SQ SCH ×2 (08:57→12:09)
[2019-04-16] MEDS: lisinopriL 20 MG TABLET PO SCH (09:33)
[2019-04-16 11:21] VITALS: BP 179/89
== END 2019-04-16 14:40 ==
LOC: 3ANU 15:58 → EMEROOARM 15:58 → 3ANU 20:10 → SUATTDRO 21:07
PROVIDERS: ADMIT Internal Medicine; ATTEND Internal Medicine

== ENCOUNTER 2019-04-19 23:10 | Observation (INO) ==
[2019-04-19] MEDS ORDERED: 0.9 % Sodium Chloride 1,000 ML IVC ONE (23:18)
[2019-04-19] MEDS ORDERED: Ondansetron 4 MG/2 ML VIAL IVP ONE (23:18)
[2019-04-20 01:01] LABS: Bilirubin,Urine Small (Negative); Blood,Urine Negative (Negative); Clarity,Urine Clear (Clear); Color,Urine Yellow (Yellow); Glucose,Urine (UA) Normal (Normal); Ketones,Urine 40 mg/dL (Negative); Leukocyte Esterase,Urine Negative (Negative); Nitrite,Urine Negative (Negative); PH,Urine 6.5 pH Units (5.0-8.0); Protein,Urine 30 mg/dL (Neg-Trace); Specific Gravity,Urine 1.021 (1.010-1.025); Urobilinogen,Urine Normal (Normal)
[2019-04-20 01:03] LABS: Bacteria,Urine None Seen per hpf (None-Few); Hyaline Casts,Urine None Seen per lpf (None-Few); Squamous Epithelial Cell,Urine Many per lpf (None-Few); WBC,Urine 0-3 per hpf (0-3)
[2019-04-20 01:09] LABS: Basophils # 0.1 K/mcL (0.0-0.2); Basophils % 0.9 %; Eosinophils # 0.3 K/mcL (0.0-0.6); Eosinophils % 3.3 %; Hematocrit 32.5 % (35.3-44.9); Hemoglobin 10.8 g/dL (11.5-15.4); Immature Granulocytes % 1.6 % (0-4); Lymphocytes # 1.8 K/mcL (0.6-4.6); Lymphocytes % 19.7 %; Mean Corpuscular HGB Conc 33.2 g/dL (31.6-35.5); Mean Corpuscular Hemoglobin 30.2 pg (28.0-33.3); Mean Corpuscular Volume 90.8 fL (83.0-100.0); Mean Platelet Volume 8.4 fL (9.4-12.4); Monocytes # 0.6 K/mcL (0.0-1.3); Neutrophils # 6.3 K/mcL (1.6-8.9); Platelet Count 289 K/mcL (140-400); Red Blood Count 3.58 M/mcL (3.82-4.97); Red Cell Distribution Width 13.8 % (11.5-14.5); Segmented Neutrophils % 68.5 %; White Blood Count 9.2 K/mcL (4.3-11.1)
[2019-04-20 01:24] LABS: Alanine Aminotransferase 9 Units/L (7-52); Albumin 2.9 g/dL (3.5-5.7); Albumin/Globulin Ratio 1.1 (1.1-2.2); Alkaline Phosphatase 95 Units/L (34-104); Aspartate Amino Transferase 15 Units/L (13-39); BUN/Creatinine Ratio 15 (6-26); Bilirubin,Total 0.5 mg/dL (0.3-1.0); Blood Urea Nitrogen 6 mg/dL (8-23); Calcium 7.6 mg/dL (8.6-10.3); Carbon Dioxide 26 mEq/L (23-29); Chloride 100 mEq/L (98-107); Globulin 2.6 g/dL (2.4-3.5); Glucose 88 mg/dL (70-105); Osmolality,Calculated 275 (280-300); Potassium 3.8 mEq/L (3.5-5.1); Sodium 134 mEq/L (136-145); Total Protein 5.5 g/dL (6.4-8.9); Troponin I < 0.03 ng/mL (< 0.04); eGFR For African Americans > 60 (> 60); eGFR For Non-African Americans > 60 (> 60)
[2019-04-20] MEDS ORDERED: Ipratropium/Albuterol Neb 3 ML IH PRN (02:19)
[2019-04-20] MEDS ORDERED: Naloxone 0.4 MG/ML INJ IVP PRN (03:04)
[2019-04-20] MEDS ORDERED: *HR* Dextrose 50 % in Water (Syg) 50 ML SYRINGE IVP PRN (03:43)
[2019-04-20] MEDS ORDERED: Dextrose Gel 15 GM/37.5 ML TUBE PO PRN ×2 (03:43)
[2019-04-20] MEDS ORDERED: D5% in Water 1,000 ML IVC PRN (03:43)
[2019-04-20] MEDS: 0.9 % Sodium Chloride 1,000 ML IVC SCH ×2 (05:15→16:06)
[2019-04-20] MEDS: Insulin LISPRO 300 UNITS/3 ML VIAL SQ SCH ×3 (06:10→17:02)
[2019-04-20] MEDS ORDERED: Methylnaltrexone 12 MG/0.6 ML SYRINGE SQ ONE (11:30)
[2019-04-20] MEDS: Ondansetron 4 MG/2 ML VIAL IVP PRN (13:58)
[2019-04-20] MEDS ORDERED: Melatonin 3 MG TABLET PO PRN (21:24)
[2019-04-20] MEDS ORDERED: *HR* LORazepam 0.5 MG TABLET PO PRN (22:52)
[2019-04-21] MEDS: Insulin LISPRO 300 UNITS/3 ML VIAL SQ SCH ×3 (00:27→11:53)
[2019-04-21 02:34] LABS: Basophils # 0.1 K/mcL (0.0-0.2); Basophils % 0.9 %; Eosinophils # 0.6 K/mcL (0.0-0.6); Eosinophils % 6.9 %; Hematocrit 31.7 % (35.3-44.9); Hemoglobin 10.8 g/dL (11.5-15.4); Immature Granulocytes % 1.2 % (0-4); Lymphocytes # 2.2 K/mcL (0.6-4.6); Lymphocytes % 23.8 %; Mean Corpuscular HGB Conc 34.1 g/dL (31.6-35.5); Mean Corpuscular Hemoglobin 30.7 pg (28.0-33.3); Mean Corpuscular Volume 90.1 fL (83.0-100.0); Mean Platelet Volume 8.2 fL (9.4-12.4); Monocytes # 0.8 K/mcL (0.0-1.3); Monocytes % 8.4 %; Neutrophils # 5.3 K/mcL (1.6-8.9); Platelet Count 292 K/mcL (140-400); Red Blood Count 3.52 M/mcL (3.82-4.97); Red Cell Distribution Width 13.8 % (11.5-14.5); Segmented Neutrophils % 58.8 %; White Blood Count 9.1 K/mcL (4.3-11.1)
[2019-04-21 02:51] LABS: BUN/Creatinine Ratio 8 (6-26); Blood Urea Nitrogen 3 mg/dL (8-23); Calcium 7.9 mg/dL (8.6-10.3); Carbon Dioxide 28 mEq/L (23-29); Chloride 100 mEq/L (98-107); Glucose 121 mg/dL (70-105); Magnesium 1.5 mg/dL (1.6-2.6); Osmolality,Calculated 274 (280-300); Phosphorous 2.6 mg/dL (2.7-4.5); Sodium 133 mEq/L (136-145); eGFR For African Americans > 60 (> 60); eGFR For Non-African Americans > 60 (> 60)
[2019-04-21] MEDS: 0.9 % Sodium Chloride 1,000 ML IVC SCH (04:13)
[2019-04-21] MEDS ORDERED: Gabapentin 400 MG CAPSULE PO SCH (09:00)
[2019-04-21] MEDS: lisinopriL 20 MG TABLET PO SCH ×2 (10:02)
[2019-04-21] MEDS: Ondansetron 4 MG/2 ML VIAL IVP PRN (11:57)
[2019-04-21 14:21] VITALS: BP 134/73
== END 2019-04-21 15:46 ==
LOC: EMEROOARM 23:10 → 3BNU 23:10 → SUATTDRO 04-20 01:55 → 3BNU 04-20 02:13
PROVIDERS: ADMIT Internal Medicine; ATTEND Internal Medicine

== ENCOUNTER 2019-06-12 21:30 | Observation (INO) ==
[2019-06-12 22:47] LABS: BUN/Creatinine Ratio 27 (6-26); Blood Urea Nitrogen 17 mg/dL (8-23); Calcium 7.4 mg/dL (8.6-10.3); Carbon Dioxide 26 mEq/L (23-29); Chloride 95 mEq/L (98-107); Creatine Kinase 44 Units/L (30-223); Glucose 116 mg/dL (70-105); Osmolality,Calculated 271 (280-300); Potassium 3.6 mEq/L (3.5-5.1); Sodium 129 mEq/L (136-145); eGFR For African Americans > 60 (> 60); eGFR For Non-African Americans > 60 (> 60)
[2019-06-12 22:48] LABS: Troponin I < 0.03 ng/mL (< 0.04)
[2019-06-12 22:59] LABS: Basophils # 0.2 K/mcL (0.0-0.2); Basophils % 1.5 %; Eosinophils # 0.1 K/mcL (0.0-0.6); Eosinophils % 0.7 %; Hematocrit 40.7 % (35.3-44.9); Hemoglobin 13.3 g/dL (11.5-15.4); Immature Granulocytes % 0.5 % (0-4); Lymphocytes # 3.2 K/mcL (0.6-4.6); Lymphocytes % 28.9 %; Mean Corpuscular HGB Conc 32.7 g/dL (31.6-35.5); Mean Corpuscular Hemoglobin 29.8 pg (28.0-33.3); Mean Corpuscular Volume 91.3 fL (83.0-100.0); Mean Platelet Volume 8.5 fL (9.4-12.4); Monocytes # 0.7 K/mcL (0.0-1.3); Monocytes % 6.6 %; Neutrophils # 6.8 K/mcL (1.6-8.9); Platelet Count 177 K/mcL (140-400); Red Blood Count 4.46 M/mcL (3.82-4.97); Red Cell Distribution Width 13.5 % (11.5-14.5); Segmented Neutrophils % 61.8 %
[2019-06-13] MEDS ORDERED: Naloxone 0.4 MG/ML INJ IVP PRN (02:12)
[2019-06-13] MEDS ORDERED: Dextrose Gel 15 GM/37.5 ML TUBE PO PRN ×2 (03:40)
[2019-06-13] MEDS ORDERED: D5% in Water 1,000 ML IVC PRN (03:40)
[2019-06-13] MEDS ORDERED: *HR* Dextrose 50 % in Water (Syg) 50 ML SYRINGE IVP PRN (03:40)
[2019-06-13 04:52] LABS: Hematocrit 38.3 % (35.3-44.9); Hemoglobin 12.6 g/dL (11.5-15.4); Mean Corpuscular HGB Conc 32.9 g/dL (31.6-35.5); Mean Corpuscular Hemoglobin 29.9 pg (28.0-33.3); Mean Corpuscular Volume 90.8 fL (83.0-100.0); Mean Platelet Volume 8.5 fL (9.4-12.4); Platelet Count 180 K/mcL (140-400); Red Blood Count 4.22 M/mcL (3.82-4.97); Red Cell Distribution Width 13.7 % (11.5-14.5); White Blood Count 9.6 K/mcL (4.3-11.1)
[2019-06-13 05:10] LABS: BUN/Creatinine Ratio 27 (6-26); Blood Urea Nitrogen 17 mg/dL (8-23); Calcium 7.5 mg/dL (8.6-10.3); Carbon Dioxide 29 mEq/L (23-29); Chloride 96 mEq/L (98-107); Glucose 99 mg/dL (70-105); Osmolality,Calculated 274 (280-300); Potassium 3.6 mEq/L (3.5-5.1); Sodium 131 mEq/L (136-145); eGFR For African Americans > 60 (> 60); eGFR For Non-African Americans > 60 (> 60)
[2019-06-13] MEDS ORDERED: Ondansetron ODT 4 MG TAB.RAPDIS PO PRN (08:02)
[2019-06-13] MEDS ORDERED: Ipratropium/Albuterol Neb 3 ML IH PRN (08:02)
[2019-06-13] MEDS: Insulin LISPRO 300 UNITS/3 ML VIAL SQ SCH ×4 (08:17→21:00)
[2019-06-13] MEDS: Gabapentin 300 MG CAPSULE PO SCH ×2 (08:19→15:45)
[2019-06-13] MEDS: 0.9 % Sodium Chloride 1,000 ML IVC SCH ×2 (08:30→16:45)
[2019-06-13] MEDS: Nystatin POWDER 30 GM BOTTLE TP SCH ×3 (08:38→21:09)
[2019-06-13] MEDS: METHYLNALTREXONE BROMIDE 150 MG PO SCH (08:38)
[2019-06-13] MEDS ORDERED: lisinopriL 20 MG TABLET PO SCH (09:00)
[2019-06-13] MEDS: traZODone 50 MG TABLET PO SCH (21:10)
[2019-06-13] MEDS: Acetaminophen 325 MG TABLET PO PRN (22:28)
[2019-06-14] MEDS: 0.9 % Sodium Chloride 1,000 ML IVC SCH ×3 (00:45→22:00)
[2019-06-14] MEDS: Insulin LISPRO 300 UNITS/3 ML VIAL SQ SCH ×4 (08:31→22:05)
[2019-06-14] MEDS: Acetaminophen 325 MG TABLET PO PRN (10:24)
[2019-06-14] MEDS: Nystatin POWDER 30 GM BOTTLE TP SCH ×3 (10:31→22:08)
[2019-06-14] MEDS: METHYLNALTREXONE BROMIDE 150 MG PO SCH (10:31)
[2019-06-14] MEDS: traZODone 50 MG TABLET PO SCH (22:02)
[2019-06-15 05:42] LABS: Hematocrit 32.6 % (35.3-44.9); Mean Corpuscular HGB Conc 32.8 g/dL (31.6-35.5); Mean Corpuscular Hemoglobin 30.4 pg (28.0-33.3); Mean Corpuscular Volume 92.6 fL (83.0-100.0); Platelet Count 134 K/mcL (140-400); Red Blood Count 3.52 M/mcL (3.82-4.97); Red Cell Distribution Width 13.9 % (11.5-14.5); White Blood Count 4.9 K/mcL (4.3-11.1)
[2019-06-15 05:43] LABS: Hemoglobin 10.7 g/dL (11.5-15.4)
[2019-06-15 06:04] LABS: BUN/Creatinine Ratio 19 (6-26); Blood Urea Nitrogen 11 mg/dL (8-23); Carbon Dioxide 27 mEq/L (23-29); Chloride 104 mEq/L (98-107); Glucose 95 mg/dL (70-105); Osmolality,Calculated 277 (280-300); Potassium 4.1 mEq/L (3.5-5.1); Sodium 134 mEq/L (136-145); eGFR For African Americans > 60 (> 60); eGFR For Non-African Americans > 60 (> 60)
[2019-06-15] MEDS: 0.9 % Sodium Chloride 1,000 ML IVC SCH ×2 (06:12→17:05)
[2019-06-15] MEDS: Insulin LISPRO 300 UNITS/3 ML VIAL SQ SCH ×3 (07:35→17:05)
[2019-06-15] MEDS: METHYLNALTREXONE BROMIDE 150 MG PO SCH (08:19)
[2019-06-15] MEDS: Nystatin POWDER 30 GM BOTTLE TP SCH ×2 (08:31→17:05)
[2019-06-15 16:12] VITALS: BP 121/81
== END 2019-06-15 17:19 ==
LOC: 3BNU 21:30 → EMEROOARM 21:30 → 3BNU 06-13 00:27
PROVIDERS: ADMIT Internal Medicine; ATTEND Internal Medicine

== ENCOUNTER 2019-08-17 22:33 | Inpatient (IN) ==
[2019-08-17] MEDS ORDERED: *HR* Dextrose 50 % in Water (Vial) 50 ML VIAL ONE ×2 (22:39→22:50)
[2019-08-17] MEDS ORDERED: *HR* Dextrose 50 % in Water (Vial) 50 ML VIAL IVP ONE ×2 (22:48→22:53)
[2019-08-17] MEDS ORDERED: 0.9 % Sodium Chloride 1,000 ML IVC ONE ×3 (22:54→23:39)
[2019-08-17] MEDS ORDERED: cefTRIAXone 2,000 MG in Water for inj. (sterile) 20 ML IVP ONE (23:22)
[2019-08-17 23:39] LABS: Basophils % 0.1 %; Hematocrit 20.5 % (35.3-44.9); Hemoglobin 6.6 g/dL (11.5-15.4); Immature Granulocytes % 1.3 % (0-4); Lymphocytes # 1.7 K/mcL (0.6-4.6); Lymphocytes % 12.4 %; Mean Corpuscular HGB Conc 32.2 g/dL (31.6-35.5); Mean Corpuscular Hemoglobin 30.8 pg (28.0-33.3); Mean Corpuscular Volume 95.8 fL (83.0-100.0); Mean Platelet Volume 9.5 fL (9.4-12.4); Monocytes # 0.6 K/mcL (0.0-1.3); Monocytes % 4.2 %; Neutrophils # 11.1 K/mcL (1.6-8.9); Platelet Count 172 K/mcL (140-400); Red Blood Count 2.14 M/mcL (3.82-4.97); Red Cell Distribution Width 16.2 % (11.5-14.5); White Blood Count 13.5 K/mcL (4.3-11.1)
[2019-08-17] MEDS ORDERED: Lactulose Oral Soln 20 GM/30 ML UDC PO ONE (23:40)
[2019-08-17 23:43] LABS: INR 1.9; Prothrombin Time 21.9 Seconds (9.4-12.1)
[2019-08-17 23:48] LABS: Alanine Aminotransferase 45 Units/L (7-52); Albumin 1.8 g/dL (3.5-5.7); Albumin/Globulin Ratio 0.9 (1.1-2.2); Alkaline Phosphatase 194 Units/L (34-104); Aspartate Amino Transferase 115 Units/L (13-39); BUN/Creatinine Ratio 8 (6-26); Bilirubin,Total 6.5 mg/dL (0.3-1.0); Blood Urea Nitrogen 22 mg/dL (8-23); Calcium 6.1 mg/dL (8.6-10.3); Carbon Dioxide 18 mEq/L (23-29); Chloride 89 mEq/L (98-107); Ethanol < 10 mg/dL (Less than 10); Globulin 2.1 g/dL (2.4-3.5); Glucose 296 mg/dL (70-105); Magnesium 1.3 mg/dL (1.6-2.6); Osmolality,Calculated 276 (280-300); Potassium 5.5 mEq/L (3.5-5.1); Sodium 126 mEq/L (136-145); Total Protein 3.9 g/dL (6.4-8.9); eGFR For African Americans 21 (> 60); eGFR For Non-African Americans 17 (> 60)
[2019-08-17 23:54] LABS: Troponin I 0.04 ng/mL (< 0.04)
[2019-08-18 00:07] LABS: Thyroid Stimulating Hormone 1.293 mcIU/mL (0.340-5.600)
[2019-08-18] MEDS ORDERED: Calcium Gluconate 1gm/50mL 1 GM/50 ML BAG IVPB ONE (00:14)
[2019-08-18] MEDS ORDERED: Magnesium Sulfate 1 GM/102 ML PIGGYBACK IVPB ONE (00:14)
[2019-08-18] MEDS ORDERED: Piperacillin/Tazobactam 3.375 GM in 0.9 % Sodium Chloride Mini Bag 100 ML IVPB ONE (00:16)
[2019-08-18] MEDS ORDERED: levoFLOXacin 750 MG/150 ML 750 MG/150 ML BAG IVPB ONE (00:16)
[2019-08-18] MEDS ORDERED: Albumin 25% 12.5gm/50mL 12.5 GM/50 ML IV.SOLN IVPB ONE (00:34)
[2019-08-18] MEDS ORDERED: 0.9 % Sodium Chloride 1,000 ML ONE (00:49)
[2019-08-18 00:55] LABS: VBG HCO3 19 mEq/L (21-27); VBG PCO2 36 mmHg (41-51); VBG PH 7.34 pH Units (7.32-7.42); VBG PO2 69 mmHg (25-50)
[2019-08-18] MEDS ORDERED: Vancomycin 1,750 MG/517.5 ML IV.SOLN IVPB ONE (01:00)
[2019-08-18 01:11] LABS: VBG Ionized Calcium 0.84 mmol/L (1.15-1.35)
[2019-08-18] MEDS ORDERED: Dextrose Gel 15 GM/37.5 ML TUBE PO PRN ×2 (02:20)
[2019-08-18] MEDS ORDERED: *HR* Dextrose 50 % in Water (Vial) 50 ML VIAL IVP PRN (02:20)
[2019-08-18] MEDS ORDERED: D5% in Water 1,000 ML IVC PRN (02:20)
[2019-08-18] MEDS ORDERED: Naloxone 0.4 MG/ML INJ IVP PRN (02:27)
[2019-08-18] MEDS ORDERED: Lactulose Oral Soln 20 GM/30 ML UDC PO SCH (02:30)
[2019-08-18] MEDS ORDERED: 0.9 % Sodium Chloride 1,000 ML IVC SCH (02:30)
[2019-08-18 02:45] LABS: Bilirubin,Direct 4.5 mg/dL (0.0-0.2)
[2019-08-18] MEDS ORDERED: D5% in 0.45% NACL 1,000 ML IVC SCH ×2 (03:30→04:16)
[2019-08-18] MEDS: Insulin LISPRO 300 UNITS/3 ML VIAL SQ SCH ×5 (04:12→11:16)
[2019-08-18] MEDS ORDERED: 0.9 % Sodium Chloride 500 ML ONE (04:22)
[2019-08-18] MEDS: Lactulose Oral Soln 20 GM/30 ML UDC GTUBE SCH ×2 (04:29→09:23)
[2019-08-18 04:44] LABS: Basophils % 0.1 %; Hematocrit 21.7 % (35.3-44.9); Hemoglobin 6.7 g/dL (11.5-15.4); Lymphocytes # 1.4 K/mcL (0.6-4.6); Lymphocytes % 14.6 %; Mean Corpuscular HGB Conc 30.9 g/dL (31.6-35.5); Mean Corpuscular Hemoglobin 30.7 pg (28.0-33.3); Mean Corpuscular Volume 99.5 fL (83.0-100.0); Mean Platelet Volume 9.2 fL (9.4-12.4); Monocytes # 0.4 K/mcL (0.0-1.3); Monocytes % 3.8 %; Neutrophils # 7.7 K/mcL (1.6-8.9); Nucleated Red Blood Cells 0.2 /100 WBC (0); Platelet Count 157 K/mcL (140-400); Red Blood Count 2.18 M/mcL (3.82-4.97); Red Cell Distribution Width 16.3 % (11.5-14.5); Segmented Neutrophils % 80.5 %; White Blood Count 9.6 K/mcL (4.3-11.1)
[2019-08-18 04:57] LABS: ABG Base Excess -10 mEq/L (-2 to 3); ABG HCO3 15 mEq/L (21-27); ABG Oxygen Saturation 88 % (95-98); ABG PCO2 28 mmHg (35-45); ABG PH 7.34 pH Units (7.32-7.45); ABG PO2 57 mmHg (85-104); ABG TCO2 16 mEq/L (20-26)
[2019-08-18 05:00] LABS: Gamma Glutamyl Transpeptidase 154 Units/L (7-64); Lipase 4 Units/L (11-82)
[2019-08-18 05:09] LABS: Acetaminophen < 10 mcg/mL (10-20); Alanine Aminotransferase 46 Units/L (7-52); Alkaline Phosphatase 195 Units/L (34-104); Aspartate Amino Transferase 116 Units/L (13-39); BUN/Creatinine Ratio 8 (6-26); Bilirubin,Direct 4.7 mg/dL (0.0-0.2); Bilirubin,Total 6.7 mg/dL (0.3-1.0); Blood Urea Nitrogen 21 mg/dL (8-23); Calcium 6.2 mg/dL (8.6-10.3); Carbon Dioxide 15 mEq/L (23-29); Chloride 94 mEq/L (98-107); Globulin 2.1 g/dL (2.4-3.5); Glucose 87 mg/dL (70-105); Iron 68 mcg/dL (50-170); Magnesium 1.5 mg/dL (1.6-2.6); Osmolality,Calculated 272 (280-300); Phosphorous 4.3 mg/dL (2.7-4.5); Potassium 5.2 mEq/L (3.5-5.1); Salicylate < 2.5 mg/dL (15.0-30.0); Sodium 130 mEq/L (136-145); Total Protein 4.1 g/dL (6.4-8.9); Transferrin < 75 mg/dL (203-362); Troponin I 0.04 ng/mL (< 0.04); eGFR For African Americans 22 (> 60); eGFR For Non-African Americans 18 (> 60)
[2019-08-18 05:20] LABS: Hepatitis B Surface Antigen Nonreactive (Nonreactive)
[2019-08-18 05:35] LABS: Ferritin 305 ng/mL (10-120)
[2019-08-18] MEDS: Norepinephrine 4 MG/254 ML IV.SOLN IVC SCH ×3 (05:36→10:47)
[2019-08-18 05:49] LABS: Hepatitis C Virus Antibody Nonreactive (Nonreactive)
[2019-08-18 05:50] LABS: Hepatitis A Antibody IgM Nonreactive (Nonreactive); Hepatitis B Core IgM Nonreactive (Nonreactive)
[2019-08-18] MEDS ORDERED: Sodium Bicarbonate 150 MEQ in D5% in Water 1,000 ML IVC SCH (06:00)
[2019-08-18] MEDS ORDERED: Vasopressin 40 UNIT in D5% in Water 100 ML IVC SCH (07:15)
[2019-08-18] MEDS: Albumin Human 5% 12.5 GM/250 ML IV.SOLN IVC SCH ×2 (07:25→07:42)
[2019-08-18] MEDS ORDERED: Albuterol 2.5 MG/3 ML NEBULIZER IH PRN (07:53)
[2019-08-18] MEDS ORDERED: Artificial Tears SOLN 15 ML BOTTLE BOTH EYES PRN (07:53)
[2019-08-18] MEDS ORDERED: Pantoprazole 40 MG VIAL IVP SCH (08:00)
[2019-08-18] MEDS ORDERED: Hydrocortisone Sodium Succ 100 MG/2 ML VIAL IVP SCH (08:00)
[2019-08-18] MEDS ORDERED: Vancomycin 1,750 MG in 0.9 % Sodium Chloride 250 ML IVPB SCH (08:00)
[2019-08-18] MEDS ORDERED: Artificial Tears SOLN 15 ML BOTTLE BOTH EYES SCH (08:00)
[2019-08-18] MEDS ORDERED: Midazolam HCl 50 MG/100 ML IV.SOLN IVC SCH (08:00)
[2019-08-18] MEDS ORDERED: FentaNYL (PF) 1,000 MCG/100 ML IV.SOLN IVC SCH (08:00)
[2019-08-18 08:54] LABS: VBG Ionized Calcium 0.86 mmol/L (1.15-1.35)
[2019-08-18] MEDS ORDERED: Chlorhexidine Rinse 15 ML MOUTHWASH MM SCH (09:00)
[2019-08-18 09:13] LABS: Albumin 2.8 g/dL (3.5-5.7); Albumin/Globulin Ratio 1.4 (1.1-2.2); Bilirubin,Direct 5.2 mg/dL (0.0-0.2); Bilirubin,Indirect 2.4 mg/dL (0.0-1.0); Bilirubin,Total 7.6 mg/dL (0.3-1.0); Calcium 6.5 mg/dL (8.6-10.3); Magnesium 1.5 mg/dL (1.6-2.6); Phosphorous 4.9 mg/dL (2.7-4.5); Potassium 4.9 mEq/L (3.5-5.1); Total Protein 4.8 g/dL (6.4-8.9)
[2019-08-18 09:18] LABS: Estimated Average Glucose 82 mg/dl
[2019-08-18 09:22] LABS: Prothrombin Time 22.2 Seconds (9.4-12.1)
[2019-08-18 09:24] LABS: Activated Partial Thrombo Time 61.2 Seconds (26.0-36.0)
[2019-08-18] MEDS: Phenylephrine 10 MG in 0.9 % Sodium Chloride 250 ML IVC SCH ×2 (09:30→11:19)
[2019-08-18] MEDS ORDERED: Micafungin 100 MG in 0.9 % Sodium Chloride Mini Bag 100 ML IVPB SCH (09:30)
[2019-08-18] MEDS ORDERED: Calcium Chloride 1,000 MG in 0.9 % Sodium Chloride 100 ML IVPB ONE (09:37)
[2019-08-18] MEDS ORDERED: Amiodarone Premix 360 MG/200 ML BAG IVC ONE (09:53)
[2019-08-18] MEDS ORDERED: Amiodarone Premix 360 MG/200 ML BAG IVC SCH ×2 (10:00→16:00)
[2019-08-18] MEDS ORDERED: Ipratropium/Albuterol Neb 3 ML IH SCH (10:00)
[2019-08-18] MEDS ORDERED: Sodium Bicarbonate 50 MEQ/50 ML VIAL IVP ONE (10:24)
[2019-08-18 10:25] LABS: ABG Base Excess -18 mEq/L (-2 to 3); ABG HCO3 13 mEq/L (21-27); ABG Oxygen Saturation 95 % (95-98); ABG PCO2 49 mmHg (35-45); ABG PH 7.02 pH Units (7.32-7.45); ABG PO2 112 mmHg (85-104); ABG TCO2 14 mEq/L (20-26); Blood Gas VT 450 cc
[2019-08-18] MEDS ORDERED: Phenylephrine 50 MG in 0.9 % Sodium Chloride 250 ML IVC SCH (11:00)
[2019-08-18 11:15] VITALS: BP 111/76
[2019-08-18] MEDS ORDERED: Atropine Sulfate 1% 40 DROP/2 ML BOTTLE SL PRN (11:42)
[2019-08-18] MEDS ORDERED: *HR* FentaNYL (PF) 100 MCG/2 ML VIAL IVP ONE (11:42)
[2019-08-18] MEDS ORDERED: *HR* LORazepam 2 MG/ML VIAL IVP PRN (11:42)
[2019-08-18] MEDS ORDERED: Piperacillin/Tazobactam 3.375 GM in 0.9 % Sodium Chloride Mini Bag 100 ML IVPB SCH (12:00)
[2019-08-18 13:27] LABS: Procalcitonin 3.49 ng/mL (0.00-0.15)
[2019-08-19] MEDS ORDERED: levoFLOXacin 750 MG/150 ML 750 MG/150 ML BAG IVPB SCH (21:00)
== END 2019-08-18 14:22 | disposition expired | DRG 871 ==
LOC: EMEROOARM 22:33 → ICNU 22:33
PROVIDERS: ADMIT Student in an Organized Health Care Education/Training Program; ATTEND Student in an Organized Health Care Education/Training Program